=== PATIENT | female | born 2005 | race Caucasian/White ===

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

== ENCOUNTER 2024-07-28 08:30 | Outpatient (RCR) | payer BC, SELFPAY | END 2024-11-25 23:59 | disposition home or self-care (01) | PROVIDERS: Visit Provider Internal Medicine | DX: Q79.62 Hypermobile Ehlers-Danlos syndrome (principal); Q79.60 Ehlers-Danlos syndrome, unspecified; F84.0 Autistic disorder; H53.149 Visual discomfort, unspecified; F90.9 Attention-deficit hyperactivity disorder, unspecified type; G89.29 Other chronic pain; M25.30 Other instability, unspecified joint; Z51.89 Encounter for other specified aftercare | CPT/HCPCS: 97140; 97162; 97165; 97530; 97535 ==

== ENCOUNTER 2024-12-07 19:02 | Outpatient (CLI) | payer BC, SELFPAY ==
[2024-12-07 20:56] LABS: C Reactive Protein* < 0.5 mg/dL (0.5-1.0)
[2024-12-07 22:07] LABS: Erythrocyte SedimentationRate* 6 mm/hr (2-20)
[2024-12-09 05:00] LABS: Complement Component 3 109 mg/dL (90-180); Complement Component 4 16 mg/dL (10-40)
[2024-12-09 05:04] LABS: Rheumatoid Factor <10 IU/mL (0-14)
[2024-12-09 07:10] LABS: CCP Antibody, IgG and IgA 1 Units (0-19)
[2024-12-09 07:49] LABS: Immunoglobulin A 119 mg/dL (68-408); Immunoglobulin G 1062 mg/dL (768-1632); Immunoglobulin M 156 mg/dL (35-263)
[2024-12-09 10:02] LABS: Anti-Nuclear Ab(ANA)IgG ELISA None Detected (None Detected)
[2024-12-09 16:31] LABS: Immunoglobulin E 33 kU/L (<=214)
[2024-12-10 00:54] LABS: ANCA IFA Pattern None Detected (None Detected); ANCA IFA Titer <1:20 (<1:20); Myeloperoxidase (MPO) Ab, IgG 0 AU/mL (0-19); Serine Proteinase 3 Ab IgG 0 AU/mL (0-19)
[2024-12-10 11:22] LABS: Double-Stranded DNA IgG IFA <1:10 (<1:10)
== END 2024-12-07 19:03 | disposition home or self-care (01) ==
PROVIDERS: Visit Provider Internal Medicine
DX: L65.9 Nonscarring hair loss, unspecified (principal); R51.9 Headache, unspecified; M19.90 Unspecified osteoarthritis, unspecified site; D75.89 Other specified diseases of blood and blood-forming organs
CPT/HCPCS: 82784; 82785; 82787; 83036; 83516; 83520; 85651; 86038; 86140; 86160; 86162; 86200; 86235; 86256; 86431; 87385

== ENCOUNTER 2024-12-09 15:01 | Emergency (ER) | payer BC, SELFPAY ==
--- OUTSIDE RECORDS SUMMARY | 2024-12-09 15:03 | XMS_ITS | Encounter Summary ---
Author Organization [facility] Address [address] [place] [address] Care Team Providers Care Supervisor Asbestos Textile Name Role Phone Royal Martins MD Primary Care Provider [phone] Reason for Visit * Reason Comments New Patient Appointment Vocal Cord Dysfu nction Encounter Details Date Type Department Care Team (Late st Contact Info) Description 11/24/2024 1:00 PM PDT Office Visit [facility] [address] [facility] [address] [place] [address] Saravanan Arriaga MD [address] [facility] [address] [place], [place] [id number] LPRD (laryngopharyngeal reflux disease) (Primary Dx); Chronic maxillary sinusitis; POTS (postural orthostatic tachycardia syndrome) Social History Tobacco Use Types Packs/Day Years Used Date Smoking Tobacco: Never Smokeless Tobacco: Never Alcohol Use Standard Drinks/Week Comments Never 0 (1 standard drink = 0.6 oz pur e alcohol) Comments Unknown Sex and Gender Information Value Date Recorded Sex Assigned at Not on file Legal Sex Female 12:30 PM PDT Gender Identity Not on file Sexual Orientation Not on file documented as of this encounter Last Filed Vital Signs Vital Sign Reading Time Taken Comments Blood Pressure 105/72 11/24/2024 12:59 PM PDT Pulse 61 11/24/2024 12:59 PM PDT Temperature - - Respiratory Rate - - Oxygen Saturation 99% 11/24/2024 12:59 PM PDT Inhaled Oxygen Concentration - - Weight 63.5 kg (140 lb) 11/24/2024 12:59 PM PDT Height 171.5 cm (5' 7.5) 11/24/2024 12:59 PM PD T Body Mass Index 21.6 11/24/2024 12:59 PM PDT documented in this encounter Progress Notes * Saravanan Arriaga MD - 11/24/2024 1:00 PM PDT Images from the original note were not included. [facility] Otolaryngology History & Physical Exam Patient Name: Laurie Pulido Date of Service: 11/24/2024 Date of : 2005 Clinic Medical Record: [id number] Primary Care Physician: Royal Martins MD Referring Physician: Royal Martins MD HPI: CC: Chief Complaint Patient presents with New Patient Appointment Vocal Cord Dysfunction Laurie Pulido is a 18 y.o. female with symptoms of disordered breathing of unclear etiology. There is a history of asthma but pulmonary function and symptoms are not consistent with asthma alone. Patient has had an extensive workup with our colleagues in asthma and allergy. PFT data has been inconsi stent. Patient is also undergoing an autonomic workup for what likely is a variant of POTS. 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 Patient was referred to me for a possible evaluation of vocal cord dysfunction or laryngeal spasm. Patient reports that her symptoms of throat tightness can occur both at rest and with activity. This would be a primary argument against true laryngeal spasm which is generally felt to be only experienced at times of activity. Patient has had an extensive workup. One of the possibilities is thyroid disease but patient's thyroid has been fully investigated. Patient's endocrine system has been evaluated. Menstrual cycle is regular. Patient does describe intermittent symptoms of reflux. She has not been tried on reflux medication. She has been thoroughly tested for allergies. She has been thoroughly worked up for asthma. She has also been worked up extensively by the autonomic group at [facility]. She has had a tilt table test which was positive and suggest POTS. It was suggested to the patient that she try propranolol. This would not have been my recommendation. I do think the patient would likely benefit from the use of a mineralocorticoid steroid such as Florinef. Interestingly patient has a family member who has POTS and has been successfully treated with Florinef. Chart Data Reviewed in Detail Today: 08/05/2024 10:26 AM PST US THYROID Clinical Indication: Goiter. Thyroid nodule. Priors: None. Technique: Real-time, small parts ultrasound evaluation of the thyroid gland was performed. Findings: Size right lobe; 4.2 x 1.4 x 1 point cm. Size left lobe; 3.9 x 1.2 x 0.9 cm. Size isthmus; 2.4 mm. Nodule : 1 Size: 4 x 4 by 4 mm. Location:Left midpole. Composition: Solid/almost completely solid (2) Echogenicity: Hypoechoic (2) Shape: Not taller than wide (0) Margins: Smooth (0) Echogenic foci: None (0) ACR TI-RADS total points: 4 ACR TI-RADS risk category: TR 4 (4-6 points) Significant change in size (greater than or equal to 20 percent in 2 dimensions and minimal increase of 2 mm): Not applicable. Change in features: Not applicable. Previous biopsy: no Past Medical History: Diagnosis Date Allergic Asthma Cassie-Danlos syndrome Migraine POTS (postural orthostatic tachycardia syndrome) Past Surgical History: Procedure Laterality Date DENTAL SURGERY Patient Active Problem List Diagnosis Factor V Leiden (HCC) Gastro-esophageal reflux disease with esophagitis Generalized anxiety disorder Social phobia Current Outpatient Medications on File Prior to Visit Medication Sig Dispense Refill aspirin 81 mg chewable tablet Take 81 mg by mouth daily. azelastine 0.15% (ASTEPRO) 205.5 mcg (0.15 %) [place] 205.5 mcg into each nostril 2 (two) times a day. ergocalciferol (VITAMIN D2) 1,250 mcg (50,000 unit) capsule TAKE 1 CAPSULE BY MOUTH EVERY 7 DAYS FOR 8 DOSES erythromycin (ROMYCIN) 0.5 % ophthalmic ointment fluticasone propionate (FLONASE) 50 mcg/actuation nasal spray 2 sprays into each nostril daily. loratadine (CLARITIN) 10 mg tablet Take 10 mg by mouth daily. methylphenidate HCl (RITALIN) 5 MG tablet triamcinolone (KENALOG) 0.1 % ointment Apply topically 2 (two) times a day. 60 g 1 No current facility-administered medications on file prior to visit. No outpatient medications have been marked as taking for the 11/24/24 encounter (Office Visit) with Saravanan Arriaga MD. Medication Allergies: No Known Allergies Social History Tobacco Use Smoking status: Never Smokeless tobacco: Never Substance Use Topics Alcohol use: Never Drug use: Never Family History Problem Relation Age of Onset Allergies Mother Allergies Father Allergies Sister Allergies Brother Review of Systems: Constitutional: Negative for fever, chills, diaphoresis, activity change, appetite change, fatigue and unexpected weight change. HENT: Negative for hearing loss and neck pain. Eyes: Negative for visual disturbance. Respiratory: Reactive airway disease. Notable for history of asthma but reactive airway disease is not entirely consistent with pure asthma Cardiovascular: Negative for chest pain and leg swelling. Gastrointestinal: Negative for nausea, vomiting, abdominal pain, diarrhea, constipation, blood in stool, abdominal distention. Endocrine: Negative for cold intolerance, heat intolerance. Genitourinary: Negative for dysuria, hematuria, difficulty urinating. Musculoskeletal: Negative for difficulty ambulating. Skin: Negative for color change. Allergic/Immunologic: Negative for environmental allergies. Neurological: Negative for dizziness, syncope, speech difficulty, weakness, light-headedness, numbness. Hematological: Does not bruise/bleed easily. Psychiatric/Behavioral:The patient is not nervous/anxious. PHYSICAL EXAM: BP 105/72 Pulse 61 Ht 171.5 cm (5' 7.5) Wt 63.5 kg (140 lb) SpO2 99% BMI 21.60 kg/m?? General appearance: Well- groomed, well nourished. No acute distress. Pleasant. Affect normal Skin: No rash or lesions on exposed skin of head/neck/scalp Head and face: Atraumatic. Normocephalic. No scars or lesions. No edema Facial strength is normal (House-Brackmann I) and symmetric bilaterally. Respiratory: Respirations unlabored. No stridor or stertor. CV: No obvious visible upper or lower extremity edema, digits warm and pink Ears: Bilateral auricles are without erythema, edema, or tenderness. Bilateral mastoids without erythema, tenderness, or edema. Hearing grossly intact. Bilateral tympanic membrane is intact and mobile with middle ear space well-aerated. Eye: Bilateral globes unremarkable without proptosis. Extraocular motion intact bilaterally. Nose: External nose is unremarkable without bony step-offs. Anterior rhinoscopy shows unremarkable nasal passageways with no mucopurulence Nasal Dorsum: Midline. Nasal Mucosa: Normal color. Without lesion. Septum: Without evidence of hematoma or perforation. Inferior Turbinates: [place] and intact. Nasal Polyps: None visualized on anterior rhinoscopy. No drainage anteriorly. Oral Cavity/Oropharynx: No trismus. Buccal Mucosa: No lesions. [place] and moist. Floor of Mouth: Soft, No edema. Tongue: Normal without lesion. Normal mobility. BOT soft and symmetric on palpation. Hard Palate: No lesions. Soft Palate: No lesions. Elevates normally and symmetrically. Uvula midline Tonsillar fossa well healed. Posterior Pharynx: No asymmetry. No lesions. No drainage from above. Gingivobuccal Sulcus: No lesions. Alveolar ridges: normal, no ulcers, lesions, mucosal breakdown or tenderness. Neck: Cervical LN levels I-: No palpable lymphadenopathy or masses. Trachea/Larynx: Midline. Larynx elevates symmetrically, non tender. Thyroid: No thyromegaly or palpable nodules. No tenderness. Submandibular Glands: Symmetric and nontender without palpable lesions bilaterally. Parotid Glands: No edema, tenderness, or mass to palpation bilaterally. Range of Motion: Intact Neuro: gait steady, Cranial nerves II through XII are grossly intact. Voice: clear and strong without hoarseness Fiberoptic Video Assisted High Definition Laryngoscopy: Indications: 1) View of hypopharynx and larynx not achievable trans-orally 2) Head & neck cancer screening Surgeon: SARAVANAN ARRIAGA MD The patient provided verbal and informed consent for the endoscopy procedure. The procedure was thoroughly explained to the patient. The nasal and pharyngeal airway was prepared through topicalization with 4% Xylocaine and oxymetazoline. A high-definition digital flexible endoscope was then connected to the high resolution image processor, and high-definition xenon and narrowband imaging light source. The scope was introduced through the nasal aperture. Nasal cavities, nasopharynx, fossa of [place], posterior pharyngeal wall, supraglottis, glottis, and subglottis were all thoroughly inspected. Attention was turned specifically to the piriform sinuses and valleculae in turn. The following findings were noted: Nasal passageways were clear and clean. There was no significantevidence of sinus disease. There is some mild nasal drip. Hypopharynx and larynx shows significant reflux change. Vocal folds showed normal motion and closure. There is no nodules polyps or lesions. Subglottis was clear. Airway widely patent ASSESSMENT & PLAN: Laurie is a 18 y.o. female with reactive airway disease that is multifactorial. I believe there is likely a component of vagal nerve dysfunction but is more likely related to her POTS. I did not see any evidence to suggest true vocal cord dysfunction or laryngeal spasm. I suspect we are seeing some laryngeal hyperactivity secondary to laryngeal reflux. I believe that the patient is refluxing more than she knows. It is not uncommon that women for silent reflux there is and frequently did not describe the classic symptoms of reflux. I would like to trial the patient on Protonix at 40 mg p.o.every morning. I think we will see significant improvement. We will follow-up for endoscopy 1. LPRD (laryngopharyngeal reflux disease) 2. Chronic maxillary sinusitis 3. POTS (postural orthostatic tachycardia syndrome) Saravanan Arriaga MD, MPH, FACS 11/24/2024 1:36 PM documented in this encounter Plan of Treatment Upcoming Encounters Date Type Department Care Team (Late st Contact Info) Description 02/16/2025 10:00 AM PDT Office Visit [facility] [address] [facility] [address] [place] [address] Saravanan Arriaga MD [address] [facility] [address] [place], [place] [phone] documented as of this encounter Visit Diagnoses Diagnosis LPRD (laryngopharyngeal reflux disease)- Primary Acute laryngitis, without mention of obstruction Chronic maxillary sinusitis POTS (postural orthostatic tachycardia syndrome) Unspecified tachycardia documented in this encounter Care Teams Supervisor Asbestos Textile Relationship Specialty Start Date End Date Royal Martins MD [address] [place] [address] [address] [place] [address] PCP - General Internal Medicine 11/24/24 documented as of this encounter
--- OUTSIDE RECORDS SUMMARY | 2024-12-09 15:03 | XMS_ITS | Clinical Summary ---
Author Organization [facility] Address [address] [facility], [place] [address] [place] [address] Care Team Providers Care Quill Picking Machine Operator Name Role Phone Pcp, No Primary Care Provider Unavailabl e Source Comments These records are disclosed for treatment purposes as permitted by state and federal privacy law. Any further disclosure may only be done as permitted by law or with the patient's written authorization.[facility] Immunizations Name Administration Dates Next Due Pfizer COVID-19 Vaccine (Purple cap)-discontinue d 01/05/2021,2020 Social History Tobacco Use Types Packs/Day Years Used Date Smoking Tobacco: Never Assessed Comments Unknown Sex and Gender Information Value Date Recorded Sex Assigned at Not on file Legal Sex Female 9:22 PM PDT Gender Identity Not on file Sexual Orientation Not on file Plan of Treatment Health Maintenance Due Date Last Done Comments MMR vaccines (1 of 1 - Standard series) 2005 Well Visit 12/16/2007 DTaP / Tdap / Td vaccines (1 - Tdap) 12/16/2011 Varicella vaccines (1 of 2 - 13+ 2-dose series) 2017 HPV vaccines (1 - 3-dose series) 12/16/2019 Hepatitis B vaccines (1 of 3 - 19+ 3-dose series) 12/16/2023 COVID-19 Vaccine (3 - 2023-2 5 season) 2024 01/05/2021, 2020 Influenza Vaccine (#1) 2024 Hepatitis A vaccines Aged Out No long er eligible based on patient's age to complete this topic Hib vaccines Aged Out No longer eligi ble based on patient's age to complete this topic Meningococcal (ACYW) vaccine Aged Out No longer eligible based on patient's age to complete this topic Pneumococcal (PCV) vaccines Aged Out No longer eligible based on patient's age to complete this topic Polio (IPV/OPV) vaccines Aged Out No longer eligible based on patient's age to complete this topic RSV <20 Months Aged Out No longer lavon gible based on patient's age to complete this topic Rotavirus vaccines Aged Out No longer eligible based on patient's age to complete this topic Care Teams Quill Picking Machine Operator Relationship Specialty Start Date End Date Pcp, No [address] [place] [address] PCP - General 12/14/20
--- OUTSIDE RECORDS SUMMARY | 2024-12-09 15:04 | XMS_ITS | Encounter Summary ---
Author Organization [facility] Address [address] [facility] [place] [address] Care Team Providers Care Fruit And Vegetable Factory Worker Name Role Phone Royal Martins MD Primary Care Provider [phone] Reason for Visit * Reason Comments Medication Refill Encounter Details Date Type Department Care Team (Late Contact Info) Description 11/24/2024 Refill [facility] [address] [place] [address] Yemi Arriaga MD [address] [facility] [address] [place], [place] [id number] Social History Tobacco Use Types Packs/Day Years [...] on file documented as of this encounter Plan of Treatment Upcoming Encounters Date Type Department Care Team (Late Contact Info) Description 02/16/2025 10:00 AM PDT Office Visit [facility] [address] [place] [address] Yemi Arriaga MD [address] [facility] [address] [place], [place] [phone] documented as of this encounter Visit Diagnoses Not on filedocumented in this encounter Care Teams Fruit And Vegetable Factory Worker Relationship Specialty Start Date End Date Royal Martins MD [address] [place] [address] [address] [place] [address] PCP - General Internal Medicine 11/24/24 documented as of this encounter
--- OUTSIDE RECORDS SUMMARY | 2024-12-09 15:04 | XMS_ITS | Clinical Summary ---
Author Organization [facility] Address [address] [place] [address] Care Team Providers Care Checker In Name Role Phone Royal Martins MD Primary Care Provider [phone] Allergies No known active allergies Medications loratadine (CLARITIN) 10 mg tablet Take 10 mg by mouth daily. Active aspirin 81 mg chewable tablet Take 81 mg by mouth daily. Active methylphenidat e HCl (RITALIN) 5 MG tablet 04/21/20 22 Active ergocalciferol (VITAMIN D2) 1,250 mcg (50,000 unit) capsule TAKE 1 CAPSULE BY MOUTH EVERY 7 DAYS FOR 8 DOSES 06/28/20 21 Active fluticasone propionate (FLONASE) 50 mcg/actuation nasal spray 2 sprays into each nostril daily. Active triamcinolone (KENALOG) 0.1 % ointment Apply topically 2 (two) times a day. 60 g 1 09/05/19 23 Active erythromycin (ROMYCIN) 0.5 % ophthalmic ointment 11/24/19 23 Active azelastine 0.15% (ASTEPRO) 205.5 mcg (0.15 %) [place] 205.5 mcg into each nostril 2 (two) times a day. Active pantoprazole (PROTONIX) 40 MG tablet TAKE 1 TABLET(40 MG) BY MOUTH DAILY 90 tablet 11/26/19 25 Active pantoprazole (PROTONIX) 40 MG tablet Take 1 tablet (40 mg total) by mouth daily. 30 tablet 2 11/25/19 025 Discontinued Active Problems Problem Noted Date Diagnosed Date Factor V Leiden 08/30/2021 Overview (11/24/2024): Was tested Mother, sister, brother with factor V leiden def Social phobia 05/12/2020 Generalized anxiety disorder 08/06/2019 Overview (11/24/2024): Seeing a therapist, previously seeing a psychiatrist Did a one week intensive course at [facility] in Jul 2020 Tried prozac 20mg for about 2 months, but seemed to cause more problems than helped - caused fatigue, emotional dysregulation Gastro-esophageal reflux disease with esophagiti s 01/04/2005 Encounters Date Type Department Care Team Description 11/24/2024 1:00 PM PDT Office Visit [facility] [address] [place] [address] Yemi Arriaga MD LPRD (laryngopharyngeal reflux disease) (Primary Dx); Chronic maxillary sinusitis; POTS (postural orthostatic tachycardia syndrome) 11/24/2024 Refill [facility] [address] [place] [address] Yemi Arriaga MD from Last 3 Months Family History Medical History Relation Name Comments Allergies Brother Allergies Father Allergies Mother Allergies Sister Relation Name Status Comments Brother Father Mother Sister Social History Tobacco Use Types Packs/Day Years Used Date Smoking Tobacco: Never Smokeless Tobacco: Never Tobacco Cessation:Counseling Given: Not Answered Alcohol Use Standard Drinks/Week Comments Never 0 (1 standard drink = 0.6 oz pur e alcohol) Comments Unknown Sex and Gender Information Value Date Recorded Sex Assigned at Not on file Legal Sex Female 12:30 PM PDT Gender Identity Not on file Sexual Orientation Not on file Last Filed Vital Signs Vital Sign Reading [...] Mass Index 21.6 11/24/2024 12:59 PM PDT Plan of Treatment Upcoming Encounters Date Type Department Care Team (Late st Contact Info) Description 02/16/2025 10:00 AM PDT Office Visit [facility] [address] [place] [address] Yemi Arriaga MD [address] [place] [address] Health Maintenance Due Date Last Done Comments Screening: HIV 2004 Screening: Chlamydia 2020 IMM Meningococcal B (2 of 2 - [place] SCDM 2-dose series) 08/09/2023 02/07/2023 IMM COVID-19 ( season) 2024 06/22/2022, 04/09/2022, 08/28/2021, Additional history exists Screening: Depression 09/02/2024 IMM Influenza (Season Ended) 2025 07/05/2023, 06/22/2022, 07/20/2021, Additional history exists IMM DTAP/TDAP/TD (7 - Td or Tdap) 03/06/2027 03/06/2017, 02/23/2010, 06/17/2006, Additional history exists IMM Hepatitis B Completed 06/21/2005, 12/31, 2004 IMM Pneumococcal Ages 0-49 Aged Out 12/20, 06/21/2005, 04/19/2005, Additional history exists No longer eligible based on patient's age to complete this topic IMM Hepatitis A Completed 01/28/2007, 06/17/2006 IMM Varicella Discontinued 02/23/2010, 12/20/2005 IMM HPV Completed 03/19/2019, 03/06/2017 IMM Meningococcal ACWY Completed 02/12/2022, 2016 IMM RSV Vaccine under 20 MOS Aged Out No longer eligible based on patient's age to complete this topic Insurance Care Teams Checker In Relationship Specialty Start Date End Date Royal Martins MD [address] [place] [address] [address] [place] [address] PCP - General Internal Medicine 11/24/24
--- OUTSIDE RECORDS SUMMARY | 2024-12-09 15:05 | XMS_ITS | Clinical Summary ---
Author Organization [facility] Address [address] [place] [address] Care Team Providers Care Accounts Payable Assistant Name Role Phone Charla Monroe MD Primary Care Provider + Source Comments This information has been disclosed to you from records protected by Federalconfidentiality rules (42 CFR Part 2). The Federal rules prohibit you frommaking any further disclosure of this informationunless further disclosure isexpressly permitted by the written consent of the person to whom it pertains oras otherwise permitted by 42 CFR Part 2. The information released containselements of the medical record deemed pertinent for the care of the patient.[facility] Allergies No known active allergies Medications * This document contains information received from the source organization and may not represent a complete record from that organization. fexofenadine HCl (PHILL PO) take by mouth Act ana calcium phosphate dibas/vit D3 (VITAMIN D (WITH CALCIUM) PO) take by mouth every day Active loratadine (CLARITIN PO) take by mouth Ac tive fluticasone propionate (FLONASE NASAL) by Nasal route Active aspirin 81 mg enteric coated tablet take 81 mg by mouth daily Active rimegepant (NURTEC ODT) 75 mg orally disintegrating tabletIndications: Chronic migraine without aura without status migrainosus, not intractable Take 1 tablet (75 mg total) by mouth daily as needed for Migraine . Place tablet on or under tongue at onset of migraine. Allow to dissolve with saliva then swallow. Use no more than 1 tab in 24 hours. 8 tablet 11 04/03/20 24 Active metoclopramide (Reglan) 10 mg tabletIndications: Chronic migraine without aura without status migrainosus, not intractable,Migrai ne with aura and without status migrainosus, not intractable Take 1 tablet (10 mg total) by mouth daily as needed 60 tablet 2 04/30/20 24 025 Active naratriptan (Amerge) 2.5 mg tabletIndications: Chronic migraine without aura without status migrainosus, not intractable,Migrai ne with aura and without status migrainosus, not intractable Take 2.5 mg by mouth once as needed May repeat after 4 hours. Not to exceed 2 tabs (5mg) in any 24 hour period 10 tablet 11 04/30/20 24 025 Active propranoloL (INDERAL) 10 mg tablet One tab morning and afternoon, as needed, tachycardia 90 tablet 5 08/10/20 24 Active Active Problems Problem Noted Date Diagnosed Date Factor V Leiden 08/30/2021 Overview (08/30/2021): Was tested Mother, sister, brother with factor V leiden def Earache 08/30/2021 Overview (08/30/2021): Bilateral, but happens one at a time No drainage or other symptoms, though pt does have allergies that are controlled with flonase and antihistamine No difficulty hearing No balance issues noted Does not think she grinds her teeth at night Wears earplugs occasionally, daily airpods Assessment & Plan (08/30/2021 1:20 PM PST): Would recommend in person eval to examine ears, observe for obstruction or other issue in ear canal Already on multiple allergy medications, but consider eustachian tube dysfunction Also consider possible TMJ with referred pain Social phobia 05/12/2020 Generalized anxiety disorder 08/06/2019 Overview (08/30/2021): Seeing a therapist, previously seeing a psychiatrist Did a one week intensive course at [facility] in Jul 2020 Tried prozac 20mg for about 2 months, but seemed to cause more problems than helped - caused fatigue, emotional dysregulation Encounters Date Type Department Care Team Description 11/25/2024 9:05 AM PDT - 11/25/2024 11:59 PM PDT Hospital Encounter [facility] MR Imaging [address] [phone] Discharge Disposition: Home/Work (includes foster care) from Last 3 Months Immunizations Name Administration Dates Next Due DTaP (6 wks to 7 yrs) (Infanrix) 010,06/17/2006,06/21/2005,04/19,02/15/2005 Flu vaccine (IIV3) 06/17/2010,07/24/2008 Flu vaccine (IIV3), preservative-free ,06/23/2011,07/05/2007,08/04,07/23/2005,06/21/2005 Flu vaccine (IIV4), preservative-free ,07/04/2020,07/09/2019,06/05,07/19/2016,05/23/2015 Flu vaccine (LAIV4) (FLUMIST) 05/30/2014, 013 HPV, 9-valent (Gardasil 9) 03/19/2019,03/06/2017 Hep A, pediatric/adolescent 01/28/2007, 6 Hep B, pediatric/adolescent 06/21/2005, 5,2004 Hib,unspecified formulation 12/20/2005, 5,02/15/2005 MMR 02/23/2010 MMRV (ProQuad) 12/20/2005 Meningococcal MCV4 conjugate , unspecified formulation 03/06/2017 PPD 04/12/2010 Pfizer (PRE FALL 2022) monov alent COVID-19 vaccine (PURPLE CAP) 08/28/2021 Pneumococcal conjugate (PCV7 ) (Prevnar 7) 12/20/2005,06/21/2005,04/19/2005,02/15 Polio, inactivated (IPV) (Ipol) 02/24/20 10,06/21/2005,04/19/2005,02/15 Tdap (> 7 yrs) 03/06/2017 Varicella (Varivax) 02/23/2010 Family History Medical History Relation Comments Elevated Lipids Father Cancer Maternal Grandmother lung Relation Status Comments Father Maternal Grandmother Social History Tobacco Use Types Packs/Day Years Used Date Smoking Tobacco: Never Smokeless Tobacco: Never Tobacco Cessation:Counseling Given: No Comments No Sex and Gender Information Value Date Recorded Sex Assigned at Not on file Legal Sex Female 11:55 AM PDT Gender Identity Not on file Sexual Orientation Not on file Last Filed Vital Signs Vital Sign Reading Time Taken Comments Blood Pressure 118/73 04/01/2024 8:53 AM PDT Pulse 82 04/01/2024 8:53 AM PDT Temperature - - Respiratory Rate - - Oxygen Saturation 100% 04/01/2024 8:53 AM PDT Inhaled Oxygen Concentration - - Weight 63.5 kg (140 lb) 04/01/2024 8:53 AM PDT Height 174 cm (5' 8.5) 04/01/2024 8:53 AM PDT Body Mass Index 20.98 04/01/2024 8:53 AM PDT Plan of Treatment Upcoming Encounters Date Type Department Care Team (Late st Contact Info) Description 03/25/2025 2:45 PM PDT Telemedicine Neurology 2nd Floor, [facility] [address] [facility], 2nd Floor [place] [phone] Coleman Mo MD [address] [place] [address] [address] [place] [address] Health Maintenance Due Date Last Done Comments HEPATITIS C SCREENING 2004 Hepatitis B Screening Discussion 2004 CHLAMYDIAL INFECTION SCREENING 2016 COVID-19 Vaccine ( season) 2024 06/22/2022, 04/09/2022, 08/28/2021, Additional history exists INFLUENZA VACCINE (Season Ended) 2025 07/05/2023, 06/22/2022, 07/20/2021, Additional history exists DTaP/Tdap/Td Immunizations (7 - Td or Tdap) 03/06/2027 03/06/2017, 02/23/2010, 06/17/2006, Additional history exists Pneumococcal Vaccine Aged Out 12/20/2005, 06/21/2005, 04/19/2005, Additional history exists No longer eligible based on patient's age to complete this topic HPV IMMUNIZATIONS Completed 03/19/2019, 03/06/2017 MCV4 IMMUNIZATIONS Completed 02/12/2022, 0 02/12/2022, 02/12/2022, Additional history exists Procedures Procedure Name Priority Date/Time Associated Diagnosis Comments MR BRAIN WO IV CONTRAST Expedite 11/25/2024 9:45 AM PDT Nonintractable headache, unspecified chronicity pattern, unspecified headache type Syncope, unspecified syncope type Dizziness from Last 3 Months Results * MR Brain wo IV Contrast (11/25/2024 9:45 AM PDT) Anatomical Region Laterality Modality Brain Magnetic Resonan ce 11/25/2024 12:5 8 PM PDT Impressions 11/25/2024 1:01 PM PDT IMPRESSION: 1. Normal brain MRI for age. 2. Scattered mucosal thickening, most prominent in the right greater than left maxillary sinuses, with aerated secretions in the right maxillary sinus. Correlate with symptoms of acute sinusitis. Author: Bhavani Weiss MD Contributing Providers: Attending: Bhavani Weiss MD I have personally reviewed the images for this examination and agree with the report transcribed above. Narrative 11/25/2024 1:01 PM PDT MRI BRAIN WITHOUT CONTRAST: 11/25/2024 9:30 CLINICAL HISTORY: 18 years of age, Female, who presents with indication headache, syncope, dizziness COMPARISON: No similar studies available for comparison at this institution at time of dictation. PROCEDURE COMMENTS: Multiplanar and multisequence MRI of the brain was performed without intravenous contrast at [address]. FINDINGS: Parenchyma: No acute hemorrhage, infarction, or mass. No significant white matter hyperintensities. Ventricles and extra-axial spaces: Appropriate for age. Orbits: No significant visible abnormality. Visualized paranasal sinuses: Scattered mucosal thickening, most prominent in the right greater than left maxillary sinuses, with aerated secretions in the right maxillary sinus. Mastoid air cells: Clear. Bones: No acute osseous abnormality. Additional comment: None. Procedure Note Bhavani Weiss MD - 11/25/2024 MRI BRAIN WITHOUT CONTRAST: 11/25/2024 9:30 CLINICAL HISTORY: 18 years of age, Female, who presents with indicationheadache, syncope, dizziness COMPARISON: No similar studies available for comparison at [facility] at time of dictation. PROCEDURE COMMENTS: Multiplanar and multisequence MRI of the brain wasperformed without intravenous contrast at 3 [place]. FINDINGS: Parenchyma: No acute hemorrhage, infarction, or mass. No significant whitematter hyperintensities. Ventricles and extra-axial spaces: Appropriate for age. Orbits: No significant visible abnormality. Visualized paranasal sinuses: Scattered mucosal thickening, most prominentin the right greater than left maxillary sinuses, with aerated secretionsin the right maxillary sinus. Mastoid air cells: Clear. Bones: No acute osseous abnormality. Additional comment: None. IMPRESSION: 1. Normal brain MRI for age. 2. Scattered mucosal thickening, most prominent in the right greater thanleft maxillary sinuses, with aerated secretions in the right maxillarysinus. Correlate with symptoms of acute sinusitis. Author: Bhavani Weiss MD Contributing Providers: Attending: Bhavani Weiss MD I have personally reviewed the images for this examination and agree with the report transcribed above. us Syd Martins MD IMG MR ORDERABLES Final Result from Last 3 Months Insurance BLUE CARD (OUT OF STATE) - Care Teams Accounts Payable Assistant Relationship Specialty Start Date End Date Charla Monroe MD [address] [place] [address] [address] [place], [place] [address] PCP - General Rheumatology 03/01/22
--- OUTSIDE RECORDS SUMMARY | 2024-12-09 15:05 | XMS_ITS | Clinical Summary ---
Author Organization [facility] Address [address] [place] [address] Care Team Providers Care Picking Belt Operator Name Role Phone Charla Monroe MD Primary Care Provider + Allergies No known active allergies Medications azelastine 205.5 mcg (0.15 %) spray,non-aerosol 205.5 mcg into each nostril. 10/02/19 23 Active methylphenidate HCl (CONCERTA) 36 MG CR tablet Take 1 tablet (36 mg total) by mouth Daily. Active levalbuterol (Xopenex) 1.25 mg/3 mL nebulizer solution Take 3 mL (1.25 mg total) by nebulization every 4 (four) hours as needed for wheezing. 1 each 3 04/02/20 24 Active albuterol-budesoni de (Airsupra) 90-80 mcg/actuation HFA aerosol inhaler Inhale 2 puffs 4 (four) times a day as needed (chest symptoms). 10.7 g 2 04/02/20 24 Active budesonide (Pulmicort) 1 mg/2 mL nebulizer solution Take 1 mL (1 mg total) by nebulization daily. 30 mL 2 04/02/20 24 Active levalbuterol (Xopenex HFA) 45 mcg/actuation inhaler Inhale 2 puffs every 6 (six) hours. Active fluticasone furoate-vilanteroL (Breo Ellipta) 200-25 mcg/dose blister with device Inhale 1 Inhalation daily. Active loratadine (CLARITIN) 10 mg tablet Take 1 tablet (10 mg total) by mouth daily. Active aspirin 81 MG EC tablet Take 1 tablet every day by oral route. Active ergocalciferol, vitamin D2, (VITAMIN D2 ORAL) 04/01/20 22 Active ondansetron ODT (ZOFRAN ODT) 4 MG disintegrating tablet DISSOLVE 1 TABLET ON THE TONGUE EVERY 6 HOURS NEEDED FOR NAUSEA 02/11/20 24 Active Nurtec ODT 75 mg tablet,disintegrat ing Take 75 mg by mouth daily as needed. 04/03/20 24 Active aspirin-acetaminop hen-caffeine (Migraine Relief) 250-250-65 mg per tablet Take 1 tablet by mouth every 6 (six) hours as needed for headache. Active COQ10, LIPOSOMAL UBIQUINOL, ORAL Take by mouth. Active Active Problems No known active problems Social History Tobacco Use Types Packs/Day Years Used Date Smoking Tobacco: Never Smokeless Tobacco: Never Tobacco Cessation:Counseling Given: Not Answered Alcohol Use Standard Drinks/Week Comments Never 0 (1 standard drink = 0.6 oz pur e alcohol) Comments Unknown Sex and Gender Information Value Date Recorded Sex Assigned at Not on file Legal Sex Female 11:12 AM PDT Gender Identity Not on file Sexual Orientation Not on file Last Filed Vital Signs Vital Sign Reading Time Taken Comments Blood Pressure 119/85 04/16/2024 4:13 PM PDT Pulse 90 04/16/2024 4:13 PM PDT Temperature - - Respiratory Rate - - Oxygen Saturation - - Inhaled Oxygen Concentration - - Weight 63.5 kg (140 lb) 04/16/2024 4:13 PM PDT Height 172.7 cm (5' 8) 04/16/2024 4:13 PM PDT Body Mass Index 21.29 04/16/2024 4:13 PM PDT Plan of Treatment Health Maintenance Due Date Last Done Comments Pneumococcal Vaccines <50 yo (1 of 2 - PCV) 12/16/2023 12/20/2005, 06/21/2005, 04/19/2005, Additional history exists COVID-19 Vaccine (6 - 2023-2 5 season) 2024 06/22/2022, 04/09/2022, 08/28/2021, Additional history exists Influenza Vaccine (#1) 2024 , 07/20/2021, 07/09/2019, Additional history exists DTaP, Tdap, and Td Vaccines (7 - Td or Tdap) 03/06/2027 03/06/2017, 02/23/2010, 06/17/2006, Additional history exists Zoster Vaccines (1 of 2) 2054 02/23/2010, 12/02 Hepatitis B Vaccine Completed 06/21/2005, 01/16/2005, 2004 Hib Vaccines Completed 12/20/2005, 04/02, 02/15/2005 Hepatitis A Vaccine Completed 01/28/2007, MMR Vaccine Completed 02/23/2010, 12/20/2005 Varicella Vaccine Completed 02/23/2010, 12/20/2005 HPV Vaccines Completed 03/19/2019, 03/06/2017 Insurance [place] [facility] [place] [facility] Care Teams Picking Belt Operator Relationship Specialty Start Date End Date Charla Monroe MD [address] [place] [phone] PCP - General Rheumatology 03/27/24
--- OUTSIDE RECORDS SUMMARY | 2024-12-09 15:05 | XMS_ITS | Referral Summary ---
Author Organization [facility] Address [address] [place] [address] Care Team Providers Care Clinical Trial Coordinator Name Role Phone Charla Monroe MD Primary [...] deemed pertinent for the care of the patient.[facility] Encounters Date Type Department Care Team Description 11/25/2024 9:05 AM PDT - 11/25/2024 11:59 PM PDT Hospital Encounter [facility] MR Imaging [address] [place] [phone] Discharge Disposition: Home/Work (includes foster care) from Last 3 Months Allergies No known active allergies Medications * [...] Did a one week intensive course at [facility] in Jul 2020 Tried prozac 20mg for about 2 months, but seemed to cause more problems than helped - caused fatigue, emotional dysregulation Immunizations Name Administration Dates Next Due DTaP [...] (> 7 yrs) 03/06/2017 Varicella (Varivax) 02/23/2010 Social History Tobacco Use Types Packs/Day Years [...] 2:45 PM PDT Telemedicine Neurology 2nd Floor, [address], 2nd Floor [place], [place] [id number] Coleman Mo MD [address] [place] [address] [address] [place], [place] [id number] Procedures Procedure Name Priority Date/Time Associated Diagnosis [...] No similar studies available for comparison at [facility] at time of dictation. PROCEDURE COMMENTS: [...] Insurance BLUE CARD (OUT OF STATE) - BS Care Teams Clinical Trial Coordinator Relationship Specialty Start Date End Date Charla Monroe MD [address] [phone] PCP - General Rheumatology 03/01/22
--- OUTSIDE RECORDS SUMMARY | 2024-12-09 15:05 | XMS_ITS | Clinical Summary ---
Author Organization [facility] Address [address] [place] [address] Care Team Providers Care Overhauler Bus Truck Name Role Phone Unavailable Primary Care Provider Unavailabl e Source Comments NOTE: The information displayed is extracted from the complete medical record and may not identify all current or past patient conditions.[facility] Social History Tobacco Use Types Packs/Day Years Used Date Smoking Tobacco: Never Assessed Comments Unknown Sex and Gender Information Value Date Recorded Sex Assigned at Not on file Legal Sex Female 12:00 PM PST Gender Identity Not on file Sexual Orientation Not on file Plan of Treatment Health Maintenance Due Date Last Done Comments HIV Screening 2020 Chlamydia Screening 2022 Staying Healthy Assessment (SHA) 2022 COVID-19 Vaccine ( season) 2024 01/05/2021, 2020 DTaP/ Tdap/Td Vaccines (7 - Td or Tdap) 03/06/2027 03/06/2017, 02/23/2010, 06/17/2006, Additional history exists Pneumococcal Immunizations Aged Out 12/20, 06/21/2005, 04/19/2005, Additional history exists No longer eligible based on patient's age to complete this topic Hepatitis A Vaccines Completed 01/28/2007, 06/17/20 06
--- OUTSIDE RECORDS SUMMARY | 2024-12-09 15:05 | XMS_ITS | Encounter Summary ---
Author Organization [facility] Address [address] [place] [address] Care Team Providers Care Certified Hearing Instrument Dispenser Name Role Phone Charla Monroe MD Primary Care Provider + Reason for Referral * MRI/CAT/PET Scan (Urgent) - Authorized Specialty Diagnoses / Procedures Referred By Contac t Referred To Contact Radiology Diagnoses Nonintractable headache, unspecified chronicity pattern, unspecified headache type Syncope, unspecified syncope type Dizziness Procedures MR Brain wo IV Contrast Syd Martins MD [address] [place] [address] [address] Phone: tel: fax: Referral ID Status Reason Start Date Expiration Date V isits Requested Visits Authorized [id number] Authorized 11/03/2024 01/01/2025 2 2 Reason for Visit * MRI/CAT/PET Scan (Urgent) - Authorized Specialty Diagnoses / Procedures Referred By Contac t Referred To Contact Radiology Diagnoses Nonintractable headache, unspecified chronicity pattern, unspecified headache type Syncope, unspecified syncope type Dizziness Procedures MR Brain wo IV Contrast Syd Martins MD [address] [address] Phone: tel: fax: Referral ID Status Reason Start Date Expiration Date V isits Requested Visits Authorized [id number] Authorized 11/03/2024 01/01/2025 2 2 Encounter Details Date Type Department Care Team (Latest Contact Info) Description 11/25/2024 9:05 AM PDT - 11/25/2024 11:59 PM PDT Hospital Encounter [facility] MR Imaging [address] [place] [phone] Discharge Disposition: Home/Work (includes foster care) Social History Tobacco Use Types Packs/Day Years Used Date Smoking Tobacco: Never Smokeless Tobacco: Never Comments No Sex and Gender Information Value Date Recorded Sex Assigned at Not on file Legal Sex Female 11:55 AM PDT Gender Identity Not on file Sexual Orientation Not on file documented as of this encounter Medications at Time of Discharge aspirin 81 mg enteric coated tablet take 81 mg by mouth daily calcium phosphate dibas/vit D3 (VITAMIN D (WITH CALCIUM) PO) take by mouth every day fexofenadine HCl (PHILL PO) take by mouth fluticasone propionate (FLONASE NASAL) by Nasal route loratadine (CLARITIN PO) take by mouth metoclopramide (Reglan) 10 mg tabletIndications:C hronic migraine without aura without status migrainosus, not intractable,Migrain e with aura and without status migrainosus, not intractable Take 1 tablet (10 mg total) by mouth daily as needed 60 tablet 2 04/30/2024 04/30/20 25 naratriptan (Amerge) 2.5 mg tabletIndications:C hronic migraine without aura without status migrainosus, not intractable,Migrain e with aura and without status migrainosus, not intractable Take 2.5 mg by mouth once as needed May repeat after 4 hours. Not to exceed 2 tabs (5mg) in any 24 hour period 10 tablet 11 04/30/2024 04/30/20 25 propranoloL (INDERAL) 10 mg tablet One tab morning and afternoon, as needed, tachycardia 90 tablet 5 08/10/2024 rimegepant (NURTEC ODT) 75 mg orally disintegrating tabletIndications:C hronic migraine without aura without status migrainosus, not intractable Take 1 tablet (75 mg total) by mouth daily as needed for Migraine . Place tablet on or under tongue at onset of migraine. Allow to dissolve with saliva then swallow. Use no more than 1 tab in 24 hours. 8 tablet 11 04/03/2024 documented as of this encounter Plan of Treatment Upcoming Encounters Date Type Department Care Team (Late st Contact Info) Description 03/25/2025 2:45 PM PDT Telemedicine Neurology 2nd Floor, [facility] [address]nd [place] [address] Coleman Mo MD [address] [facility] [address] [place] [address] documented as of this encounter Procedures Procedure Name Priority Date/Time Associated Diagnosis Comments MR BRAIN WO IV CONTRAST Expedite 11/25/2024 9:45 AM PDT Nonintractable headache, unspecified chronicity pattern, unspecified headache type Syncope, unspecified syncope type Dizziness documented in this encounter Results * MR Brain wo IV Contrast [...] No similar studies available for comparison at [facility] at time of dictation. PROCEDURE COMMENTS: [...] and agree with the report transcribed above. Syd Martins MD IMG MR ORDERABLES Final Result documented in this encounter Visit Diagnoses Diagnosis Nonintractable headache, unspecified chronicity pattern, unspecified headache type Syncope, unspecified syncope type Dizziness Dizziness and giddiness documented in this encounter Additional Health Concerns Assessment Noted Time PHQ-9 Depression Total Score: 13 022 4:32 PM PST PHQ-2 Depression Total Score: 09/08/19 22 4:32 PM PST documented as of this encounter Care Teams Certified Hearing Instrument Dispenser Relationship Specialty Start Date End Date Charla Monroe MD [address] [place] [address] PCP - General Rheumatology 03/01/22 documented as of this encounter
--- OUTSIDE RECORDS SUMMARY | 2024-12-09 15:05 | XMS_ITS | Data Portability ---
Author Organization KAUSHIK MONTES DE [facility] Address [address] [place] [id number] Assessment Encounter Date Assessment Date Assessment LastModified by Organization Details LastModified Time 04/20/2024 04/20/2024 ASSESSMENT AND PLAN: 1. Asthma, asymptomatic, well controlled at present, addressing triggers. She does feel she may have a slight increase in symptoms when she transitions from the [facility] back to [place]. She will be doing this as summer is ending in the next three weeks. I recommend she stay at her current dose of Breo 200 mcg one inhalation daily while she makes the transition. If breathing remains stable and essentially asymptomatic for a month there, then can reduce her Breo to 100 mcg daily. She will continue mouth rinsing after use and maintain access to albuterol both in handheld and nebulized format, noting that she has benefited for the nebulizer when she flares. She has access to both, does not need refills per our discussion. Would maintain access to prednisone, states that she has current supply with her travel medication kit. Contact Dr. Monroe or myself if she has a flare of symptoms and can manage her prednisone dosing if this occurs. 2. Allergies, feels well controlled subjectively now. Some frustration that she cannot transfer her exact dosing of immunotherapy from current [facility] to the one that is in [place]. There was some mention of possibly using pills for oral desensitization against her allergens, current allergy physician expressed skepticism that this is effective. Explained I am aware of this for food allergens, for environmental allergens such as dust mites or pollen. I am not aware that a compounded pill has the efficacy that her shots do. Advised that if the transition back to school precludes the ability to continue her injected immunotherapy, an alternative consideration would be a manufactured antibody injection drug, examples being Dupixent or Nucala, particularly the former has a relatively benign profile and can be done at home once every two weeks. Recommend followup with allergy clinic in [place] when she arrives. If she has flare-up symptoms, we would continue her Breo use, her Levalbuterol as needed; the worse the flare, the more I would use her nebulizer, contact us and we will likely dose prednisone but only under instruction. Continue her Claritin and Astepro in the meantime for symptom control. Denies acid reflux or other modifiable triggers. Regarding possible airway narrowing, she had no strider, no hoarseness on exam. There is no underlying medical condition likely to suggest vocal cord dysfunction or subglottic stenosis and her spirometry result did not appear compelling for this diagnosis, noting she is also asymptomatic. During an asthma flare, it is possible for the patients to experience a sense of unsatisfying inhalation even though the fundamental problem exhalation; however, this does not equate to subglottic stenosis or vocal cord dysfunction. Reassurance provided. MD MD Parth Mcghee AN/ip/hg anamath Not available 06/22/2024 11:49:10 Plan of Treatment Reminders Order Date Submit Date Provider Last Modified By Organization Details Last Modified Time Details Appointments Birthday reminder 2024 07:00A M Parth Christie Staff Not available Not available Not available CPX- 3 hr 2024 09:00A M Charla Monroe MD Not available Not available Not available Lab None recorded. Referral None recorded. Procedures None recorded. Surgeries None recorded. Imaging None recorded. Medication Orders None recorded. Patient TargetsNo targets recorded. Patient InstructionsNo instructions recorded. Reason for Referral None Reported. Results Created Date Observation Date Name Description Value Unit Range Abnormal Flag Note LastModifiedBy Organization Detail LastModifiedTime 02/11/20 24 02/14/2024 MONON UCLEO SIS TEST, QUAL mononucleosi s test, qual Negati ve negati ve The sensi tivit y of Heter ophil e antib darlene testi ng is 80-90 %. Epste in Nolan IgM testi ng offer s highe r sensi tivit y. Not Available [employer] [place], [address] 09/14/2024 21:29:14 06/11/20 24 02/13/2024 MAGNE SIUM magnesium 2.0 mg/dL 1.6-2. 3 normal Not Available [facility] [place], [address] 09/14/2024 21:29:14 02/11/20 24 02/13/2024 TSH W/REF DOMITILA TSH 2.060 uIU/m L 0.450- 4.500 normal Not Available [facility] [place] [place], [address] 09/14/2024 21:29:13 02/11/20 24 02/13/2024 VITAM IN D, 25-HY DROXY vitamin D, 25-hydroxy 35.1 NG/mL 30.0-1 00.0 Vitam in D defic iency has been defin ed by the Insti tute of [facility] and an Endoc rine Socie ty pract ice guide line as a level of serum 25-OH vitam in D less than 20 ng/mL (1,2) . The Endoc rine Socie ty went on to furth er defin e vitam in D insuf ficie ncy as a level betwe en 21 and 29 ng/mL (2). 1. IOM (Inst itute of Medic ine). 2010. Dieta ry refer ence intak es for calci um and D. Bakari gardner [place]: [facility] . 2. Vee waite [place], Flaca yoo [place], Phani off-F lynn i OLIVEROS, et al. Evalu ation , treat ment, and preve ntion of vitam in D defic iency : an Endoc rine Socie ty clini ronak pract ice guide line. JCEM. 2010; 96(7) :1911 -30. Not Available [facility] [place] [place], [address] 09/14/2024 21:29:13 02/11/20 24 02/13/2024 HEMOG LOBIN A1C hemoglobin A1C 5.1 % 4.8-5. 6 normal Predi abete s: 5.7 - 6.4 Diabe alex: >6.4 Glyce rae contr ol for adult s with diabe alex: <7.0 Not Available [facility] [place], [address] 09/14/2024 21:29:12 02/11/20 24 02/13/2024 COMP. METAB OLIC PANEL (14) glucose 84 mg/dL 70-99 normal Not Available [facility] [place], [facility] 09/14/2024 21:29:12 02/11/20 24 02/13/2024 COMP. METAB OLIC PANEL (14) BUN 18 mg/dL 6-20 normal Not Available [facility] [place], [facility] 09/14/2024 21:29:12 02/11/20 24 02/13/2024 COMP. METAB OLIC PANEL (14) creatinine 0.77 mg/dL 0.57-1 .00 normal Not Available [facility] [place], [facility] 09/14/2024 21:29:12 02/11/20 24 02/13/2024 COMP. METAB OLIC PANEL (14) eGFR 114 mL/mi n/1.7 3 >59 normal Not Available [place], [place], [facility] 09/14/2024 21:29:12 02/11/20 24 02/13/2024 COMP. METAB OLIC PANEL (14) BUN/creatini ne ratio 23 9-23 normal Not Available [facility] [place], [facility] 09/14/2024 21:29:12 02/11/20 24 02/13/2024 COMP. METAB OLIC PANEL (14) sodium 140 mmol/ L 134-14 4 normal Not Available [place], [facility] 09/14/2024 21:29:12 02/11/20 24 02/13/2024 COMP. METAB OLIC PANEL (14) potassium 4.1 mmol/ L 3.5-5. 2 normal Not Available [facility] [place] 09/14/2024 21:29:12 02/11/20 24 02/13/2024 COMP. METAB OLIC PANEL (14) chloride 103 mmol/ L 96-106 normal Not Available [facility] [place] 09/14/2024 21:29:12 02/11/20 24 02/13/2024 COMP. METAB OLIC PANEL (14) carbon dioxide, total 24 mmol/ L 20-29 [place], [address] 09/14/2024 21:29:12 02/11/20 24 02/13/2024 COMP. METAB OLIC PANEL (14) calcium 9.8 mg/dL 8.7-10 .2 [place], [address] 09/14/2024 21:29:12 02/11/20 24 02/13/2024 COMP. METAB OLIC PANEL (14) protein, total 7.3 g/dL 6.0-8. 5 normal Not Available [place], [facility] 09/14/2024 21:29:12 02/11/20 24 02/13/2024 COMP. METAB OLIC PANEL (14) albumin 4.7 g/dL 4.0-5. 0 normal Not Available [place], [facility] 09/14/2024 21:29:12 02/11/20 24 02/13/2024 COMP. METAB OLIC PANEL (14) globulin, total 2.6 g/dL 1.5-4. 5 Not Available [place], [facility] 09/14/2024 21:29:12 02/11/20 24 02/13/2024 COMP. METAB OLIC PANEL (14) A/G ratio 1.8 Not Available [place], [facility] 09/14/2024 21:29:12 02/11/20 24 02/13/2024 COMP. METAB OLIC PANEL (14) bilirubin, total 0.6 mg/dL 0.0-1. 2 normal Not Available [place], [facility] 09/14/2024 21:29:12 02/11/20 24 02/13/2024 COMP. METAB OLIC PANEL (14) alkaline phosphatase 73 IU/L 42-106 normal Not Available [place], [facility] 09/14/2024 21:29:12 02/11/20 24 02/13/2024 COMP. METAB OLIC PANEL (14) AST (SGOT) 15 IU/L 0-40 normal Not Available [place], [facility] 09/14/2024 21:29:12 02/11/20 24 02/13/2024 COMP. METAB OLIC PANEL (14) ALT (SGPT) 21 IU/L 0-32 normal Not Available [facility] [place] 09/14/2024 21:29:12 02/11/20 24 02/13/2024 CBC WITH DIFFE RENTI AL/PL ATELE T WBC 8.1 x10e3 /uL 3.4-10 .8 normal Not Available [facility] [place] 09/14/2024 21:29:11 02/11/20 24 02/13/2024 CBC WITH DIFFE RENTI AL/PL ATELE T RBC 4.54 x10e6 /uL 3.77-5 .28 normal Not Available [facility] [place] 09/14/2024 21:29:11 02/11/20 24 02/13/2024 CBC WITH DIFFE RENTI AL/PL ATELE T hemoglobin 14.4 g/dL 11.1-1 5.9 normal Not Available [facility] [place] 09/14/2024 21:29:11 02/11/20 24 02/13/2024 CBC WITH DIFFE RENTI AL/PL ATELE T hematocrit 44.7 % 34.0-4 6.6 normal Not Available [facility] [place] 09/14/2024 21:29:11 02/11/20 24 02/13/2024 CBC WITH DIFFE RENTI AL/PL ATELE T MCV 99 fL 79-97 high Not Available [facility] [place], [facility] 09/14/2024 21:29:11 02/11/20 24 02/13/2024 CBC WITH DIFFE RENTI AL/PL ATELE T MCH 31.7 pg 26.6-3 3.0 normal Not Available [facility] [place], [address] 09/14/2024 21:29:11 02/11/20 24 02/13/2024 CBC WITH DIFFE RENTI AL/PL ATELE T MCHC 32.2 g/dL 31.5-3 5.7 normal Not Available [facility] [place], [address] 09/14/2024 21:29:11 02/11/20 24 02/13/2024 CBC WITH DIFFE RENTI AL/PL ATELE T RDW 11.2 % 11.7-1 5.4 [place], [address] 09/14/2024 21:29:11 02/11/20 24 02/13/2024 CBC WITH DIFFE RENTI AL/PL ATELE T platelets 222 x10e3 /uL 150-45 0 [place], [address] 09/14/2024 21:29:11 02/11/20 24 02/13/2024 CBC WITH DIFFE RENTI AL/PL ATELE T neutrophils 53 % not estab. [place], [address] 09/14/2024 21:29:11 02/11/20 24 02/13/2024 CBC WITH DIFFE RENTI AL/PL ATELE T lymphs 38 % not estab. [place], [address] 09/14/2024 21:29:11 02/11/20 24 02/13/2024 CBC WITH DIFFE RENTI AL/PL ATELE T monocytes 7 % not estab. [place], [address] 09/14/2024 21:29:11 02/11/20 24 02/13/2024 CBC WITH DIFFE RENTI AL/PL ATELE T eos 1 % not estab. [place], [address] 09/14/2024 21:29:11 02/11/20 24 02/13/2024 CBC WITH DIFFE RENTI AL/PL ATELE T basos 1 % not estab. [place], [address] 09/14/2024 21:29:11 02/11/20 24 02/13/2024 CBC WITH DIFFE RENTI AL/PL ATELE T immature cells [employer] [place], [address] 09/14/2024 21:29:11 02/11/20 24 02/13/2024 CBC WITH DIFFE RENTI AL/PL ATELE T neutrophils (absolute) 4.3 x10e3 /uL 1.4-7. 0 normal Not Available [facility] [place] [place], [address] 09/14/2024 21:29:11 02/11/20 24 02/13/2024 CBC WITH DIFFE RENTI AL/PL ATELE T lymphs (absolute) 3.1 x10e3 /uL 0.7-3. 1 normal Not Available [facility] [place], [facility] 09/14/2024 21:29:11 02/11/20 24 02/13/2024 CBC WITH DIFFE RENTI AL/PL ATELE T monocytes(ab solute) 0.6 x10e3 /uL 0.1-0. 9 normal Not Available [facility] [place], [facility] 09/14/2024 21:29:11 02/11/20 24 02/13/2024 CBC WITH DIFFE RENTI AL/PL ATELE T eos (absolute) 0.1 x10e3 /uL 0.0-0. 4 normal Not Available [facility] [place], [facility] 09/14/2024 21:29:11 02/11/20 24 02/13/2024 CBC WITH DIFFE RENTI AL/PL ATELE T baso (absolute) 0.0 x10e3 /uL 0.0-0. 2 normal Not Available [facility] [place], [facility] 09/14/2024 21:29:11 02/11/20 24 02/13/2024 CBC WITH DIFFE RENTI AL/PL ATELE T immature granulocytes 0 % not estab. Not Available [facility] [place] [place], [address] 09/14/2024 21:29:11 02/11/20 24 02/13/2024 CBC WITH DIFFE RENTI AL/PL ATELE T immature grans (abs) 0.0 x10e3 /uL 0.0-0. 1 Not Available [facility] [place] [place], [address] 09/14/2024 21:29:11 02/11/20 24 02/13/2024 CBC WITH DIFFE RENTI AL/PL ATELE T NRBC [employer] Not Available [facility] [place], [address] 09/14/2024 21:29:11 02/11/20 24 02/13/2024 CBC WITH DIFFE RENTI AL/PL ATELE T hematology comments: [employer] Not Available [place] [place], [address] 09/14/2024 21:29:11 05/14/20 24 02/11/2024 audio gram No observ ation record ed. [email or web address] Not Available 06/2024 11:57:51 05/14/20 24 02/01/2022 audio gram No observ ation record ed. [email or web address] Not Available 06/2024 13:02:06 05/14/20 24 03/27/2023 sherrell metry testi ng* No observ ation record ed. Not Available 06/2024 12:00:50 05/14/20 24 11/30/2023 CT, angio gram, chest , w/ contr ast No observ ation record ed. [email or web address] Not Available 06/2024 12:00:04 05/14/20 24 01/31/2023 body compo sitio n [place] sis (PROC ) No observ ation record ed. Not Available 06/2024 13:09:14 05/14/20 24 02/11/2024 sherrell metry testi ng* No observ ation record ed. [email or web address] Not Available 06/2024 11:56:32 05/14/20 24 02/11/2024 body compo sitio n [place] sis (PROC ) No observ ation record ed. [email or web address] Not Available 06/2024 11:56:57 05/14/20 24 02/11/2024 elect rocar diogr am No observ ation record ed. [email or web address] Not Available 06/2024 11:57:19 08/11/20 auton omic funct ion testi ng (PROC ) No observ ation record ed. [email or web address] Not Available 08/02 13:54:27 08/18/20 24 08/05/2024 US, thyro id No observ ation record ed. Not Available 08/02 13:35:30 10/02/19 25 08/21/2024 US, echoc ardio gram, trans thora cic, bubbl e study No observ ation record ed. [email or web address] Not Available 10/2024 14:44:20 11/27/19 25 MRI, brain , w/o contr ast No observ ation record ed. [email or web address] Not Available 11/01 18:06:20 Result Notes None recorded. Procedures Surgical History Date Name Laterality Status Provider Name and Address Organization Details Recorded Time extraction of wisdom tooth completed Jefe FAULKNER 04/29/2024 22:15:27 Imaging Results Imaging Date Name Status LastModified by Organization Details LastModified Time 02/11/2024 audiogram completed [email or web address] Information not available 08/11/2024 11:57:51 02/01/2022 audiogram completed [email or web address] Information not available 08/11/2024 13:02:06 03/27/2023 spirometry testing* completed [email or web address] Inf ormation not available 08/11/2024 12:00:50 11/30/2023 CT, angiogram, chest, w/ contrast completed [email or web address] Information not available 08/11/2024 12:00:04 01/31/2023 body composition analysis (PROC) completed [email or web address] Information not available 08/11/2024 13:09:14 02/11/2024 spirometry testing* completed [email or web address] Inf ormation not available 08/11/2024 11:56:32 02/11/2024 body composition analysis (PROC) completed [email or web address] Information not available 08/11/2024 11:56:57 02/11/2024 electrocardiogram completed [email or web address] Infor mation not available 08/11/2024 11:57:19 08/11/2024 autonomic function testing (PROC) completed [email or web address] Information not available 08/11/2024 13:54:27 08/05/2024 US, thyroid completed Information not available 08/20/2024 13:35:30 08/21/2024 US, echocardiogram, transthoracic, bubble study completed [email or web address] Information not available 10/05/2024 14:44:20 11/26/2024 MRI, brain, w/o contrast completed Information not available 11/27/2024 18:06:20 Procedure Notes None recorded. Medical Equipment None Reported. Allergies No known drug allergies Medications Name Sig Start Date Stop Date Status Note LastModified by Organization Details LastModified Time sm digital thermome mis mcke USE DIRECTED active Not Available Not Available No t Available comp-air nebulizer INHALE 1 VIAL DIRECTED EVERY FOUR TO SIX HOURS NEEDED FOR ASTHMA active Not Available Not Available No t Available celecoxib 200 mg capsule TAKE 1 CAPSULE BY MOUTH DAILY NEEDED active Not Available Not Available No t Available neomycin-po lymyxin-hyd rocort 3.5 mg/mL-10,00 0 unit/mL-1 % ear solution INSTILL 3 TO 4 DROPS TO AFFECTED EAR(S) 3 TIMES DAILY WITH COTTON PLUG active Not Available Not Available No t Available prednisone 10 mg tablet TAKE 6 TABLETS BY MOUTH DAILY active Not Available Not Available No t Available albuterol sulfate 2.5 mg/3 mL (0.083 %) solution for nebulizatio n INHALE 1 VIAL USING NEBULIZER EVERY FOUR TO SIX HOURS WHILE AWAKE NEEDED NEEDED FOR ASTHMA FLARE active Not Available Not Available No t Available cetirizine 10 mg tablet TAKE ONE TABLET BY MOUTH DAILY NEEDED active Not Available Not Available No t Available azithromyci n 250 mg tablet TAKE DIRECTED active Not Available Not Available No t Available fluconazole 150 mg tablet TAKE ONE TABLET BY MOUTH active Not Available Not Available No t Available prednisone 20 mg tablet TAKE DIRECTED active Not Available Not Available No t Available rizatriptan 10 mg tablet active Not Available Not Available Not Available loperamide 2 mg tablet TAKE ONE TABLET BY MOUTH EVERY FOUR HOURS NEEDED active Not Available Not Available No t Available sumatriptan 50 mg tablet TAKE 1 TABLET BY MOUTH ONCE A DAY MAY REPEAT ONE DOSE AFTER TWO HOURS IF NO BENEFIT active Not Available Not Available No t Available acetaminoph en 300 mg-codeine 30 mg tablet TAKE ONE TABLET BY MOUTH EVERY 6 HOURS NEEDED FOR PAIN active Not Available Not Available No t Available triamcinolo ne acetonide 0.1 % topical cream APPLY TO AFFECTED AREA(S) TWICE DAILY NEEDED active Not Available Not Available No t Available propranolol 10 mg tablet active Not Available Not Available Not Available dexamethaso ne 1 mg tablet TAKE 1 TABLET BY MOUTH AT 11 PM active Not Available Not Available No t Available tobramycin 0.3 % eye drops INSTILL 2 DROPS TO AFFECTED EYE(S) EVERY 6 HOURS active Not Available Not Available No t Available mupirocin 2 % topical ointment APPLY TO AFFECTED AREA(S) 2 TO 4 TIMES PER DAY active Not Available Not Available No t Available ergocalcife rol (vitamin D2) 1,250 mcg (50,000 unit) capsule Take by oral route as directed. active Not Available Not Available No t Available levalbutero l 1.25 mg/3 mL solution for nebulizatio n active Not Available Not Available Not Available methylpredn isolone 4 mg tablets in a dose pack TAKE BY MOUTH PER PACKAGE DIRECTION S active Not Available Not Available No t Available albuterol sulfate HFA 90 mcg/actuati on aerosol inhaler INHALE 1 PUFF BY MOUTH EVERY 4 HOURS NEEDED FOR BREATHLES SNESS/WHE EZING OR 15 MINUTES BEFORE EXERCISE active Not Available Not Available No t Available ondansetron 4 mg disintegrat ing tablet DISSOLVE 1 TABLET ON THE TONGUE EVERY 6 HOURS NEEDED FOR NAUSEA active Not Available Not Available No t Available cefdinir 300 mg capsule TAKE ONE CAPSULE BY MOUTH EVERY TWELVE HOURS active Not Available Not Available No t Available naratriptan 2.5 mg tablet TAKE 1 TABLET BY MOUTH 1 TIME NEEDED. MAY REPEAT AFTER 4 HOURS. NOT TO EXCEED 2 TABLET 5 MG IN ANY 24 HOUR PERIOD active Not Available Not Available No t Available doxycycline hyclate 100 mg tablet TAKE ONE TABLET BY MOUTH TWICE DAILY active Not Available Not Available No t Available naproxen 500 mg tablet TAKE ONE TABLET BY MOUTH TWICE DAILY active Not Available Not Available No t Available methylpheni date ER 36 mg tablet,exte nded release 24 hr TAKE 1 TABLET BY MOUTH DAILY active Not Available Not Available No t Available metoclopram clint 10 mg tablet active Not Available Not Available Not Available ciclopirox 0.77 % topical cream APPLY TO AFFECTED AREA(S) TWICE DAILY NEEDED active Not Available Not Available No t Available levalbutero l HFA 45 mcg/actuati on aerosol inhaler INHALE 2 PUFFS DIRECTED EVERY FOUR HOURS NEEDED FOR ASTHMA SYMPTOMS, REPLACES REGULAR ALBUTEROL active Not Available Not Available No t Available budesonide 1 mg/2 mL suspension for nebulizatio n active Not Available Not Available Not Available Breo Ellipta 100 mcg-25 mcg/dose powder for inhalation INHALE 1 PUFF BY MOUTH EVERY DAY DIRECTED. RINSE MOUTH AFTER USE 07/14 completed Not Available Not Available Not Available Breo Ellipta 200 mcg-25 mcg/dose powder for inhalation Inhale 1 puff every day by inhalatio n route. active Not Available Not Available No t Available Nurtec ODT 75 mg disintegrat ing tablet DISSOLVE ONE TABLET BY MOUTH EVERY OTHER DAY active Not Available Not Available No t Available Flowflex COVID-19 Antigen Home Test kit Use as directed active Not Available Not Available No t Available Paxlovid 300 mg (150 mg x 2)-100 mg tablets in a dose pack active Not Available Not Available Not Available Airsupra 90 mcg-80 mcg/actuati on HFA aerosol inhaler INHALE 2 PUFFS BY MOUTH FOUR TIMES DAILY NEEDED FOR CHEST SYMPTOMS active Not Available Not Available No t Available Vitals None Recorded Social History None recorded. Functional Status None recorded. Mental Status None recorded. Family History Nothing Reported. Medical History No medical history recorded. Gynecological HistoryNo gynecological history recorded. Obstetrics History GPAL:G 0 P 0 0 0 0 Immunizations Vaccine Type Date Status Note Provider Nam e and Address Organization Details Recorded Time DTaP, unspecified formulation 6 completed JOSUE Wright 04/29/2024 22:17:27 DTaP, unspecified formulation 5 completed JOSUE Wright 04/29/2024 22:17:30 DTaP, unspecified formulation 5 completed Jefe JOSUE Fitzgerald 04/29/2024 22:17:34 DTaP, unspecified formulation 5 completed JOSUE Wright 04/29/2024 22:17:38 DTaP 0 completed JOSUE Wright 04/29/2024 22:18:01 Hep A, ped/adol, 2 dose 7 completed JOSUE Wright 04/29/2024 22:18:48 Hep A, pediatric, unspecified formulation 6 completed Jefe Pereyra null, [place] [id number] 04/29/2024 22:18:58 Hep B, unspecified formulation 5 completed Jefe Pereyra null, [place] [id number] 04/29/2024 22:19:10 Hep B, unspecified formulation 5 completed Jefe Pereyra null, [place] [id number] 04/29/2024 22:19:14 Hep B, unspecified formulation 5 completed Jefe Pereyra null, [place] [id number] 04/29/2024 22:19:18 Hib, unspecified formulation 5 completed Jefe Pereyra null, [place] [id number] 04/29/2024 22:19:28 Hib, unspecified formulation 5 completed Jefe Pereyra null, [place] [id number] 04/29/2024 22:19:32 Hib, unspecified formulation 6 completed Jefe Pereyra null, [place] [id number] 04/29/2024 22:19:36 meningococcal MCV4, unspecified formulation 7 completed Gerda Freeman null, [place] [id number] 07/06/2024 14:45:16 meningococcal ACWY, unspecified formulation 2 completed Jefe Pereyra null, [place] [id number] 04/29/2024 22:20:33 meningococcal B, unspecified 3 completed Jefe Pereyra null, [place] [id number] 04/29/2024 22:20:44 MMR 0 completed Jefe Pereyra null, [facility] 04/29/2024 22:20:56 MMRV 6 completed Jefe Pereyra null, [facility] 04/29/2024 22:21:11 polio, unspecified formulation 5 completed Jefe Pereyra null, [facility] 04/29/2024 22:21:22 polio, unspecified formulation 5 completed Jefe Pereyra null, [facility] MD2 04/29/2024 22:21:28 polio, unspecified formulation 5 completed Jefe Pereyra null, [place] [id number] 04/29/2024 22:21:31 IPV 0 completed Jefe Pereyra null, [place] [id number] 04/29/2024 22:21:42 pneumococcal conjugate PCV 7 6 completed Jefe Pereyra null, [place] [address] 04/29/2024 22:21:51 pneumococcal conjugate PCV 7 5 completed Jefe Pereyra null, [place] [id number] 04/29/2024 22:21:56 pneumococcal conjugate PCV 7 5 completed Jefe Pereyra null, [place] [id number] 04/29/2024 22:21:59 pneumococcal conjugate PCV 7 5 completed Jefe Pereyra null, [place] [address] 04/29/2024 22:22:02 Tdap 7 completed Gerda Freeman null, [place] [address] 07/06/2024 14:45:16 varicella 0 completed Jefe Pereyra null, [place] [id number] 04/29/2024 22:22:20 meningococcal B, recombinant 3 completed Gerda Freeman null, [place] [address] 07/06/2024 14:45:16 HPV9 7 completed Gerda Freeman null, [place] [address] 07/06/2024 14:45:16 HPV9 9 completed Gerda Freeman null, [place] [address] 07/06/2024 14:45:16 COVID-19, mRNA, LNP-S, PF, 100 mcg/0.5mL dose or 50 mcg/0.25mL dose 2 completed Gerda Freeman null, [place] [address] 07/06/2024 14:45:16 COVID-19, mRNA, LNP-S, PF, 30 mcg/0.3 mL dose 1 completed Gerda Freeman null, [place] [address] 07/06/2024 14:45:16 COVID-19, mRNA, LNP-S, PF, 30 mcg/0.3 mL dose 1 completed Gerda Freeman null, [place] [address] 07/06/2024 14:45:16 COVID-19, mRNA, LNP-S, PF, 30 mcg/0.3 mL dose 1 completed Gerda Freeman null, [place] [address] 07/06/2024 14:45:16 COVID-19, mRNA, LNP-S, bivalent, PF, 30 mcg/0.3 mL dose 2 completed Gerda Freeman null, [place] [address] 07/06/2024 14:45:16 influenza, unspecified formulation 5 completed Gerda Freeman null, [place] [address] 07/06/2024 14:45:16 Hep A, ped/adol, 2 dose 6 completed Gerda Freeman null, [place] [address] 07/06/2024 14:45:16 meningococcal MCV4P 2 completed Gerda Freeman null, [place] [address] 07/06/2024 14:45:16 Influenza, split virus, quadrivalent, PF 7 completed Gerda Freeman null, [place] [address] 07/06/2024 14:45:16 Influenza, split virus, quadrivalent, PF 2 completed Gerda Freeman null, [place] [address] 07/06/2024 14:45:16 Influenza, split virus, quadrivalent, PF 9 completed Gerda Freeman null, [place] [address] 07/06/2024 14:45:16 Influenza, split virus, quadrivalent, PF 6 completed Gerda Freeman null, [place] [address] 07/06/2024 14:45:16 Influenza, split virus, quadrivalent, PF 1 completed Gerda Freeman null, [place] [address] 07/06/2024 14:45:16 Past Encounters Encounter ID Performer Location Encounter Start Date Encounter Closed Date Diagnosis/Indication Diagnosis SNOMED-CT Code Diagnosis ICD10 Code Diagnosis Note [id number] MD KAUSHIK Mcghee [place] [address] [address] 06/16/2024 22:47:13 06/22/2024 12:26:46 [id number] Joaquin Ochoa MD MD2 [place] [address] [place] [address] 06/18/2024 15:18:40 06/22/2024 11:49:14 Health Concerns Section Related Observation LastModified by Organization Detai ls LastModified Time None Recorded Concern Status LastModified by Organization Details LastModified Time None Recorded Advance Directives Directive None Recorded Payers Encounter Date Sequence Insurance Name Policy Number Policy Walter Covered Member ID Walter Member ID Guarantor Name 12/03/2023 1 [place] [id number] Laurie Pulido [id number] Ramirez Pulido 04/20/2024 1 [place] [id number] Lauriehuang Pulido [id number] Ramirez Pulido Notes Date Note Type Note Provider Name and Address Organization Details Recorded Time 12/03/2023 text/html Dr. Joaquin Ochoa MD[address] [place] [address], [address], [place], [place] [address]RQK [phone] FAX [phone] of Service: 12/03/2023atient Name: Laurie PulidoDate of : 2005 IDENTIFICATION: I spoke with Laurie Pulido regarding her asthma. 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 Flare occurred over this last weekend. CT angiogram negative noting Factor V Leiden heterozygous and family history of thrombosis. Given steroid taper, states she is down to her last day prednisone dose reportedly 20 mg, peak dose was 40 mg. She remains on Breo 100 mcg one inhalation daily and albuterol. She is using her handheld albuterol every four hours. Notes that she is short of breath by the third hour and using it again. She has environmental allergies and is undergoing desensitization injections there in [place]. Did have shots earlier this week despite her flare. She is using systemic antihistamine, Cherrie versus Zyrtec, and Astepro nasal spray, previously using Flonase. She denies fever. No sinus pain or pressure. Predominant symptoms are breathlessness and wheeze. Can have slight cough at times. Not producing sputum. Denies acid reflux. Other than seasonal change with spring, no other acute changes in her environment. No known sick contacts, but is in college setting with close contacts in her classroom. Does not smoke. On the phone, she is speaking comfortably in full sentences while she is walking. No audible wheeze. No audible cough. Seems appropriate and comfortable, although she reports feeling slightly short of breath with her activities. On balance, she is slightly improved since the weekend.Allergy flare triggered in part by seasonal allergies and cannot exclude viral trigger, but does not feel sick in the sense of infection and has been afebrile. Given she is still needing albuterol every several hours and is symptomatic in between doses and is tapering off of steroids in the next 24 hours, I am prescribing a fresh taper for the initial day at least prednisone peak dose of 60 mg for at least one day and see if there is substantial improvement, can be continued the second day, then anticipate taper of 40 mg for two days, 20 mg for two days, and additional days at 10 mg depending on improvement rate of symptoms. Increasing Breo to 200 mcg per inhalation once daily, continue her combination of antihistamine and nasal spray, and I sent prescription to local pharmacy for nebulizer machine, tubing, and mouthpiece as well as boxes of albuterol vials, should be keeping her albuterol inhaler on her purse when she is away from her residence. At her residence, she can use the nebulizer for albuterol and note if there is any benefit in that format compared to the handheld inhaler. I spoke with her pharmacy to verify they have nebulizer there for her and sent a prescription, although she may purchase it [id number]. Estimated cost is approximately $38. They did not have a peak flow meter available, but recommend obtaining one for monitoring flows at her residence, can combine numbers, comparing baseline versus flare to gauge severity in the future and may provide useful information regarding allergy shots. If she recovers from this, which I expect, and breathing returns to normal, she may taper downward from 200 mcg to 100 mcg in her Breo, albuterol usage can decrease in frequency as tolerated. If she is having difficulty controlling allergy symptoms, asthma symptoms in general after her flare, another option is the addition of Singulair. Counseled her on side effects of steroid pulse. She does have a history of anxiety, but tolerated this weekend dosage well. For documentation, I am requesting a copy of her recent CT angiogram for our records. As flare subsides, consider formal spirometry check there in [place]. Prior labs reviewed. No IgE reported. No eosinophilia on prior blood cell counts. Regarding modifiable triggers, no pets in her residence. No significant second-hand smoke exposure. 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 She will call me if she has any further flare and symptoms. I would like to contact her in the next two days to verify she is making more progress.ALEKSANDRA Mcghee [facility] [place]/sabrina/rachel Ochoa MD null, [place] - MD2 06/22/2024 12:26:46 04/20/2024 text/html Dr. Joaquin Ochoa MD[address] [place] [address], [address], [place] [address]PS[address] [phone] FAX [phone] of Service: 4Patient Name: Laurie Rothte of : 2005Visit Type: Consult FollowupIDENTIFICATIO N: I saw Svitlana Pulido for followup regarding her asthma and allergies. Routine visit today to plan asthma management for this upcoming academic year will be in school in [place]. Recall, she is a delightful 18-year-old with underlying environmental allergies. Denies tracey eczema. Has been followed at [facility], undergoing environmental allergen, desensitization shots including dust mites and ragweed among other triggers. Currently, both allergies and asthma are well controlled. She has never been intubated. She has had a flare before requiring prednisone as recently as October/December of this year while in [place]. Since that time, she has been free of flares, not needing any prednisone, only requiring her rescue inhaler, levalbuterol, approximately once a month, remains on Breo 200 mcg daily. She uses Astepro for nasal congestion and Claritin for the same, not taking montelukast or biosimilar. No reported history of Nucala, Xolair or Dupixent. She was seen last week at [facility], has a copy of her spirometry done at that time, which showed pre-bronchodilator values which were normal. Both vital capacity and FEV1 were over 100% of predicted value and FEV1 to FVC ratio was greater than 0.8, there was no coving on her flow volume curve. A post-bronchodilator flow volume loop was checked for unclear reasons given normalcy initial, values reported as slightly less. There is some flattening of the peak of exhalation, but no coving, do not think she had inhaler-induced bronchospasm. I suspect based on the appearance, there was either an aberrancy in effort or possible leakage, so peak flow was not captured by the spirometer. There was verbal mention of possible impairment of the inhalation, half of the curve, it does not visually appear, grossly reduced compared to the exhalation limb. She denies any new hoarseness or other throat specific symptoms. Joaquin Ochoa MD null, JOSUE - 2 06/22/2024 11:49:14 OBGyn Episode No OBEpisode recorded.
--- OUTSIDE RECORDS SUMMARY | 2024-12-09 15:05 | XMS_ITS | Encounter Summary ---
Author Organization [facility] Address [address] [place] [address] Care Team Providers Care Information Technology Director Name Role Phone Unavailable Primary Care Provider Unavailabl e Encounter Details Date Type Department Care Team (Late st Contact Info) Description 09/14/2021 Lab Requisition [facility] Main Laboratory/Pathology Department [address] [place] [address] Mary Conte MD [address] [facility] [place] [address] Contact with and (suspected) exposure to other viral communicable diseases Social History Tobacco Use Types Packs/Day Years Used Date Smoking Tobacco: Never Assessed Comments Unknown Sex and Gender Information Value Date Recorded Sex Assigned at Not on file Legal Sex Female 12:00 PM PST Gender Identity Not on file Sexual Orientation Not on file documented as of this encounter Plan of Treatment Not on file documented as of this encounter Procedures Procedure Name Priority Date/Time Associated Diagnosis Comments SARS-COV-2 (COVID-19) BY RT-PCR, QUALITATIVE Routine 09/14/2021 11:00 AM PST Contact with and (suspected) exposure to other viral communicable diseases documented in this encounter Results * SARS-COV-2 (COVID-19) BY RT-PCR, QUALITATIVE (09/14/2021 11:00 AM PST) SARS-CoV-2 RNA Not detected Not detected 09/15/2021 7:13 PM [facility] Swab NASAL / Unknown 09/14/2021 1 1:00 AM PST 09/14/2021 5:30 PM PST Narrative [facility] - 09/15/2021 7:13 PM PST o This test is performed using the Perkin Rafy nCoV NAD assay. o This test has been authorized by FDA under an EUA for use by the [facility] located at [address] [place] [address]. o This test has been authorized only for the detection of nucleic acid from SARSCoV-2, not for any other viruses or pathogens; and o This test is only authorized for the duration of the declaration that circumstances exist justifying the authorization of emergency use of in vitro diagnostic tests for detection and/or diagnosis of COVID-19 under Section 564(b)(1) of the Federal Food, Drug and Cosmetic Act, 21 U.S.C. 360bbb-3(b)(1), unless the authorization is terminated or revoked sooner. Test fact sheet for Patients: https://www.fda.gov/media/540063/download us Mary Conte MD MICROBIOLOGY - GENERAL ORD ERABLES [place] [address] documented in this encounter Visit Diagnoses Diagnosis Contact with and (suspected) exposure to other viral communicable diseases documented in this encounter
--- OUTSIDE RECORDS SUMMARY | 2024-12-09 15:05 | XMS_ITS | Referral Summary ---
Author Organization [facility] Address [address] [place] [address] Care Team Providers Care Landfill Gas Technician Name Role Phone Unavailable Primary Care Provider Unavailabl e Source Comments NOTE: The information displayed is extracted from the complete medical record and may not identify all current or past patient conditions.[facility] Social History Tobacco Use Types Packs/Day Years Used Date Smoking Tobacco: Never Assessed Comments Unknown Sex and Gender Information Value Date Recorded Sex Assigned at Not on file Legal Sex Female 12:00 PM PST Gender Identity Not on file Sexual Orientation Not on file Plan of Treatment Not on file
[2024-12-09 15:11] VITALS: BP 127/80; PULSE 108; RESP 20; TEMP 36.4; O2SAT 98; BMI 21.3
--- NOTE | 2024-12-09 15:25 | CRLHL7_ITS ---
For Patients: As a result of the Century Cures Act, medical imaging exams and procedure reports are released immediately into your electronic medical record. You may view this report before your referring provider. If you have questions, please contact your health care provider. INDICATION: Right lower quadrant pain COMPARISON: None. TECHNIQUE: CT of the abdomen and pelvis with intravenous contrast (69 milliliters Isovue 370). FINDINGS: Lung bases: No pleural effusion. Liver: Smooth hepatic contour. A tiny portion of the hepatic dome is excluded from the field of view superiorly. There is focal fatty deposition and/or perfusional change associated with the hepatic fissure. Gallbladder and biliary tree: Unremarkable CT appearance. Spleen: No splenomegaly. Pancreas: Normal. Adrenal glands: Normal. Kidneys and ureters: No hydroureteronephrosis. No suspicious renal lesions are identified. Bladder: Unremarkable CT appearance. Visualized reproductive organs: 2 centimeter right corpus luteum. Gastrointestinal tract: A paucity of visceral fat somewhat limits evaluation of the bowel. Normal appendix. No focal abnormally dilated loops of bowel. Peritoneal cavity: Trace pelvic free fluid. Lymph nodes: No enlarged abdominal or pelvic lymph nodes by CT size criteria. Vessels: No abdominal aortic aneurysm. Abdominal and pelvic wall: There is scarring in the ventral abdominal wall. Bones: No acute osseous findings. IMPRESSION: No acute findings in the abdomen or pelvis. Please note that all CT scans at this facility use dose modulation, iterative reconstruction, and/or weight-based dosing when appropriate to reduce radiation dose to as low as reasonably achievable. Dictated by Marco Tinajero MD @ 12/09/2024 5:14:34 PM (Electronically Signed)
[2024-12-09 15:46] LABS: Basophils Absolute Auto 0.03 K/uL (0.00-0.30); Basophils Percent Auto 0.5 % (0.0-3.0); Eosinophils Absolute Auto 0.04 K/uL (0.00-0.50); Eosinophils Percent Auto 0.6 % (0.0-7.0); Hematocrit 38.3 % (33.0-51.0); Hemoglobin* 12.8 gm/dL (12.0-16.0); Lymphocytes Absolute Auto 2.03 K/uL (0.90-2.90); Lymphocytes Percent Auto 30.7 % (20-44); Mean Corpuscular HGB Conc 33 gm/dL (32-36); Mean Corpuscular Hemoglobin 31 pg (26-34); Mean Corpuscular Volume 94 fL (80-100); Monocytes Percent Auto 9.1 % (0.0-11.0); Neutrophils Absolute Auto 3.91 K/uL (1.7-7.0); Neutrophils Percent Auto 59.1 % (42.0-72.0); Platelet Count* 167 K/uL (140-440); RDW Coefficient of Variation % 11.8 % (11.5-15.5); Red Blood Count 4.07 m/uL (4.00-5.20); White Blood Count* 6.61 K/uL (4.50-11.00)
[2024-12-09 15:51] LABS: Slide Review Reflex No
[2024-12-09 15:53] LABS: Albumin* 4.3 g/dL (3.3-5.0); Chloride* 105 mmol/L (96-114); Potassium* 3.7 mmol/L (3.6-5.1); Sodium* 137 mmol/L (135-149)
[2024-12-09 15:56] LABS: Alanine Aminotransferase* 18 U/L (4-35); Alkaline Phosphatase* 53 U/L (40-150); Anion Gap 7 mEq/L (7-15); Aspartate Amino Transferase* 20 U/L (12-35); Bilirubin Total* 0.5 mg/dL (0.1-1.5); Blood Urea Nitrogen* 13 mg/dL (5-24); Carbon Dioxide* 25 mmol/L (20-32); Creatinine* 0.7 mg/dL (0.6-1.2); Est. Creatinine Clearance* 129.59; Estimated Glomerular Filt Rate 128 ml/min; Lipase* 113 U/L (23-300); Total Protein* 6.8 g/dL (6.0-8.3)
[2024-12-09 15:57] LABS: Calcium* 8.9 mg/dL (8.7-10.8); Glucose* 106 mg/dL (60-115)
--- OUTSIDE RECORDS SUMMARY | 2024-12-09 15:57 | XMS_ITS | Clinical Summary ---
Author Organization [facility] Address [address] [facility], [place] [address] [place] [address] Care Team Providers Care Manager Service Desk Name Role Phone Pcp, No Primary Care Provider Unavailabl e Source Comments These records are disclosed for treatment purposes as permitted by state and federal privacy law. Any further disclosure may only be done as permitted by law or with the patient's written authorization.[facility] Immunizations Name Administration Dates Next Due Pfizer [...] age to complete this topic Care Teams Manager Service Desk Relationship Specialty Start Date End Date Pcp, No [address] [place] [address] PCP - General 12/14/20
--- OUTSIDE RECORDS SUMMARY | 2024-12-09 15:57 | XMS_ITS | Encounter Summary ---
Author Organization [facility] Address [address] [place] [address] Care Team Providers Care Woodyard Crane Operator Name Role Phone Royal Martins MD Primary Care Provider [phone] Reason for Visit * Reason Comments New Patient Appointment Vocal Cord Dysfu nction Encounter Details Date Type Department Care Team (Late st Contact Info) Description 11/24/2024 1:00 PM PDT Office Visit [facility] [address] [facility] [address] [place] [address] Saravanan Arriaga MD [address] [facility] [address] [facility] [address] [place], [place] [id number] LPRD (laryngopharyngeal reflux disease) (Primary Dx); Chronic [...] from the original note were not included. [facility] Otolaryngology History & Physical Exam Patient Name: Laurie Pulido Date of Service: 11/24/2024 Date of : 2005 Clinic Medical Record: [id number] Primary Care Physician: Royal Martins MD Referring [...] up extensively by the autonomic group at [place]. She has had a tilt table test [...] azelastine 0.15% (ASTEPRO) 205.5 mcg (0.15 %) Shell 205.5 mcg into each nostril 2 (two) [...] evidence of hematoma or perforation. Inferior Turbinates: [place] and intact. Nasal Polyps: None visualized on anterior rhinoscopy. No drainage anteriorly. Oral Cavity/Oropharynx: No trismus. Buccal Mucosa: No lesions. [place] and moist. Floor of Mouth: Soft, No [...] Description 02/16/2025 10:00 AM PDT Office Visit [facility] [address] [facility] [address] [place] [address] Saravanan Arriaga MD [address] [facility] [address] [place], [place] [id number] documented as of this encounter Visit Diagnoses Diagnosis LPRD (laryngopharyngeal reflux disease)- Primary Acute laryngitis, without mention of obstruction Chronic maxillary sinusitis POTS (postural orthostatic tachycardia syndrome) Unspecified tachycardia documented in this encounter Care Teams Woodyard Crane Operator Relationship Specialty Start Date End Date Royal Martins MD [address] [place] [address] [address] [place] [address] PCP - General Internal Medicine 11/24/24 documented as of this encounter
--- OUTSIDE RECORDS SUMMARY | 2024-12-09 15:58 | XMS_ITS | Encounter Summary ---
Author Organization [facility] Address [address] [facility] [place] [address] Care Team Providers Care Coverer Name Role Phone Royal Martins MD Primary Care Provider [phone] Reason for Visit * Reason Comments Medication Refill Encounter Details Date Type Department Care Team (Late Contact Info) Description 11/24/2024 Refill [facility] [address] [place] [address] Yemi Arriaga MD [address] [facility] [address] [place], [place] [id number] Social History Tobacco Use Types Packs/Day Years [...] Description 02/16/2025 10:00 AM PDT Office Visit [facility] [address] [place] [address] Yemi Arriaga MD [address] [facility] [address] [place], [place] [id number] documented as of this encounter Visit Diagnoses Not on filedocumented in this encounter Care Teams Coverer Relationship Specialty Start Date End Date Royal Martins MD [address] [place] [address] [address] [place] [address] PCP - General Internal Medicine 11/24/24 documented as of this encounter
--- OUTSIDE RECORDS SUMMARY | 2024-12-09 15:58 | XMS_ITS | Clinical Summary ---
Author Organization [facility] Address [address] [place] [address] Care Team Providers Care Radioisotope Technician Name Role Phone Royal Martins MD Primary Care Provider [phone] Allergies No known active allergies Medications loratadine [...] azelastine 0.15% (ASTEPRO) 205.5 mcg (0.15 %) [place] 205.5 mcg into each nostril 2 (two) [...] Did a one week intensive course at [facility] in Jul 2020 Tried prozac 20mg for about 2 months, but seemed to cause more problems than helped - caused fatigue, emotional dysregulation Gastro-esophageal reflux disease with esophagiti s 01/04/2005 Encounters Date Type Department Care Team Description 11/24/2024 1:00 PM PDT Office Visit [facility] [address] [place] [address] Yemi Arriaga MD LPRD (laryngopharyngeal reflux disease) (Primary Dx); Chronic maxillary sinusitis; POTS (postural orthostatic tachycardia syndrome) 11/24/2024 Refill [facility] [address] [place] [address] Yemi Arriaga MD from Last [...] Description 02/16/2025 10:00 AM PDT Office Visit [facility] [address] [place] [address] Yemi Arriaga MD [address] [place] [address] Health Maintenance Due Date Last [...] to complete this topic Insurance Care Teams Radioisotope Technician Relationship Specialty Start Date End Date Royal Martins MD [address] [place] [address] [address] [place] [address] PCP - General Internal Medicine 11/24/24
--- OUTSIDE RECORDS SUMMARY | 2024-12-09 15:59 | XMS_ITS | Clinical Summary ---
Author Organization [facility] Address [address] [place] [address] Care Team Providers Care Steel Melter Name Role Phone Charla Monroe MD Primary [...] 12/20/2005 HPV Vaccines Completed 03/19/2019, 03/06/2017 Insurance [employer] [place] [facility] [employer] [place] [facility] Care Teams Steel Melter Relationship Specialty Start Date End Date Charla Monroe MD [address] [place] [id number] PCP - General Rheumatology 03/27/24
--- OUTSIDE RECORDS SUMMARY | 2024-12-09 15:59 | XMS_ITS | Encounter Summary ---
Author Organization [facility] Address [address] [place] [address] Care Team Providers Care Dye And Chemical Coordinator Name Role Phone Unavailable Primary Care Provider Unavailabl e Encounter Details Date Type Department Care Team (Late st Contact Info) Description 09/14/2021 Lab Requisition [facility] Main Laboratory/Pathology Department [address] [place] [address] Mary Conte MD [address] [facility] [place] [address] Contact with and (suspected) exposure [...] Not detected Not detected 09/15/2021 7:13 PM [facility] Swab NASAL / Unknown 09/14/2021 1 1:00 AM PST 09/14/2021 5:30 PM PST Narrative [facility] - 09/15/2021 7:13 PM PST o This test is performed using the Perkin Rafy nCoV NAD assay. o This test has been authorized by FDA under an EUA for use by the [facility] located at [address] [place] [address]. o This test has been authorized only [...] revoked sooner. Test fact sheet for Patients: https://www.fda.gov/media/266941/download us Mary Conte MD MICROBIOLOGY - GENERAL ORD [place] [address] documented in this encounter Visit Diagnoses Diagnosis Contact with and (suspected) exposure to other viral communicable diseases documented in this encounter
--- OUTSIDE RECORDS SUMMARY | 2024-12-09 15:59 | XMS_ITS | Encounter Summary ---
Author Organization [facility] Address [address] [place] [address] Care Team Providers Care Packaging Specialist Name Role Phone Charla Monroe MD Primary Care Provider + Reason for Referral * MRI/CAT/PET Scan (Urgent) - Authorized Specialty Diagnoses / Procedures Referred By Contac t Referred To Contact Radiology Diagnoses Nonintractable headache, unspecified chronicity pattern, unspecified headache type Syncope, unspecified syncope type Dizziness Procedures MR Brain wo IV Contrast Syd Martins MD [address] [place] [address] [address] Phone: tel: fax: Referral ID Status Reason Start Date Expiration Date V isits Requested Visits Authorized [id number] Authorized 11/03/2024 01/01/2025 2 2 Reason for Visit * MRI/CAT/PET Scan (Urgent) - Authorized Specialty Diagnoses / Procedures Referred By Contac t Referred To Contact Radiology Diagnoses Nonintractable headache, unspecified chronicity pattern, unspecified headache type Syncope, unspecified syncope type Dizziness Procedures MR Brain wo IV Contrast Syd Martins MD [address] [place] [address] [address] Phone: tel: fax: Referral ID Status Reason Start Date Expiration Date V isits Requested Visits Authorized [id number] Authorized 11/03/2024 01/01/2025 2 2 Encounter Details Date Type Department Care Team (Latest Contact Info) Description 11/25/2024 9:05 AM PDT - 11/25/2024 11:59 PM PDT Hospital Encounter [facility] MR Imaging [address] [place] [phone] Discharge Disposition: Home/Work (includes foster care) Social [...] 2:45 PM PDT Telemedicine Neurology 2nd Floor, [facility] [address], 2nd [place] [address] Coleman Mo MD [address] [facility] [address] [place] [address] documented as of this encounter [...] No similar studies available for comparison at [facility] at time of dictation. PROCEDURE COMMENTS: [...] documented as of this encounter Care Teams Packaging Specialist Relationship Specialty Start Date End Date Charla Monroe MD [address] [place] [address] PCP - General Rheumatology 03/01/22 documented as of this encounter
--- OUTSIDE RECORDS SUMMARY | 2024-12-09 15:59 | XMS_ITS | Clinical Summary ---
Author Organization [facility] Address [address] [place] [address] Care Team Providers Care Clinical Dietitian Name Role Phone Unavailable Primary Care Provider Unavailabl e Source Comments NOTE: The information displayed is extracted from the complete medical record and may not identify all current or past patient conditions.[facility] Social History Tobacco Use Types Packs/Day [...]
--- OUTSIDE RECORDS SUMMARY | 2024-12-09 15:59 | XMS_ITS | Referral Summary ---
Author Organization [facility] Address [address] [place] [address] Care Team Providers Care Behaviorist Name Role Phone Unavailable Primary Care Provider Unavailabl e Source Comments NOTE: The information displayed is extracted from the complete medical record and may not identify all current or past patient conditions.[facility] Social History Tobacco Use Types Packs/Day Years Used Date Smoking Tobacco: Never Assessed Comments Unknown Sex and Gender Information Value Date Recorded Sex Assigned at Not on file Legal Sex Female 12:00 PM PST Gender Identity Not on file Sexual Orientation Not on file Plan of Treatment Not on file
--- OUTSIDE RECORDS SUMMARY | 2024-12-09 15:59 | XMS_ITS | Clinical Summary ---
Author Organization [facility] Address [address] [place] [address] Care Team Providers Care Armhole Raiser Lockstitch Name Role Phone Charla Mornoe MD Primary Care Provider + Source Comments [...] deemed pertinent for the care of the patient.[facility] Allergies No known active allergies Medications [...] Did a one week intensive course at [facility] in Jul 2020 Tried prozac 20mg for about 2 months, but seemed to cause more problems than helped - caused fatigue, emotional dysregulation Encounters Date Type Department Care Team Description 11/25/2024 9:05 AM PDT - 11/25/2024 11:59 PM PDT Hospital Encounter [facility] MR Imaging [address] [phone] Discharge Disposition: Home/Work (includes foster care) from [...] 2:45 PM PDT Telemedicine Neurology 2nd Floor, [facility] [address] [facility], 2nd Floor [place] [phone] Coleman Mo MD [address] [place] [address] [address] [place] [address] Health Maintenance Due Date Last Done Comments [...] No similar studies available for comparison at [facility] at time of dictation. PROCEDURE COMMENTS: Multiplanar [...] CARD (OUT OF STATE) - Care Teams Armhole Raiser Lockstitch Relationship Specialty Start Date End Date Charla Monroe MD [address] [place] [address] [address] [place], [place] [phone] PCP - General Rheumatology 03/01/22
--- OUTSIDE RECORDS SUMMARY | 2024-12-09 15:59 | XMS_ITS | Referral Summary ---
Author Organization [facility] Address [address] [place] [address] Care Team Providers Care Recovery Advocate Name Role Phone Charla Monroe MD Primary [...] deemed pertinent for the care of the patient.[facility] Encounters Date Type Department Care Team Description 11/25/2024 9:05 AM PDT - 11/25/2024 11:59 PM PDT Hospital Encounter [facility] MR Imaging [address] [place] [phone] Discharge Disposition: Home/Work (includes foster care) from [...] Did a one week intensive course at [facility] in Jul 2020 Tried prozac 20mg for [...] 2:45 PM PDT Telemedicine Neurology 2nd Floor, [address], 2nd Floor [place], [place] [phone] Coleman Mo MD [address] [place] [address] [address] [place], [place] [phone] Procedures Procedure Name Priority Date/Time Associated Diagnosis [...] (OUT OF STATE) - BS Care Teams Recovery Advocate Relationship Specialty Start Date End Date Charla Monroe MD [address] [id number] PCP - General Rheumatology 03/01/22
--- NOTE | 2024-12-09 16:03 | ED_ITS ---
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 She states symptoms seem to start yesterday and were initially sharp in nature. Since then pain has seemed to come gone but never fully goes away. Describes a cramping sensation and she states for seems similar to her menstrual period but she is not currently on her menstrual period. Denies pain like this before. No previous abdominal surgeries. States pain seems to go worse when she eats. Has been drinking plenty fluids but does states she has been eating less due to the symptoms. Does have occasional nausea with states the nausea is not too bad at this time. Denies diarrhea, constipation, fevers, chills, chest pain, shortness of breath, headache, lightheadedness, dizziness, vaginal bleeding, vaginal discharge, dysuria. No other concerns noted Related Data Home Medications ?Medication ?Instructions ?Recorded ?Confirmed [facility] 11/30/23 Claritin 11/30/23 Ritalin 11/30/23 albuterol 11/30/23 aspirin 11/30/23 prednisone 11/30/23 Previous Rx's ?Medication ?Instructions ?Recorded acetaminophen 300 mg-codeine 30 mg 1 tab PO Q6H PRN pain #15 tabs 12/04/23 tablet methylprednisolone 4 mg tablets in See Rx Instructions PO .COMPLEX 12/04/23 a dose pack (Medrol (Clive)) #21 ea ondansetron 4 mg disintegrating 4 mg PO Q6H #20 tabs 12/09/24 tablet Allergies Allergy/AdvReac Type Severity Reaction Status Date / Time No Known Drug Allergies Allergy Verified 12/09/24 16:44 Review of Systems Status of ROS Reports: 10 or more systems reviewed and unremarkable except as noted in History and below [facility] Medical History Factor 5 Leiden mutation, heterozygous ?D68.51 - Activated protein C resistance (ICD-10) Asthma ?J45.909 - Unspecified asthma, uncomplicated (ICD-10) Social History Smoking Status: Never smoker Do you use any of these nicotine containing products: None Second hand tobacco smoke exposure: No How often do you have a drink containing alcohol: never How often do you have six or more drinks on one occasion: Never AUDIT-C Alcohol total score: 0 Non-prescribed substance use: denies use service: No Exam Narrative: Exam Narrative: Const: Well-nourished, Well-developed, in mild distress Eyes: PERRL, no conjunctival injection, and symmetrical lids HENT: Atraumatic external nose and ears. Moist mucous membranes. Neck: Symmetric, trachea midline, No thyromegaly. CVS: RRR, No murmurs or gallops. Peripheral pulses 2+ and equal in all extremities RESP: Unlabored respiratory effort. Clear to auscultation bilaterally. GI: Right lower quadrant and periumbilical tenderness, mild right upper quadrant tenderness. Nondistended, No rebound or guarding. MSK:Extremities w/o deformity, Normal Active ROM Skin: Warm, Dry. No rashes or lesions. Neuro: Normal Muscle tone, No focal neurological deficits. Psych: Awake, Alert, & Oriented x3. Appropriate mood and affect. Const: Vital Signs, click to edit/add: Vital Signs - 24 hr 12/09/24 15:11 12/09/24 17:09 Temperature 97.6 F 98.1 F Pulse Rate [Pulse Oximeter] 108 H 80 Respiratory Rate 20 16 Blood Pressure [Ri ght Upper Arm] 127/80 116/73 Pulse Oximetry 98 100 Oxygen Delivery Me thod Room Air Room Air Course Vital Signs Vital signs: Initial Vital Signs Temperature 97.6 F 12/09/24 15:11 Temperature Source Temporal Artery Scan 12/09/24 15:11 Pulse Rate 108 H 12/09/24 15:11 Pulse Rhythm Regular 12/09/24 15:11 Respiratory Rate 20 12/09/24 15:11 Blood Pressure 127/80 12/09/24 15:11 Blood Pressure Mean 95 12/09/24 15:11 Blood Pressure Position Sitting 12/09/24 15:11 Pulse Oximetry 98 12/09/24 15:11 Oxygen Delivery Method Room Air 12/09/24 15:11 Vital Signs Temperature 97.6 F 12/09/24 15:11 Pulse Rate 108 H 12/09/24 15:11 Respiratory Rate 20 12/09/24 15:11 Blood Pressure 127/80 12/09/24 15:11 Pulse Oximetry 98 12/09/24 15:11 Oxygen Delivery Method Room Air 12/09/24 15:11 Temperature 98.1 F 12/09/24 17:09 Pulse Rate 80 12/09/24 17:09 Respiratory Rate 16 12/09/24 17:09 Blood Pressure 116/73 12/09/24 17:09 Pulse Oximetry 100 12/09/24 17:09 Oxygen Delivery Method Room Air 12/09/24 17:09 MDM - Abdominal Pain MDM Narrative Medical decision making narrative: Patient is an 18-year-old female presenting to the emergency department for abdominal pain. Pain seems to be in her periumbilical and right lower quadrant. Tenderness or left lower quadrants was relatively minimal and had some mild right upper quadrant tenderness. My main concern at this time is appendicitis. Will do a CT scan this will help evaluate for everything. Will also order CBC, CMP, lipase, test, urinalysis. Patient is not requesting anything for pain or nausea at this time. Lab work returned showing no concerning abnormalities. She was initially tachycardic but that has since resolved. Her CT reviewed by myself and the radiologist shows no acute concerning abnormalities. This time I am not sure was causing his symptoms but I believe she is safe for discharge. Might be a gastroenteritis. She is agreeable to this plan. Will discharge her home with Tig[facility]. Lab Data Labs: Lab Results 12/09/24 12/09/24 Range/Units 15:30 16:15 WBC 6.61 (4.50-11.00) K/uL RBC 4.07 (4.00-5.20) m/uL Hgb 12.8 (12.0-16.0) gm/dL Hct 38.3 (33.0-51.0) % MCV 94 (80-100) fL MCH 31 (26-34) pg MCHC 33 (32-36) gm/dL RDW Coeff of Kojo 11.8 (11.5-15.5) % Plt Count 167 (140-440) K/uL Neut % (Auto) 59.1 (42.0-72.0) % Lymph % (Auto) 30.7 (20-44) % [place] % (Auto) 9.1 (0.0-11.0) % Eos % (Auto) 0.6 (0.0-7.0) % Baso % (Auto) 0.5 (0.0-3.0) % Neut # (Auto) 3.91 (1.7-7.0) K/uL Lymph # (Auto) 2.03 (0.90-2.90) K/uL [place] # (Auto) 0.60 (0.00-0.90) K/UL Eos # (Auto) 0.04 (0.00-0.50) K/uL Baso # (Auto) 0.03 (0.00-0.30) K/uL Abs Immat Gran (auto) 0.00 (0.00-0.30) K/uL Imm/Tot Granulo (auto) 0.0 % Sodium 137 (135-149) mmol/L Potassium 3.7 (3.6-5.1) mmol/L Chloride 105 (96-114) mmol/L Carbon Dioxide 25 (20-32) mmol/L Anion Gap 7 (7-15) mEq/L BUN 13 (5-24) mg/dL Creatinine 0.7 (0.6-1.2) mg/dL Estimated Creat Clear 129.59 Estimated GFR 128 ml/min Glucose 106 (60-115) mg/dL Calcium 8.9 (8.7-10.8) mg/dL Total Bilirubin 0.5 (0.1-1.5) mg/dL AST 20 (12-35) U/L ALT 18 (4-35) U/L Alkaline Phosphatase 53 (40-150) U/L Total Protein 6.8 (6.0-8.3) g/dL Albumin 4.3 (3.3-5.0) g/dL Lipase 113 (23-300) U/L HCG, Quant < 2.39 mIU/mL Urine Color Yellow (Yellow) Urine Appearance Clear (Clear) Urine pH 7.0 (5.0-8.5) Ur Specific [place] 1.010 (1.000-1.030) Urine Protein Negative (Negative) Urine Glucose (UA) Negative (Negative) Urine Ketones Negative (Negative) Urine Blood Negative (Negative) Urine Nitrite Negative (Negative) Urine Bilirubin Negative (Negative) Urine Urobilinogen 0.2 (0.2-1.0) Ur Leukocyte Esterase Negative (Negative) Urine RBC 0-2 (0-2) Urine WBC 0-2 (0-5) Ur Squamous Epith Cells Few (None-Few) Urine Bacteria None (None) Imaging Data CT scan abdomen pelvis: Attestation: I have reviewed the pertinent imaging results. Radiologist's impression: No acute findings in the abdomen or pelvis. Please note that all CT scans at this facility use dose modulation, iterative reconstruction, and/or weight-based dosing when appropriate to reduce radiation dose to as low as reasonably achievable. Dictated by Marco Tinajero MD @ 12/09/2024 5:14:34 PM Discharge Plan Discharge Clinical Impression: Abdominal pain Qualifiers: Abdominal location: unspecified location Qualified Code(s): R10.9 - Unspecified abdominal pain Patient Disposition: Home, Self-Care Condition: Stable Instructions: Abdominal Pain (ED) Additional Instructions: Take Zofran as needed for nausea. Return to emergency department for new or worsening symptoms. This is likely a viral gastroenteritis and should resolve on its own. Prescriptions: New ondansetron 4 mg tablet,disintegrating 4 mg PO Q6H Qty: 20 0RF No Action prednisone Ritalin Claritin aspirin albuterol [facility] acetaminophen-codeine 300-30 mg tablet 1 tab PO Q6H PRN (Reason: pain) Qty: 15 0RF methylprednisolone [Medrol (Clive)] 4 mg tablets,dose pack See Rx Instructions .ROUTE .COMPLEX Qty: 21 0RF Rx Instructions: orally per package directions Follow Up/Referrals: Provider,Not a Local [Primary Care Provider] - Stand Alone Forms: [employer] Info Instructions
[2024-12-09 16:13] LABS: HCG Quantitative* < 2.39 mIU/mL
[2024-12-09 16:21] LABS: Appearance Urine Clear (Clear); Bilirubin Urine Negative (Negative); Blood Urine Negative (Negative); Color Urine Yellow (Yellow); Glucose Urine Negative (Negative); Ketones Urine Negative (Negative); Leukocyte Esterase Urine Negative (Negative); Nitrite Urine Negative (Negative); Protein Urine Negative (Negative); Urobilinogen Urine 0.2 (0.2-1.0)
[2024-12-09 16:46] LABS: RBC Urine 0-2 (0-2); Squamous Epithelial Cell Urine Few (None-Few); WBC Urine 0-2 (0-5)
[2024-12-09 17:09] VITALS: BP 116/73; PULSE 80; RESP 16; TEMP 36.7; O2SAT 100
== END 2024-12-09 18:01 | disposition home or self-care (01) ==
PROVIDERS: Emergency Provider Student in an Organized Health Care Education/Training Program
DX: R10.31 Right lower quadrant pain (principal)
CPT/HCPCS: 36415; 74177; 80053; 81001; 83690; 84702; 85025; 99284; Q9967

== ENCOUNTER 2024-12-12 | Emergency (ER) | payer BC, SELFPAY ==
--- OUTSIDE RECORDS SUMMARY | 2024-12-12 00:03 | XMS_ITS | Clinical Summary ---
Author Organization [facility] Address [address] [facility], [place] [address] [place] [address] Care Team Providers Care Websphere Process Server Developer Name Role Phone Pcp, No Primary Care Provider Unavailabl e Source Comments These records are disclosed for treatment purposes as permitted by state and federal privacy law. Any further disclosure may only be done as permitted by law or with the patient's written authorization.[facility] Immunizations Name Administration Dates Next Due [...] age to complete this topic Care Teams Websphere Process Server Developer Relationship Specialty Start Date End Date Pcp, No [address] [place] [address] PCP - General 12/14/20
--- OUTSIDE RECORDS SUMMARY | 2024-12-12 00:03 | XMS_ITS | Encounter Summary ---
Author Organization [facility] Address [address] [place] [address] Care Team Providers Care Talent Sourcer Name Role Phone Charla Monroe MD Primary Care Provider + Reason for Referral * MRI/CAT/PET Scan (Urgent) - Authorized Specialty Diagnoses / Procedures Referred By Contac t Referred To Contact Radiology Diagnoses Nonintractable headache, unspecified chronicity pattern, unspecified headache type Syncope, unspecified syncope type Dizziness Procedures MR Brain wo IV Contrast Syd Martins MD [address] [place] [address] [address] Phone: tel: fax: Referral ID Status Reason Start Date Expiration Date V isits Requested Visits Authorized [id number] Authorized 11/03/2024 01/01/2025 2 2 Reason for Visit * MRI/CAT/PET Scan (Urgent) - Authorized Specialty Diagnoses / Procedures Referred By Contac t Referred To Contact Radiology Diagnoses Nonintractable headache, unspecified chronicity pattern, unspecified headache type Syncope, unspecified syncope type Dizziness Procedures MR Brain wo IV Contrast Syd Martins MD [address] [place] [address] [address] Phone: tel: fax: Referral ID Status Reason Start Date Expiration Date V isits Requested Visits Authorized [id number] Authorized 11/03/2024 01/01/2025 2 2 Encounter Details Date Type Department Care Team (Latest Contact Info) Description 11/25/2024 9:05 AM PDT - 11/25/2024 11:59 PM PDT Hospital Encounter [facility] MR Imaging [address] [place] [phone] Discharge Disposition: Home/Work (includes foster care) Social [...] 2:45 PM PDT Telemedicine Neurology 2nd Floor, [facility] [address], 2nd [place] [address] Coleman Mo MD [address] [facility] [address] [place] [address] documented as of this encounter [...] No similar studies available for comparison at [facility] at time of dictation. PROCEDURE COMMENTS: [...] documented as of this encounter Care Teams Talent Sourcer Relationship Specialty Start Date End Date Charla Monroe MD [address] [place] [address] PCP - General Rheumatology 03/01/22 documented as of this encounter
--- OUTSIDE RECORDS SUMMARY | 2024-12-12 00:03 | XMS_ITS | Encounter Summary ---
Author Organization [facility] Address [address] [place] [address] Care Team Providers Care Merchandise Planner Name Role Phone Royal Martins MD Primary Care Provider Reason for Visit * Reason Comments New Patient Appointment Vocal Cord Dysfu nction Encounter Details Date Type Department Care Team (Late st Contact Info) Description 11/24/2024 1:00 PM PDT Office Visit [facility] [address] [facility] [address] [place] [address] Saravanan Arriaga MD [address] [facility] [address] [facility] [address] [place], [place] [phone] LPRD (laryngopharyngeal reflux disease) (Primary Dx); Chronic [...] from the original note were not included. [facility] Otolaryngology History & Physical Exam Patient Name: Laurie Pulido Date of Service: 11/24/2024 Date of : 2005 Clinic Medical Record: [id number] Primary Care Physician: Royal Martins MD Referring [...] up extensively by the autonomic group at [facility]. She has had a tilt table test [...] azelastine 0.15% (ASTEPRO) 205.5 mcg (0.15 %) [place] 205.5 mcg into each nostril 2 (two) [...] evidence of hematoma or perforation. Inferior Turbinates: Blacktail and intact. Nasal Polyps: None visualized on anterior rhinoscopy. No drainage anteriorly. Oral Cavity/Oropharynx: No trismus. Buccal Mucosa: No lesions. Blacktail and moist. Floor of Mouth: Soft, No [...] Description 02/16/2025 10:00 AM PDT Office Visit [facility] [address] [facility] [address] [place] [address] Saravanan Arriaga MD [address] [facility] [address] [place], [place] [phone] documented as of this encounter Visit Diagnoses Diagnosis LPRD (laryngopharyngeal reflux disease)- Primary Acute laryngitis, without mention of obstruction Chronic maxillary sinusitis POTS (postural orthostatic tachycardia syndrome) Unspecified tachycardia documented in this encounter Care Teams Merchandise Planner Relationship Specialty Start Date End Date Royal Martins MD [address] [place] [address] [address] [place] [address] PCP - General Internal Medicine 11/24/24 documented as of this encounter
--- OUTSIDE RECORDS SUMMARY | 2024-12-12 00:03 | XMS_ITS | Clinical Summary ---
Author Organization [facility] Address [address] [place] [address] Care Team Providers Care Seat Nailer Name Role Phone Charla Monroe MD Primary [...] pertinent for the care of the patient.[facility] Allergies No known active allergies Medications * [...] one week intensive course at [facility] in Jul 2020 Tried prozac 20mg for about 2 months, but seemed to cause more problems than helped - caused fatigue, emotional dysregulation Encounters Date Type Department Care Team Description 11/25/2024 9:05 AM PDT - 11/25/2024 11:59 PM PDT Hospital Encounter [facility] MR Imaging [address] [phone] Discharge Disposition: Home/Work (includes foster care) from [...] 2:45 PM PDT Telemedicine Neurology 2nd Floor, [facility] [address] [facility], 2nd Floor [place] [phone] Coleman Mo MD [address] [place] [address] [address] [place] [address] Health Maintenance Due Date Last Done Comments [...] No similar studies available for comparison at [facility] at time of dictation. PROCEDURE [...] CARD (OUT OF STATE) - Care Teams Seat Nailer Relationship Specialty Start Date End Date Charla Monroe MD [address] [place] [address] [address] [place], [place] [address] PCP - General Rheumatology 03/01/22
--- OUTSIDE RECORDS SUMMARY | 2024-12-12 00:04 | XMS_ITS | Referral Summary ---
Author Organization [facility] Address [address] [place] [address] Care Team Providers Care Ase Certified Technician Name Role Phone Charla Monroe MD Primary [...] deemed pertinent for the care of the patient.[facility] Encounters Date Type Department Care Team Description 11/25/2024 9:05 AM PDT - 11/25/2024 11:59 PM PDT Hospital Encounter [facility] MR Imaging [address] [place] [phone] Discharge Disposition: Home/Work (includes foster care) from [...] Did a one week intensive course at [facility] in Jul 2020 Tried prozac 20mg [...] 2:45 PM PDT Telemedicine Neurology 2nd Floor, [address], 2nd Floor [place], [place] [phone] Coleman Mo MD [address] [place] [address] [address] [place], [place] [id number] Procedures Procedure Name Priority Date/Time Associated Diagnosis [...] (OUT OF STATE) - BS Care Teams Ase Certified Technician Relationship Specialty Start Date End Date Charla Monroe MD [address] [id number] PCP - General Rheumatology 03/01/22
--- OUTSIDE RECORDS SUMMARY | 2024-12-12 00:06 | XMS_ITS | Encounter Summary ---
Author Organization [facility] Address [address] [facility] [address] Care Team Providers Care Band Machine Operator Name Role Phone Royal Martins MD Primary Care Provider [phone] Reason for Visit * Reason Comments Medication Refill Encounter Details Date Type Department Care Team (Late Contact Info) Description 11/24/2024 Refill [facility] [address] [place] [address] Yemi Arriaga MD [address] [facility] [address] [place], [place] [id number] Social History Tobacco Use Types Packs/Day Years [...] Description 02/16/2025 10:00 AM PDT Office Visit [facility] [address] [place] [address] Yemi Ariraga MD [address] [facility] [address] [place], [place] [id number] documented as of this encounter Visit Diagnoses Not on filedocumented in this encounter Care Teams Band Machine Operator Relationship Specialty Start Date End Date Royal Martins MD [address] [place] [address] [address] [place] [address] PCP - General Internal Medicine 11/24/24 documented as of this encounter
--- OUTSIDE RECORDS SUMMARY | 2024-12-12 00:07 | XMS_ITS | Clinical Summary ---
Author Organization [facility] Address [address] [place] [address] Care Team Providers Care Media Strategist Name Role Phone Royal Martins MD Primary Care Provider [phone] Allergies No known active allergies Medications loratadine [...] azelastine 0.15% (ASTEPRO) 205.5 mcg (0.15 %) [place] 205.5 mcg into each nostril 2 (two) [...] Did a one week intensive course at [facility] in Jul 2020 Tried prozac 20mg for about 2 months, but seemed to cause more problems than helped - caused fatigue, emotional dysregulation Gastro-esophageal reflux disease with esophagiti s 01/04/2005 Encounters Date Type Department Care Team Description 11/24/2024 1:00 PM PDT Office Visit [facility] [address] [place] [address] Yemi Arriaga MD LPRD (laryngopharyngeal reflux disease) (Primary Dx); Chronic maxillary sinusitis; POTS (postural orthostatic tachycardia syndrome) 11/24/2024 [facility]ill [facility] [address] [place] [address] Yemi Arriaga MD from Last [...] Description 02/16/2025 10:00 AM PDT Office Visit [facility] [address] [place] [address] Yemi Arriaga MD [address] [place] [address] Health Maintenance Due Date Last [...] to complete this topic Insurance Care Teams Media Strategist Relationship Specialty Start Date End Date Royal Martins MD [address] [place] [address] [address] [place] [address] PCP - General Internal Medicine 11/24/24
--- OUTSIDE RECORDS SUMMARY | 2024-12-12 00:11 | XMS_ITS | Referral Summary ---
Author Organization [facility] Address [address] [place] [address] Care Team Providers Care Class 1 Owner Operator Name Role Phone Unavailable Primary Care Provider Unavailabl e Source Comments NOTE: The information displayed is extracted from the complete medical record and may not identify all current or past patient conditions.[facility] Social History Tobacco Use Types Packs/Day Years Used Date Smoking Tobacco: Never Assessed Comments Unknown Sex and Gender Information Value Date Recorded Sex Assigned at Not on file Legal Sex Female 12:00 PM PST Gender Identity Not on file Sexual Orientation Not on file Plan of Treatment Not on file
--- OUTSIDE RECORDS SUMMARY | 2024-12-12 00:11 | XMS_ITS | Data Portability ---
Author Organization [place] [facility], [facility] Address [address] [place] [address] Care Team Providers Care Master Coastal [place] Name Role Phone VARGASCHARAN Referring Provider Assessment Encounter Date Assessment Date Assessment LastModified by Organization Details LastModified Time 03/27/2024 03/27/2024 Pes cavus B/L Hypermobility/ED S Time spent discussing pt's medical history. Veronicam spent reviewing pt's xray images and discussed findings with her and her mother today. Discussed role of ankle bracing vs. ptx to help with stabilty and strengthening. Pt will continue ptx to help with strengthening and proprioception. Consider using an ankle brace if she will be on uneven surfaces or at greater risk for falling and rolling her ankle - she will work with Mere Soto on this and will continue to discuss. We also discussed the role of relieving pressure on her forefoot and stabilizing her ankle/STJs with orthotics and more supportive shoes. For now, it seems like pt needs a more firm sole for proprioception. Discussed role of custom vs otc insoles and pt would like to proceed with custom orthotics. Patient was scanned in non-weightbearin g, STJ neutral position. After reviewing neutral impressions, it was determined that UCBL type of device would be appropriate for pt's pathology. Discussed orthotics may not fit in all shoes. Pt to RTO when the orthotics arrive in several weeks. Educated on shoe gear. Will try them in her current shoes [email or web address] Not available 03/29/2024 11:48:11 04/17/2024 04/17/2024 Pt accepted delivery of orthotic devices. Orthoses ([facility], UCBL type) were dispensed to patient today after being fitted to the patient's feet in both weight-bearing and non-weight bearing attitudes. The patient was instructed to gradually increase the amount of time they are wearing the orthoses until they are wearing the orthoses multimedia engineer. Patient was instructed to call the office if any signs of irritation were noted including redness, blistering, or callous formation. Educated on shoe gear. Return to office in 1 year if no issues. [email or web address] Not available 04/17/2024 16:19:58 Plan of Treatment Reminders Order Date Submit Date Provider Last Modified By Organization Details Last Modified Time Details Appointments None record ed. Lab None record ed. Referral None record ed. Procedures None record ed. Surgeries None record ed. Imaging XR, foot, 3 or more view 024 03/27/20 24 [email or web address] [facility], [address] [place] [address] [address], [place], [address], 11:42:59 Medication Orders None record ed. Patient TargetsNo targets recorded. Patient Instructions Encounter Date Encounter Id Patient Instructions Last Modified By Organization Details Last Modified Time 03/27/2024 [id number] weight managemen t education Not available 03/29/2024 11:42:59 Reason for Referral None Reported. Results Created Date Observation Date Name Description Value Unit Range Abnormal Flag Note LastModifiedBy Organization Detail LastModifiedTime 03/27/20 24 XR, foot, 3 or more view No observ ation record ed. [email or web address] [facility] [address] [facility] [address], [place], [address], 03/29/2024 11:42:56 Result Notes None recorded. Problems Name Problem SNOMED Code Status Onset Date Resolution Date Notes Provider Name and Address Organization Details Recorded Time Elevated blood-press ure reading without diagnosis of hypertensio n 228155207 Active 2023 Charan Florentino DPM [facility] [address], [place], [address], [place] [facility] 07/28/202 4 11:40:31 Bilateral foot congenital pes cavus 7714530212738 9106 Active 2023 Charan Florentino DPM [facility] [address], [place], [address], [place] [facility] 4 09:11:08 Ligamentous laxity of ankle region 545978867 Active 2023 Charan Florentino DPM [facility] [address], [place], [address], [place] [facility] 4 09:11:08 Hypermobile Cassie-Danl os syndrome 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 Procedures Surgical History Date Name Laterality Status Provider Name and Address Organization Details Recorded Time 4 aas OP completed Charan Florentino DPM [facility] [address], [place], [address], [place] [facility] 04/14/2024 09:10:59 4 aas orthotic casting completed Jeremias Lyons [place] [facility] 03/27/2024 15:22:24 Imaging Results Imaging Date Name Status LastModified by Organiz ation Details LastModified Time 03/27/2024 XR, foot, 3 or more view completed [place] [address] [facility] [facility], [place], [address], 03/29/2024 11:42:56 Procedure Notes None recorded. Medical Equipment None Reported. Allergies Allergen ID Allergen Name Allergen Category Reaction Reaction Severity Criticality Documentation Date Start Date Code Code System Note Provider Name and Address Organization Details Recorded Time 938037 POLLEN EXTRACTS environme nt,medica tion respirato ry distress moderate Not available 03/27/2024 08777 6 RxNorm Not Available Not Available Not Available 456167 house dust mite environme nt wheezing moderate Not available 03/27/2024 15355 UNK Not Available Not Available Not Available Medications Name Sig Start Date Stop Date Status Note LastModified by Organization Details LastModified Time sm digital thermome mis mcke USE DIRECTED 03/27 completed Not Available Not Available Not Available neomycin-po lymyxin-hyd rocort 3.5 mg/mL-10,00 0 unit/mL-1 % ear solution INSTILL 3 TO 4 DROPS TO AFFECTED EAR(S) 3 TIMES DAILY WITH COTTON PLUG 03/26 completed Not Available Not Available Not Available prednisone 10 mg tablet TAKE 6 TABLETS BY MOUTH DAILY 03/26 completed Not Available Not Available Not Available cetirizine 10 mg tablet TAKE ONE TABLET BY MOUTH DAILY NEEDED 03/26 completed Not Available Not Available Not Available azithromyci n 250 mg tablet TAKE DIRECTED 03/26 completed Not Available Not Available Not Available fluconazole 150 mg tablet TAKE ONE TABLET BY MOUTH 03/26 completed Not Available Not Available Not Available prednisone 20 mg tablet TAKE DIRECTED 03/26 completed Not Available Not Available Not Available loperamide 2 mg tablet TAKE ONE TABLET BY MOUTH EVERY FOUR HOURS NEEDED 03/26 completed Not Available Not Available Not Available aspirin 81 mg tablet,lisa yed release Take 1 tablet every day by oral route. active Not Available Not Available No t Available triamcinolo ne acetonide 0.1 % topical cream APPLY TO AFFECTED AREA(S) TWICE DAILY NEEDED 03/26 completed Not Available Not Available Not Available tobramycin 0.3 % eye drops INSTILL 2 DROPS TO AFFECTED EYE(S) EVERY 6 HOURS 03/26 completed Not Available Not Available Not Available mupirocin 2 % topical ointment APPLY TO AFFECTED AREA(S) 2 TO 4 TIMES PER DAY 03/26 completed Not Available Not Available Not Available ondansetron 4 mg disintegrat ing tablet DISSOLVE 1 TABLET ON THE TONGUE EVERY 6 HOURS NEEDED FOR NAUSEA 03/26 completed Not Available Not Available Not Available cefdinir 300 mg capsule TAKE ONE CAPSULE BY MOUTH EVERY TWELVE HOURS 03/26 completed Not Available Not Available Not Available doxycycline hyclate 100 mg tablet TAKE ONE TABLET BY MOUTH TWICE DAILY 07/25 /2024 completed Not Available Not Available Not Available naproxen 500 mg tablet TAKE ONE TABLET BY MOUTH TWICE DAILY 03/26 completed Not Available Not Available Not Available methylpheni date ER 36 mg tablet,exte nded release 24 hr TAKE 1 TABLET BY MOUTH DAILY active Not Available Not Available No t Available ciclopirox 0.77 % topical cream APPLY TO AFFECTED AREA(S) TWICE DAILY NEEDED 03/26 completed Not Available Not Available Not Available Breo Ellipta 200 mcg-25 mcg/dose powder for inhalation INHALE 1 PUFF DIRECTED ONCE A DAY. REPLACES 100MCG DOSE OF BREO. RINSE MOUTH AFTER USE. active Not Available Not Available No t Available Flowflex COVID-19 Antigen Home Test kit Use as directed 03/27 completed Not Available Not Available Not Available Vitals Date Recorded Body height Body mass index (BMI) Body mass index (BMI) Percentile per age and sex Body weight Heart rate Body temperature Systolic blood pressure Diastolic blood pressure Provider Name and Address Organization Details Last Updated DateTime 4 172.72 cm 21.3 kg/m2 46 % 13305.9 3 g 82 /min 97.9 [degF] 129 mm[Hg] 87 mm[Hg] [employer] [place] [facility] 4 14:22:18 Date Recorded Body height Heart rate Body temperature Body mass index (BMI) Percentile per age and sex Body mass index (BMI) Body weight Systolic blood pressure Diastolic blood pressure Provider Name and Address Organization Details Last Updated DateTime 4 172.72 cm 90 /min 97.3 [degF] 46 % 21.3 kg/m2 71801.9 3 g 138 mm[Hg] 90 mm[Hg] Barb Vasquez [place] [facility] 4 16:08:53 Social History Question Answer Notes LastModified by Organizat ion Details LastModified Time Tobacco Smoking Status Never Smoker Not Available [employer] 03/27/2024 14:07:36 Do You Have An Advance Directive? No [email or web address] Information not available 03/27/2024 What Is Your Level Of Alcohol Consumption? None [email or web address] Information not available 03/27/2024 Are You Currently Employed? No [email or web address] Information not available 03/27/2024 Do You Or Have You Ever Used E-cigarettes Or Vape? Never Used Electronic Cigarettes [email or web address] Information not available 03/27/2024 Shoe Size 8 [email or web address] Information no t available 03/27/2024 What Was The Date Of Your Most Recent Tobacco Screening? 04/17/2024 [email or web address] Information not available 04/17/2024 What Is Your Relationship Status? Single [email or web address] Information not available 03/27/2024 Do You Or Have You Ever Used Smokeless Tobacco? Never Used Smokeless Tobacco [email or web address] Information not available 03/27/2024 Do You Use Any Illicit Or Recreational Drugs? No [email or web address] Information not available 03/27/2024 Has Tobacco Cessation Counseling Been Provided? No [email or web address] Information not available 03/27/2024 Do You Or Have You Ever Used Any Other Forms Of Tobacco Or Nicotine? No [email or web address] Information not available 03/27/2024 Sex: Unknown Functional Status None recorded. Mental Status None recorded. Family History Nothing Reported. Medical History Condition Response asthma Y anxiety disorder Y Gynecological HistoryNo gynecological history recorded. Obstetrics History GPAL:G 0 P 0 0 0 0 Past Encounters Encounter ID Performer Location Encounter Start Date Encounter Closed Date Diagnosis/Indication Diagnosis SNOMED-CT Code Diagnosis ICD10 Code Diagnosis Note [id number] Charan Florentino DPM [facility] [place] [address] 03/27/2024 13:59:05 03/27/2024 15:32:40 Bilateral foot congenital pes cavus 8892925081 0155187 Q66.71 Q66.72 Ligamentou s laxity of ankle region 330237530 M24.271 M24.272 Hypermobil e Cassie-Danlos syndrome 45213402 Q79.62 Elevated blood-pressure reading without diagnosis of hypertension 512059427 R03.0 Discussed BP reading today. Pt will continue to monitor for any increase and will follow up with their PMD if they notice this. Also discussed lifestyle management changes with them. [id number] Charan Florentino DPM [facility] [address] [place] [address] 04/17/2024 16:03:30 04/17/2024 16:32:34 Bilateral foot congenital pes cavus 7002540722 9823756 Q66.71 Q66.72 Ligamentou s laxity of ankle region 303812788 M24.271 M24.272 Hypermobil e Cassie-Danlos syndrome 25547999 Q79.62 Health Concerns Section Related Observation LastModified by Organization Detai ls LastModified Time None Recorded Concern Status LastModified by Organization Details LastModified Time None Recorded Advance Directives Directive N: Payers Encounter Date Sequence Insurance Name Policy Number Policy Walter Covered Member ID Walter Member ID Guarantor Name 03/27/2024 1 [employer] [employer] [employer] [place] Lars Eng [id number] Lars Eng 04/17/2024 1 [place] [place] Lars Eng [id number] Ramirez Eng Notes Date Note Type Note Provider Name and Address Organization Details Recorded Time 03/27/2024 text/html Pt states pain i n her arches and pressure on the front of her foot. Pt was referred by Mere Soto for hypermobility. Pt relates that she always has foot pain whenever she's on her feet. She is only tolerating the flat soled shoes. She had multiple podiatrists in the past and was told that she needs PTx. However, she feels that OTC insoles tend to help even though her relief is limited. Pt would like to explore orthotic options today. Pt denies history of any ankle sprains and hasnt used ankle braces in the past. 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 Charan Florentino DPM [address], [place], [address], [facility] - [facility] 04/19/2024 00:15:41 OBGyn Episode No OBEpisode recorded.
--- OUTSIDE RECORDS SUMMARY | 2024-12-12 00:11 | XMS_ITS | Clinical Summary ---
Author Organization [facility] Address [address] [place] [address] Care Team Providers Care Director Of Spa And Guest Experience Name Role Phone Charla Monroe MD Primary [...] 12/20/2005 HPV Vaccines Completed 03/19/2019, 03/06/2017 Insurance [employer] [facility] [employer] [facility] Care Teams Director Of Spa And Guest Experience Relationship Specialty Start Date End Date Charla Monroe MD [address] [place] [id number] PCP - General Rheumatology 03/27/24
--- OUTSIDE RECORDS SUMMARY | 2024-12-12 00:11 | XMS_ITS | Encounter Summary ---
Author Organization [facility] Address [address] [place] [address] Care Team Providers Care Electrical Contractor Name Role Phone Unavailable Primary Care Provider Unavailabl e Encounter Details Date Type Department Care Team (Late st Contact Info) Description 09/14/2021 Lab Requisition [facility] Main Laboratory/Pathology Department [address] [place] [address] Mary Conte MD [address] [facility] [place] [address] Contact with and (suspected) exposure [...] Not detected Not detected 09/15/2021 7:13 PM [facility] Swab NASAL / Unknown 09/14/2021 1 1:00 AM PST 09/14/2021 5:30 PM PST Narrative [facility] - 09/15/2021 7:13 PM PST o This test is performed using the Perkin Rafy nCoV NAD assay. o This test has been authorized by FDA under an EUA for use by the [facility] Laboratory located at [address] [place] [address]. o This test has been authorized only [...] revoked sooner. Test fact sheet for Patients: https://www.fda.gov/media/557643/download us Mary Conte MD MICROBIOLOGY - GENERAL ORD ERABLES [place] [address] documented in this encounter Visit Diagnoses Diagnosis Contact with and (suspected) exposure to other viral communicable diseases documented in this encounter
--- OUTSIDE RECORDS SUMMARY | 2024-12-12 00:11 | XMS_ITS | Data Portability ---
Author Organization KAUSHIK MONTES DE [facility] Address [address] [place] [id number] Assessment Encounter Date Assessment Date Assessment LastModified by Organization Details LastModified Time 04/20/2024 04/20/2024 ASSESSMENT AND PLAN: 1. Asthma, asymptomatic, well controlled at present, addressing triggers. She does feel she may have a slight increase in symptoms when she transitions from the [facility] back to [place]. She will be doing this as summer [...] her exact dosing of immunotherapy from current [facility] to the one that is in [place]. There was some mention of possibly using [...] weeks. Recommend followup with allergy clinic in [place] when she arrives. If she has flare-up [...] highe r sensi tivit y. Not Available [employer] [place], [address] 09/14/2024 21:29:14 06/11/20 24 02/13/2024 MAGNE SIUM magnesium 2.0 mg/dL 1.6-2. 3 normal Not Available [facility] [place], [address] 09/14/2024 21:29:14 02/11/20 24 02/13/2024 TSH W/REF DOMITILA TSH 2.060 uIU/m L 0.450- 4.500 normal Not Available [facility] [place], [address] 09/14/2024 21:29:13 02/11/20 24 02/13/2024 VITAM IN D, 25-HY DROXY vitamin D, 25-hydroxy 35.1 NG/mL 30.0-1 00.0 Vitam in D defic iency has been defin ed by the Insti tute of [facility] and an Endoc rine Socie ty pract [...] um and D. Bakari gardner [place]: [facility] . 2. Vee waite MF, Flaca yoo [place], Phani off-F lynn i OLIVEROS, et al. Evalu ation , treat ment, and preve ntion of vitam in D defic iency : an Endoc rine Socie ty clini ronak pract ice guide line. JCEM. 2010; 96(7) :1911 -30. Not Available [facility] [place], [address] 09/14/2024 21:29:13 02/11/20 24 02/13/2024 HEMOG LOBIN A1C hemoglobin A1C 5.1 % 4.8-5. 6 normal Predi abete s: 5.7 - 6.4 Diabe alex: >6.4 Glyce rae contr ol for adult s with diabe alex: <7.0 Not Available [facility] [place], [address] 09/14/2024 21:29:12 02/11/20 24 02/13/2024 COMP. METAB OLIC PANEL (14) glucose 84 mg/dL 70-99 normal Not Available [facility] [place], [facility] 09/14/2024 21:29:12 02/11/20 24 02/13/2024 COMP. METAB OLIC PANEL (14) BUN 18 mg/dL 6-20 normal Not Available [facility] [place], [facility] 09/14/2024 21:29:12 02/11/20 24 02/13/2024 COMP. METAB OLIC PANEL (14) creatinine 0.77 mg/dL 0.57-1 .00 normal Not Available [facility] [place], [facility] 09/14/2024 21:29:12 02/11/20 24 02/13/2024 COMP. METAB OLIC PANEL (14) eGFR 114 mL/mi n/1.7 3 >59 normal Not Available [place], [facility] 09/14/2024 21:29:12 02/11/20 24 02/13/2024 COMP. METAB OLIC PANEL (14) BUN/creatini ne ratio 23 9-23 normal Not Available [facility] [place] 09/14/2024 21:29:12 02/11/20 24 02/13/2024 COMP. METAB OLIC PANEL (14) sodium 140 mmol/ L 134-14 4 normal Not Available [place], [facility] 09/14/2024 21:29:12 02/11/20 24 02/13/2024 COMP. METAB OLIC PANEL (14) potassium 4.1 mmol/ L 3.5-5. 2 normal Not Available [facility] [place] [place] 09/14/2024 21:29:12 02/11/20 24 02/13/2024 COMP. METAB OLIC PANEL (14) chloride 103 mmol/ L 96-106 normal Not Available [facility] [place] 09/14/2024 21:29:12 02/11/20 24 02/13/2024 COMP. METAB OLIC PANEL (14) carbon dioxide, total 24 mmol/ L 20-29 [place], [address] 09/14/2024 21:29:12 02/11/20 24 02/13/2024 COMP. METAB OLIC PANEL (14) calcium 9.8 mg/dL 8.7-10 .2 [place], [address] 09/14/2024 21:29:12 02/11/20 24 02/13/2024 COMP. METAB OLIC PANEL (14) protein, total 7.3 g/dL 6.0-8. 5 normal Not Available [place], [facility] 09/14/2024 21:29:12 02/11/20 24 02/13/2024 COMP. METAB OLIC PANEL (14) albumin 4.7 g/dL 4.0-5. 0 normal Not Available [place], [facility] 09/14/2024 21:29:12 02/11/20 24 02/13/2024 COMP. METAB OLIC PANEL (14) globulin, total 2.6 g/dL 1.5-4. 5 Not Available [place], [facility] 09/14/2024 21:29:12 02/11/20 24 02/13/2024 COMP. METAB OLIC PANEL (14) A/G ratio 1.8 Not Available [place], [facility] 09/14/2024 21:29:12 02/11/20 24 02/13/2024 COMP. METAB OLIC PANEL (14) bilirubin, total 0.6 mg/dL 0.0-1. 2 normal Not Available [place], [facility] 09/14/2024 21:29:12 02/11/20 24 02/13/2024 COMP. METAB OLIC PANEL (14) alkaline phosphatase 73 IU/L 42-106 normal Not Available [place], [facility] 09/14/2024 21:29:12 02/11/20 24 02/13/2024 COMP. METAB OLIC PANEL (14) AST (SGOT) 15 IU/L 0-40 normal Not Available [place], [facility] 09/14/2024 21:29:12 02/11/20 24 02/13/2024 COMP. METAB OLIC PANEL (14) ALT (SGPT) 21 IU/L 0-32 normal Not Available [facility] [place] 09/14/2024 21:29:12 02/11/20 24 02/13/2024 CBC WITH DIFFE RENTI AL/PL ATELE T WBC 8.1 x10e3 /uL 3.4-10 .8 normal Not Available [facility] [place] 09/14/2024 21:29:11 02/11/20 24 02/13/2024 CBC WITH DIFFE RENTI AL/PL ATELE T RBC 4.54 x10e6 /uL 3.77-5 .28 normal Not Available [facility] [place] 09/14/2024 21:29:11 02/11/20 24 02/13/2024 CBC WITH DIFFE RENTI AL/PL ATELE T hemoglobin 14.4 g/dL 11.1-1 5.9 normal Not Available [facility] [place] 09/14/2024 21:29:11 02/11/20 24 02/13/2024 CBC WITH DIFFE RENTI AL/PL ATELE T hematocrit 44.7 % 34.0-4 6.6 normal Not Available [facility] [place] 09/14/2024 21:29:11 02/11/20 24 02/13/2024 CBC WITH DIFFE RENTI AL/PL ATELE T MCV 99 fL 79-97 high Not Available [facility] [place], [facility] 09/14/2024 21:29:11 02/11/20 24 02/13/2024 CBC WITH DIFFE RENTI AL/PL ATELE T MCH 31.7 pg 26.6-3 3.0 normal Not Available [facility] [place], [address] 09/14/2024 21:29:11 02/11/20 24 02/13/2024 CBC WITH DIFFE RENTI AL/PL ATELE T MCHC 32.2 g/dL 31.5-3 5.7 normal Not Available [facility] [place], [address] 09/14/2024 21:29:11 02/11/20 24 02/13/2024 CBC WITH DIFFE RENTI AL/PL ATELE T RDW 11.2 % 11.7-1 5.4 [place], [address] 09/14/2024 21:29:11 02/11/20 24 02/13/2024 CBC WITH DIFFE RENTI AL/PL ATELE T platelets 222 x10e3 /uL 150-45 0 [place], [address] 09/14/2024 21:29:11 02/11/20 24 02/13/2024 CBC WITH DIFFE RENTI AL/PL ATELE T neutrophils 53 % not estab. [place], [address] 09/14/2024 21:29:11 02/11/20 24 02/13/2024 CBC WITH DIFFE RENTI AL/PL ATELE T lymphs 38 % not estab. [place], [address] 09/14/2024 21:29:11 02/11/20 24 02/13/2024 CBC WITH DIFFE RENTI AL/PL ATELE T monocytes 7 % not estab. [place], [address] 09/14/2024 21:29:11 02/11/20 24 02/13/2024 CBC WITH DIFFE RENTI AL/PL ATELE T eos 1 % not estab. [place], [address] 09/14/2024 21:29:11 02/11/20 24 02/13/2024 CBC WITH DIFFE RENTI AL/PL ATELE T basos 1 % not estab. [place], [address] 09/14/2024 21:29:11 02/11/20 24 02/13/2024 CBC WITH DIFFE RENTI AL/PL ATELE T immature cells [employer] [place], [address] 09/14/2024 21:29:11 02/11/20 24 02/13/2024 CBC WITH DIFFE RENTI AL/PL ATELE T neutrophils (absolute) 4.3 x10e3 /uL 1.4-7. 0 normal Not Available [facility] [place], [address] 09/14/2024 21:29:11 02/11/20 24 02/13/2024 CBC WITH DIFFE RENTI AL/PL ATELE T lymphs (absolute) 3.1 x10e3 /uL 0.7-3. 1 normal Not Available [facility] [place], [facility] 09/14/2024 21:29:11 02/11/20 24 02/13/2024 CBC WITH DIFFE RENTI AL/PL ATELE T monocytes(ab solute) 0.6 x10e3 /uL 0.1-0. 9 normal Not Available [facility] [place], [facility] 09/14/2024 21:29:11 02/11/20 24 02/13/2024 CBC WITH DIFFE RENTI AL/PL ATELE T eos (absolute) 0.1 x10e3 /uL 0.0-0. 4 normal Not Available [facility] [place], [facility] 09/14/2024 21:29:11 02/11/20 24 02/13/2024 CBC WITH DIFFE RENTI AL/PL ATELE T baso (absolute) 0.0 x10e3 /uL 0.0-0. 2 normal Not Available [facility] [place], [facility] 09/14/2024 21:29:11 02/11/20 24 02/13/2024 CBC WITH DIFFE RENTI AL/PL ATELE T immature granulocytes 0 % not estab. Not Available [facility] [place], [address] 09/14/2024 21:29:11 02/11/20 24 02/13/2024 CBC WITH DIFFE RENTI AL/PL ATELE T immature grans (abs) 0.0 x10e3 /uL 0.0-0. 1 Not Available [facility] [place], [address] 09/14/2024 21:29:11 02/11/20 24 02/13/2024 CBC WITH DIFFE RENTI AL/PL ATELE T NRBC [employer] Not Available [facility] [place], [address] 09/14/2024 21:29:11 02/11/20 24 02/13/2024 CBC WITH DIFFE RENTI AL/PL ATELE T hematology comments: [employer] Not Available [facility] [place], [address] 09/14/2024 21:29:11 05/14/20 24 02/11/2024 audio gram No observ ation record ed. [email or web address] Not Available 06/2024 11:57:51 05/14/20 24 02/01/2022 audio gram No observ ation record ed. [email or web address] Not Available 06/2024 13:02:06 05/14/20 24 03/27/2023 sherrell metry testi ng* No observ ation record ed. [email or web address] Not Available 06/2024 12:00:50 05/14/20 24 11/30/2023 CT, angio gram, chest , w/ contr ast No observ ation record ed. [email or web address] Not Available 06/2024 12:00:04 05/14/20 24 01/31/2023 body compo sitio n waleska sis (PROC ) No observ ation record ed. [email or web address] Not Available 06/2024 13:09:14 05/14/20 24 02/11/2024 sherrell metry testi ng* No observ ation record ed. Not Available 06/2024 11:56:32 05/14/20 24 02/11/2024 body compo sitio n w[place] sis (PROC ) No observ ation record ed. [email or web address] Not Available 06/2024 11:56:57 05/14/20 24 02/11/2024 elect rocar diogr am No observ ation record ed. Not Available 06/2024 11:57:19 08/11/20 auton omic funct ion testi ng (PROC ) No observ ation record ed. [email or web address] Not Available 08/02 13:54:27 08/18/20 24 08/05/2024 US, thyro id No observ ation record ed. [email or web address] Not Available 08/02 13:35:30 10/02/19 25 08/21/2024 US, echoc ardio gram, trans thora cic, bubbl e study No observ ation record ed. [email or web address] Not Available 10/2024 14:44:20 11/27/19 25 MRI, brain , w/o contr ast No observ ation record ed. [email or web address] Not Available 11/01 18:06:20 Result Notes None recorded. Problems Name Problem SNOMED Code Status Onset Date Resolution Date Notes Provider Name and Address Organization Details Recorded Time Chronic sinusitis 69484655 Active 025 Joaquin Ochoa MD null, JOSUE Ventura MD2 22:21:50 Problem Notes None recorded. Procedures Surgical History Date Name Laterality Status Provider Name and Address Organization Details Recorded Time extraction of wisdom tooth completed Jefe FAULKNER 04/29/2024 22:15:27 Imaging Results Imaging Date Name Status LastModified by Organization Details LastModified Time 02/11/2024 audiogram completed [email or web address] Information not available 08/11/2024 11:57:51 02/01/2022 audiogram completed [email or web address] Information not available 08/11/2024 13:02:06 03/27/2023 spirometry testing* completed [email or web address] Inf ormation not available 08/11/2024 12:00:50 11/30/2023 CT, angiogram, chest, w/ contrast completed [email or web address] Information not available 08/11/2024 12:00:04 01/31/2023 body composition analysis (PROC) completed [email or web address] Information not available 08/11/2024 13:09:14 02/11/2024 spirometry testing* completed [email or web address] Inf ormation not available 08/11/2024 11:56:32 02/11/2024 body composition analysis (PROC) completed [email or web address] Information not available 08/11/2024 11:56:57 02/11/2024 electrocardiogram completed [email or web address] Infor mation not available 08/11/2024 11:57:19 08/11/2024 autonomic function testing (PROC) completed [email or web address] Information not available 08/11/2024 13:54:27 08/05/2024 US, thyroid completed [email or web address] Information not available 08/20/2024 13:35:30 08/21/2024 US, echocardiogram, transthoracic, bubble study completed Information not available 10/05/2024 14:44:20 11/26/2024 MRI, [...] Available Not Available No t Available budesonide 0.5 mg/2 mL suspension for nebulizatio n COMBINE 1 VIAL WITH SALINE RINSE AND INSTILL INTO NOSTRIL TWICE DAILY 2024 active Not Available Not Available Not Avai lable mupirocin 2 % topical ointment APPLY TO [...] Not Available Not Available No t Available [employer] COVID-19 Antigen Home Test kit Use as [...] 04/29/2024 22:17:30 DTaP, unspecified formulation 5 completed JOSUE Wright 04/29/2024 22:17:34 DTaP, unspecified formulation 5 completed Jefe Pereyra null, [place] [id number] 04/29/2024 22:17:38 DTaP 0 completed Jefe Pereyra null, [place] [id number] 04/29/2024 22:18:01 Hep A, ped/adol, 2 dose 7 completed Jefe Pereyra null, [place] [id number] 04/29/2024 22:18:48 Hep A, pediatric, unspecified formulation 6 completed Jefe Pereyra null, [place] [id number] 04/29/2024 22:18:58 Hep B, unspecified formulation 5 completed Jefe Pereyra null, [place] [address] 04/29/2024 22:19:10 Hep B, unspecified formulation 5 completed Jefe Pereyra null, [place] [address] 04/29/2024 22:19:14 Hep B, unspecified formulation 5 completed Jefe Pereyra null, [place] [address] 04/29/2024 22:19:18 Hib, unspecified formulation 5 completed Jefe Pereyra null, [place] [address] 04/29/2024 22:19:28 Hib, unspecified formulation 5 completed Jefe Pereyra null, [place] [address] 04/29/2024 22:19:32 Hib, unspecified formulation 6 completed Jefe Pereyra null, [place] [address] 04/29/2024 22:19:36 meningococcal MCV4, unspecified formulation 7 completed Gerda Freeman null, [facility] 07/06/2024 14:45:16 meningococcal ACWY, unspecified formulation 2 completed Jefe Pereyra null, [place] [id number] 04/29/2024 22:20:33 meningococcal B, unspecified 3 completed Jefe Pereyra null, [place] [address] 04/29/2024 22:20:44 MMR 0 completed Jefe Pereyra null, [place] [address] 04/29/2024 22:20:56 MMRV 6 completed Jefe Pereyra null, [place] [address] 04/29/2024 22:21:11 polio, unspecified formulation 5 completed Jefe Pereyra null, [place] [address] 04/29/2024 22:21:22 polio, unspecified formulation 5 completed Jefe Pereyra null, [place] [address] 04/29/2024 22:21:28 polio, unspecified formulation 5 completed Jefe Pereyra null, [place] [address] 04/29/2024 22:21:31 IPV 0 completed Jefe Pereyra null, [place] [address] 04/29/2024 22:21:42 pneumococcal conjugate PCV 7 6 completed Jefe Pereyra null, [place] [id number] 04/29/2024 22:21:51 pneumococcal conjugate PCV 7 5 completed Jefe Pereyra null, [place] [address] 04/29/2024 22:21:56 pneumococcal conjugate PCV 7 5 completed Jefe Pereyra null, [place] [address] 04/29/2024 22:21:59 pneumococcal conjugate PCV 7 5 completed Jefe Pereyra null, [place] [address] 04/29/2024 22:22:02 Tdap 7 completed Gerda Freeman null, [place] [address] 07/06/2024 14:45:16 varicella 0 completed Jefe Pereyra null, [place] [address] 04/29/2024 22:22:20 meningococcal B, recombinant 3 completed Gerda Freeman null, [place] [address] 07/06/2024 14:45:16 HPV9 7 completed Gerda Freeman null, [facility] MD2 07/06/2024 14:45:16 HPV9 9 completed Gerda Freeman null, [place] [address] 07/06/2024 14:45:16 COVID-19, mRNA, LNP-S, PF, 100 mcg/0.5mL dose or 50 mcg/0.25mL dose 2 completed Gerda Freeman null, [place] [address] 07/06/2024 14:45:16 COVID-19, mRNA, LNP-S, PF, 30 mcg/0.3 mL dose 1 completed Gerda Freeman null, [place] [id number] 07/06/2024 14:45:16 COVID-19, mRNA, LNP-S, PF, 30 mcg/0.3 mL dose 1 completed Gerda Freeman null, [place] [address] 07/06/2024 14:45:16 COVID-19, mRNA, LNP-S, PF, 30 mcg/0.3 mL dose 1 completed Gerda Freeman null, [place] [address] 07/06/2024 14:45:16 COVID-19, mRNA, LNP-S, bivalent, PF, 30 mcg/0.3 mL dose 2 completed Gerda Freeman null, [place] [address] 07/06/2024 14:45:16 influenza, unspecified formulation 5 completed Gerda Freeman null, [place] [address] 07/06/2024 14:45:16 Hep A, ped/adol, 2 dose 6 completed Gerda Freeman null, [place] [address] 07/06/2024 14:45:16 meningococcal MCV4P 2 completed Gerda Freeman null, [place] [address] 07/06/2024 14:45:16 Influenza, split virus, quadrivalent, PF 7 completed Gerda Freeman null, [place] [address] 07/06/2024 14:45:16 Influenza, split virus, quadrivalent, PF 2 completed Gerda Freeman null, [place] [address] 07/06/2024 14:45:16 Influenza, split virus, quadrivalent, PF 9 completed Gerda Freeman null, [place] [address] 07/06/2024 14:45:16 Influenza, split virus, quadrivalent, PF 6 completed Gerda Freeman null, [place] [address] 07/06/2024 14:45:16 Influenza, split virus, quadrivalent, PF 1 completed Gerda VidesJOSUE grant 07/06/2024 14:45:16 Past Encounters Encounter ID Performer Location Encounter Start Date Encounter Closed Date Diagnosis/Indication Diagnosis SNOMED-CT Code Diagnosis ICD10 Code Diagnosis Note [id number] MD KAUSHIK Mcghee [place] [address] [place] [address] 06/16/2024 22:47:13 06/22/2024 12:26:46 [id number] MD KAUSHIK Mcghee [place] [address] [place] [address] 06/18/2024 15:18:40 06/22/2024 11:49:14 Health Concerns Section Related Observation LastModified by Organization Detai ls LastModified Time None Recorded Concern Status LastModified by Organization Details LastModified Time None Recorded Advance Directives Directive None Recorded Payers Encounter Date Sequence Insurance Name Policy Number Policy Walter Covered Member ID Walter Member ID Guarantor Name 12/03/2023 1 [place] [id number] Laurie Pulido [id number] Ramirez Pulido 04/20/2024 1 [place] [id number] Laurie Pulido [id number] Ramirez Pulido Notes Date Note Type Note Provider Name and Address Organization Details Recorded Time 12/03/2023 text/html Dr. Joaquin Ochoa MD[address] [place] [address] [address], [place], [place] [address]PME [phone] FAX [phone] of Service: 4Patient Name: Laurie PulidoDate of : 2005 IDENTIFICATION: I spoke with Laurie Pulido regarding her asthma. 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 Flare [...] and is undergoing desensitization injections there in [place]. Did have shots earlier this week despite [...] a prescription, although she may purchase it [id number]. Estimated cost is approximately $38. They did [...] subsides, consider formal spirometry check there in [place]. Prior labs reviewed. No IgE reported. No [...] verify she is making more progress.ALEKSANDRA Mcghee [facility]/sabrina/rachel Ochoa MD null, JOSUE - MD2 06/22/2024 12:26:46 04/20/2024 text/html Dr. Joaquin Ochoa MD[address] [place] [address], [address], [place], [place] [address]DYO [phone] FAX [phone] of Service: 4Patient Name: Laurie Rothte of : 2005Visit Type: Consult FollowupIDENTIFICATIO N: I saw Svitlana Pulido for followup regarding her asthma and allergies. Routine visit today to plan asthma management for this upcoming academic year will be in school in [place]. Recall, she is a delightful 18-year-old with underlying environmental allergies. Denies tracey eczema. Has been followed at [facility], undergoing environmental allergen, desensitization shots including dust mites and ragweed among other triggers. Currently, both allergies and asthma are well controlled. She has never been intubated. She has had a flare before requiring prednisone as recently as October/December of this year while in [place]. Since that time, she has been free of flares, not needing any prednisone, only requiring her rescue inhaler, levalbuterol, approximately once a month, remains on Breo 200 mcg daily. She uses Astepro for nasal congestion and Claritin for the same, not taking montelukast or biosimilar. No reported history of Nucala, Xolair or Dupixent. She was seen last week at [facility], has a copy of her [...] new hoarseness or other throat specific symptoms. MD anibal Mcghee [place] - MD2 06/22/2024 11:49:14 OBGyn Episode No OBEpisode recorded.
--- OUTSIDE RECORDS SUMMARY | 2024-12-12 00:11 | XMS_ITS | Clinical Summary ---
Author Organization [facility] Address [address] [place] [address] Care Team Providers Care Senior Control Systems Engineer Name Role Phone Unavailable Primary Care Provider Unavailabl e Source Comments NOTE: The information displayed is extracted from the complete medical record and may not identify all current or past patient conditions.[facility] Social History Tobacco Use Types Packs/Day [...]
--- OUTSIDE RECORDS SUMMARY | 2024-12-12 00:11 | XMS_ITS | Clinical Summary ---
Author Organization [facility] Address [address] [place] [address] Care Team Providers Care Forger Helper Name Role Phone Clinic, No Pcp Or Primary Care Provider Unavaila ble Immunizations Immunization Administration Dates Next Due DTaP 02/23/2010, 6,06/21/2005,04/19,02/15/2005 HPV 9 (Gardasil 9) 03/19/2019,03/06/2017 Hepatitis A (Adult) 01/28/2007,06/17/2006 Hepatitis A (Peds) 01/28/2007,06/17/2006 Hepatitis B (Peds) 06/21/2005,01/16/2005, 005 Hib Conjugate, Unspecified 12/20/2005,04/19/2005 ,02/15/2005 Inactivated Polio Vaccine 02/23/2010,,04/19/2005,02/15 Influenza Virus, Unspecified 07/20/2021, 07/09/2019,06/05/2017,07/19,05/23/2015,05/30/2014,06/28/2013 ,06/29/2012,06/23/2011,06/17/2010,07/04,07/05/2007,08/04/2006, 5,06/21/2005 Influenza, IIV4 07/04/2020 Influenza,CCIIV4 PRESERV FREE 07/05/2023 MMR, Unspecified 02/23/2010 MMRV 12/20/2005 Meningococcal Mcv4, Unspecif ied Formulation 03/06/2017 Pneumococcal conj 7-Valent (Prevnar 7) 0 12/20/2005,06/21/2005,04/19/2005,02/15 Tdap, Unspecified 03/06/2017 Tuberculin Skin Test, Unspecified 04/12/2010 Varicella Vaccine 02/23/2010 Social History Tobacco Use Types Packs/Day Years Used Date Smoking Tobacco: Never Assessed Social Connections Answer Date Recorded Frequency of Communication with Friends and Fami ly Not on file 05/30/2023 Comments Unknown Sex and Gender Information Value Date Recorded Sex Assigned at Not on file Legal Sex Female 11:07 AM CDT Gender Identity Not on file Sexual Orientation Not on file Last Filed Vital Signs Vital Sign Reading Time Taken Comments Blood Pressure 114/79 06/24/2023 2:07 PM CDT BP RECHECK Pulse 87 06/24/2023 2:02 PM CDT Temperature - - Respiratory Rate - - Oxygen Saturation 100% 06/24/2023 2:02 PM CDT Inhaled Oxygen Concentration - - Weight - - Height - - Body Mass Index - - Plan of Treatment Health Maintenance Due Date Last Done Comments Well Child Check for age 3-20 11/15/2007 Depression screening for age 12+ 2016 HIV for age 15-65 12/16/2019 Chlamydia for age 16-24 2020 BMI (ht and wt on same day) for age 18+ 2022 Hepatitis C screening for age 18-79 2022 Influenza Vaccine (Season Ended) 2025 07/05/2023, 07/20/2021, 07/04/2020, Additional history exists Tetanus booster 03/06/2027 03/06/2017 Pneumococcal series for age 6-49 Aged Out 12/20/2005, 06/21/2005, 04/19/2005, Additional history exists No longer eligible based on patient's age to complete this topic Meningococcal series for age 11-21 Aged Out 03/06/2017 No longer eligible based on patient's age to complete this topic Tdap Completed 03/06/2017 HPV series for age 9-26 Completed 03/19/2019, 03/06 COVID-19 vaccine series Completed 05/27/20 24, 07/05/2023, 06/22/2022, Additional history exists Insurance BLUE CROSS OF NON-NH-ITS Care Teams Forger Helper Relationship Specialty Start Date End Date Clinic, No Pcp Or . PCP - General 05/31/23
[2024-12-12 00:12] VITALS: BP 112/75; PULSE 93; RESP 16; TEMP 36.6; O2SAT 97; BMI 20.9
--- NOTE | 2024-12-12 00:23 | ED.GENADULT ---
HPI - General Adult General Chief complaint: Abdominal Pain Stated complaint: Abdominal pain, bloody stool Time Seen by Provider: 12/12/24 00:20 History of Present Illness HPI narrative: c/o lower abdominal pain pt. has been having stomach pain and nausea for a few days , was seen here this week once already. was told to come back if she had fever or chills. today pt. felt like she had chills this afternoon. pt also states she had blood in her stool this AM and then again this afternoon. pt then consulted her [facility] doctor back in [place]. pt. [facility] doctor recommend that the pt. be seen in the ED. pt . also state I am worried about Salmonella, because my sister has salmonella and had similar 18-year-old young woman presenting to the emergency department with concern of some stomach pain and nausea. Seen in the emergency department about 3 days ago. When seen prior had unremarkable CT imaging of abdomen and pelvis Has had couple of weeks of some diarrheal stools though today's bowel movements were not diarrheal. Did note small blood in stool today. Last diarrheal stool might have been yesterday. She has not measured a fever but was chilled earlier today after consultation with physician thought she should present to the emergency department be re-evaluated. Abdominal pain overall improved since last seen here. She has been urinating more but not describing dysuria. Unknown if she has hemorrhoids. Notes that her sister had similar symptoms with salmonella and she herself had antibiotics a few weeks ago with question raised about C diff Related Data Home Medications ?Medication ?Instructions ?Recorded ?Confirmed [facility] BRIO 11/30/23 Claritin 11/30/23 Ritalin 11/30/23 albuterol 11/30/23 aspirin 11/30/23 prednisone 11/30/23 Previous Rx's ?Medication ?Instructions ?Recorded acetaminophen 300 mg-codeine 30 mg 1 tab PO Q6H PRN pain #15 tabs 12/04/23 tablet methylprednisolone 4 mg tablets in See Rx Instructions PO .COMPLEX 12/04/23 a dose pack (Medrol (Clive)) #21 ea ondansetron 4 mg disintegrating 4 mg PO Q6H #20 tabs 12/09/24 tablet Allergies Allergy/AdvReac Type Severity Reaction Status Date / Time No Known Drug Allergies Allergy Verified 12/12/24 00:19 Review of Systems Status of ROS: Reports: 6 or more systems reviewed and unremarkable except as noted in History and below [facility] Medical History Factor 5 Leiden mutation, heterozygous ?D68.51 - Activated protein C resistance (ICD-10) Asthma ?J45.909 - Unspecified asthma, uncomplicated (ICD-10) Social History Smoking Status: Never smoker Do you use any of these nicotine containing products: None Second hand tobacco smoke exposure: No How often do you have a drink containing alcohol: never How often do you have six or more drinks on one occasion: Never AUDIT-C Alcohol total score: 0 Non-prescribed substance use: denies use service: No Exam Narrative: Exam Narrative: Pleasant. NAD. Playing with her hair. Breathing easily. Heart in mildly elevated rate regular rhythm. Abdomen is soft with normal bowel sounds. No peritoneal signs. Mild discomfort in the mid abdomen. Const: Vital Signs, click to edit/add: Vital Signs - 24 hr 12/12/24 00:12 Temperature 97.9 F Pulse Rate [Pulse Oximeter] 93 Respiratory Rate 16 Blood Pressure [Ri ght Upper Arm] 112/75 Pulse Oximetry 97 Oxygen Delivery Me thod Room Air Documenting provider has reviewed patient's vital signs: yes Course Vital Signs Vital signs: Initial Vital Signs Temperature 97.9 F 12/12/24 00:12 Temperature Source Temporal Artery Scan 12/12/24 00:12 Pulse Rate 93 12/12/24 00:12 Respiratory Rate 16 12/12/24 00:12 Blood Pressure 112/75 12/12/24 00:12 Blood Pressure Mean 87 12/12/24 00:12 Blood Pressure Position Sitting 12/12/24 00:12 Pulse Oximetry 97 12/12/24 00:12 Oxygen Delivery Method Room Air 12/12/24 00:12 Vital Signs Temperature 97.9 F 12/12/24 00:12 Pulse Rate 93 12/12/24 00:12 Respiratory Rate 16 12/12/24 00:12 Blood Pressure 112/75 12/12/24 00:12 Pulse Oximetry 97 12/12/24 00:12 Oxygen Delivery Method Room Air 12/12/24 00:12 Temperature 97.9 F 12/12/24 00:12 Pulse Rate 93 12/12/24 00:12 Respiratory Rate 16 12/12/24 00:12 Blood Pressure 112/75 12/12/24 00:12 Pulse Oximetry 97 12/12/24 00:12 Oxygen Delivery Method Room Air 12/12/24 00:12 Medical Decision Making MDM Narrative Medical decision making narrative: Vitals are reassuring. Does not appear to really have colitis at this point. Might have rectal passage bleeding. Might need a little more time to normalize from recent illness. Can certainly collect stool cultures and check for C diff. Would monitor for vital stability and need for further workup and during time that she might be able to produce a stool sample for us. Did offer anal/rectal exam to further delineate source of bleeding but I also suggested that perhaps she would like to follow this up in outpatient clinic with a primary care provider Was able to rest during time in the emergency department. Will need to produce outpatient sample. She would like to leave at this point. See patient discharge plan for further discussion Stay well-hydrated. Can take this stool collection kit with you and return sample here or to clinic with an appointment. Might want to have clinic appointment to see source of bleeding if does not present with any further symptoms. Return for marked intensity in consistent abdominal pain, associated fever. Medical Records Medical records reviewed: Yes I reviewed the patient's medical records Lab Data Lab results reviewed: Yes I reviewed the patient's lab results Labs: Lab Results 12/12/24 12/12/24 Range/Units 00:39 14:30 Urine Color Yellow (Yellow) Urine Appearance Clear (Clear) Urine pH 7.0 (5.0-8.5) Ur Specific [place] 1.010 (1.000-1.030) Urine Protein Negative (Negative) Urine Glucose (UA) Negative (Negative) Urine Ketones Negative (Negative) Urine Blood Negative (Negative) Urine Nitrite Negative (Negative) Urine Bilirubin Negative (Negative) Urine Urobilinogen 0.2 (0.2-1.0) Ur Leukocyte Esterase Negative (Negative) Urine RBC 0-2 (0-2) Urine WBC 0-2 (0-5) Ur Squamous Epith Cells Few (None-Few) Urine Bacteria None (None) Stl C. diff Tox B Gene Negative (Negative) Stl C. diff [id number] PRESUMPTIVE NEGATIVE (Negative) Discharge Plan Discharge Clinical Impression: BRBPR (bright red blood per rectum), Abdominal pain Patient Disposition: Home, Self-Care Condition: Stable Additional Instructions: Stay well-hydrated. Can take this stool collection kit with you and return sample here or to clinic with an appointment. Might want to have clinic appointment to see source of bleeding if does not present with any further symptoms. Return for marked intensity in consistent abdominal pain, associated fever. Prescriptions: No Action prednisone Ritalin Claritin aspirin albuterol [facility] BRIO acetaminophen-codeine 300-30 mg tablet 1 tab PO Q6H PRN (Reason: pain) Qty: 15 0RF methylprednisolone [Medrol (Clive)] 4 mg tablets,dose pack See Rx Instructions .ROUTE .COMPLEX Qty: 21 0RF Rx Instructions: orally per package directions ondansetron 4 mg tablet,disintegrating 4 mg PO Q6H Qty: 20 0RF Follow Up/Referrals: Provider,Not a Local [Primary Care Provider] - Stand Alone Forms: [place] Info Instructions
--- OUTSIDE RECORDS SUMMARY | 2024-12-12 00:48 | XMS_ITS | Clinical Summary ---
Author Organization [facility] Address [address] [facility], [place] [address] [place] [address] Care Team Providers Care Structurer Name Role Phone Pcp, No Primary Care Provider Unavailabl e Source Comments These records are disclosed for treatment purposes as permitted by state and federal privacy law. Any further disclosure may only be done as permitted by law or with the patient's written authorization.[facility] Immunizations Name Administration Dates Next Due [...] age to complete this topic Care Teams Structurer Relationship Specialty Start Date End Date Pcp, No [address] [place] [address] PCP - General 12/14/20
--- OUTSIDE RECORDS SUMMARY | 2024-12-12 00:49 | XMS_ITS | Encounter Summary ---
Author Organization [facility] Address [address] [place] [address] Care Team Providers Care Freezer Assistant Name Role Phone Charla Monroe MD Primary Care Provider + Reason for Referral * MRI/CAT/PET Scan (Urgent) - Authorized Specialty Diagnoses / Procedures Referred By Contac t Referred To Contact Radiology Diagnoses Nonintractable headache, unspecified chronicity pattern, unspecified headache type Syncope, unspecified syncope type Dizziness Procedures MR Brain wo IV Contrast Syd Martins MD [address] [address] Phone: tel: fax: Referral ID Status Reason Start Date Expiration Date V isits Requested Visits Authorized [id number] Authorized 11/03/2024 01/01/2025 2 2 Reason for Visit * MRI/CAT/PET Scan (Urgent) - Authorized Specialty Diagnoses / Procedures Referred By Contac t Referred To Contact Radiology Diagnoses Nonintractable headache, unspecified chronicity pattern, unspecified headache type Syncope, unspecified syncope type Dizziness Procedures MR Brain wo IV Contrast Syd Martins MD [address] [address] Phone: tel: fax: Referral ID Status Reason Start Date Expiration Date V isits Requested Visits Authorized [id number] Authorized 11/03/2024 01/01/2025 2 2 Encounter Details Date Type Department Care Team (Latest Contact Info) Description 11/25/2024 9:05 AM PDT - 11/25/2024 11:59 PM PDT Hospital Encounter [facility] MR Imaging [address] [place] [address] Discharge Disposition: Home/Work (includes foster care) Social [...] 2:45 PM PDT Telemedicine Neurology 2nd Floor, [facility] [address], 2nd [place] [address] Coleman Mo MD [address] [facility] [address] [place] [address] documented as of this encounter [...] No similar studies available for comparison at [facility] at time of dictation. PROCEDURE COMMENTS: [...] documented as of this encounter Care Teams Freezer Assistant Relationship Specialty Start Date End Date Charla Monroe MD [address] [place] [address] PCP - General Rheumatology 03/01/22 documented as of this encounter
--- OUTSIDE RECORDS SUMMARY | 2024-12-12 00:49 | XMS_ITS | Encounter Summary ---
Author Organization [facility] Address [address] [facility] [place] [address] Care Team Providers Care Curtain Feller Blindstitch Name Role Phone Royal Martins MD Primary Care Provider [phone] Reason for Visit * Reason Comments Medication Refill Encounter Details Date Type Department Care Team (Late Contact Info) Description 11/24/2024 Refill [facility] [address] [place] [address] Yemi Arriaga MD [address] [facility] [address] [place], [place] [id number] Social History Tobacco Use Types Packs/Day Years [...] Description 02/16/2025 10:00 AM PDT Office Visit [facility] [address] [place] [address] Yemi Arriaga MD [address] [facility] [address] [place], [place] [phone] documented as of this encounter Visit Diagnoses Not on filedocumented in this encounter Care Teams Curtain Feller Blindstitch Relationship Specialty Start Date End Date Royal Martins MD [address] [place] [address] [address] [place] [address] PCP - General Internal Medicine 11/24/24 documented as of this encounter
--- OUTSIDE RECORDS SUMMARY | 2024-12-12 00:49 | XMS_ITS | Referral Summary ---
Author Organization [facility] Address [address] [place] [address] Care Team Providers Care Cementer Helper Name Role Phone Charla Monroe MD Primary [...] deemed pertinent for the care of the patient.[facility] Encounters Date Type Department Care Team Description 11/25/2024 9:05 AM PDT - 11/25/2024 11:59 PM PDT Hospital Encounter [facility] MR Imaging [address] [place] [id number] Discharge Disposition: Home/Work (includes foster care) from [...] Did a one week intensive course at [facility] in Jul 2020 Tried prozac 20mg [...] 2:45 PM PDT Telemedicine Neurology 2nd Floor, [address], 2nd Floor [place], [place] [id number] Coleman Mo MD [address] [place] [address] [address] [place], [place] [id number] Procedures Procedure Name Priority Date/Time Associated Diagnosis [...] No similar studies available for comparison at [facility] at time of dictation. PROCEDURE COMMENTS: [...] (OUT OF STATE) - BS Care Teams Cementer Helper Relationship Specialty Start Date End Date Charla Monroe MD [address] [id number] PCP - General Rheumatology 03/01/22
--- OUTSIDE RECORDS SUMMARY | 2024-12-12 00:49 | XMS_ITS | Clinical Summary ---
Author Organization [facility] Address [address] [place] [address] Care Team Providers Care Shactor Helper Name Role Phone Charla Monroe MD [...] deemed pertinent for the care of the patient.[facility] Allergies No known active allergies Medications * [...] a one week intensive course at [facility] in Jul 2020 Tried prozac 20mg for about 2 months, but seemed to cause more problems than helped - caused fatigue, emotional dysregulation Encounters Date Type Department Care Team Description 11/25/2024 9:05 AM PDT - 11/25/2024 11:59 PM PDT Hospital Encounter [facility] MR Imaging [address] [id number] Discharge Disposition: Home/Work (includes foster care) from [...] 2:45 PM PDT Telemedicine Neurology 2nd Floor, [facility] [address] [facility], 2nd Floor [place] [phone] Coleman Mo MD [address] [place] [address] [address] [place] [address] Health Maintenance Due Date Last Done Comments [...] No similar studies available for comparison at [facility] at time of dictation. PROCEDURE COMMENTS: [...] CARD (OUT OF STATE) - Care Teams Shactor Helper Relationship Specialty Start Date End Date Charla Monroe MD [address] [place] [address] [address] [place], [place] [address] PCP - General Rheumatology 03/01/22
--- OUTSIDE RECORDS SUMMARY | 2024-12-12 00:49 | XMS_ITS | Encounter Summary ---
Author Organization [facility] Address [address] [place] [address] Care Team Providers Care Cost And Sales Record Supervisor Name Role Phone Royal Martins MD Primary Care Provider Reason for Visit * Reason Comments New Patient Appointment Vocal Cord Dysfu nction Encounter Details Date Type Department Care Team (Late st Contact Info) Description 11/24/2024 1:00 PM PDT Office Visit [facility] [address] [facility] [address] [place] [address] Saravanan Arriaga MD [address] [facility] [address] [facility] [address] [place], [place] [phone] LPRD (laryngopharyngeal reflux disease) (Primary Dx); Chronic [...] from the original note were not included. [facility] Otolaryngology History & Physical Exam Patient Name: Laurie Pulido Date of Service: 11/24/2024 Date of : 2005 Clinic Medical Record: [id number] Primary Care Physician: Royal Martins MD Referring [...] up extensively by the autonomic group at [place]. She has had a tilt table test [...] azelastine 0.15% (ASTEPRO) 205.5 mcg (0.15 %) [place] 205.5 mcg into each nostril 2 (two) [...] evidence of hematoma or perforation. Inferior Turbinates: [place] and intact. Nasal Polyps: None visualized on anterior rhinoscopy. No drainage anteriorly. Oral Cavity/Oropharynx: No trismus. Buccal Mucosa: No lesions. [place] and moist. Floor of Mouth: Soft, No [...] Description 02/16/2025 10:00 AM PDT Office Visit [facility] [address] [facility] [address] [place] [address] Saravanan Arriaga MD [address] [facility] [address] [place], [place] [phone] documented as of this encounter Visit Diagnoses Diagnosis LPRD (laryngopharyngeal reflux disease)- Primary Acute laryngitis, without mention of obstruction Chronic maxillary sinusitis POTS (postural orthostatic tachycardia syndrome) Unspecified tachycardia documented in this encounter Care Teams Cost And Sales Record Supervisor Relationship Specialty Start Date End Date Royal Martins MD [address] [place] [address] [address] [place] [address] PCP - General Internal Medicine 11/24/24 documented as of this encounter
--- OUTSIDE RECORDS SUMMARY | 2024-12-12 00:50 | XMS_ITS | Clinical Summary ---
Author Organization [facility] Address [address] [place] [address] Care Team Providers Care Counter Clerk [employer] Name Role Phone Royal Martins MD Primary Care Provider [phone] Allergies No known active allergies Medications loratadine [...] azelastine 0.15% (ASTEPRO) 205.5 mcg (0.15 %) [place] 205.5 mcg into each nostril 2 (two) [...] Did a one week intensive course at [facility] in Jul 2020 Tried prozac 20mg for about 2 months, but seemed to cause more problems than helped - caused fatigue, emotional dysregulation Gastro-esophageal reflux disease with esophagiti s 01/04/2005 Encounters Date Type Department Care Team Description 11/24/2024 1:00 PM PDT Office Visit [facility] [address] [place] [address] Yemi Arriaga MD LPRD (laryngopharyngeal reflux disease) (Primary Dx); Chronic maxillary sinusitis; POTS (postural orthostatic tachycardia syndrome) 11/24/2024 Refill [facility] [address] [place] [address] Yemi Arriaga MD from Last [...] Description 02/16/2025 10:00 AM PDT Office Visit [facility] [address] [place] [address] Yemi Arriaga MD [address] [place] [address] Health Maintenance Due Date Last [...] to complete this topic Insurance Care Teams Counter Clerk [employer] Relationship Specialty Start Date End Date Royal Martins MD [address] [place] [address] 7 [place] [address] PCP - General Internal Medicine 11/24/24
--- OUTSIDE RECORDS SUMMARY | 2024-12-12 00:51 | XMS_ITS | Clinical Summary ---
Author Organization [facility] Address [address] [place] [address] Care Team Providers Care Charge Authorizer Name Role Phone Unavailable Primary Care Provider Unavailabl e Source Comments NOTE: The information displayed is extracted from the complete medical record and may not identify all current or past patient conditions.[facility] Social History Tobacco Use Types Packs/Day [...]
--- OUTSIDE RECORDS SUMMARY | 2024-12-12 00:51 | XMS_ITS | Referral Summary ---
Author Organization [facility] Address [address] [place] [address] Care Team Providers Care Environmental Health Specialist Name Role Phone Unavailable Primary Care Provider Unavailabl e Source Comments NOTE: The information displayed is extracted from the complete medical record and may not identify all current or past patient conditions.[facility] Social History Tobacco Use Types Packs/Day Years Used Date Smoking Tobacco: Never Assessed Comments Unknown Sex and Gender Information Value Date Recorded Sex Assigned at Not on file Legal Sex Female 12:00 PM PST Gender Identity Not on file Sexual Orientation Not on file Plan of Treatment Not on file
--- OUTSIDE RECORDS SUMMARY | 2024-12-12 00:51 | XMS_ITS | Clinical Summary ---
Author Organization [facility] Address [address] [place] [address] Care Team Providers Care Cloth Examiner Name Role Phone Charla Monroe MD Primary [...] 12/20/2005 HPV Vaccines Completed 03/19/2019, 03/06/2017 Insurance [employer] [facility] [employer] [facility] Care Teams Cloth Examiner Relationship Specialty Start Date End Date Charla Monroe MD [address] [place] [id number] PCP - General Rheumatology 03/27/24
--- OUTSIDE RECORDS SUMMARY | 2024-12-12 00:51 | XMS_ITS | Clinical Summary ---
Author Organization [facility] Address [address] [place] [address] Care Team Providers Care Teenage Babysitter Name Role Phone Clinic, No Pcp Or [...] Additional history exists Insurance BLUE CROSS OF NON-AL-ITS Care Teams Teenage Babysitter Relationship Specialty Start Date End Date Clinic, No Pcp Or . PCP - General 05/31/23
--- OUTSIDE RECORDS SUMMARY | 2024-12-12 00:51 | XMS_ITS | Encounter Summary ---
Author Organization [facility] Address [address] [place] [address] Care Team Providers Care Enrollment Nurse Name Role Phone Unavailable Primary Care Provider Unavailabl e Encounter Details Date Type Department Care Team (Late st Contact Info) Description 09/14/2021 Lab Requisition [facility] Main Laboratory/Pathology Department [address] [place] [address] Mary Conte MD [address] [id number] [place] [address] Contact with and (suspected) exposure [...] Not detected Not detected 09/15/2021 7:13 PM [facility] Swab NASAL / Unknown 09/14/2021 1 1:00 AM PST 09/14/2021 5:30 PM PST Narrative [facility] - 09/15/2021 7:13 PM PST o This test is performed using the [employer]y nCoV NAD assay. o This test has been authorized by FDA under an EUA for use by the [facility] located at [address] [place] [address]. o This test has been authorized only [...] revoked sooner. Test fact sheet for Patients: https://www.fda.gov/media/013777/download us Mary Conte MD MICROBIOLOGY - GENERAL ORD ERABLES [place] [address] documented in this encounter Visit Diagnoses Diagnosis Contact with and (suspected) exposure to other viral communicable diseases documented in this encounter
[2024-12-12 01:50] LABS: Appearance Urine Clear (Clear); Bilirubin Urine Negative (Negative); Blood Urine Negative (Negative); Color Urine Yellow (Yellow); Glucose Urine Negative (Negative); Ketones Urine Negative (Negative); Leukocyte Esterase Urine Negative (Negative); Nitrite Urine Negative (Negative); Protein Urine Negative (Negative); Urobilinogen Urine 0.2 (0.2-1.0)
[2024-12-12 01:59] LABS: RBC Urine 0-2 (0-2); Squamous Epithelial Cell Urine Few (None-Few); WBC Urine 0-2 (0-5)
[2024-12-12 15:35] LABS: C.Difficile Negative (Negative); CDIFFEPI 027 PRESUMPTIVE NEGATIVE (Negative)
== END 2024-12-12 02:59 | disposition home or self-care (01) ==
PROVIDERS: Emergency Provider Family Medicine
DX: R10.9 Unspecified abdominal pain (principal); K62.5 Hemorrhage of anus and rectum
CPT/HCPCS: 81001; 83789; 87045; 87046; 87427; 87493; 99282; 99283

== ENCOUNTER 2024-12-25 09:40 | Outpatient (CLI) | payer BC, SELFPAY ==
--- NOTE | 2024-12-25 10:00 | CRLHL7_ITS ---
For Patients: As a result of the Cures Act, medical imaging exams and procedure reports are released immediately into your electronic medical record. You may view this report before your referring provider. If you have questions, please contact your health care provider. Indication: CHRONIC SINUSITIS, RECURRENT SINUS INFECTIONS Technique: Performed without IV contrast Comparison: None available Findings: Frontal sinuses: Clear. Ethmoid sinuses: Partial opacification of the ethmoid air cells bilaterally. Maxillary sinuses: Fluid in the maxillary sinuses noted bilaterally. Small mucous retention cysts bilaterally. Opacification of the right maxillary sinus pathway. Left maxillary sinus pathway is clear. Sphenoid sinuses: Clear, including both sphenoethmoidal recesses. Nasal Cavity: Leftward curvature of the nasal septum. Hypertrophy of the right nasal turbinate mucosa. No nasal polyps. No TMJ abnormalities identified. The visualized portions of the orbits, intracranial contents and upper soft tissue neck are grossly negative. Impression: 1. Mild-moderate bilateral maxillary sinus disease with opacification of the right maxillary sinus drainage pathway. 2. Leftward curvature nasal septum. Please note that all CT scans at this facility use dose modulation, iterative reconstruction, and/or weight-based dosing when appropriate to reduce radiation dose to as low as reasonably achievable. Dictated by Teo Colvin MD @ 12/25/2024 11:03:31 AM (Electronically Signed)
== END 2024-12-25 09:41 | disposition home or self-care (01) ==
LOC: CT 09:41
PROVIDERS: Visit Provider Internal Medicine
DX: J32.9 Chronic sinusitis, unspecified (principal); J32.0 Chronic maxillary sinusitis; J34.2 Deviated nasal septum
CPT/HCPCS: 70486

== ENCOUNTER 2025-02-05 09:30 | Outpatient (RCR) | payer BC, SELFPAY | END 2025-06-05 23:59 | disposition home or self-care (01) | PROVIDERS: Visit Provider Internal Medicine | DX: G93.32 Myalgic encephalomyelitis/chronic fatigue syndrome (principal); Q79.60 Ehlers-Danlos syndrome, unspecified; M25.519 Pain in unspecified shoulder; M25.559 Pain in unspecified hip; Z51.89 Encounter for other specified aftercare | CPT/HCPCS: 97110; 97112; 97140; 97161; 97165; 97530; X5282 ==

== ENCOUNTER 2025-06-20 13:46 | Emergency (ER) | payer BC, SELFPAY ==
--- OUTSIDE RECORDS SUMMARY | 2025-05-05 18:59 | XMS_ITS | Clinical Summary ---
Author Organization [facility] Address [address] , [address] [place] [address] Care Team Providers Care Cost Consultant Name Role Phone CHARLA RAMIREZ Primary Care Physician Elma COLEMAN Vazquez Attending Clinician Unav ailable [phone] Attending Clinician Unavailable [phone] Attending Clinician Unavailable [phone] Attending Clinician Unavailable [phone] Attending Clinician Unavailable ARMAND SANCHEZ Attending Clinician Unavailable KRYSTAL MCLEOD Admitting Clinician Unava ilable CHARLA RAMIREZ Admitting Clinician Unavai COLEMAN Waldrop Admitting Clinician Unav ailable ELY DE LA O Admitting Clinician Unavailable RIGO HITCHCOCK Admitting Clinician Unavailable ROMANA BOWDEN Admitting Clinician Unav ailable ALEXANDRIA WARD Admitting Clinician Unavaila ARMAND Burks Admitting Clinician Unavailable Payers Payer Name Policy Type Policy Number Effective Date Expira tion Date [employer] OUT OF STATE O [id number] 2017 00:00:00 2024 0 0:00:00 [employer] OUT OF STATE O [id number] 2017 00:00:00 Problems Condition Name Condition Details Condition Category Status Onset Date Resolution Date Last Treatment Date Treating Clinician Comments Fidelina Armenta [id number] 2020-09 00:00: 00 2021-08-30 00:00:00 Earache [id number] 2020-09 00:00: 00 2021-08-30 00:00:00 Earache [id number] 2020-09 00:00: 00 2021-08-30 00:00:00 Social phobia [id number] 05-12 00:00: 00 2020-05-12 00:00:00 Generalized anxiety disorder [id number] 2018-09 00:00: 00 2019-08-06 00:00:00 Allergies, Adverse Reactions, Alerts This patient has no known allergies or adverse reactions. Social History Patient History Answer Smoking Tobacco Use Never Smokeless Tobacco Use Never Passive Exposure Not on file Social Habit Start Date Stop Date Comments Tobacco use and exposure 2021-09-08 00:00:00 00:00:00 Smoking Status Start Date Stop Date Never smoked tobacco 2025-03-25 00:00:00 Never smoked tobacco 2021-09-08 00:00:00 Social History Observation Date Gender identity Not on file 2021-05-12 13:49 :51 Medications Ordered Medication Name Filled Medication Name Start Date Stop Date Current Medication? Ordering Clinician Indication Dosage Frequency Signature (SIG) Comments Components pyridostigm ine (Mestinon) 60 mg tablet 04-21 00:00: 00 04-22 06:59 :00 Yes Ely Fajardoost 60mg gadopicleno l (Vueway) injection 7.5 mL 03-26 03:24: 01 03-26 03:24 :00 No 7.5mL Q1D 7.5 mL, Intravenou s, RADIOLOGY ONCE, Contrast, Starting on Sat03/25/25 at 2023, 1 dose, Until Sat03/25/25 at 2023 guanFACINE (Tenex) 1 mg tablet 03-25 00:00: 00 Yes Ely Roost iopamidol (ISOVUE 370) 76 % injection 66 mL 03-15 22:44: 10 03-15 22:44 :00 No 66mL Q1D 66 mL, Intravenou s, RADIOLOGY ONCE, Contrast, Starting on 03/15/25 at 1544, 1 dose, Until Sat03/15/25 at 1544 sodium sulfate, potassium sulfate, and magnesium sulfate (SUPREP) kit for oral solution 2025-0 6-18 00:00: 00 Yes Ely De La O propranoloL (INDERAL) 10 mg tablet 2023-09 2 00:00: 00 Yes Coleman Mo metoclopram clint (Reglan) 10 mg tablet 04-30 00:00: 00 05-01 06:59 :00 No Blayne Chavez 10mg naratriptan (Amerge) 2.5 mg tablet 04-30 00:00: 00 05-01 06:59 :00 No Blayne Chavez 2.5mg rimegepant (NURTEC ODT) 75 mg orally disintegrat ing tablet 04-03 00:00: 00 Yes Rigo Hitchcock 75mg rizatriptan (Maxalt) 10 mg tablet 04-01 00:00: 00 04-02 06:59 :00 No Blayne Chavez 10mg Medications Administered Ordered Medication Name Filled Medication Name Start Date Stop Date Current Medication? Ordering Clinician Indication Dosage Frequency Signature (SIG) Comments Components iopamidol (ISOVUE 370) 76 % injection 66 mL 03-15 22:44: 10 03-15 22:44 :00 No 66mL Q1D 66 mL, Intravenou s, RADIOLOGY ONCE, Contrast, Starting on Sat03/15/25 at 1544, 1 dose, Until Sat03/15/25 at 1544 Immunizations Ordered Immunization Name Filled Immunization Name Date Status Comments Refusal Reason meningococcal B vaccine, fully recombinant syringe [Trumenba] meningococcal B vaccine, fully recombinant syringe [Trumenba] 2023-02-07 00:00:00 Influenza, injectable, quadrivalent, preservative free 0.5 ml syringe [FLUZONE] Influenza, injectable, quadrivalent, preservative free 0.5 ml syringe [FLUZONE] 2022-06-22 00:00:00 SARS-COV-2 (COVID-19) vaccine, mRNA, spike protein, LNP, bivalent, preservative free, 30 mcg/0.3 mL dose, buddy-sucrose formulation SARS-COV-2 (COVID-19) vaccine, mRNA, spike protein, LNP, bivalent, preservative free, 30 mcg/0.3 mL dose, buddy-sucrose formulation 2022-06-22 00:00:00 Influenza, injectable, quadrivalent, preservative free 0.5 ml syringe [FLUZONE] Influenza, injectable, quadrivalent, preservative free 0.5 ml syringe [FLUZONE] 2022-06-22 00:00:00 SARS-COV-2 (COVID-19) vaccine, mRNA, spike protein, LNP, preservative free, 100 mcg/0.5mL dose or 50 mcg/0.25mL dose SARS-COV-2 (COVID-19) vaccine, mRNA, spike protein, LNP, preservative free, 100 mcg/0.5mL dose or 50 mcg/0.25mL dose 2022-04-09 00:00:00 Meningococcal, MCV4, unspecified conjugate formulation(groups A, C, Y and W-135) Meningococcal, MCV4, unspecified conjugate formulation(groups A, C, Y and W-135) 2022-02-12 00:00:00 SARS-COV-2 (COVID-19) vaccine, mRNA, spike protein, LNP, preservative free, 30 mcg/0.3mL dose SARS-COV-2 (COVID-19) vaccine, mRNA, spike protein, LNP, preservative free, 30 mcg/0.3mL dose 2021-08-28 00:00:00 Pfizer monovalent COVID-19 vaccine (PURPLE CAP) 2021-08-28 00:00:00 Pfizer (PRE FALL 2022) monovalent COVID-19 vaccine (PURPLE CAP) 2021-08-28 00:00:00 Pfizer COVID-19 vaccine 2021-08-28 00:00:00 Pfizer COVID-19 vaccine (PURPLE CAP) 2021-08-28 00:00:00 COVID-19, mRNA, LNP-S, PF, 30 mcg/0.3 mL dose COVID-19, mRNA, LNP-S, PF, 30 mcg/0.3 mL dose 2021-08-28 00:00:00 COVID-19, mRNA, LNP-S, PF, 30 mcg/0.3 mL dose COVID-19, mRNA, LNP-S, PF, 30 mcg/0.3 mL dose 2020 00:00:00 COVID-19, mRNA, LNP-S, PF, 30 mcg/0.3 mL dose COVID-19, mRNA, LNP-S, PF, 30 mcg/0.3 mL dose 2021-01-05 00:00:00 Influenza, injectable, quadrivalent, preservative free 0.5 ml syringe [FLUZONE] Influenza, injectable, quadrivalent, preservative free 0.5 ml syringe [FLUZONE] 2021-07-20 00:00:00 Flu vaccine (IIV4), preservative-free 2021-07-20 00:00:00 Influenza, injectable, quadrivalent, preservative free 0.5 ml syringe [FLUZONE] Influenza, injectable, quadrivalent, preservative free 0.5 ml syringe [FLUZONE] 2021-07-20 00:00:00 SARS-COV-2 (COVID-19) vaccine, mRNA, spike protein, LNP, preservative free, 30 mcg/0.3mL dose SARS-COV-2 (COVID-19) vaccine, mRNA, spike protein, LNP, preservative free, 30 mcg/0.3mL dose 2021-01-05 00:00:00 SARS-COV-2 (COVID-19) vaccine, mRNA, spike protein, LNP, preservative free, 30 mcg/0.3mL dose SARS-COV-2 (COVID-19) vaccine, mRNA, spike protein, LNP, preservative free, 30 mcg/0.3mL dose 2020 00:00:00 Flu vaccine (IIV4), preservative-free 2020-07-04 00:00:00 Influenza, injectable, quadrivalent, preservative free 0.5 ml syringe [FLUZONE] Influenza, injectable, quadrivalent, preservative free 0.5 ml syringe [FLUZONE] 2019-07-09 00:00:00 Flu vaccine (IIV4), preservative-free 2019-07-09 00:00:00 Influenza, injectable, quadrivalent, preservative free 0.5 ml syringe [FLUZONE] Influenza, injectable, quadrivalent, preservative free 0.5 ml syringe [FLUZONE] 2019-07-09 00:00:00 Human Papillomavirus 9-valent vaccine vial [GARDASIL 9] Human Papillomavirus 9-valent vaccine vial [GARDASIL 9] 2019-03-19 00:00:00 HPV, 9-valent (Gardasil 9) 2019-03-19 00:00:00 Influenza, injectable, quadrivalent, preservative free 0.5 ml syringe [FLUZONE] Influenza, injectable, quadrivalent, preservative free 0.5 ml syringe [FLUZONE] 2017-06-05 00:00:00 Flu vaccine (IIV4), preservative-free 2017-06-05 00:00:00 Influenza, injectable, quadrivalent, preservative free 0.5 ml syringe [FLUZONE] Influenza, injectable, quadrivalent, preservative free 0.5 ml syringe [FLUZONE] 2017-06-05 00:00:00 Meningococcal MCV4 conjugate, unspecified formulation 2017-03-06 00:00:00 HPV, 9-valent (Gardasil 9) 2017-03-06 00:00:00 Tdap (> 7 yrs) 2017-03-06 00:00:00 Meningococcal, MCV4, unspecified conjugate formulation(groups A, C, Y and W-135) Meningococcal, MCV4, unspecified conjugate formulation(groups A, C, Y and W-135) 2017-03-06 00:00:00 tetanus toxoid, reduced diphtheria toxoid, and acellular pertussis vaccine, adsorbed vial [ADACEL] tetanus toxoid, reduced diphtheria toxoid, and acellular pertussis vaccine, adsorbed vial [ADACEL] 2017-03-06 00:00:00 Human Papillomavirus 9-valent vaccine vial [GARDASIL 9] Human Papillomavirus 9-valent vaccine vial [GARDASIL 9] 2017-03-06 00:00:00 Influenza, injectable, quadrivalent, preservative free 0.5 ml syringe [FLUZONE] Influenza, injectable, quadrivalent, preservative free 0.5 ml syringe [FLUZONE] 2016-07-19 00:00:00 Influenza, injectable, quadrivalent, preservative free 0.5 ml syringe [FLUZONE] Influenza, injectable, quadrivalent, preservative free 0.5 ml syringe [FLUZONE] 2016-07-19 00:00:00 Flu vaccine (IIV4), preservative-free 2016-07-19 00:00:00 influenza virus vaccine, unspecified formulation influenza virus vaccine, unspecified formulation 2015-05-23 00:00:00 Flu vaccine (IIV4), preservative-free 2015-05-23 00:00:00 Flu vaccine (LAIV4) (FLUMIST) 2014-05-30 00:00:00 Flu vaccine (LAIV4) (FLUMIST) 2013-06-28 00:00:00 Flu vaccine (IIV3), preservative-free 2012-06-29 00:00:00 Flu vaccine 3yr+ TRI (PF) 2012-06-29 00:00:00 Flu vaccine (IIV3), preservative-free 2011-06-23 00:00:00 Flu vaccine 3yr+ TRI (PF) 2011-06-23 00:00:00 Flu vaccine (IIV3) 2010-06-17 00:00:00 Flu vaccine 3yr+ TRI 2010-06-17 00:00:00 PPD 2010-04-12 00:00:00 MMR 2010-02-23 00:00:00 MMR (M-M-R II) 2010-02-23 00:00:00 Varicella (Varivax) 2010-02-23 00:00:00 Polio, inactivated (IPV) (Ipol) 2010-02-23 00:00:00 DTaP (6 wks to 7 yrs) (Infanrix) 2010-02-23 00:00:00 diphtheria, tetanus toxoids and acellular pertussis vaccine vial [INFANRIX] diphtheria, tetanus toxoids and acellular pertussis vaccine vial [INFANRIX] 2010-02-23 00:00:00 varicella virus vaccine varicella virus vaccine 2010-02-23 00:00:00 poliovirus vaccine, inactivated poliovirus vaccine, inactivated 2010-02-23 00:00:00 measles, mumps and rubella virus vaccine measles, mumps and rubella virus vaccine 2010-02-23 00:00:00 Flu vaccine (IIV3) 2008-07-24 00:00:00 Flu vaccine 3yr+ TRI 2008-07-24 00:00:00 Flu vaccine (IIV3), preservative-free 2007-07-05 00:00:00 Flu vaccine 3yr+ TRI (PF) 2007-07-05 00:00:00 hepatitis A vaccine, pediatric/adolescent dosage, 2 dose schedule vial [VAQTA] hepatitis A vaccine, pediatric/adolescent dosage, 2 dose schedule vial [VAQTA] 2007-01-28 00:00:00 Hep A, pediatric/adolescent 2007-01-28 00:00:00 Flu vaccine (IIV3), preservative-free 2006-08-04 00:00:00 Flu vaccine 3yr+ TRI (PF) 2006-08-04 00:00:00 Hep A, pediatric/adolescent 2006-06-17 00:00:00 DTaP (6 wks to 7 yrs) (Infanrix) 2006-06-17 00:00:00 diphtheria, tetanus toxoids and acellular pertussis vaccine, unspecified formulation diphtheria, tetanus toxoids and acellular pertussis vaccine, unspecified formulation 2006-06-17 00:00:00 hepatitis A vaccine, pediatric/adolescent dosage, 2 dose schedule vial [VAQTA] hepatitis A vaccine, pediatric/adolescent dosage, 2 dose schedule vial [VAQTA] 2006-06-17 00:00:00 Pneumococcal conjugate (PCV7) (Prevnar 7) 2005-12-20 00:00:00 MMRV (ProQuad) 2005-12-20 00:00:00 Hib,unspecified formulation 2005-12-20 00:00:00 measles, mumps, rubella, and varicella virus vaccine measles, mumps, rubella, and varicella virus vaccine 2005-12-20 00:00:00 pneumococcal conjugate vaccine, 7 valent pneumococcal conjugate vaccine, 7 valent 2005-12-20 00:00:00 Haemophilus influenzae type b vaccine, conjugate unspecified formulation Haemophilus influenzae type b vaccine, conjugate unspecified formulation 2005-12-20 00:00:00 Flu vaccine (IIV3), preservative-free 2005-07-23 00:00:00 Flu vaccine 3yr+ TRI (PF) 2005-07-23 00:00:00 Flu vaccine (IIV3), preservative-free 2005-06-21 00:00:00 Pneumococcal conjugate (PCV7) (Prevnar 7) 2005-06-21 00:00:00 diphtheria, tetanus toxoids and acellular pertussis vaccine, unspecified formulation diphtheria, tetanus toxoids and acellular pertussis vaccine, unspecified formulation 2005-06-21 00:00:00 hepatitis B vaccine, unspecified formulation hepatitis B vaccine, unspecified formulation 2005-06-21 00:00:00 Polio, inactivated (IPV) (Ipol) 2005-06-21 00:00:00 DTaP (6 wks to 7 yrs) (Infanrix) 2005-06-21 00:00:00 Hep B, pediatric/adolescent 2005-06-21 00:00:00 Flu vaccine 3yr+ TRI (PF) 2005-06-21 00:00:00 poliovirus vaccine, inactivated poliovirus vaccine, inactivated 2005-06-21 00:00:00 pneumococcal conjugate vaccine, 7 valent pneumococcal conjugate vaccine, 7 valent 2005-06-21 00:00:00 Haemophilus influenzae type b vaccine, conjugate unspecified formulation Haemophilus influenzae type b vaccine, conjugate unspecified formulation 2005-04-19 00:00:00 Hib,unspecified formulation 2005-04-19 00:00:00 Pneumococcal conjugate (PCV7) (Prevnar 7) 2005-04-19 00:00:00 Polio, inactivated (IPV) (Ipol) 2005-04-19 00:00:00 DTaP (6 wks to 7 yrs) (Infanrix) 2005-04-19 00:00:00 pneumococcal conjugate vaccine, 7 valent pneumococcal conjugate vaccine, 7 valent 2005-04-19 00:00:00 poliovirus vaccine, inactivated poliovirus vaccine, inactivated 2005-04-19 00:00:00 diphtheria, tetanus toxoids and acellular pertussis vaccine, unspecified formulation diphtheria, tetanus toxoids and acellular pertussis vaccine, unspecified formulation 2005-04-19 00:00:00 Polio, inactivated (IPV) (Ipol) 2005-02-15 00:00:00 DTaP (6 wks to 7 yrs) (Infanrix) 2005-02-15 00:00:00 Pneumococcal conjugate (PCV7) (Prevnar 7) 2005-02-15 00:00:00 Hib,unspecified formulation 2005-02-15 00:00:00 Haemophilus influenzae type b vaccine, conjugate unspecified formulation Haemophilus influenzae type b vaccine, conjugate unspecified formulation 2005-02-15 00:00:00 poliovirus vaccine, inactivated poliovirus vaccine, inactivated 2005-02-15 00:00:00 pneumococcal conjugate vaccine, 7 valent pneumococcal conjugate vaccine, 7 valent 2005-02-15 00:00:00 diphtheria, tetanus toxoids and acellular pertussis vaccine, unspecified formulation diphtheria, tetanus toxoids and acellular pertussis vaccine, unspecified formulation 2005-02-15 00:00:00 Hep B, pediatric/adolescent 2005-01-16 00:00:00 hepatitis B vaccine, unspecified formulation hepatitis B vaccine, unspecified formulation 2005-01-16 00:00:00 Hep B, pediatric/adolescent 2004 00:00:00 hepatitis B vaccine, unspecified formulation hepatitis B vaccine, unspecified formulation 2004 00:00:00 Vital Signs Vital Name Observation Time Observation Value Commen ts Systolic blood pressure 2025-02-17 17:01:00 105 mm[Hg] Diastolic blood pressure 2025-02-17 17:01:00 66 mm[Hg] Heart rate 2025-02-17 17:01:00 71 /min Body weight 2025-02-17 17:01:00 60.555 kg BMI 2025-02-17 17:01:00 20.00 kg/m2 Oxygen saturation in Arteria l blood by Pulse oximetry 2025-02-17 17:01:00 100 % Body weight 2024-04-01 15:53:00 63.504 kg BMI 2024-04-01 15:53:00 20.98 kg/m2 Oxygen saturation in Arteria l blood by Pulse oximetry 2024-04-01 15:53:00 100 % Systolic blood pressure 2024-04-01 15:53:00 118 mm[Hg] Diastolic blood pressure 2024-04-01 15:53:00 73 mm[Hg] Heart rate 2024-04-01 15:53:00 82 /min Body height 2024-04-01 15:53:00 174 cm Systolic blood pressure 2025-02-17 17:01:00 105 mm[Hg] Diastolic blood pressure 2025-02-17 17:01:00 66 mm[Hg] Heart rate 2025-02-17 17:01:00 71 /min Body weight 2025-02-17 17:01:00 60.555 kg BMI 2025-02-17 17:01:00 20 kg/m2 Oxygen saturation in Arteria l blood by Pulse oximetry 2025-02-17 17:01:00 100 % Heart rate 2024-04-01 15:53:00 82 /min Diastolic blood pressure 2024-04-01 15:53:00 73 mm[Hg] Body weight 2024-04-01 15:53:00 63.504 kg Body height 2024-04-01 15:53:00 174 cm BMI 2024-04-01 15:53:00 20.98 kg/m2 Oxygen saturation in Arteria l blood by Pulse oximetry 2024-04-01 15:53:00 100 % Systolic blood pressure 2024-04-01 15:53:00 118 mm[Hg] Oxygen saturation in Arteria l blood by Pulse oximetry 2022-03-28 20:39:00 98 % Diastolic blood pressure 2022-03-28 20:39:00 71 mm[Hg] Body height 2022-03-28 20:39:00 172.7 cm Systolic blood pressure 2022-03-28 20:39:00 105 mm[Hg] Heart rate 2022-03-28 20:39:00 90 /min BMI 2022-03-28 20:39:00 27.83 kg/m2 Body mass index (BMI) [Perce ntile] Per age and sex 2022-03-28 20:39:00 92.16 % Body weight 2022-03-28 20:39:00 83.008 kg Body height 2021-09-09 00:29:00 173.6 cm Body weight 2021-09-09 00:29:00 80.695 kg Body mass index (BMI) [Perce ntile] Per age and sex 2021-09-09 00:29:00 90.59 % Systolic blood pressure 2021-09-09 00:29:00 104 mm[Hg] Oxygen saturation in Arteria l blood by Pulse oximetry 2021-09-09 00:29:00 99 % Diastolic blood pressure 2021-09-09 00:29:00 53 mm[Hg] BMI 2021-09-09 00:29:00 26.78 kg/m2 Heart rate 2021-09-09 00:29:00 83 /min Procedures Procedure Date / Time Performed Performing Clinicia n Device HC GASTRC EMPT HAYLEY STD 2025-04-22 19:53:00 Krystal shelley HC MRI ABDOMEN WO CONTRAST 2025-04-07 01:00:00 Krystal Mcleod HC MRI BRAIN WO/W CONTRST 2025-03-26 03:36:[address] ANGIO ABD WO/W CONTRAST 2025-03-15 22:46:22 Conner Mcleod HC MRI BRAIN WO CONTRAST 2024-11-25 16:45:05 Krystal farah AUTONOMIC TESTING (FULL BATTERY) 2024-08-10 20:27:52 A irma Ramirez Reason for Visit ReasonCommentsNew Patient AllergiesConsult, Test and Treat (Urgent) - No Auth RequiredSpecialtyDiagnoses / ProceduresReferred By ContactReferred To ContactAllergyDiagnosesEnvironmental allergiesProceduresEVAL/MGMT OF NEW PATIENT LEVEL 5ECharla gaffney MD[address] [address]Iasjr: Fax: PzbeigRomana Bowden MD[address] [place], [place] [address]Ysapw: Fax: Rakzszel IDStatusReasonStart DateExpiration DateVisits RequestedVisits [id number] Auth RequiredSpecialty Services Requested/ Encounters Start Date/Time End Date/Time Encounter Type Admission Type Attending [facility] Care Department Encounter ID 2025-05-05 10:39:17 2025-05-05 23:59:[address] [facility] None [id number] 2025-05-05 10:27:53 2025-05-05 23:59:[address] [facility] None [id number] 2025-04-29 16:39:41 2025-04-29 23:59:[address] [facility] None [id number] 2025-04-22 07:32:37 2025-04-22 23:59:[address] [facility] None [id number] 2025-04-22 07:32:37 2025-04-22 07:32:37 Outpatient 1 [facility] [id number] 2025-04-22 07:32:37 2025-04-22 07:32:37 Outpatient 1 [facility] [id number] 2025-04-08 11:36:51 2025-04-08 23:59:[address] [facility] None [id number] 2025-04-06 16:59:51 2025-04-06 16:59:51 Outpatient 1 [facility] [id number] 2025-03-31 10:57:14 2025-03-31 23:59:[address] [facility] None [id number] 2025-03-29 12:11:58 2025-03-29 23:59:[address] [facility] None [id number] 2025-03-26 10:07:52 2025-03-26 23:59:[address] [facility] None [id number] 2025-03-25 19:21:14 2025-03-25 19:21:14 Outpatient 1 [facility] [id number] 2025-03-25 14:30:36 2025-03-25 15:47:54 O CO[place] [facility] None [id number] 2025-03-16 07:40:55 2025-03-16 23:59:[address] [facility] None [id number] 2025-03-15 15:21:16 2025-03-15 15:21:16 Outpatient 1 [facility] [id number] 2025-03-11 07:26:08 2025-03-11 23:59:[address] [facility] None [id number] 2025-02-27 14:47:51 2025-02-27 23:59:[address] [facility] None [id number] 2025-02-17 10:00:00 2025-02-17 10:00:00 Outpatient 6 [id number] [facility] [id number] 2024-11-25 09:05:20 2024-11-25 09:05:20 Outpatient 1 [facility] [id number] 2024-08-10 12:27:51 2024-08-10 23:59:00 O [address] [facility] None [id number] 2024-04-01 08:34:24 2024-04-01 23:59:00 O [address] [facility] None [id number] 2021-08-30 12:52:11 2021-08-30 13:18:33 O ARMAND SANCHEZ [facility] None [id number] Results Atomic Lab Results NM Gastric Emptying Solid???2025-04-23 01:01:21 Test Item Value Reference Range Comments Radiology Study observation (narrative) NM Gastric Emptying Solid NM Gastric Emptying Solid NM Gastric Emptying Solid MR Abdomen Pancreas wo IV Contrast???2025-04-07 05:19:54 Test Item Value Reference Range Comments Radiology Study observation (narrative) MR Abdomen Pancreas wo IV Contrast MR Abdomen Pancreas wo IV Contrast MR Abdomen Pancreas wo IV Contrast MR Brain Sella Pituitary w and wo IV Contrast???2025-03-26 15:18:20 Test Item Value Reference Range Comments Radiology Study observation (narrative) MR Brain Sella Pituitary w and wo IV Contrast MR Brain Sella Pituitary w and wo IV Contrast MR Brain Sella Pituitary w and wo IV Contrast CT Abdomen Angiography w and wo IV Contrast???2025-03-15 23:31:48 Test Item Value Reference Range Comments Radiology Study observation (narrative) CT Abdomen Angiography w and wo IV Contrast CT Abdomen Angiography w and wo IV Contrast CT Abdomen Angiography w and wo IV Contrast MR Brain wo IV Contrast???2024-11-25 19:58:52 Test Item Value Reference Range Comments Radiology Study observati MR Brain wo IV Contrast MR Brain wo IV Contrast MR Brain wo IV Contrast Assessments Condition Name Status Diagnosis Date Treating Cl inician Intestinal malabsorption, unspecified Active Iron deficiency Active Intestinal malabsorption, unspecified Active Iron deficiency Active Other specified diseases of pancreas Active Generalized abdominal pain Active Chronic sinusitis, unspecified Active Other seasonal allergic rhinitis Active Acute atopic conjunctivitis, unspecified eye Active Other allergic rhinitis Active Personal history of other in fectious and parasitic diseases Active 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, unspecified Active Mast cell activation, unspecified Active Mast cell activation, 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 Other headache syndrome Active Nausea with vomiting, unspecified Active Generalized abdominal pain Active Generalized abdominal pain Active Diarrhea, unspecified Active Generalized abdominal pain Active Nausea with vomiting, unspecified Active Diarrhea, unspecified Active Gastro-esophageal reflux dis ease without esophagitis Active Nausea with vomiting, unspecified Active Generalized abdominal pain Active Diarrhea, unspecified Active Headache, unspecified Active Syncope and collapse Active Dizziness and giddiness Active Syncope and collapse Active Chronic migraine without aur a, not intractable, without status migrainosus Active Migraine with aura, not intr actable, without status migrainosus Active Allergic rhinitis, unspecified Active Other specified disorders of Eustachian tube, bilateral Active Otalgia, unspecified ear Active Persons encountering health services in other specified circumstances Active Generalized anxiety disorder Active Activated protein C resistance Active Health Concerns Section Text Date PHQ-2 Depression Total Score: 6 Unknown PHQ-2 Depression Total Score: 6 Unknown PHQ-9 Depression Total Score: 13 Unknown CARE TEAM Source Name Role Start Date End Date [facility] Care Care Team Charla Ramirez MD Primary Care Provider active 2022-03-01
--- OUTSIDE RECORDS SUMMARY | 2025-06-20 13:48 | XMS_ITS | Clinical Summary ---
Author Organization [facility] Address [address] [place] [address] Care Team Providers Care Shucker Name Role Phone Unavailable Primary Care Provider Unavailabl e Source Comments NOTE: The information displayed is extracted from the complete medical record and may not identify all current or past patient conditions.[facility] Social History Tobacco Use Types Packs/Day [...] Assessment (SHA) 2022 COVID-19 Vaccine ( season) 2025 01/05/2021, 2020 Influenza Vaccine (#1) 2025 , 07/09/2019, 06/05/2017, Additional history exists DTaP/ Tdap/Td Vaccines (7 - Td or Tdap) 03/06/2027 03/06/2017, 02/23/2010, 06/17/2006, Additional history exists Pneumococcal Immunizations Aged Out 12/20, 06/21/2005, 04/19/2005, Additional history exists No longer eligible based on patient's age to complete this topic Hepatitis A Vaccines Completed 01/28/2007, 06/17/20 06
--- OUTSIDE RECORDS SUMMARY | 2025-06-20 13:48 | XMS_ITS | Clinical Summary ---
Author Organization [facility] Address [address] [place] [address] Care Team Providers Care Analytical Lead Name Role Phone Charla Monroe MD Primary Care Provider Unavailabl e Allergies Active Allergy Reactions Criticality Noted Date Comments House Dust Mite Wheezing Medium 02/20/2025 Pollen Extracts Shortness Of Breath High 02/20/2025 Medications loratadine (CLARITIN) 10 mg tablet Take 10 mg by mouth daily. Active aspirin 81 mg chewable tablet Take 81 mg by mouth daily. Active methylphenidat e HCl (CONCERTA) 36 MG ER tablet Take 36 mg by mouth daily. 2 Active ergocalciferol (VITAMIN D2) 1,250 mcg (50,000 unit) capsule TAKE 1 CAPSULE BY MOUTH EVERY 7 DAYS FOR 8 DOSES 1 Active fluticasone propionate (FLONASE) 50 mcg/actuation nasal spray 2 sprays into each nostril daily. Active triamcinolone (KENALOG) 0.1 % ointment Apply topically 2 (two) times a day. 60 g 1 3 Active erythromycin (ROMYCIN) 0.5 % ophthalmic ointment 3 Active azelastine 0.15% (ASTEPRO) 205.5 mcg (0.15 %) [place] 205.5 mcg into each nostril 2 (two) times a day. Active pantoprazole 40 MG Oral tablet TAKE 1 TABLET(40 MG) BY MOUTH DAILY 30 tablet 3 5 Active QULIPTA 60 mg Oral Tab Take 1 tablet by mouth daily. 5 Active valACYclovir 500 MG Oral tablet Take 500 mg by mouth 2 (two) times a day. 5 Active ivabradine (CORLANOR) 5 mg Oral Tab tablet Take 2.5 mg by mouth 2 (two) times a day. Active naltrexone (NALTREX) 4.5 mg Oral Cap Take by mouth. Act ana azithromycin 250 MG Oral tablet Use as directed 5 Active Xifaxan 550 mg Tab 5 Active Zenpep 25,000-79,000- 105,000 unit CpDR daily with a meal 5 Active acetaZOLAMIDE (DIAMOX) 125 MG tablet Take 125 mg by mouth daily. 5 Active azithromycin (ZITHROMAX) 250 MG tablet Take 2 tablets (500 mg total) by mouth today, then take 1 tablet (250 mg total) by mouth daily for the next 4 days. 6 tablet 5 Active budesonide 0.5 mg/2 mL Inhl nebulizer solution Take 1 ampule (0.5 mg total) by nebulization 2 (two) times a day for 90 days. 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 04/13/20 24 Elevated blood-pressure read ing without diagnosis of hypertension 03/28/2024 Factor V Leiden 08/30/2021 Overview (11/24/2024): Was tested Mother, sister, brother with factor V leiden def Earache 08/30/2021 Overview (03/22/2025): Bilateral, but happens one at a time No drainage or other symptoms, though pt does have allergies that are controlled with flonase and antihistamine No difficulty hearing No balance issues noted Does not think she grinds her teeth at night Wears earplugs occasionally, daily airpods Social phobia 05/12/2020 Generalized anxiety disorder 08/06/2019 Overview (11/24/2024): Seeing a therapist, previously seeing a psychiatrist Did a one week intensive course at [facility] in Jul 2020 Tried prozac 20mg for about 2 months, but seemed to cause more problems than helped - caused fatigue, emotional dysregulation Panic disorder 08/06/2019 Gastro-esophageal reflux disease with esophagiti s 01/04/2005 Resolved Problems Problem Noted Date Diagnosed Date Resolved Date Nasal congestion 02/20/2025 05/21/2025 Post-nasal drainage 02/20/2025 05/21/20 25 Encounters Date Type Department Care Team Description 03/30/2025 10:30 AM PDT Office Visit [facility] [address] [place] [address] Huang Hunter MD Chronic maxillary sinusitis (Primary Dx); Nasal congestion; Post-nasal drainage 03/26/2025 Telephone [facility] [address] [place] [address] Huang Hunter MD 03/25/2025 Telephone [facility] [place] [address] [place] [address] Huang Hunter MD 03/24/2025 Refill [facility] [address] [place] [address] Huang Hunter MD from Last 3 Months Immunizations Immunization Administration Dates Next Due DTaP (INFANRIX),6WKS TO 7 YR S OLD,0.5mL IM SUSP, PF 02/23/2010,06/17/2006,06/21/2005,04/19,02/15/2005 FLUCELVAX INFLUENZA VACCINE QUADRIVALENT PFS 0.5 mL IM 6MTHS & OLDER 07/05/2023 FLUCELVAX QUADRIVALENT INFLU ANA VACCINE 0.5 ML PRES FREE 4+YRS 07/04/2020 HEPATITIS A (VAQTA) VACCINE, 19YRS & OLDER 1.0 ML IM PF 01/28/2007,06/17/2006 HPV (Gardasil 9) VACCINE, 9- 45 YRS OLD 0.5ML IM 03/19/2019,03/06/2017 Hep B (Peds/Adol) Vaccine 06/21/2005,01/16/2005, 2004 HiB Vaccine 12/20/2005,04/19/2005,02/15/2005 INFLUENZA VACCINE QUADRIVALE NT PRESERV FREE,6MTHS & OLDER, PRESERVATIVE FREE, 0.5 mL IM PFS 2021- (JMPN) (CM) 06/22/2022,07/20/2021,07/09/2019,06/05,07/19/2016,05/23/2015 Influenza (Live, Intranasal) Vaccine 05/30/2014, 06/28/2013 Influenza Preserv. Free, Chi ldren 3yrs To Adult 06/29/2012,06/23/2011,07/05/2007,08/04,07/23/2005,06/21/2005 Influenza Seasonal Inj 06/17/2010,07/24/2008 MENINGOCOCCAL (MENACTRA) A,C ,Y,W-135 DIP VACCINE, 9MTHS -55 YRS OLD 4 MCG/0.5 ML IM 02/12/2022 MENINIGOCCAL B (TRUMENBA) VA CCINE, 10-25 YRS OLD 0.5 ML IM 02/07/2023 MMR Vaccine 02/23/2010 MMRV (PROQUAD) VACCINE, 12MT HS - 12YRS OLD 0.5 ML SQ (JMPN)(CM) 12/20/2005 Meningococcal, MCV4, unspeci fied conjugate formulation(groups A, C, Y and W-135) 03/06/2017 POLIOVIRUS IPV (IPOL) VACCIN E, 6WKS & OLDER 0.5 ML SQ/IM 02/23/2010,06/21/2005,04/19/2005,02/15 Pneumococcal (PCV) Conjugate Vaccine ,06/21/2005,04/19/2005,02/15 Tdap Vaccine 03/06/2017 VARICELLA (VARIVAX) VACCINE 1YRS & OLDER 0.5ML SQ 02/23/2010 Family History Medical History Relation Name Comments Allergies Brother Allergies Father Allergies Mother Asthma Mother Heart failure Other Grandfather, u nspecified Allergies Sister Clotting disorder Sister Factor V Leiden deficiency Sister Relation Name Status Comments Brother Father Mother Other Sister Social History Tobacco Use Types Packs/Day Years Used Date Smoking Tobacco: Never Smokeless Tobacco: Never Tobacco Cessation:Counseling Given: Not Answered Alcohol Use Standard Drinks/Week Comments Never 0 (1 standard drink = 0.6 oz pur e alcohol) PHQ-2 Answer Date Recorded PHQ-2 Score 0 03/18/2025 Comments Unknown Sex and Gender Information Value Date Recorded Sex Assigned at Not on file Legal Sex Female 12:30 PM PDT Gender Identity Not on file Sexual Orientation Not on file Last Filed Vital Signs Vital Sign Reading Time Taken Comments Blood Pressure 106/71 02/16/2025 9:59 AM PDT Pulse 65 03/31/2025 4:25 PM PDT Temperature 36.4 C (97.5 F) 03/31/2025 4:25 PM PDT Respiratory Rate - - Oxygen Saturation 99% 03/31/2025 4:25 PM PDT Inhaled Oxygen Concentration - - Weight 59 kg (130 lb) 03/31/2025 4:25 PM PDT Height 175.3 cm (5' 9) 03/31/2025 4:25 PM PDT Body Mass Index 19.2 03/31/2025 4:25 PM PDT Plan of Treatment Upcoming Encounters Date Type Department Care Team (Late st Contact Info) Description 07/28/2025 1:00 PM PST Office Visit [facility] [place] [address] Yemi Arriaga MD [address] [facility] [address] [place], [place] [id number] 08/03/2025 10:45 AM PST Office Visit [facility] [address] [place] [address] Huang Hunter MD [address] [facility] [address] [place], [place] [phone] Health Maintenance Due Date Last Done Comments Screening: HIV 2004 Screening: Chlamydia 2020 IMM Meningococcal B (2 of 2 - Trumenba SCDM 2-dose series) 08/09/2023 02/07/2023 IMM COVID-19 ( season) 2025 06/22/2022, 04/09/2022, 08/28/2021, Additional history exists IMM Influenza (#1) 2025 07/05/2023, 1 , 07/20/2021, Additional history exists IMM DTAP/TDAP/TD (7 [...] 03/06/2017 IMM Meningococcal ACWY Completed 02/12/2022, 2016 Screening: Depression Completed 03/18/2025 , 03/18/2025, 03/18/2025 IMM RSV Vaccine under 20 MOS Aged Out No longer eligible based on patient's age to complete this topic Insurance [place] [address] [place] [address] [facility] STATE [facility] Address: [facility] [id number] [place] [address] Care Teams Analytical Lead Relationship Specialty Start Date End Date Charla Monroe MD [address] [address] PCP - General Rheumatology 02/15/25
--- OUTSIDE RECORDS SUMMARY | 2025-06-20 13:48 | XMS_ITS | Data Portability ---
Author Organization [facility] Address [address] [place] [address] Care Team Providers Care Binder Technician Name Role Phone VARGASCHARAN Referring Provider Assessment [...] Will try them in her current shoes [email or web address] Not available 03/29/2024 11:48:11 04/17/2024 04/17/2024 Pt accepted delivery of orthotic devices. Orthoses ([facility]ure Lab, UCBL type) were dispensed to patient today after being fitted to the patient's feet in both weight-bearing and non-weight bearing attitudes. 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 Patient was instructed to call the office [...] 3 or more view 024 03/27/20 24 [email or web address] [facility], [address] [place] [address] [address], [address], 11:42:59 Medication Orders None record ed. Patient TargetsNo targets recorded. Patient Instructions Encounter Date Encounter Id Patient Instructions Last Modified By Organization Details Last Modified Time 03/27/2024 [id number] weight managemen t education Not available 03/29/2024 11:42:59 Reason for Referral None Reported. Results Created Date Observation Date Name Description Value Unit Range Abnormal Flag Note LastModifiedBy Organization Detail LastModifiedTime 03/27/20 24 XR, foot, 3 or more view No observ ation record ed. [facility] [address] [facility] [address], [place], [address], 03/29/2024 11:42:56 Result Notes None recorded. Problems Name Problem SNOMED Code Status Onset Date Resolution Date Notes Provider Name and Address Organization Details Recorded Time Elevated blood-press ure reading without diagnosis of hypertensio n 532194443 Active 2023 Charan Florentino DPM [facility] [address], [place], [address] , [place] [facility] 4 11:40:31 Bilateral foot congenital pes cavus 0602349660635 9106 Active 2023 Charan Florentino DPM [facility] [address], [place], [address], [place] [facility] 4 09:11:08 Ligamentous laxity of ankle region 671896965 Active 2023 Charan Florentino DPM [facility] [address], [place], [address], [place] [facility] 4 09:11:08 Hypermobile Cassie-Danl os syndrome 36476853 Active 2023 Charan Florentino DPM [facility] [address], [place], [address], [place] [facility] 4 09:11:08 Problem Notes None recorded. Procedures Surgical History Date Name Laterality Status Provider Name and Address Organization Details Recorded Time 4 aas OP completed Charan Florentino DPM [facility] [address], [place], [address], [place] [facility] 04/14/2024 09:10:59 4 aas orthotic casting completed Jeremias Lyons [place] [facility] 03/27/2024 15:22:24 Imaging Results None recorded. Procedure Notes None recorded. Medical Equipment None Reported. Allergies Allergen ID Allergen Name Allergen Category Reaction Reaction Severity Criticality Documentation Date Start Date Code Code System Note Provider Name and Address Organization Details Recorded Time 221331 POLLEN EXTRACTS environme nt,medica tion respirato ry distress moderate Not available 03/27/2024 46193 6 RxNorm Shannan barnett, [place] [facility] 4 14:23:26 103335 house dust mite environme nt wheezing moderate Not available 03/27/2024 Shannan barnett, [place] [facility] 4 14:23:26 Medications Name Sig Start Date Stop Date [...] mass index (BMI) Body mass index (BMI) [Percentile] Per age and sex Body weight Heart rate Body temperature Systolic And Diastolic Provider Name and Address Organization Details Last Updated DateTime 4 172.72 cm 21.3 kg/m2 46 % 12146.9 3 g 82 /min 97.9 [degF] 129/87 mm[Hg] [facility] [place] [facility] 4 14:22:18 Date Recorded Body height Heart rate Body temperature Body mass index (BMI) [Percentile] Per age and sex Body mass index (BMI) Body weight Systolic And Diastolic Provider Name and Address Organization Details Last Updated DateTime 4 172.72 cm 90 /min 97.3 [degF] 46 % 21.3 kg/m2 96627.9 3 g 138/90 mm[Hg] Barb Vasquez [place] [facility] 4 16:08:53 Social History Question Answer Notes LastModified by Organizat ion Details LastModified Time Tobacco Smoking Status Never Smoker Not Available Epion 03/27/2024 14:07:36 Do You Have An Advance Directive? No [email or web address] Information n ot available 03/27/2024 Shoe Size 8 [email or web address] Information no t available 03/27/2024 What Was The Date Of Your Most Recent Tobacco Screening? 04/17/2024 [email or web address] Information not available 04/17/2024 What Is Your Relationship Status? Single [email or web address] Information not available 03/27/2024 Has Tobacco Cessation Counseling Been Provided? No [email or web address] Information not available 03/27/2024 Sex: Unknown Functional Status Question Answer Note LastModified by Organizat ion Details LastModified Time Do you use any illicit or recreational drugs? No [email or web address] Information not available 03/27/2024 Do you or have you ever used any other forms of tobacco or nicotine? No [email or web address] Information not available 03/27/2024 What is your level of alcohol consumption? None [email or web address] Information not available 03/27/2024 Do you or have you ever used smokeless tobacco? Never used smokeless tobacco [email or web address] Information not available 03/27/2024 Are you currently employed? No [email or web address] Information not available 03/27/2024 Do you or have you ever used e-cigarettes or vape? Never used electronic cigarettes [email or web address] Information not available 03/27/2024 Mental Status None recorded. Family History Nothing Reported. Medical History Condition Response asthma Y anxiety disorder Y Gynecological HistoryNo gynecological history recorded. Obstetrics History GPAL:G 0 P 0 0 0 0 Past Encounters Encounter ID Performer Location Encounter Start Date Encounter Closed Date Diagnosis/Indication Diagnosis SNOMED-CT Code Diagnosis ICD10 Code Diagnosis IMO Codes Diagnosis Note [id number] Charan Florentino DPM [facility] [place] [address] 03/27/2024 13:59:05 03/27/2024 15:32:40 Bilateral foot congenital pes cavus 2198005682 1591648 Q66.71 Q66.72 Ligamentou s laxity of ankle region 639698991 M24.271 M24.272 Hypermobil e Cassie-Danlos syndrome 94521044 Q79.62 Elevated blood-pressure reading without diagnosis of hypertension 903134542 R03.0 Discussed BP reading today. Pt will continue to monitor for any increase and will follow up with their PMD if they notice this. Also discussed lifestyle management changes with them. [id number] Charan Florentino DPM [facility] [address] [place] [address] 04/17/2024 16:03:30 04/17/2024 16:32:34 Bilateral foot congenital pes cavus 6770776044 3235797 Q66.71 Q66.72 Ligamentou s laxity of ankle region 162951969 M24.271 M24.272 Hypermobil e Cassie-Danlos syndrome 32114603 Q79.62 Health Concerns Section Related Observation LastModified by Organization Detai ls LastModified Time None Recorded Concern Status LastModified by Organization Details LastModified Time None Recorded Advance Directives Directive N: Payers Insurance Date Sequence Insurance Name Policy Number Policy Walter Covered Member ID Walter Member ID Guarantor Name 03/27/2024 1 *SELF PAY* La rs Eng 11/04/2024 1 [place] [facility] ([place] Lars Eng [id number] Lars Eng Notes Date Note Type Note Provider Name and Address Organization Details Recorded Time 03/27/2024 text/html Pt states pain in her arches and pressure on the front [...] the past pt goes to school in [place] and will be heading back in May Charan Florentino DPM [address], [place], [address], [place] [facility] 03/29/2024 11:49:56 04/17/2024 text/html ROS as noted in the HPI 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 Charan Florentino DPM [address], [place], [address], [place] [facility] 04/19/2024 00:15:41 OBGyn Episode No OBEpisode recorded.
--- OUTSIDE RECORDS SUMMARY | 2025-06-20 13:48 | XMS_ITS | Clinical Summary ---
Author Organization [facility] Address [address], [place] [address] [place] [address] Care Team Providers Care Principal Gifts Officer Name Role Phone Pcp, No Primary Care Provider Unavailabl e Source Comments These records are disclosed for treatment purposes as permitted by state and federal privacy law. Any further disclosure may only be done as permitted by law or with the patient's written authorization.[facility] Immunizations Immunization Administration Dates Next Due Pfizer COVID-19 Vaccine [...] HPV vaccines (1 - 3-dose series) 12/16/2019 Meningococcal B vaccine (1 o f 2 - Standard) 2020 Hepatitis B vaccines (1 of 3 - 19+ 3-dose series) 12/16/2023 COVID-19 Vaccine (3 - 2024-2 6 season) 2025 01/05/2021, 2020 Influenza Vaccine (#1) 2025 Hepatitis A vaccines Aged Out No long [...] on patient's age to complete this topic Procedures Procedure Name Priority Date/Time Associated Diagnosis Comments ELASTASE, STOOL Routine 05/05/2025 9:45 AM PDT LACTOFERRIN,FECAL Routine 05/05/2025 9:4 5 AM PDT CBC WITH DIFFERENTIAL Routine 04/08/2025 11:47 AM PDT COMPLEMENT, TOTAL Routine 04/08/2025 11: 47 AM PDT AIRBORNE ALLERGY SCREEN Routine 04/08/20 25 11:47 AM PDT FOOD ALLERGY SCREEN Routine 04/08/2025 1 1:47 AM PDT ALLERGY SCREEN, MOLDS Routine 04/08/2025 11:47 AM PDT IGE, TOTAL Routine 04/08/2025 11:47 AM PDT TETANUS TITER Routine 04/08/2025 11:47 AM PDT T SUBSETS AND B LYMPHS, BLD Routine 04/08/2025 11:47 AM PDT IGA, SERUM Routine 04/08/2025 11:47 AM PDT COMPLEMENT C4, SERUM Routine 04/08/2025 11:47 AM PDT COMPLEMENT C3, SERUM Routine 04/08/2025 11:47 AM PDT IGM, SERUM Routine 04/08/2025 11:47 AM PDT IGG, SERUM Routine 04/08/2025 11:47 AM PDT LAB UNLISTED Routine 03/31/2025 9:30 AM PDT 2,3-DINOR 11 BETA-PROSTAGLANDIN F2 ALPHA, 24 HOUR, URINE Routine 03/31/2025 9:30 AM PDT CREATININE CLEARANCE, URINE Routine 03/29/2025 12:45 PM PDT CORTISOL FREE, URINE TIMED Routine 03/29 12:45 PM PDT CREATININE, SER/PLAS Routine 03/29/2025 12:41 PM PDT CATECHOLAMINES, FRACTION, SUPINE Routine 03/26/2025 11:12 AM PDT METANEPHRINES FRACT FREE, PLASMA Routine 03/26/2025 11:00 AM PDT CATECHOLAMINES, FRACTION, UPRIGHT Routine 03/26/2025 11:00 AM PDT S PNEUMONIAE AB IGG (23 SEROTYPES) Routine 03/26/2025 11:00 AM PDT T4, FREE Routine 03/26/2025 11:00 AM PDT TSH Routine 03/26/2025 11:00 AM PDT FERRITIN LEVEL Routine 03/26/2025 11:00 AM PDT CORTISOL, SERUM Routine 03/26/2025 11:00 AM PDT ADRENOCORTICTROPIC HORMONE LEVEL Routine 03/26/2025 11:00 AM PDT from Last 3 Months Results * Lactoferrin, Fecal (05/05/2025 9:45 AM PDT) Lactoferrin Detection Negative Negative 05/07/2025 7:54 PM PDT [facility] Comment: Clinical Interpretation: A negative result does not exclude the presence of intestinal inflammation. Performed By: [facility] [address] [place] [id number] Inspector Metal Can: Sharif Shah MD, PhD CLIA Number: [id number] Stool Stool specimen / Unknown 05/05/2025 9:45 AM PDT 05/06/2025 11:48 PM PDT Narrative Resulting Agency Comment FACILITY: [facility] Syd Martins MD STOOL ORDERABLES Final Result Performing Organization Address [facility] Co de Phone Number [facility] [address] [place] [address], [place] * Elastase, Stool (05/05/2025 9:45 AM PDT) Elastase-1, Stool >500 >200 (Normal) mcg/g 05/10/2025 7:45 PM PDT [facility] Comment: Test Performed by: [facility] [address] [place] [address] Supervisor Machining: Lebron Calhoun Ph.D.; CLIA# [id number] Stool Stool specimen / Unknown 05/05/2025 9:45 AM PDT 05/08/2025 11:01 AM PDT Narrative Resulting Agency Comment FACILITY: [facility] Syd Martins MD STOOL ORDERABLES Final Result Performing Organization Address [facility] Co de Phone Number [facility] [address] [place] [address], [place] * (ABNORMAL) CBC with Differential (04/08/2025 11:47 AM PDT) WBC 4.9 4.0 - 11.0 K/uL 04/08/2025 12:13 PM PDT [facility] Red Blood Cells (RBC) 4.26 3.80 - 5.20 MIL/uL 04/08/2025 12:13 PM PDT [facility] Hemoglobin (HGB) 13.9 11.7 - 15.7 g/dL 04/08/2025 12:13 PM PDT [facility] Hematocrit (HCT) 40.3 35.0 - 47.0 % 04/08/2025 12:13 PM PDT [facility] Mean Corpuscular Volume (MCV) 94.6 82.0 - 98.0 fL 04/08/2025 12:13 PM PDT [facility] Mean Corpuscular Hemoglobin (MCH) 32.6 27.0 - 34.0 pg 04/08/2025 12:13 PM PDT [facility] Mean Corpuscular Hemoglobin Concentration (MCHC) 34.5 32.0 - 36.0 g/dL 04/08/2025 12:13 PM PDT [facility] Red Cell Distribution Width (RDW) 12.4 11.5 - 14.5 % 04/08/2025 12:13 PM PDT [facility] Platelet Count (PLT) 162 150 - 400 K/uL 04/08/2025 12:13 PM PDT [facility] Neutrophil % 56.7 % 04/08/2025 12:13 PM PDT [facility] Lymphocyte % 29.8 % 04/08/2025 12:13 PM PDT [facility] Monocyte % 12.1 % 04/08/2025 12:13 PM PDT [facility] Eosinophil % 0.8 % 04/08/2025 12:13 PM PDT [facility] Basophil % 0.6 % 04/08/2025 12:13 PM PDT [facility] Imm. Granulocyte, % 0.0 0.0 - 0.7 % 04/08/2025 12:13 PM PDT [facility] Neutrophil, Absolute 2.76 1.80 - 8.00 K/uL 04/08/2025 12:13 PM PDT [facility] Lymphocyte, Absolute 1.45(L) 1.50 - 6.50 K/uL 04/08/2025 12:13 PM PDT [facility] Monocyte, Absolute 0.59(H) 0.00 - 0.40 K/uL 04/08/2025 12:13 PM PDT [facility] Eosinophil, Absolute 0.04 0.00 - 0.20 K/uL 04/08/2025 12:13 PM PDT [facility] Basophil, Absolute 0.03 0.00 - 0.25 K/uL 04/08/2025 12:13 PM PDT [facility] Imm. Granulocyte, Abs 0.00 0.00 - 0.06 K/uL 04/08/2025 12:13 PM PDT [facility] nRBC, Abs 0.00 K/uL 04/08/2025 12:13 PM PDT [facility] nRBC, % 0.0 % 04/08/2025 12:13 PM PDT [facility] Performing Lab Clinical Laboratory Felt Cutter 04/08/2025 12:13 PM PDT [facility] Comment: Dr. AALIYAH SIMONS [facility] [address] [place] [address] Blood Venous blood / Unknown 04/08/2025 11:47 AM PDT 04/08/2025 12:10 PM PDT Narrative Resulting Agency Comment FACILITY: [facility] AR[facility] SUTTON us Charla Monroe MD LAB BLOOD ORDERABLES Fin al Result [facility] [address] [place] [address], * T Subsets and B Lymphs, BLD (04/08/2025 11:47 AM PDT) WBC count 4,800 4,000 - 11,000 /uL 04/09/2025 11:15 AM PDT [facility] Lymphocytes % 29.7 17.8 - 42.2 % 04/09/2025 11:15 AM PDT [facility] CD3 (Bui T) % 78 55 - 83 % 04/09/2025 11:15 AM PDT [facility] CD19 (Bui B) % 10 6 - 19 % 04/09/2025 11:15 AM PDT [facility] CD3+/CD4+ % 51 28 - 57 % 04/09/2025 11:15 AM PDT [facility] CD3+/CD8+ % 22 10 - 39 % 04/09/2025 11:15 AM PDT [facility] CD4/CD8 ratio, CD3+ 2.3 1.0 - 3.6 ratio 04/09/2025 11:15 AM PDT [facility] CD3-/16+56(NK)% 12 7 - 31 % 11:15 AM PDT [facility] Lymphocytes, Abs. 1,426 1,000 - 3,000 /uL 04/09/2025 11:15 AM PDT [facility] CD3 (Bui T), Abs. 1,112 700 - 2,100 /uL 04/09/2025 11:15 AM PDT [facility] CD19 (Bui B), Abs. 143 100 - 500 /uL 04/09/2025 11:15 AM PDT [facility] CD3+/CD4+, Abs. 727 300 - 1,400 /uL 04/09/2025 11:15 AM PDT [facility] CD3+/CD8+, Abs. 314 200 - 900 /uL 04/09/2025 11:15 AM PDT [facility] CD3-/16+56(NK), Abs. 171 90 - 600 /uL 04/09/2025 11:15 AM PDT [facility] Performing Lab Clinical Laboratory Felt Cutter 04/09/2025 11:15 AM PDT [facility] Comment: Dr. AALIYAH SIMONS [facility] [place] [address] [place] [address] Blood Venous blood / Unknown 04/08/2025 11:47 AM PDT 04/08/2025 1:31 PM PDT Narrative Resulting Agency Comment FACILITY: [facility] us Charla Monroe MD LAB BLOOD ORDERABLES [facility] al Result [facility] [address] [place] [address], * Tetanus Titer (04/08/2025 11:47 AM PDT) Tetanus Toxoid IGG AB Positive 04/12/2025 1:13 PM PDT [facility] Comment: REFERENCE VALUE Vaccinated: Positive (>= 0.01 IU/mL) Unvaccinated: Negative (< 0.01 IU/mL) Tetanus Toxoid IGG Value 0.55 IU/mL 04/12/2025 1:13 PM PDT [facility] Comment: ADDITIONAL INFORMATION This test was developed and its performance characteristics determined by [facility] in a manner consistent with CLIA requirements. This test has not been cleared or approved by the U.S. Food and Drug Administration. Test Performed by: [facility] [address] [place] [address] Supervisor Machining: Lebron Calhoun Ph.D.; CLIA# [id number] Blood Venous blood / Unknown 04/08/2025 11:47 AM PDT 04/11/2025 8:05 AM PDT Narrative Resulting Agency Comment FACILITY: [facility] S[facility] us Charla Monroe MD LAB BLOOD ORDERABLES Fin al Result [facility] [address] [place] [address], [place] * (ABNORMAL) Airborne Allergy Screen (04/08/2025 11:47 AM PDT) Justine Tree <0.35 <0.35 kU/L 04/13/2025 3:04 PM PDT [facility] [place] ([place]uni[place]) Tree <0.35 <0.35 kU/L 04/13/2025 3:04 PM PDT [facility] [place] Tree <0.35 <0.35 kU/L 04/13/2025 3:04 PM PDT [facility] [place] Tree <0.35 <0.35 kU/L 04/13/2025 3:04 PM PDT [facility] [place] Grass <0.35 <0.35 kU/L 04/13/2025 3:04 PM PDT [facility] [place] Grass <0.35 <0.35 kU/L 04/13/2025 3:04 PM PDT [facility] Gil Grass <0.35 <0.35 kU/L 04/13/2025 3:04 PM PDT [facility] [place] <0.35 <0.35 kU/L 04/13/2025 3:04 PM PDT [facility] Jovani [place] <0.35 <0.35 kU/L 04/13/2025 3:04 PM PDT [facility] Western Ragweed <0.35 <0.35 kU/L 04/13/2025 3:04 PM PDT [facility] Alternaria Mold <0.35 <0.35 kU/L 04/13/2025 3:04 PM PDT [facility] Aspergilus Mold <0.35 <0.35 kU/L 04/13/2025 3:04 PM PDT [facility] Cladosporium Mold <0.35 <0.35 kU/L 04/13/2025 3:04 PM PDT [facility] Cockroach <0.35 <0.35 kU/L 04/13/2025 3:04 PM PDT [facility] Cat Dander <0.35 <0.35 kU/L 04/13/2025 3:04 PM PDT [facility] Dog Dander <0.35 <0.35 kU/L 04/13/2025 3:04 PM PDT [facility] Dust Mite 2.16(H) <0.35 kU/L 04/13/2025 3:04 PM PDT [facility] Total IgE 26 <100 kU/L 04/13/2025 3:04 PM PDT [facility] Interpretation IgE specific anti-allergen antibody is considered negative if the result is less than 0.35 kU/L. Positive levels are considered significant according to the following grading scheme: Class kU/L Significance: 0 <0.35 Negative 1 0.35-0.70 Low 2 0.70-3.5 Moderate 3 3.5-17.5 High 4 17.5-50 Very High 5 50-100 Very High 6 >100 Very High Even though the total IgE level is not elevated, these results may make an allergic component to any symptoms more likely. 04/13/2025 3:04 PM PDT [facility] Performing Lab Clinical Laboratory Felt Cutter 04/13/2025 3:04 PM PDT [facility] Comment: Dr. AALIYAH SIMONS [facility] [place] [address] [place] [address] Blood Venous blood / Unknown 04/08/2025 11:47 AM PDT 04/08/2025 1:35 PM PDT Narrative Resulting Agency Comment FACILITY: [facility] AR[facility] LESLEY us Charla Monroe MD LAB BLOOD ORDERABLES Fin al Result [facility] [address] [place] [address], * Allergy Screen, Molds (04/08/2025 11:47 AM PDT) Penicillium <0.35 <0.35 kU/L 04/12/2025 2:23 PM PDT [facility] Mucor <0.35 <0.35 kU/L 04/12/2025 2:23 PM PDT [facility] Yeimi <0.35 <0.35 kU/L 04/12/2025 2:23 PM PDT [facility] Helminthosporium <0.35 <0.35 kU/L 04/12/2025 2:23 PM PDT [facility] Fusarium moniliforme <0.35 <0.35 kU/L 04/12/2025 2:23 PM PDT [facility] Rhisopus nigricans <0.35 <0.35 kU/L 04/12/2025 2:23 PM PDT [facility] Auerobasidium <0.35 <0.35 kU/L 04/12/2025 2:23 PM PDT [facility] Epicoccum pupurasc. <0.35 <0.35 kU/L 04/12/2025 2:23 PM PDT [facility] Trichophyton rubrum <0.35 <0.35 kU/L 04/12/2025 2:23 PM PDT [facility] Aspergilus Mold <0.35 <0.35 kU/L 04/12/2025 2:23 PM PDT [facility] Cladosporium Mold <0.35 <0.35 kU/L 04/12/2025 2:23 PM PDT [facility] Alternaria Mold <0.35 <0.35 kU/L 04/12/2025 2:23 PM PDT [facility] Performing Lab Clinical Laboratory Felt Cutter 04/12/2025 2:23 PM PDT [facility] Comment: Dr. AALIYAH SIMONS [facility] [place] [address] [place] [address] Blood Venous blood / Unknown 04/08/2025 11:47 AM PDT 04/08/2025 1:34 PM PDT Narrative Resulting Agency Comment FACILITY: [facility] Charla Monroe MD LAB BLOOD ORDERABLES Fin al Result [facility] [address] [place] [address], * Food Allergy Screen (04/08/2025 11:47 AM PDT) Chicken <0.35 <0.35 kU/L 04/13/2025 8:32 AM PDT [facility] [place] <0.35 <0.35 kU/L 04/13/2025 8:32 AM PDT [facility] Egg White <0.35 <0.35 kU/L 04/13/2025 8:32 AM PDT [facility] Fish (Cod) <0.35 <0.35 kU/L 04/13/2025 8:32 AM PDT [facility] Milk <0.35 <0.35 kU/L 04/13/2025 8:32 AM PDT [facility] Nut ([place]) <0.35 <0.35 kU/L 04/13/2025 8:32 AM PDT [facility] Oat <0.35 <0.35 kU/L 04/13/2025 8:32 AM PDT [facility] Clio <0.35 <0.35 kU/L 04/13/2025 8:32 AM PDT [facility] Peanut <0.35 <0.35 kU/L 04/13/2025 8:32 AM PDT [facility] Shrimp <0.35 <0.35 kU/L 04/13/2025 8:32 AM PDT [facility] Soy <0.35 <0.35 kU/L 04/13/2025 8:32 AM PDT [facility] Tomato <0.35 <0.35 kU/L 04/13/2025 8:32 AM PDT [facility] Wheat <0.35 <0.35 kU/L 04/13/2025 8:32 AM PDT [facility] Total IgE 26 <100 kU/L 04/13/2025 8:32 AM PDT [facility] Interpretation 04/13/2025 8:32 AM PDT [facility] Comment: IgE specific anti-allergen antibody is considered negative if the result is less than 0.35 kU/L. This was the case for this specimen when tested against common causes of urticaria in children and adults. In conjunction with the normal, age-specific total IgE level, these results make an allergic reaction to food unlikely as a cause of any symptoms. Performing Lab Clinical Laboratory Felt Cutter 04/13/2025 8:32 AM PDT [facility] Comment: Dr. AALIYAH SIMONS [facility] [place] [address] [place] [address] Blood Venous blood / Unknown 04/08/2025 11:47 AM PDT 04/08/2025 1:35 PM PDT Narrative Resulting Agency Comment FACILITY: [facility] Charla Monroe MD LAB BLOOD ORDERABLES Fin al Result Performing Organization Address [facility] de Phone Number [facility] [address] [place] [address], [place] * Complement, Total (04/08/2025 11:47 AM PDT) Complement, Total 55.4 40.0 - 95.0 U/mL 04/13/2025 3:41 PM PDT [facility] Performing Lab Clinical Laboratory Felt Cutter 04/13/2025 3:41 PM PDT [facility] Comment: Dr. AALIYAH SIMONS [facility] [place] [address] [place] [address] Blood Venous blood / Unknown 04/08/2025 11:47 AM PDT 04/08/2025 5:22 PM PDT Narrative Resulting Agency Comment FACILITY: [facility] Charla Monroe MD LAB BLOOD ORDERABLES Fin al Result Performing Organization Address [facility] de Phone Number [facility] [address], [place] * Complement C3, Serum (04/08/2025 11:47 AM PDT) Complement C3, Serum 117 86 - 184 mg/dL 04/08/2025 2:46 PM PDT [facility] Performing Lab Clinical Laboratory Felt Cutter 04/08/2025 2:46 PM PDT [facility] Comment: Dr. AALIYAH SIMONS [facility] [place] [address] [place] [address] Blood Venous blood / Unknown 04/08/2025 11:47 AM PDT 04/08/2025 1:35 PM PDT Narrative Resulting Agency Comment FACILITY: [facility] Charla Monroe MD LAB BLOOD ORDERABLES Fin al Result [facility] [address] [place] [address], [place] * Complement C4, Serum (04/08/2025 11:47 AM PDT) Complement C4, Serum 24.0 20.0 - 59.0 mg/dL 04/08/2025 2:46 PM PDT [facility] Performing Lab Clinical Laboratory Felt Cutter 04/08/2025 2:46 PM PDT [facility] Comment: Dr. AALIYAH SIMONS [facility] [place] [address] [place] [address] Blood Venous blood / Unknown 04/08/2025 11:47 AM PDT 04/08/2025 1:35 PM PDT Narrative Resulting Agency Comment FACILITY: [facility] Charla Monroe MD LAB BLOOD ORDERABLES Fin al Result Performing Organization Address [facility]/ZIP Co de Phone Number [facility] [address], [place] * IgE, Total (04/08/2025 11:47 AM PDT) Total IgE 27 <100 kU/L 04/12/2025 2:23 PM PDT [facility] Performing Lab Clinical Laboratory Felt Cutter 04/12/2025 2:23 PM PDT [facility] Comment: Dr. AALIYAH SIMONS [facility] [place] [address] [place] [address] Blood Venous blood / Unknown 04/08/2025 11:47 AM PDT 04/08/2025 1:34 PM PDT Narrative Resulting Agency Comment FACILITY: [facility] Charla Monroe MD LAB BLOOD ORDERABLES Fin al Result [facility] [address] [place] [address], [place] * (ABNORMAL) IgA, Serum (04/08/2025 11:47 AM PDT) IgA, Serum 54(L) 68 - 408 mg/dL 04/08/2025 2:46 PM PDT [facility] Performing Lab Clinical Laboratory Felt Cutter 04/08/2025 2:46 PM PDT [facility] Comment: Dr. AALIYAH SIMONS [facility] - [address] [address] Blood Venous blood / Unknown 04/08/2025 11:47 AM PDT 04/08/2025 1:35 PM PDT Narrative Resulting Agency Comment FACILITY: [facility] Charla Monroe MD LAB BLOOD ORDERABLES Fin al Result Performing Organization Address [facility] Co de Phone Number [facility] [address] [place] [address], [place] * IgM, Serum (04/08/2025 11:47 AM PDT) IgM, Serum 103 35 - 263 mg/dL 04/08/2025 2:45 PM PDT [facility] Performing Lab Clinical Laboratory Felt Cutter 04/08/2025 2:45 PM PDT [facility] Comment: Dr. AALIYAH SIMONS [facility] - [address] [address] Blood Venous blood / Unknown 04/08/2025 11:47 AM PDT 04/08/2025 1:34 PM PDT Narrative Resulting Agency Comment FACILITY: [facility] Charla Monroe MD LAB BLOOD ORDERABLES Fin al Result Performing Organization Address City/[facility]/ZIP Co de Phone Number [facility] [address] [place] [address], [place] * IgG, Serum (04/08/2025 11:47 AM PDT) IgG, Serum 1,013 768 - 1,632 mg/dL 04/08/2025 2:45 PM PDT [facility] Performing Lab Clinical Laboratory Felt Cutter 04/08/2025 2:45 PM PDT [facility] Comment: Dr. AALIYAH SIMONS [facility] [place] [address] [place] [address] Blood Venous blood / Unknown 04/08/2025 11:47 AM PDT 04/08/2025 1:34 PM PDT Narrative Resulting Agency Comment FACILITY: [facility] Charla Monroe MD LAB BLOOD ORDERABLES Fin al Result [facility] [address] [place] [address], [place] * 2,3-Dinor 11 Beta-Prostaglandin F2 Alpha, 24 Hour, Urine (03/31/2025 9:30 AM PDT) 2,3-dinor 11B-Prostaglandin F2a 1047 <1802 pg/mg Cr 04/06/2025 10:06 AM PDT [facility] Comment: ADDITIONAL INFORMATION Cautions: 2,3BPG will be decreased in individuals who have taken aspirin within two weeks or other NSAIDs within 72 hours. This test was developed and its performance characteristics determined by [facility] in a manner consistent with CLIA requirements. This test has not been cleared or approved by the U.S. Food and Drug Administration. Creatinine, 24 Hour Ur 1028 603 - 1783 mg/24 h 04/06/2025 10:06 AM PDT [facility] Creatinine Concentration 76 mg/dL 04/06/2025 10:06 AM PDT [facility] Comment: Test Performed by: [facility] [address] [id number] Supervisor Machining: Lebron Calhoun Ph.D.; CLIA# [id number] Test Performed by: [facility] [address] [id number] Supervisor Machining: Lebron Calhoun Ph.D.; CLIA# [id number] Collection Duration 24 h 04/06 10:06 AM PDT [facility] Urine Volume 1352 mL 04/06/2025 10:06 AM PDT [facility] Urine (Urine, Voided) 03/31/2025 9:30 AM PDT 04/02/2025 7:43 PM PDT Narrative Resulting Agency Comment FACILITY: [facility] Coleman Mo MD URINE ORDERABLES Final Result [facility] [address] [place] [address], [place] * (ABNORMAL) Unlisted Lab: (03/31/2025 9:30 AM PDT) Test Name 24 hr Urine N-Methylh istamine 04/06/2025 3:35 PM PDT [facility] Comment:03/30/25@0930am end 03/31/25@0930am TV 1352 Reference Lab Code [id number] 2024 3:35 PM PDT [facility] Reference Lab childress 04/06/2025 3:35 PM PDT [facility] Result SEE COMMENTS( A) 04/06/2025 3:35 PM PDT [facility] Comment: Test Result Flag Unit RefValue N-Methylhistamine, 24 Hr, U N-Methylhistamine, 24 Hr 221 H mcg/g Cr 30-200 ADDITIONAL INFORMATION This test was developed and its performance characteristics determined by [facility] in a manner consistent with CLIA requirements. This test has not been cleared or approved by the U.S. Food and Drug Administration. Creatinine, 24 HR, U 1014 mg/24 h 603 - 0683 Collection Duration (h) 24 h Urine Volume (mL) 1352 mL Creatinine Concentration, 24 HR, 75 mg/dL U Test Performed by: [facility] [address] [place] [address] Supervisor Machining: Lebron Calhoun Ph.D.; CLIA# [id number] Test Performed by: [place] [address] Supervisor Machining: Leborn Calhoun Ph.D.; CLIA# [id number] Urine (Urine, Timed Collection) 03/31/2025 9:30 AM PDT 04/02/2025 7:47 PM PDT Narrative Resulting Agency Comment FACILITY: [facility] LESLEY Coleman Mo MD BODY FLUID ORDERABLES Final Result [facility] [address] [place] [address], [place] * Creatinine Clearance, Urine (03/29/2025 12:45 PM PDT) Height 175 cm 03/29/2025 3:42 PM PDT [facility] Weight 59.0 kg 03/29/2025 3:42 PM PDT [facility] Creatinine, Urine 71.35 29.00 - 278.00 mg/dL 03/29/2025 3:42 PM PDT [facility] Creatinine, Serum 0.75 0.40 - 1.00 mg/dL 03/29/2025 3:42 PM PDT [facility] Creatinine Clearance 85 mL/min 03/29/2025 3:42 PM PDT [facility] Comment:Creatinine Clearance results are calculated with the new IDMS traceable Creatinine method, effective December 07, 2015. Corrected Cr. Clear. 86 70 - 110 mL/min/1. 73 m2 03/29/2025 3:42 PM PDT [facility] Creatinine Excretion 923 mg/Day 03/29/2025 3:42 PM PDT [facility] Corrected Cr. Exc. 16 mg/Kg/Day 03/29/2025 3:42 PM PDT [facility] Urine Flow 0.9 mL/min 03/29/2025 3:42 PM PDT [facility] Volume Creatinine 1,294 mL 03/29/2025 3:42 PM PDT [facility] Collection Period Creatinine 24 HR 03/29/2025 3:42 PM PDT [facility] Performing Lab Clinical Laboratory [facility] 03/29/2025 3:42 PM PDT [facility] Comment: Dr. AALIYAH SIMONS [facility] [address] [place] [address] Urine (Urine, Timed Collection) 03/29/2025 12:45 PM PDT 03/29/2025 1:13 PM PDT Narrative Resulting Agency Comment FACILITY: [facility] Syd Martins MD URINE ORDERABLES Final Result Performing Organization Address [facility] de Phone Number [facility] [address] [place] [address], [place] * Cortisol Free, Urine Timed (03/29/2025 12:45 PM PDT) Volume 1,294 mL 04/06/2025 12:14 PM PDT [facility] Collection Period 24 HR 04/06/2025 12:14 PM PDT [facility] Cortisol, Urine 937 ng/dL 04/06/2025 12:14 PM PDT [facility] Cortisol excretion 12.12 <50.00 mcg/vol 04/06/2025 12:14 PM PDT [facility] Comment:Reference Range: <50 mcg/24 hours Performing Lab Clinical Laboratory [facility] 04/06/2025 12:14 PM PDT [facility] Comment: Dr. AALIYAH SIMONS [facility] - [address] [address] Urine (Urine, Timed Collection) 03/29/2025 12:45 PM PDT 03/29/2025 3:23 PM PDT Narrative [facility] - 04/06/2025 12:14 PM PDT This test was developed and its performance characteristics determined by the [facility]. It has not been cleared or approved by the FDA. The laboratory is regulated under CLIA as qualified to perform high- complexity testing. This test is used for clinical purposes. It should not be regarded as investigational or for research. Resulting Agency Comment FACILITY: [facility] us Syd Martins MD URINE ORDERABLES Final Result Performing Organization Address [facility] Co de Phone Number [facility] [address] [place] [address], [place] * Creatinine, Ser/Plas (03/29/2025 12:41 PM PDT) [facility] Creatinine, Ser/Plas 0.75 0.51 - 0.95 mg/dL 03/29/2025 3:40 PM PDT [facility] Comment: Measured by isotope dilution mass spectrometry traceable method. Falsely low creatinine concentration might be observed in patients receiving catecholamines such as dopamine, dobutamine, epinephrine, and norepinephrine when blood specimens are collected by indwelling catheters (e.g., PICC line). The cause of the falsely low creatinine concentration from indwelling catheters is due to administering the drug and collecting blood through the same catheter, which interferes with the enzymatic creatinine method used on our chemistry platform. This phenomenon is not observed with peripheral blood draws. Extensive flushing of the indwelling catheter to remove drug remnants before blood collection is recommended. It also recommended that blood specimens be collected from peripheral veins for patients receiving these drugs from the indwelling catheter to obtain accurate creatinine results. eGFR Refit Without Race (2020) 117 >60 mL/min/1 .73 m2 03/29/2025 3:40 PM [facility] Comment: eGFR is consistent with normal renal function. There is substantial imprecision in any estimate of GFR and is only applicable if the kidney function is stable. As of August 02, 2021, creatinine-based eGFR is calculated by the CKD-EPI creatinine equation refit without the race variable. Creatinine levels can be influenced by muscle mass, exercise, diet, and medications. Any clinical decisions (e.g., eligibility for procedures or administration of medications) that might be influenced by the reported value should be further informed by clinical judgment. Performing Lab Clinical Laboratory [facility] 03/29/2025 3:40 PM [facility] Comment: Dr. AALIYAH SIMONS [facility] [address] [place] [address] Blood Venous blood / Unknown 03/29/2025 12:41 PM PDT 03/29/2025 3:40 PM PDT Narrative [facility] - 03/29/2025 3:40 PM PDT Falsely decreased cholesterol, HDL, triglyceride, and uric acid results may be produced in patients with elevated N-acetylcysteine and Metamizole levels. Resulting Agency Comment FACILITY: [facility] Syd Martins MD LAB BLOOD ORDERABLES Fi nal Result Performing Organization Address [facility] Co de Phone Number [facility] [address] [place] [address], [place] * Catecholamines, Fractionated, Supine (03/26/2025 11:12 AM PDT) Norepinephrine, Supine 398 149 - 564 pg/mL 03/31/2025 3:59 PM PDT [facility] Epinephrine, Supine <10 <58 pg/mL 03/31 3:59 PM PDT [facility] Dopamine, Supine 15 <16 pg/mL 03/31/20 3:59 PM PDT [facility] Catecholamines, Supine <423 <632 pg/mL 03/31/2025 3:59 PM PDT [facility] Comment: Due to stress, plasma catecholamine levels are generally unreliable in infants and small children. Urinary catecholamine assays are more reliable. This test was developed and its analytical performance characteristics have been determined by [employer]. It has not been cleared or approved by the FDA. This assay has been validated pursuant to the CLIA regulations and is used for clinical purposes. TEST PERFORMED AT: [id number] [facility] [address] [address] Felt Cutter: Mike Alvarez MD, PhD, BOB Blood Venous blood / Unknown 03/26/2025 11:12 AM PDT 03/29/2025 6:51 AM PDT Narrative Resulting Agency Comment FACILITY: [facility] Syd Martins MD LAB BLOOD ORDERABLES Fi nal Result Performing Organization Address [facility] Co de Phone Number [facility] [address] [place] [address], [place] * Catecholamines, Fractionated, Upright (03/26/2025 11:00 AM PDT) Norepinephrine, Upright 676 199 - 937 pg/mL 03/31/2025 3:59 PM PDT [facility] Epinephrine, Upright <10 <82 pg/mL 03/31/2025 3:59 PM PDT [facility] Dopamine, Upright 16 <27 pg/mL 025 3:59 PM PDT [facility] Catecholamines, Upright <702 <1046 pg/mL 03/31/2025 3:59 PM PDT [facility] Comment: Due to stress, plasma catecholamine levels are generally unreliable in infants and small children. Urinary catecholamine assays are more reliable. This test was developed and its analytical performance characteristics have been determined by [employer]. It has not been cleared or approved by the FDA. This assay has been validated pursuant to the CLIA regulations and is used for clinical purposes. TEST PERFORMED AT: [id number] [facility] [address] [place] [address] Felt Cutter: Mike Alvarez MD, PhD, BOB Blood Venous blood / Unknown 03/26/2025 11:00 AM PDT 03/29/2025 6:50 AM PDT Narrative Resulting Agency Comment FACILITY: [facility] us Syd Martins MD LAB BLOOD ORDERABLES Fi nal Result [facility] [address] [place] [address], * S pneumoniae Ab IgG (23 Serotypes) (03/26/2025 11:00 AM PDT) S.Pneumo Serotype 1 (1) 6.0 >=1.0 mcg/mL 03/31/2025 9:45 AM PDT [facility] S.Pneumo Serotype 12 (12F) 2.7 >=1.0 mcg/mL 03/31/2025 9:45 AM PDT [facility] S.Pneumo Serotype 14 (14) 0.1 >=1.0 mcg/mL 03/31/2025 9:45 AM PDT [facility] S.Pneumo Serotype 17 (17) 0.5 >=1.0 mcg/mL 03/31/2025 9:45 AM PDT [facility] S.Pneumo Serotype 19 (19F) 1.2 >=1.0 mcg/mL 03/31/2025 9:45 AM PDT [facility] S.Pneumo Serotype 2 (2) 1.0 >=1.0 mcg/mL 03/31/2025 9:45 AM PDT [facility] S.Pneumo Serotype 20 (20F) 0.8 >=1.0 mcg/mL 03/31/2025 9:45 AM PDT [facility] S.Pneumo Serotype 22 (22F) 0.5 >=1.0 mcg/mL 03/31/2025 9:45 AM PDT [facility] S.Pneumo Serotype 23 (23F) 0.4 >=1.0 mcg/mL 03/31/2025 9:45 AM PDT [facility] S.Pneumo Serotype 26 (6B) 3.3 >=1.0 mcg/mL 03/31/2025 9:45 AM PDT [facility] S.Pneumo Serotype 3 (3) 0.1 >=1.0 mcg/mL 03/31/2025 9:45 AM PDT [facility] S.Pneumo Serotype 34 (10A) 0.7 >=1.0 mcg/mL 03/31/2025 9:45 AM PDT [facility] S.Pneumo Serotype 4 (4) 0.4 >=1.0 mcg/mL 03/31/2025 9:45 AM PDT [facility] S.Pneumo Serotype 43 (11A) 0.2 >=1.0 mcg/mL 03/31/2025 9:45 AM PDT [facility] S.Pneumo Serotype 5 (5) 0.1 >=1.0 mcg/mL 03/31/2025 9:45 AM PDT [facility] S.Pneumo Serotype 51 (7F) 0.3 >=1.0 mcg/mL 03/31/2025 9:45 AM PDT [facility] S.Pneumo Serotype 54 (15B) 0.5 >=1.0 mcg/mL 03/31/2025 9:45 AM PDT [facility] S.Pneumo Serotype 56 (18C) 0.1 >=1.0 mcg/mL 03/31/2025 9:45 AM PDT [facility] S.Pneumo Serotype 57 (19A) 0.7 >=1.0 mcg/mL 03/31/2025 9:45 AM PDT [facility] S.Pneumo Serotype 68 (9V) 0.8 >=1.0 mcg/mL 03/31/2025 9:45 AM PDT [facility] S.Pneumo Serotype 70 (33F) 1.2 >=1.0 mcg/mL 03/31/2025 9:45 AM PDT [facility] S.Pneumo Serotype 8 (8) 0.3 >=1.0 mcg/mL 03/31/2025 9:45 AM PDT [facility] S.Pneumo Serotype 9 (9N) 0.3 >=1.0 mcg/mL 03/31/2025 9:45 AM PDT [facility] Interpretation SEE COMMENTS 03/31/2025 9:45 AM PDT [facility] Comment: Evaluation of the immune response following pneumococcal vaccination can be assessed by measuring serotype-specific Streptococcus pneumonia IgG antibodies. Either of the following conditions is consistent with a normal response to Streptococcus pneumonia vaccination: 1. When comparing pre and post-vaccination samples, antibody concentrations increased by at least 2-fold for either >50% of serotypes in children <6 years of age or >70% of serotypes for individuals >6 years of age. 2. In either a pre- or post-vaccination sample, antibody concentrations >=1.0 mcg/mL for either >50% of serotypes for children <6 years of age or >70% of serotypes for individuals >6 years of age. Results >=1.0 mcg/mL or those showing a >=2-fold change are consistent with an immune response, but are not necessarily sufficient to provide protection against infection. ADDITIONAL INFORMATION This test was developed and its performance characteristics determined by [facility] in a manner consistent with CLIA requirements. This test has not been cleared or approved by the U.S. Food and Drug Administration. Test Performed by: [facility] - [place] [id number] [place] [id number] Supervisor Machining: Lebron Calhoun Ph.D.; CLIA# [id number] Blood Venous blood / Unknown 03/26/2025 11:00 AM PDT 03/30/2025 1:26 PM PDT Narrative Resulting Agency Comment FACILITY: [facility] us Huang Hunter MD LAB BLOOD ORDERABLES F inal Result [facility] [address] [place] [address], * Metanephrines, Fract Free, Plas (03/26/2025 11:00 AM PDT) Pathologist [facility] Metanephrine Free <0.20 <0.50 nmol/L 04/01/2025 4:21 PM PDT [facility] Comment: ADDITIONAL INFORMATION This test was developed and its performance characteristics determined by [facility] in a manner consistent with CLIA requirements. This test has not been cleared or approved by the U.S. Food and Drug Administration. Test Performed by: [facility] - [address] [address] Supervisor Machining: Lebron Calhoun Ph.D.; CLIA# [id number] Normetanephrine, Free 0.38 <0.90 nmol/L 04/01/2025 4:21 PM PDT [facility] Blood Venous blood / Unknown 03/26/2025 11:00 AM PDT 03/31/2025 7:59 AM PDT Narrative Resulting Agency Comment FACILITY: [facility] Syd Martins MD LAB BLOOD ORDERABLES Fi nal Result Performing Organization Address [facility] de Phone Number [facility] [address] [place] [address], * Adrenocortictropic Hormone Level (03/26/2025 11:00 AM PDT) Pathologist [facility] ACTH 11.8 7.2 - 63.3 pg/mL 03/26/2025 12:14 PM PDT [facility] Comment:Clinical considerati on: Biotin has been identified by the director museum or zoo as a potential interfering substance. Higher concentrations of biotin may be found in multivitamins, hair/nail supplements, and workout supplements. If the result does not match clinical observations and patient is taking a supplement containing biotin, repeat testing after patient refrains from the use of supplements for at least 12 hours. Performing Lab Clinical Laboratory [facility] 03/26/2025 12:14 PM PDT [facility] Comment: Dr. AALIYAH SIMONS [facility] [address] [place] [address] Blood Venous blood / Unknown 03/26/2025 11:00 AM PDT 03/26/2025 11:33 AM PDT Narrative Resulting Agency Comment FACILITY: [facility] Syd Martins MD LAB BLOOD ORDERABLES Fi nal Result Performing Organization Address [facility] de Phone Number [facility] [address] [place] [address], [place] * TSH (03/26/2025 11:00 AM PDT) TSH 1.31 0.27 - 4.20 uIU/mL 03/26/2025 12:49 PM PDT [facility] Comment:This result is produ ron from a reformulated method that is not significantly altered with biotin concentrations up to 1200 ng/mL in blood Performing Lab Clinical Laboratory [facility] 03/26/2025 12:49 PM PDT [facility] Comment: Dr. AALIYAH SIMONS [facility] [address] [place] [address] Blood Venous blood / Unknown 03/26/2025 11:00 AM PDT 03/26/2025 12:05 PM PDT Narrative Resulting Agency Comment FACILITY: [facility] Syd Martins MD LAB BLOOD ORDERABLES Fi nal Result Performing Organization Address [facility] de Phone Number [facility] [address] [address], [place] * Free T4 (03/26/2025 11:00 AM PDT) Free Thyroxine 1.22 0.93 - 1.70 ng/dL 03/26/2025 12:49 PM PDT [facility] Comment: This result is produced from a reformulated method that is not significantly altered with biotin concentrations up to 1200 ng/mL in blood The free thyroxine upper reference limit for patients on levothyroxine is 2.10 ng/dL The free thyroxine (FT4) reference interval is NOT applicable to women. Performing Lab Clinical Laboratory [facility] 03/26/2025 12:49 PM PDT [facility] Comment: Dr. AALIYAH SIMONS [facility] [address] [place] [address] Blood Venous blood / Unknown 03/26/2025 11:00 AM PDT 03/26/2025 12:05 PM PDT Narrative Resulting Agency Comment FACILITY: [facility] Syd Martins MD LAB BLOOD ORDERABLES Fi nal Result Performing Organization Address [facility] Co de Phone Number [facility] [address] [place] [address], [place] * Ferritin Level (03/26/2025 11:00 AM PDT) Ferritin 80.0 13 - 150 ng/mL 03/26/2025 12:49 PM PDT [facility] Comment:Clinical considerati on: Biotin has been identified by the director museum or zoo as a potential interfering substance. Higher concentrations of biotin may be found in multivitamins, hair/nail supplements, and workout supplements. If the result does not match clinical observations and patient is taking a supplement containing biotin, repeat testing after patient refrains from the use of supplements for at least 12 hours. Performing Lab Clinical Laboratory [facility] 03/26/2025 12:49 PM PDT [facility] Comment: Dr. AALIYAH SIMONS [facility] [address] [place] [address] Blood Venous blood / Unknown 03/26/2025 11:00 AM PDT 03/26/2025 12:05 PM PDT Narrative Resulting Agency Comment FACILITY: [facility] Syd Martins MD LAB BLOOD ORDERABLES Fi nal Result Performing Organization Address [facility] Co de Phone Number [facility] [address] [place] [address], [place] * Cortisol, Serum (03/26/2025 11:00 AM PDT) Cortisol, Serum 8.0 2.0 - 18.4 (varies, see table) ug/dL 03/26/2025 12:49 PM PDT [facility] Comment: Clinical consideration: Biotin has been identified by the director museum or zoo as a potential interfering substance. Higher concentrations of biotin may be found in multivitamins, hair/nail supplements, and workout supplements. If the result does not match clinical observations and patient is taking a supplement containing biotin, repeat testing after patient refrains from the use of supplements for at least 12 hours. Reference Range Table: 1d-12m Premature Infants 26-28 wks, Day4 1-11 ug/dL Premature Infants 31-35 wks, Day 4 2-9 ug/dL Full term Infants, Day 3 2-14 ug/dL Full term Infants, Day 7 2-11 ug/dL Infants, 1m - <12m 3-23 ug/dL Children (>=1 - <15 yrs) 8:00 AM 3-21 ug/dL 4:00 PM NA Adults (>=15 yrs) 8:00 AM 6.0-18.4 ug/dL 4:00 PM 2.7-10.5 ug/dL Performing Lab Clinical Laboratory [facility] 03/26/2025 12:49 PM PDT [facility] Comment: Dr. AALIYAH SIMONS [facility] [address] [place] [address] Blood Venous blood / Unknown 03/26/2025 11:00 AM PDT 03/26/2025 12:05 PM PDT Narrative Resulting Agency Comment FACILITY: [facility] us Syd Martins MD LAB BLOOD ORDERABLES Fi nal Result [facility] [address] [place] [address], from Last [address] [place] [address] [place] [address] OUT OF STATE Care Teams Principal Gifts Officer Relationship Specialty Start Date End Date Pcp, [address] [place] [address] PCP - General 12/14/20
--- OUTSIDE RECORDS SUMMARY | 2025-06-20 13:48 | XMS_ITS | Referral Summary ---
Author Organization [facility] Address [address] [place] [address] Care Team Providers Care Green Inspector Name Role Phone Unavailable Primary Care Provider Unavailabl e Source Comments NOTE: The information displayed is extracted from the complete medical record and may not identify all current or past patient conditions.[facility] Social History Tobacco Use Types Packs/Day Years Used Date Smoking Tobacco: Never Assessed Comments Unknown Sex and Gender Information Value Date Recorded Sex Assigned at Not on file Legal Sex Female 12:00 PM PST Gender Identity Not on file Sexual Orientation Not on file Plan of Treatment Not on file
--- OUTSIDE RECORDS SUMMARY | 2025-06-20 13:48 | XMS_ITS | Clinical Summary ---
Author Organization [facility] and [facility] Address [address] [place] [address] Care Team Providers Care Shim Plug Cutter Name Role Phone Charla Monroe MD Primary Care Provider + Source Comments This information has been disclosed to you from records protected by Federal confidentiality rules (42 CFR part 2). The Federal rules prohibit you from making any further disclosure of this information unless further disclosure is expressly permitted by the written consent of the person to whom it pertains or as otherwise permitted by 42 CFR part 2. A general authorization for the release of medical or other information is NOT sufficient for this purpose. The Federal rules restrict any use of the information to criminally investigate or prosecute any alcohol or drug abuse patient.[facility] Allergies No known active allergies Medications vitamin D, Ergocalciferol, 1.25 MG (71529 UT) CapIndications: Vitamin D deficiency TAKE 1 CAPSULE BY MOUTH EVERY 7 DAYS FOR 8 DOSES 4 Cap 1 Active CONCERTA 36 MG Tab Active azelastine hcl (ASTEPRO) 0.15 % Na Soln Apply one Venedocia nasally as directed twice daily Active Loratadine (CLARITIN PO) Take by mouth Ac tive QULIPTA 60 MG Tab Take sixty mg by mouth daily Active ivabradine (CORLANOR) 5mg Tab Take one half Tab by mouth twice daily Active ZENPEP 17026-09247 units Cap daily with a meal 5 Active valACYclovir (VALTREX) 500mg Tab Take one Tab by mouth twice daily 5 Active pantoprazole (PROTONIX) 40mg EC Tab Take one Tab by mouth daily 5 Active acetaZOLAMIDE (DIAMOX) 125mg TABS Tab Take 1 Tablet by mouth daily 5 Active celecoxib (CELEBREX) 200mg Cap Take one Cap by mouth daily 5 Active Naltrexone HCl, Pain, (NALTREX) 4.5 MG CAPS Take 6 mg by mouth daily Active budesonide (PULMICORT RESPULES) 1mg/2mL Neb Susp Take one Ampule as an inhalation daily 4 Active Active Problems Problem Noted Date Diagnosed Date Generalized anxiety disorder 08/06/2019 Panic attacks 08/06/2019 Reflux esophagitis 01/04/2005 Resolved Problems Problem Noted Date Diagnosed Date Resolved Date EXPANDED SCREENING TESTS-NEGATIVE 2004 11/06/2014 Encounters Date Type Department Care Team Description 04/19/[address] [address] Kam Turpin MD 04/14/2025 9:00 AM PDT Video Visit [address] [address] Kam Turpin MD Fatigue due to sleep pattern disturbance (Primary Dx) 04/14/[address] [address] Kam Turpin MD 04/09/[address] [address] Kam Turpin MD 04/08/[address] [address] Pcp, No from Last 3 Months Immunizations Immunization Administration Dates Next Due DTaP 02/23/2010, 6,06/21/2005,04/19,02/15/2005 HIB 12/20/2005,04/19/2005,02/15/2005 HPV, nonavalent 03/19/2019,03/06/2017 Hep B <20 Yrs 06/21/2005,01/16/2005,2004 Hepatitis A 01/28/2007,06/17/2006 Influenza Vaccine QUADR PF 6 + MO (FLUZONE, FLULAVAL, FLUARIX) 07/20/2021,07/09/2019 Influenza Virus Vaccine, NOS 05/23/2015 Influenza vaccine 3+ YRS (Fluvirin) 06/17/2010,1 09/23/2007 Influenza vaccine 3+ YRS PF (Fluvirin) 2,06/23/2011 Influenza vaccine 6-35 MONTHS 07/05/2007 ,08/04/2006,07/23/2005,06/21 Influenza vaccine QUADR NASA L 2-49 YO (FLUMIST) 05/30/2014,06/28/2013 Influenza vaccine QUADR PF 3 + YO (AFLURIA) 06/05/2017,07/19/2016,05/23/2015 MMR Vaccine INJ 02/23/2010 MMR+ Varicella 12/20/2005 Meningococcal Yovani Vac ACYW- 135 (MCV4) UNSPECIFIED FORMULA 03/06/2017 Pneumococcal Prevnar 7 12/20/2005,2004,04/19/2005,02/15 Polio Inj *IPV 02/23/2010, 5,04/19/2005,02/15 Skin Test - PPD 04/12/2010 Tdap (ADACEL) 7-64 YRS 03/06/2017 Varicella 02/23/2010 Family History Medical History Relation Comments Food Allergy Brother nut Allergic Rhinitis Father Asthma Maternal Aunt Heart Disease Maternal Grandfather pacemaker n eeded at age 55 y; heart transplant at age 70 Hypertension Maternal Grandmother Depression Paternal Grandmother Relation Status Comments Brother Father Maternal Aunt Maternal Grandfather Maternal Grandmother Paternal Grandmother Social History Tobacco Use Types Packs/Day Years Used Date Smoking Tobacco: Never Smokeless Tobacco: Never Tobacco Cessation:Counseling Given: Not Answered Alcohol Use Standard Drinks/Week Comments Not Asked 0 (1 standard drink = 0.6 oz pur e alcohol) Comments No Sex and Gender Information Value Date Recorded Sex Assigned at Not on file Legal Sex Female 11:39 AM PST Gender Identity Not on file Sexual Orientation Not on file Last Filed Vital Signs Vital Sign Reading Time Taken Comments Blood Pressure 100/67 03/16/2025 3:40 PM PDT Pulse 73 03/16/2025 3:40 PM PDT Temperature 36.9 C (98.4 F) 07/09/2019 3:03 PM PST Respiratory Rate 20 11/06/2014 4:33 PM PST Oxygen Saturation 99% 07/09/2019 3:03 PM PST Inhaled Oxygen Concentration - - Weight 59.4 kg (131 lb) 03/16/2025 3:40 PM PDT Height 170.2 cm (5' 7) 03/16/2025 3:40 PM PDT Body Mass Index 20.52 03/16/2025 3:40 PM PDT Plan of Treatment Health Maintenance Due Date Last Done Comments CHLAMYDIA SCREENING 12/16/2019 GONORRHEA SCREENING 12/16/2019 HEPATITIS C SCREENING 2022 UNIVERSAL HIV SCREENING 2022 INFLUENZA VACCINE 04/02/2025 07/05/2023, , 07/20/2021, Additional history exists COVID-19 Vaccine ( season) 2025 06/22/2022, 04/09/2022, 08/28/2021, Additional history exists POTASSIUM 02/24/2026 02/24/2025, 12/0 02/2024, 05/09/2024, Additional history exists SODIUM 02/24/2026 02/24/2025, 12/0 02/2024, 05/09/2024, Additional history exists CREATININE 03/29/2026 03/29/2025, /12/2024, 08/07/2024, Additional history exists DTaP,Tdap,or Td Vaccine (7 - Td or Tdap) 03/06/2027 03/06/2017, 02/23/2010, 06/17/2006, Additional history exists HEPATITIS B VACCINE Completed 06/21/2005, 06/21/2005, 01/16/2005, Additional history exists PNEUMOCOCCAL VACCINE 0-49 YEARS Aged Out 12/20/2005, 06/21/2005, 04/19/2005, Additional history exists No longer eligible based on patient's age to complete this topic HEPATITIS A VACCINE Completed 01/28/2007, MMR VACCINE ADULT Completed 02/23/2010, 12/20/2005 VARICELLA VACCINE Completed 02/23/2010, 12/20/2005 HPV VACCINE Completed 03/19/2019, 03/06/2017 MENINGOCOCCAL ACWY VACCINE Completed 02/12/2022, Procedures Procedure Name Priority Date/Time Associated Diagnosis Comments COMPREHENSIVE METABOLIC PANEL W GFR Routine 02/24/2025 9:18 AM PDT Encounter for general adult medical examination without abnormal findings Nonscarring hair loss, unspecified Unspecified osteoarthritis, unspecified site Other specified diseases of blood and blood-forming organs from Last 3 Months or Most Recently Relevant to Health Maintenance Results * COMPREHENSIVE METABOLIC PANEL W GFR (02/24/2025 9:18 AM PDT) Sodium 138 136 - 145 mmol/L 02/24/2025 12:59 PM PDT [facility] [phone] Potassium 4.0 3.5 - 5.1 mmol/L 02/24/2025 12:59 PM PDT [facility] [phone] Chloride 104 98 - 110 mmol/L 02/24/2025 12:59 PM PDT [facility] [phone] CO2 (Bicarbonate) 32 21 - 32 mmol/L 02/24/2025 12:59 PM PDT [facility] [phone] Glucose 73 70 - 99 mg/dL 02/24/2025 12:59 PM PDT [facility] [phone] BUN 17 6 - 25 mg/dL 02/24/2025 12:59 PM PDT [facility] [phone] Creatinine 0.70 0.40 - 1.00 mg/dL 02/24/2025 12:59 PM PDT [facility] [phone] Comment:IDMS-traceable metho d Calcium 9.0 8.2 - 10.2 mg/dL 02/24/2025 12:59 PM PDT [facility] [phone] Total Protein 7.0 6.4 - 8.2 g/dL 02/24/2025 12:59 PM PDT [facility] [phone] Albumin 4.0 3.2 - 4.7 g/dL 02/24/2025 12:59 PM PDT [facility] [phone] Total Bilirubin 0.6 <1.1 mg/dL 12:59 PM PDT [facility] [phone] Alkaline Phosphatase 77 26 - 137 U/L 02/24/2025 12:59 PM PDT [facility] [phone] AST 10 0 - 37 U/L 02/24/2025 12:59 PM PDT [facility] [phone] ALT 20 0 - 60 U/L 02/24/2025 12:59 PM PDT [facility] [phone] eGFR 127 >60 See Cmnt 02/24/2025 12:59 PM PDT [facility] [phone] Comment: Units: mL/min/1.73 m2. Estimated glomerular filtration rate values are calculated using the CKD-EPI Creatinine 2020 equation (non-race based). Serum 02/24/2025 9:18 AM PDT 02/24/2025 10:08 AM PDT Narrative [facility] - 02/24/2025 12:59 PM PDT Patient fasting FAX TO DR MCLEOD AT [phone] PH [phone] us Syd Mcleod MD LAB CHEMISTRY Final R esult [facility] [address] [place] [address] [facility] [phone] [address] [place] [address] from Last 3 Months or Most Recently Relevant to Health Maintenance Insurance [place] [employer] PPO POS EPO BLUE [employer]OSS [employer] Care Teams Shim Plug Cutter Relationship Specialty Start Date End Date Charla Monroe MD PCP - General Rheumatology 12/22/24
[2025-06-20 13:49] VITALS: BP 122/88; PULSE 88; RESP 18; TEMP 36.6; O2SAT 98; BMI 18.0
--- OUTSIDE RECORDS SUMMARY | 2025-06-20 13:49 | XMS_ITS | Encounter Summary ---
Author Organization [facility] Address [address] [place] [address] Care Team Providers Care Podiatry Assistant Name Role Phone Charla Monroe MD Primary Care Provider + Reason for Visit * Reason Comments Med Refill Encounter Details Date Type Department Care Team (Late st Contact Info) Description 03/31/2025 Refill [facility] [address] [place] [address] Chio Hitchcock MD [address] [place] [address] Social History Tobacco Use Types Packs/Day Years [...] on file documented as of this encounter Miscellaneous Notes * Telephone Encounter - Claire Ramirez MA - 03/31/2025 12:10 PM PDT Sounds good, I just scheduled her and also let her know about the rx approval refill. Thanks Dr. Hitchcock! * Telephone Encounter - Chio Hitchcock MD - 03/31/2025 11:34 AM PDT Please schedule full PFTs with [facility] with Ghislaine for yearly follow up. Thanks! documented in this encounter Plan of Treatment Upcoming Encounters Date Type Department Care Team (Late st Contact Info) Description 08/19/2025 4:00 PM PST Follow-Up [facility] [address] [place] [address] Chio Hitchcock MD [address] [place] [address] 4 mo F/U -UVL documented as of this encounter Visit Diagnoses Not on filedocumented in this encounter Care Teams Podiatry Assistant Relationship Specialty Start Date End Date Charla Monroe MD [address] [place] [address] [address] [place] [address] PCP - General Rheumatology 03/27/24 documented as of this encounter
--- OUTSIDE RECORDS SUMMARY | 2025-06-20 13:49 | XMS_ITS | Encounter Summary ---
Author Organization [facility] and [facility] Address [address] [place] [address] Care Team Providers Care Disaster Recovery Coordinator Name Role Phone Charla Monroe MD Primary Care Provider + Reason for Referral * Radiology Services (Urgent) - Closed Specialty Diagnoses / Procedures Referred By Contac t Referred To Contact Radiology Diagnoses Pancreatic insufficiency Generalized abdominal pain Procedures NM Gastric Emptying Solid Syd Martins MD [address] [place] [address] [address] Phone: tel: fax: Referral ID Status Reason Start Date Expiration Date Visits Re quested Visits Authorized [id number] Closed 03/29/2025 05/27/2025 4 4 * MRI/CAT/PET Scan (Urgent) - Closed Specialty Diagnoses / Procedures Referred By Contac t Referred To Contact Radiology Diagnoses Pancreatic insufficiency Procedures MR Abdomen Pancreas wo IV Contrast Syd Martins MD [address] [place] [address] [address] Phone: tel: fax: Referral ID Status Reason Start Date Expiration Date Visits Re quested Visits Authorized [id number] Closed 03/29/2025 05/27/2025 2 2 Encounter Details Date Type Department Care Team (Latest Contact Info) Description 03/17/2025 Community Orders [facility] Syd Martins MD [address] [address] Renal artery stenosis (Primary Dx) [I70.1]; Pancreatic insufficiency [K86.89]; Generalized abdominal pain [R10.84]; Chronic daily headache [R51.9] Social History Tobacco Use Types Packs/Day Years [...] Care Team (Late st Contact Info) Description 07/12/2025 9:00 AM PST Telemedicine Neurology 2nd Floor, [facility] [address], 2nd Floor [place], [place] [id number] Coleman Mo MD [address] [facility] [address] [place] [address] documented as of this encounter Results * NM Gastric Emptying Solid (04/22/2025 12:53 PM PDT) Anatomical Region Laterality Modality Abdomen Nuclear Medicine 04/22/2025 6:01 PM PDT Impressions 04/22/2025 6:02 PM PDT IMPRESSION: 1. Gastric emptying within normal limits. Author: Anjel Styles MD Attending: Anjel Styles MD I have personally reviewed the images for this examination and agree with the report transcribed above. Narrative 04/22/2025 6:02 PM PDT GASTRIC EMPTYING STUDY: 04/22/2025 8:00 CLINICAL HISTORY: 19 years of age, Female, with history of abdominal distention, referred for evaluation of gastric emptying. COMPARISON: Abdominal MRI 04/06/2025 PROCEDURE COMMENTS: Allergies: It was verified that the patient has no known allergies to the meal used in this exam. Radiopharmaceutical: 0.474 millicurie Tc99m Unfiltered Sulfur Colloid PO. Technique: A standard meal consisting of 2 scrambled eggs, toast, jam and water was labeled with the radiopharmaceutical and administered orally to the patient. The patient ate the meal in 5 minutes. Subsequent static images were obtained immediately and again at approximately 60, 120, 180 and 240 minutes post ingestion, to calculate percent emptying. FINDINGS: There is prompt radiopharmaceutical accumulation within the stomach. There is initial filling of the gastric fundus, followed by movement to the antrum. There is subsequent emptying of the radiotracer into the proximal gastrointestinal tract. The emptying fraction (at interpolated times) are as tabulated: Time (minutes) % Emptying Normal Range % Empty 60 24.4 10-70% 120 68.6 40-100% 180 89.6 70-100% 240 97.1 90-100% Procedure Note Anjel Styles MD - 04/22/2025 GASTRIC EMPTYING STUDY: 04/22/2025 8:00 CLINICAL HISTORY: 19 years of age, Female, with history of abdominaldistention, referred for evaluation of gastric emptying. COMPARISON: Abdominal MRI 04/06/2025 PROCEDURE COMMENTS: Allergies: It was verified that the patient has no known allergies to themeal used in this exam. Radiopharmaceutical: 0.474 millicurie Tc99m Unfiltered Sulfur Colloid PO. Technique: A standard meal consisting of 2 scrambled eggs, toast, jam andwater was labeled with the radiopharmaceutical and administered orally tothe patient. The patient ate the meal in 5 minutes. Subsequent staticimages were obtained immediately and again at approximately 60, 120, 180and 240 minutes post ingestion, to calculate percent emptying. FINDINGS: There is prompt radiopharmaceutical accumulation within the stomach. Thereis initial filling of the gastric fundus, followed by movement to theantrum. There is subsequent emptying of the radiotracer into the proximalgastrointestinal tract. The emptying fraction (at interpolated times) areas tabulated: Time (minutes) % Emptying Normal Range % Empty 60 24.4 10-70% 120 68.6 40-100% 180 89.6 70-100% 240 97.1 90-100% IMPRESSION: 1. Gastric emptying within normal limits. Author: Anjel Styles MD Attending: Anjel Styles MD I have personally reviewed the images for this examination and agree with the report transcribed above. us Syd Martins MD IM NUC MED ORDERABLES Final Result * MR Abdomen Pancreas wo IV Contrast (04/06/2025 6:00 PM PDT) Anatomical Region Laterality Modality Abdomen Magnetic Resonan ce 04/06/2025 10:1 9 PM PDT Impressions 04/06/2025 11:14 PM PDT IMPRESSION: 1. Normal appearance of the pancreas. I have personally reviewed the images for this examination and agree with the report transcribed above. Narrative 04/06/2025 11:14 PM PDT MR Abd Pancreas wo 04/06/2025 17:30 CLINICAL HISTORY: 19 years of age, Female, pancreatic insuff. COMPARISON: CT 03/15/2025 PROCEDURE COMMENTS: Multiplanar, multisequence MRI of the abdomen was performed. Intravenous contrast was not administered. FINDINGS: Lung bases: Lung bases are clear. Liver: Liver is normal in morphology. No focal lesions are identified. Biliary system: No intra- or extrahepatic biliary dilatation. Normal gallbladder. Pancreas: Normal pancreatic parenchyma. No duct dilation. Small caliber pancreatic duct. Adrenal glands: Normal. Kidneys: Normal. Spleen: Normal. Bowel: Normal. Vasculature: See recent CTA for better evaluation. Lymph nodes: No enlarged lymph nodes. Peritoneal space: No free fluid. Musculoskeletal: Bone marrow signal is normal. Procedure Note Radha Guadarrama MD - 04/06/2025 MR Abd Pancreas wo 04/06/2025 17:30 CLINICAL HISTORY: 19 years of age, Female, pancreatic insuff. COMPARISON: CT 03/15/2025 PROCEDURE COMMENTS: Multiplanar, multisequence MRI of the abdomen wasperformed. Intravenous contrast was not administered. FINDINGS: Lung bases: Lung bases are clear. Liver: Liver is normal in morphology. No focal lesions are identified. Biliary system: No intra- or extrahepatic biliary dilatation. Normalgallbladder. Pancreas: Normal pancreatic parenchyma. No duct dilation. Small caliberpancreatic duct. Adrenal glands: Normal. Kidneys: Normal. Spleen: Normal. Bowel: Normal. Vasculature: See recent CTA for better evaluation. Lymph nodes: No enlarged lymph nodes. Peritoneal space: No free fluid. Musculoskeletal: Bone marrow signal is normal. IMPRESSION: 1. Normal appearance of the pancreas. I have personally reviewed the images for this examination and agree with the report transcribed above. us Syd Martins MD IMG MR ORDERABLES Final Result documented in this encounter Visit Diagnoses Diagnosis Renal artery stenosis- Primary Atherosclerosis of renal artery Pancreatic insufficiency Other specified disease of pancreas Generalized abdominal pain Abdominal pain, generalized Chronic daily headache Headache Pancreatic insufficiency Other specified disease of pancreas Pancreatic insufficiency Other specified disease of pancreas Generalized abdominal pain Abdominal pain, generalized documented in this encounter Additional Health Concerns Assessment Noted Time PHQ-9 Depression Total Score: 13 022 4:32 PM PST PHQ-2 Depression Total Score: 6 09/08/19 22 4:32 PM PST documented as of this encounter Care Teams Disaster Recovery Coordinator Relationship Specialty Start Date End Date Charla Monroe MD [address] [address] PCP - General Rheumatology 03/01/22 documented as of this encounter
--- OUTSIDE RECORDS SUMMARY | 2025-06-20 13:49 | XMS_ITS | Clinical Summary ---
Author Organization [facility] Address [address] [place] [address] Care Team Providers Care Button Breaker Operator Name Role Phone Charla Monroe MD [...] deemed pertinent for the care of the patient.[facility] Allergies No known active allergies Medications [...] Active aspirin 81 mg enteric coated tablet Take 1 tablet (81 mg total) by mouth daily Active rimegepant (NURTEC ODT) 75 mg orally disintegrating tabletIndications :Chronic migraine without aura without status migrainosus, not intractable Take 1 tablet (75 mg total) by mouth daily as needed for Migraine . Place tablet on or under tongue at onset of migraine. Allow to dissolve with saliva then swallow. Use no more than 1 tab in 24 hours. 8 tablet 11 04/03/20 24 Active metoclopramide (Reglan) 10 mg tabletIndications :Chronic migraine without aura without status migrainosus, not intractable,Migra ine with aura and without status migrainosus, not intractable Take 1 tablet (10 mg total) by mouth daily as needed 60 tablet 2 04/30/20 24 Active naratriptan (Amerge) 2.5 mg tabletIndications :Chronic migraine without aura without status migrainosus, not intractable,Migra ine with aura and without status migrainosus, not intractable Take 2.5 mg by mouth once as needed May repeat after 4 hours. Not to exceed 2 tabs (5mg) in any 24 hour period 10 tablet 11 04/30/20 24 Active propranoloL (INDERAL) 10 mg tablet One tab morning and afternoon, as needed, tachycardia 90 tablet 5 08/10/20 24 Active sodium sulfate, potassium sulfate, and magnesium sulfate (SUPREP) kit for oral solution TAKE 1 BOTTLE BY MOUTH THE EVENING PRIOR TO PROCEDURE DAY, AND 1 BOTTLE BY MOUTH THE DAY OF PROCEDURE 5 HOURS PRIOR TO START TIME PER [facility]. 354 mL 02/18/20 25 Active guanFACINE (Tenex) 1 mg tablet One tab as needed nightly for hyperadrenergic symptoms 30 tablet 3 03/25/20 25 Active pyridostigmine (Mestinon) 60 mg tablet Take 1 tablet (60 mg total) by mouth 2 times a day Take 1 tablet in the morning and take 1 tablet in the afternoon. 60 tablet 1 04/21/20 25 026 Active Active Problems Problem Noted Date Diagnosed [...] one week intensive course at [facility] in Jul 2020 Tried prozac 20mg for about 2 months, but seemed to cause more problems than helped - caused fatigue, emotional dysregulation Encounters Date Type Department Care Team Description 04/26/2025 Orders Only [facility] [address], 3rd Floor [place], [place] [id number] Syd Martins MD Iron deficiency (Primary Dx) [E61.1]; Intestinal malabsorption, unspecified type [K90.9] 04/26/2025 Community Orders [facility] Syd Martins MD Other specified intestinal malabsorption (Primary Dx) [K90.89] 04/22/2025 7:32 AM PDT - 04/22/2025 11:59 PM PDT Hospital Encounter [facility] Nuclear Medicine Imaging [address] [place] [address], 2nd [facility], [address] [address] Discharge Disposition: Home/Work (includes foster care) 04/22/2025 7:32 AM PDT - 04/22/2025 11:59 PM PDT Hospital Encounter [facility] Nuclear Medicine Imaging [address] [facility], 2nd [facility], [address] [address] Discharge Disposition: Home/Work (includes foster care) 04/22/2025 7:32 AM PDT - 04/22/2025 11:59 PM PDT Hospital Encounter [facility] Nuclear Medicine Imaging [address] [facility], 2nd Floor, [address] [address] Discharge Disposition: Home/Work (includes foster care) 04/21/2025 Refill Neurology 3rd Floor, [facility] [address] [facility], 3rd Floor [place], [place] [phone] Bhavani Carmona RN 04/19/2025 Telephone Neurology 1st [facility], [facility] [address] [facility], 1st Floor [place], [place] [phone] Casper Barton RN 04/09/2025 Orders Only Rheumatology [facility] [address] [facility], [address] [place] [address] Charla Monroe MD 04/07/2025 Orders Only Rheumatology [facility] [address] [facility], [address] [place] [address] Charla Monroe MD Chronic sinusitis, unspecified location (Primary Dx) [J32.9]; Allergic rhinoconjunctivitis, seasonal and perennial [J30.2, H10.10, J30.89]; Frequent infections [Z86.19] 04/06/2025 4:59 PM PDT - 04/06/2025 11:59 PM PDT Hospital Encounter [facility] MR Imaging [address] [place] [address] Discharge Disposition: Home/Work (includes foster care) 04/01/2025 Telephone Neurology 2nd Floor, [facility] [address] [facility], 2nd [place] [address] Coleman Mo MD 03/29/2025 Lab [place] [address] Syd Martins MD Abnormal results of other endocrine function studies [R94.7] 03/26/2025 Lab Requisition Laboratory [facility] [address] [place] [address] Huang Hunter MD Acute recurrent maxillary sinusitis [J01.01]; Chronic maxillary sinusitis [J32.0] 03/26/2025 Lab Requisition Laboratory [facility] [address] [place] [address] Syd Martins MD Encounter for general adult medical examination without abnormal findings [Z00.00]; Nonscarring hair loss, unspecified [L65.9]; Headache, unspecified [R51.9]; Unspecified osteoarthritis, unspecified site [M19.90]; Other specified diseases of blood and blood-forming organs [D75.89] 03/25/2025 7:21 PM PDT - 03/25/2025 11:59 PM PDT Hospital Encounter [facility] MR Imaging [address] [place] [address] Discharge Disposition: Home/Work (includes foster care) 03/25/2025 2:45 PM PDT Telemedicine Neurology 2nd Floor, [facility] 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] 03/23/2025 Orders Only Nuclear Medicine Imaging, [address] [address] Jennifer Hamilton RVT from Last 3 Months Immunizations Immunization Administration Dates Next Due DTaP (6 wks [...] Medical History Relation Comments Elevated Lipids Father High Cholesterol Father Heart Surgery Maternal Grandfather Open heart Transplant Cancer Maternal Grandmother Lung Cancer Migraines Paternal Grandmother Deep Vein Thrombosis Sister Relation Status Comments Father Maternal Grandfather Alive Maternal Grandmother Paternal Grandmother Alive Sister Alive Social History Tobacco Use Types Packs/Day Years [...] Sign Reading Time Taken Comments Blood Pressure 105/66 02/17/2025 10:01 AM PDT Pulse 71 02/17/2025 10:01 AM PDT Temperature - - Respiratory Rate - - Oxygen Saturation 100% 02/17/2025 10:01 AM PDT Inhaled Oxygen Concentration - - Weight 60.6 kg (133 lb 8 oz) 02/17/2025 10:01 AM PDT Height 174 cm (5' 8.5) 04/01/2024 8:53 AM PDT Body Mass Index 20 04/01/2024 8:53 AM PDT Plan of Treatment Upcoming Encounters Date Type Department Care Team (Late st Contact Info) Description 07/12/2025 9:00 AM PST Telemedicine Neurology 2nd Floor, [facility] [address] [facility], 2nd [place] [address] Coleman Mo MD [address] [place] [address] [address] [place], [place] [phone] Health Maintenance Due Date Last Done Comments HEPATITIS C SCREENING 2004 Hepatitis B Screening Discussion 2004 INFLUENZA VACCINE (#1) 2025 3, 06/22/2022, 07/20/2021, Additional history exists DTaP/Tdap/Td Immunizations (7 - Td or Tdap) 03/06/2027 03/06/2017, 02/23/2010, 06/17/2006, Additional history exists Pneumococcal Vaccine Aged Out 12/20/2005, 06/21/2005, 04/19/2005, Additional history exists No longer eligible based on patient's age to complete this topic HPV IMMUNIZATIONS Completed 03/19/2019, 03/06/2017 MCV4 IMMUNIZATIONS Completed 02/12/2022, 0 02/12/2022, 03/06/2017 Procedures Procedure Name Priority Date/Time Associated Diagnosis Comments ELASTASE, STOOL Routine 05/05/2025 9:45 AM PDT Intestinal malabsorption, unspecified type LACTOFERRIN,FECAL, QUAL Routine 05/05/20 9:45 AM PDT Intestinal malabsorption, unspecified type Iron deficiency NM GASTRIC EMPTYING SOLID STAT 2024 12:53 PM PDT Pancreatic insufficiency Generalized abdominal pain CBC WITH DIFFERENTIAL Routine 04/08/2025 11:47 AM PDT Chronic sinusitis, unspecified location Allergic rhinoconjunctivitis , seasonal and perennial Frequent infections FOOD ALLERGY SCREEN Routine 04/08/2025 11:47 AM PDT Chronic sinusitis, unspecified location Allergic rhinoconjunctivitis , seasonal and perennial Frequent infections MOLDS ALLERGY SCREEN Routine 04/08/2025 11:47 AM PDT Chronic sinusitis, unspecified location Allergic rhinoconjunctivitis , seasonal and perennial Frequent infections AIRBORNE ALLERGY SCREEN Routine 04/08/20 11:47 AM PDT Chronic sinusitis, unspecified location Allergic rhinoconjunctivitis , seasonal and perennial Frequent infections COMPLEMENT C4, SERUM Routine 04/08/2025 11:47 AM PDT Chronic sinusitis, unspecified location Allergic rhinoconjunctivitis , seasonal and perennial Frequent infections COMPLEMENT C3, SERUM Routine 04/08/2025 11:47 AM PDT Chronic sinusitis, unspecified location Allergic rhinoconjunctivitis , seasonal and perennial Frequent infections CBC WITH DIFFERENTIAL Routine 04/08/2025 11:47 AM PDT Chronic sinusitis, unspecified location Allergic rhinoconjunctivitis , seasonal and perennial Frequent infections COMPLEMENT TOTAL Routine 04/08/2025 11:47 AM PDT Chronic sinusitis, unspecified location Allergic rhinoconjunctivitis , seasonal and perennial Frequent infections T SUBSETS AND B LYMPHOCYTES, BLOOD Routine 04/08/2025 11:47 AM PDT Chronic sinusitis, unspecified location Allergic rhinoconjunctivitis , seasonal and perennial Frequent infections TOTAL IGE Routine 04/08/2025 11:47 AM PDT Chronic sinusitis, unspecified location Allergic rhinoconjunctivitis , seasonal and perennial Frequent infections IGM, SERUM Routine 04/08/2025 11:47 AM PDT Chronic sinusitis, unspecified location Allergic rhinoconjunctivitis , seasonal and perennial Frequent infections IGA, SERUM Routine 04/08/2025 11:47 AM PDT Chronic sinusitis, unspecified location Allergic rhinoconjunctivitis , seasonal and perennial Frequent infections IGG, SERUM Routine 04/08/2025 11:47 AM PDT Chronic sinusitis, unspecified location Allergic rhinoconjunctivitis , seasonal and perennial Frequent infections TETANUS TOXOID IGG AB Routine 04/08/2025 11:47 AM PDT Chronic sinusitis, unspecified location Allergic rhinoconjunctivitis , seasonal and perennial Frequent infections MR ABDOMEN PANCREAS WO IV CONTRAST PAYTON 04/06/2025 6:00 PM PDT Pancreatic insufficiency 2,3-DINOR 11 BETA-PROSTAGLANDIN F2 ALPHA, 24 HOUR, URINE Routine 03/31/2025 9:30 AM PDT Mast cell activation syndrome LAB UNLISTED 1 Routine 03/31/2025 9:30 AM PDT Mast cell activation syndrome CREATININE CLEARANCE Routine 03/29/2025 12:45 PM PDT Abnormal results of other endocrine function studies FREE CORTISOL, URINE (TIMED) Routine 03/29/2025 12:45 PM PDT Abnormal results of other endocrine function studies CREATININE, SERUM/PLASMA Routine 025 12:41 PM PDT Abnormal results of other endocrine function studies CREATININE CLEARANCE Routine 03/29/2025 12:41 PM PDT Abnormal results of other endocrine function studies CATECHOLAMINES, FRACTION, SUPINE, PLASMA Routine 03/26/2025 11:12 AM PDT Encounter for general adult medical examination without abnormal findings Nonscarring hair loss, unspecified Headache, unspecified Unspecified osteoarthritis, unspecified site Other specified diseases of blood and blood-forming organs S PNEUMONIAE AB IGG (23 SEROTYPES) Routine 03/26/2025 11:00 AM PDT Acute recurrent maxillary sinusitis Chronic maxillary sinusitis CATECHOLAMINES, FRACTION, UPRIGHT, PLASMA Routine 03/26/2025 11:00 AM PDT Encounter for general adult medical examination without abnormal findings Nonscarring hair loss, unspecified Headache, unspecified Unspecified osteoarthritis, unspecified site Other specified diseases of blood and blood-forming organs METANEPHRINES FRACTIONATED FREE, PLASMA Routine 03/26/2025 11:00 AM PDT Encounter for general adult medical examination without abnormal findings Nonscarring hair loss, unspecified Headache, unspecified Unspecified osteoarthritis, unspecified site Other specified diseases of blood and blood-forming organs T4, FREE Routine 03/26/2025 11:00 AM PDT Encounter for general adult medical examination without abnormal findings Nonscarring hair loss, unspecified Headache, unspecified Unspecified osteoarthritis, unspecified site Other specified diseases of blood and blood-forming organs TSH Routine 03/26/2025 11:00 AM PDT Encounter for general adult medical examination without abnormal findings Nonscarring hair loss, unspecified Headache, unspecified Unspecified osteoarthritis, unspecified site Other specified diseases of blood and blood-forming organs FERRITIN Routine 03/26/2025 11:00 AM PDT Encounter for general adult medical examination without abnormal findings Nonscarring hair loss, unspecified Headache, unspecified Unspecified osteoarthritis, unspecified site Other specified diseases of blood and blood-forming organs ADRENOCORTICOTROPIC HORMONE (ACTH) Routine 03/26/2025 11:00 AM PDT Encounter for general adult medical examination without abnormal findings Nonscarring hair loss, unspecified Headache, unspecified Unspecified osteoarthritis, unspecified site Other specified diseases of blood and blood-forming organs CORTISOL, SERUM Routine 03/26/2025 11:00 AM PDT Encounter for general adult medical examination without abnormal findings Nonscarring hair loss, unspecified Headache, unspecified Unspecified osteoarthritis, unspecified site Other specified diseases of blood and blood-forming organs MR BRAIN SELLA PITUITARY W AND WO IV CONTRAST PAYTON 03/25/2025 8:36 PM PDT Kimberlyn disease (CMS-HCC) Other headache syndrome from Last 3 Months Results * Lactoferrin, Fecal Qual (05/05/2025 9:45 AM PDT) Lactoferrin, Fecal by TA Negative Negative 05/07/2025 7:54 PM PDT [facility] Comment: Clinical Interpretation: A negative result does not exclude the presence of intestinal inflammation. Performed By: [employer] [address] [place] [address] Skein Yarn Drier: Sharif Shah MD, PhD CLIA Number: [id number] Stool STOOL SPECIMEN / Unknown Collection / Unknown 05/05/2025 9:45 AM PDT 05/05/2025 10:45 AM PDT us Syd Martins MD LAB STOOL ORDERABLES Fi nal Result [facility] [address] [facility] [place] [address] * Elastase, Stool (05/05/2025 9:45 AM PDT) Elastase-1, Stool >500 >200 (Normal) mcg/g 05/10/2025 7:45 PM PDT [facility] Comment: Test Performed by: [facility] [address] [place] [address] Jinriksha Driver: Lebron Calhoun Ph.D.; CLIA# [id number] Stool STOOL SPECIMEN / Unknown Collection / Unknown 05/05/2025 9:45 AM PDT 05/05/2025 10:45 AM PDT us Syd Martins MD LAB STOOL ORDERABLES Fi nal Result Performing Organization Address City/State/[facility] Co de Phone Number [facility] [address] [place] [address] * NM Gastric Emptying Solid (04/22/2025 12:53 [...] transcribed above. us Syd Martins MD IMG NUC MED ORDERABLES Final Result * (ABNORMAL) CBC with Differential (04/08/2025 11:47 AM PDT) WBC 4.9 4.0 - 11.0 K/uL 04/08/2025 12:13 PM PDT [facility] RBC 4.26 3.80 - 5.20 MIL/uL 04/08/2025 12:13 PM PDT [facility] Hemoglobin 13.9 11.7 - 15.7 g/dL 04/08/2025 12:13 PM PDT [facility] Hematocrit 40.3 35.0 - 47.0 % 04/08/2025 12:13 PM PDT [facility] MCV 94.6 82.0 - 98.0 fL 04/08/2025 12:13 PM PDT [facility] MCH 32.6 27.0 - 34.0 pg 04/08/2025 12:13 PM PDT [facility] MCHC 34.5 32.0 - 36.0 g/dL 04/08/2025 12:13 PM PDT [facility] RDW 12.4 11.5 - 14.5 % 04/08/2025 12:13 PM PDT [facility] Platelet count 162 150 - 400 K/uL 04/08/2025 12:13 PM PDT [facility] Neutrophil % 56.7 % 04/08/2025 12:13 PM PDT [facility] Lymphocyte % 29.8 % 04/08/2025 12:13 PM PDT [facility] Monocyte % 12.1 % 04/08/2025 12:13 PM PDT [facility] Eosinophil % 0.8 % 04/08/2025 12:13 PM PDT [facility] Basophil % 0.6 % 04/08/2025 12:13 PM PDT [facility] Imm. Granulocyte, % 0.0 0.0 - 0.7 % 04/08/2025 12:13 PM PDT [facility] Neutrophil, Absolute 2.76 1.80 - 8.00 K/uL 04/08/2025 12:13 PM PDT [facility] Lymphocyte, Absolute 1.45(L) 1.50 - 6.50 K/uL 04/08/2025 12:13 PM PDT [facility] Monocyte, Absolute 0.59(H) 0.00 - 0.40 K/uL 04/08/2025 12:13 PM PDT [facility] Eosinophil, Absolute 0.04 0.00 - 0.20 K/uL 04/08/2025 12:13 PM PDT [facility] Basophil, Absolute 0.03 0.00 - 0.25 K/uL 04/08/2025 12:13 PM PDT [facility] Imm. Granulocyte, Abs 0.00 0.00 - 0.06 K/uL 04/08/2025 12:13 PM PDT [facility] nRBC, Abs 0.00 K/uL 04/08/2025 12:13 PM PDT [facility] nRBC, % 0.0 % 04/08/2025 12:13 PM PDT [facility] Blood VENOUS STRUCTURE / Unknown Butterfly / Unknown 04/08/2025 11:47 AM PDT 04/08/2025 12:10 PM PDT Charla Monroe MD LAB BLOOD ORDERABLES Fin al Result Performing Organization Address City/[facility]/ZIP Co de Phone Number [facility] [address] [place] [address] * Total IgE (04/08/2025 11:47 AM PDT) [facility] Total IgE 27 <100 kU/L 04/12/2025 2:23 PM PDT [facility] Blood VENOUS STRUCTURE / Unknown Butterfly / Unknown 04/08/2025 11:47 AM PDT 04/08/2025 12:03 PM PDT Charla Monroe MD LAB BLOOD ORDERABLES Fin al Result [facility] [address] [place] [address] * Tetanus Toxoid IgG Ab (04/08/2025 11:47 AM PDT) Pathologist [facility] Tetanus Toxoid IgG Ab Positive 04/12/2025 1:13 PM PDT [facility] Comment: REFERENCE VALUE Vaccinated: Positive (>= 0.01 IU/mL) Unvaccinated: Negative (< 0.01 IU/mL) Tetanus Toxoid IgG Value 0.55 IU/mL 04/12/2025 1:13 PM PDT [facility] Comment: ADDITIONAL INFORMATION This test was developed and its performance characteristics determined by [facility] in a manner consistent with CLIA requirements. This test has not been cleared or approved by the U.S. Food and Drug Administration. Test Performed by: [facility] - [address] [address] Jinriksha Driver: Lebron Calhoun Ph.D.; CLIA# [id number] Blood VENOUS STRUCTURE / Unknown Butterfly / Unknown 04/08/2025 11:47 AM PDT 04/08/2025 12:03 PM PDT Charla Monroe MD LAB BLOOD ORDERABLES [facility] al Result [address] [address] * T Subsets and B Lymphocytes, Blood (04/08/2025 11:47 AM PDT) WBC count 4,800 4,000 - 11,000 /uL 04/09/2025 11:15 AM PDT [facility] Lymphocytes % 29.7 17.8 - 42.2 % 04/09/2025 11:15 AM PDT [facility] CD3 (Bui T) % 78 55 - 83 % 04/09/2025 11:15 AM PDT [facility] CD19 (Bui B) % 10 6 - 19 % 04/09/2025 11:15 AM PDT [facility] CD3+/CD4+ % 51 28 - 57 % 04/09/2025 11:15 AM PDT [facility] CD3+/CD8+ % 22 10 - 39 % 04/09/2025 11:15 AM PDT [facility] CD4/CD8 ratio, CD3+ 2.3 1.0 - 3.6 ratio 04/09/2025 11:15 AM [facility] CD3-/16+56(NK)% 12 7 - 31 % 11:15 AM PDT [facility] Lymphocytes, Abs. 1,426 1,000 - 3,000 /uL 04/09/2025 11:15 AM PDT [facility] CD3 (Bui T), Abs. 1,112 700 - 2,100 /uL 04/09/2025 11:15 AM PDT [facility] CD19 (Bui B), Abs. 143 100 - 500 /uL 04/09/2025 11:15 AM PDT [facility] CD3+/CD4+, Abs. 727 300 - 1,400 /uL 04/09/2025 11:15 AM PDT [facility] CD3+/CD8+, Abs. 314 200 - 900 /uL 04/09/2025 11:15 AM PDT [facility] CD3-/16+56(NK),A bs. 171 90 - 600 /uL 04/09/2025 11:15 AM PDT [facility] Blood VENOUS STRUCTURE / Unknown Butterfly / Unknown 04/08/2025 11:47 AM PDT 04/08/2025 12:04 PM PDT us Charla Monroe MD LAB BLOOD ORDERABLES Fin al Result [facility] [address] [place], [place] [id number] * Molds Allergy Screen (04/08/2025 11:47 AM PDT) Penicillium <0.35 <0.35 kU/L 04/12/2025 2:23 PM PDT [facility] Mucor <0.35 <0.35 kU/L 04/12/2025 2:23 PM PDT [facility] Yeimi <0.35 <0.35 kU/L 04/12/2025 2:23 PM PDT [facility] Helminthosporium <0.35 <0.35 kU/L 04/12/2025 2:23 PM PDT [facility] Fusarium moniliforme <0.35 <0.35 kU/L 04/12/2025 2:23 PM PDT [facility] Rhizopus nigricans <0.35 <0.35 kU/L 04/12/2025 2:23 PM PDT [facility] Aureobasidium <0.35 <0.35 kU/L 04/12/2025 2:23 PM PDT [facility] Epicoccum pupurascens <0.35 <0.35 kU/L 04/12/2025 2:23 PM PDT [facility] Trichophyton rubrum <0.35 <0.35 kU/L 04/12/2025 2:23 PM PDT [facility] Aspergillus <0.35 <0.35 kU/L 04/12/2025 2:23 PM PDT [facility] Cladosporium <0.35 <0.35 kU/L 04/12/2025 2:23 PM PDT [facility] Alternaria <0.35 <0.35 kU/L 04/12/2025 2:23 PM PDT [facility] Blood VENOUS STRUCTURE / Unknown Butterfly / Unknown 04/08/2025 11:47 AM PDT 04/08/2025 12:03 PM PDT Charla Monroe MD LAB BLOOD ORDERABLES Fin al Result Performing Organization Address [facility] de Phone Number [address] [address] * IgM, Serum (04/08/2025 11:47 AM PDT) IgM, Serum 103 35 - 263 mg/dL 04/08/2025 2:45 PM PDT [facility] Blood VENOUS STRUCTURE / Unknown Butterfly / Unknown 04/08/2025 11:47 AM PDT 04/08/2025 12:03 PM PDT Charla Monroe MD LAB BLOOD ORDERABLES Fin al Result [address] [address] * IgG, Serum (04/08/2025 11:47 AM PDT) IgG, Serum 1,013 768 - 1,632 mg/dL 04/08/2025 2:45 PM PDT [facility] Blood VENOUS STRUCTURE / Unknown Butterfly / Unknown 04/08/2025 11:47 AM PDT 04/08/2025 12:03 PM PDT Charla Monroe MD LAB BLOOD ORDERABLES Fin al Result Performing Organization Address [facility]/ZIP Co de Phone Number [facility] [address] [place], [place] [phone] * (ABNORMAL) IgA, Serum (04/08/2025 11:47 AM PDT) IgA, Serum 54(L) 68 - 408 mg/dL 04/08/2025 2:46 PM PDT [facility] Blood VENOUS STRUCTURE / Unknown Butterfly / Unknown 04/08/2025 11:47 AM PDT 04/08/2025 12:03 PM PDT Charla Monroe MD LAB BLOOD ORDERABLES Fin al Result Performing Organization Address [facility] de Phone Number [facility] [address] [place] [address] * Food Allergy Screen (04/08/2025 11:47 AM PDT) Chicken <0.35 <0.35 kU/L 04/13/2025 8:32 AM PDT [facility] [place] <0.35 <0.35 kU/L 04/13/2025 8:32 AM PDT [facility] Egg White <0.35 <0.35 kU/L 04/13/2025 8:32 AM PDT [facility] Fish ([place]) <0.35 <0.35 kU/L 04/13/2025 8:32 AM PDT [facility] Milk <0.35 <0.35 kU/L 04/13/2025 8:32 AM PDT [facility] Nut ([place]) <0.35 <0.35 kU/L 04/13/2025 8:32 AM PDT [facility] Oat <0.35 <0.35 kU/L 04/13/2025 8:32 AM PDT [facility] LABORATORY [place] <0.35 <0.35 kU/L 04/13/2025 8:32 AM PDT [facility] Peanut <0.35 <0.35 kU/L 04/13/2025 8:32 AM PDT [facility] Shrimp <0.35 <0.35 kU/L 04/13/2025 8:32 AM PDT [facility] Soy <0.35 <0.35 kU/L 04/13/2025 8:32 AM PDT [facility] Tomato <0.35 <0.35 kU/L 04/13/2025 8:32 AM PDT [facility] Wheat <0.35 <0.35 kU/L 04/13/2025 8:32 AM PDT [facility] Total IgE 26 <100 kU/L 04/13/2025 8:32 AM PDT [facility] Interpretation 04/13/2025 8:32 AM PDT [facility] Comment: IgE specific anti-allergen antibody is considered negative if the result is less than 0.35 kU/L. This was the case for this specimen when tested against common causes of urticaria in children and adults. In conjunction with the normal, age-specific total IgE level, these results make an allergic reaction to food unlikely as a cause of any symptoms. Blood VENOUS STRUCTURE / Unknown Butterfly / Unknown 04/08/2025 11:47 AM PDT 04/08/2025 12:03 PM PDT us Charla Monroe MD LAB BLOOD ORDERABLES Fin al Result Performing Organization Address [facility]/ZIP Co de Phone Number [facility] [address] [place] [address] * Complement Total (04/08/2025 11:47 AM PDT) Pathologist [facility] Complement, Total 55.4 40.0 - 95.0 U/mL 04/13/2025 3:41 PM PDT [facility] Blood VENOUS STRUCTURE / Unknown Butterfly / Unknown 04/08/2025 11:47 AM PDT 04/08/2025 12:03 PM PDT Charla Monroe MD LAB BLOOD ORDERABLES Fin al Result [address] [address] * Complement C4, Serum (04/08/2025 11:47 AM PDT) Complement C4, Serum 24.0 20.0 - 59.0 mg/dL 04/08/2025 2:46 PM PDT [facility] Blood VENOUS STRUCTURE / Unknown Butterfly / Unknown 04/08/2025 11:47 AM PDT 04/08/2025 12:03 PM PDT Charla Monroe MD LAB BLOOD ORDERABLES Fin al Result Performing Organization Address [facility] de Phone Number [address] [address] * Complement C3, Serum (04/08/2025 11:47 AM PDT) Complement C3, Serum 117 86 - 184 mg/dL 04/08/2025 2:46 PM PDT [facility] Blood VENOUS STRUCTURE / Unknown Butterfly / Unknown 04/08/2025 11:47 AM PDT 04/08/2025 12:03 PM PDT Charla Monroe MD LAB BLOOD ORDERABLES Fin al Result Performing Organization Address [facility] de Phone Number [address] [address] * (ABNORMAL) Airborne Allergy Screen (04/08/2025 11:47 AM PDT) [place] Tree <0.35 <0.35 kU/L 04/13/2025 3:04 PM PDT [facility] [place] Tree <0.35 <0.35 kU/L 04/13/2025 3:04 PM PDT [facility] [place] Tree <0.35 <0.35 kU/L 04/13/2025 3:04 PM PDT [facility] [place] Tree <0.35 <0.35 kU/L 04/13/2025 3:04 PM [facility] [place] Grass <0.35 <0.35 kU/L 04/13/2025 3:04 PM PDT [facility] [place] Grass <0.35 <0.35 kU/L 04/13/2025 3:04 PM [facility] Gli Grass <0.35 <0.35 kU/L 04/13/2025 3:04 PM [facility] [place] Jean <0.35 <0.35 kU/L 04/13/2025 3:04 PM PDT [facility] Jovani Jean <0.35 <0.35 kU/L 04/13/2025 3:04 PM [facility] [place] Ragweed <0.35 <0.35 kU/L 04/13/2025 3:04 PM [facility] Alternaria <0.35 <0.35 kU/L 04/13/2025 3:04 PM [facility] Aspergillus <0.35 <0.35 kU/L 04/13/2025 3:04 PM [facility] Cladosporium <0.35 <0.35 kU/L 04/13/2025 3:04 PM [facility] Cockroach <0.35 <0.35 kU/L 04/13/2025 3:04 PM [facility] Cat Dander <0.35 <0.35 kU/L 04/13/2025 3:04 PM [facility] Dog Dander <0.35 <0.35 kU/L 04/13/2025 3:04 PM [facility] Dust Mite 2.16(H) <0.35 kU/L 04/13/2025 3:04 PM [facility] Total IgE 26 <100 kU/L 04/13/2025 3:04 PM [facility] Interpretation IgE specific anti-allergen antibody is considered [...] symptoms more likely. 04/13/2025 3:04 PM PDT [facility] Blood VENOUS STRUCTURE / Unknown Butterfly / Unknown 04/08/2025 11:47 AM PDT 04/08/2025 12:03 PM PDT us Charla Monroe MD LAB BLOOD ORDERABLES Fin al Result [facility] [address], [place] [id number] * MR Abdomen Pancreas wo IV Contrast [...] Martins MD IMG MR ORDERABLES Final Result * 2,3-Dinor 11 Beta-Prostaglandin F2 Alpha, 24 Hour, Urine (03/31/2025 9:30 AM [facility]) 2,3-dinor 11B-Prostaglandin F2a 1047 <1802 pg/mg Cr 04/06/2025 10:06 AM [facility] Comment: ADDITIONAL INFORMATION Cautions: 2,3BPG will be decreased in individuals who have taken aspirin within two weeks or other NSAIDs within 72 hours. This test was developed and its performance characteristics determined by [facility] in a manner consistent with CLIA requirements. This test has not been cleared or approved by the U.S. Food and Drug Administration. Creatinine, 24 Hour Ur 1028 603 - 1783 mg/24 h 04/06/2025 10:06 AM [facility] Creatinine Concentration 76 mg/dL 04/06/2025 10:06 AM [facility] Comment: Test Performed by: [facility] [employer] [facility] [address] [place] [address] Jinriksha Driver: Lebron Calhoun Ph.D.; CLIA# [id number] Test Performed by: [facility] [place] [address] Jinriksha Driver: Lebron Calhoun Ph.D.; CLIA# [id number] Collection Duration 24 h 04/06 10:06 AM [facility] Urine Volume 1352 mL 04/06/2025 10:06 AM PDT [facility] Urine VOIDED URINE SPECIMEN / Unknown Collection / Unknown 03/31/2025 9:30 AM PDT 03/31/2025 12:37 PM PDT Coleman Mo MD LAB URINE ORDERABLES F inal Result [facility] [address] [place] [address] * (ABNORMAL) Lab Unlisted 1 24 hr Urine N-Methylhistamine (03/31/2025 9:30 AM PDT) Test Name 24 hr Urine N-Methylh istamine 04/06/2025 3:35 PM PDT [facility] Comment:03/30/25@0930am end 03/31/25@0930am TV 1352 REFERENCE LAB CODE NMH24 2024 3:35 PM PDT [facility] Reference Lab dora 04/06/2025 3:35 PM PDT [facility] Results SEE COMMENTS( A) 04/06/2025 3:35 PM PDT [facility] Comment: Test Result Flag Unit RefValue N-Methylhistamine, 24 Hr, U N-Methylhistamine, 24 Hr 221 H mcg/g Cr 30-200 ADDITIONAL INFORMATION This test was developed and its performance characteristics determined by [facility] in a manner consistent with CLIA requirements. This test has not been cleared or approved by the U.S. Food and Drug Administration. Creatinine, 24 HR, U 1014 mg/24 h 603 - 1783 Collection Duration (h) 24 h Urine Volume (mL) 1352 mL Creatinine Concentration, 24 HR, 75 mg/dL U Test Performed by: [facility] [employer] [facility] [address] [place] [address] Jinriksha Driver: Lebron Calhoun Ph.D.; CLIA# [id number] Test Performed by: [place] [id number] Jinriksha Driver: Lebron Calhoun Ph.D.; CLIA# [id number] Urine TIMED URINE SPECIMEN / Unknown 03/31/2025 9:30 AM PDT 03/31/2025 12:37 PM PDT Coleman Mo MD LAB BODY FLUID ORDERAB LES Final Result [facility] [address] [place] [address] * Creatinine Clearance (03/29/2025 12:45 PM PDT) Height 175 cm 03/29/2025 3:42 PM PDT [facility] Weight 59.0 kg 03/29/2025 3:42 PM PDT [facility] Creatinine, Urine 71.35 29.00 - 278.00 mg/dL 03/29/2025 3:42 PM PDT [facility] Creatinine, Serum 0.75 0.40 - 1.00 mg/dL 03/29/2025 3:42 PM PDT [facility] Creatinine Clearance 85 mL/min 03/29/2025 3:42 PM PDT [facility] Comment:Creatinine Clearance results are calculated with the new IDMS traceable Creatinine method, effective December 07, 2015. Corrected Cr. Clear. 86 70 - 110 mL/min/1.7 3 m2 03/29/2025 3:42 PM PDT [facility] Creatinine Excretion 923 mg/Day 03/29/2025 3:42 PM PDT [facility] Corrected Cr. Exc. 16 mg/Kg/Day 03/29/2025 3:42 PM PDT [facility] Urine Flow 0.9 mL/min 03/29/2025 3:42 PM PDT [facility] Volume Creatinine 1,294 mL 03/29/2025 3:42 PM PDT [facility] Collection Period Creatinine 24 HR 03/29/2025 3:42 PM PDT [facility] Urine TIMED URINE SPECIMEN / Unknown 03/29/2025 12:45 PM PDT 03/29/2025 1:13 PM PDT Syd Martins MD LAB URINE ORDERABLES Fi nal Result [facility] [address] [place] [address] * Free Cortisol, Urine (Timed) (03/29/2025 12:45 PM PDT) Volume 1,294 mL 04/06/2025 12:14 PM PDT [facility] Collection Period 24 HR 04/06/2025 12:14 PM PDT [facility] Cortisol, Urine 937 ng/dL 12:14 PM PDT [facility] Cortisol excretion 12.12 <50.00 mcg/vol 04/06/2025 12:14 PM PDT [facility] Comment:Reference Range: <50 mcg/24 hours Urine TIMED URINE SPECIMEN / Unknown 03/29/2025 12:45 PM PDT 03/29/2025 1:13 PM PDT Narrative [facility] - 04/06/2025 12:14 PM PDT This test was developed and its performance characteristics determined by the [facility]. It has not been cleared or approved by the FDA. The laboratory is regulated under CLIA as qualified to perform high- complexity testing. This test is used for clinical purposes. It should not be regarded as investigational or for research. Syd Martins MD LAB URINE ORDERABLES Fi nal Result Performing Organization Address City/[facility] Co de Phone Number [facility] [address] [place] [address] * Creatinine, Serum/Plasma (03/29/2025 12:41 PM PDT) Creatinine, Ser/Plas 0.75 0.51 - 0.95 mg/dL 03/29/2025 3:40 PM PDT [facility] Comment: Measured by isotope dilution mass spectrometry [...] eGFR Refit Without Race (2020) 117 >60 mL/min/1. 73 m2 03/29/2025 3:40 PM PDT [facility] Comment: eGFR is consistent with normal renal [...] should be further informed by clinical judgment. Blood VENOUS STRUCTURE / Unknown 03/29/2025 12:41 PM PDT 03/29/2025 12:44 PM PDT Narrative [facility] - 03/29/2025 3:40 PM PDT Falsely decreased cholesterol, HDL, triglyceride, and uric acid results may be produced in patients with elevated N-acetylcysteine and Metamizole levels. us Syd Martins MD LAB BLOOD ORDERABLES nal Result [facility] [address] [place] [address] * Catecholamines, Fraction, Supine, Plasma (03/26/2025 11:12 AM PDT) Norepinephrine, Supine 398 149 - 564 pg/mL 03/31/2025 3:59 PM PDT [facility] Epinephrine, Supine <10 <58 pg/mL 03/31 3:59 PM PDT [facility] Dopamine, Supine 15 <16 pg/mL 03/31/20 25 3:59 PM PDT [facility] Catecholamines, Supine <423 <632 pg/mL 03/31/2025 3:59 PM PDT [facility] Comment: Due to stress, plasma catecholamine levels are generally unreliable in infants and small children. Urinary catecholamine assays are more reliable. This test was developed and its analytical performance characteristics have been determined by [facility]. It has not been cleared or approved by the FDA. This assay has been validated pursuant to the CLIA regulations and is used for clinical purposes. TEST PERFORMED AT: [id number] [facility] [address] [address] Logistics Assistant: Mike Alvarez MD, PhD, BOB Blood VENOUS STRUCTURE / Unknown Butterfly / Unknown 03/26/2025 11:12 AM PDT 03/26/2025 11:32 AM PDT us Syd Martins MD LAB BLOOD ORDERABLES Fi nal Result [facility]) LABORATORY [address] [place] [id number] * Catecholamines, Fractionated, Upright (03/26/2025 11:00 AM PDT) Norepinephrine, Upright 676 199 - 937 pg/mL 03/31/2025 3:59 PM PDT [facility] Epinephrine, Upright <10 <82 pg/mL 03/31/2025 3:59 PM PDT [facility] Dopamine, Upright 16 <27 pg/mL 025 3:59 PM PDT [facility] Catecholamines, Upright <702 <1046 pg/mL 03/31/2025 3:59 PM PDT [facility] Comment: Due to stress, plasma catecholamine levels are generally unreliable in infants and small children. Urinary catecholamine assays are more reliable. This test was developed and its analytical performance characteristics have been determined by [facility]. It has not been cleared or approved by the FDA. This assay has been validated pursuant to the CLIA regulations and is used for clinical purposes. TEST PERFORMED AT: [id number] [facility] [address] [address] Logistics Assistant: Mike Alvarez MD, PhD, BOB Blood VENOUS STRUCTURE / Unknown Butterfly / Unknown 03/26/2025 11:00 AM PDT 03/26/2025 11:32 AM PDT Syd Martins MD LAB BLOOD ORDERABLES Fi nal Result [facility] [address] [place] [phone] * Adrenocorticotropic Hormone (ACTH) (03/26/2025 11:00 AM PDT) ACTH 11.8 7.2 - 63.3 pg/mL 03/26/2025 12:14 PM PDT [facility] Comment:Clinical considerati on: Biotin has been identified by the fisher mussel as a potential interfering substance. Higher concentrations of biotin may be found in multivitamins, hair/nail supplements, and workout supplements. If the result does not match clinical observations and patient is taking a supplement containing biotin, repeat testing after patient refrains from the use of supplements for at least 12 hours. Blood VENOUS STRUCTURE / Unknown Butterfly / Unknown 03/26/2025 11:00 AM PDT 03/26/2025 11:33 AM PDT Syd Martins MD LAB BLOOD ORDERABLES Fi nal Result [facility] [address] [place] [address] * S Pneumoniae Ab IgG (23 Serotypes) (03/26/2025 11:00 AM PDT) S.pneum ser. 1 (1) 6.0 >=1.0 mcg/mL 03/31/2025 9:45 AM PDT [facility] S.pneum ser.12 (12F) 2.7 >=1.0 mcg/mL 03/31/2025 9:45 AM PDT [facility] S.pneum ser.14 (14) 0.1 >=1.0 mcg/mL 03/31/2025 9:45 AM PDT [facility] S.pneum ser. 17F (17) 0.5 >=1.0 mcg/mL 03/31/2025 9:45 AM PDT [facility] S.pneum ser. 19 (19F) 1.2 >=1.0 mcg/mL 03/31/2025 9:45 AM PDT [facility] S.pneum ser. 2 (2) 1.0 >=1.0 mcg/mL 03/31/2025 9:45 AM PDT [facility] S.pneum ser. 20 (20F) 0.8 >=1.0 mcg/mL 03/31/2025 9:45 AM PDT [facility] S.pneum ser. 22 (22F) 0.5 >=1.0 mcg/mL 03/31/2025 9:45 AM PDT [facility] S.pneum ser. 23 (23F) 0.4 >=1.0 mcg/mL 03/31/2025 9:45 AM PDT [facility] S.pneum ser. 26 (6B) 3.3 >=1.0 mcg/mL 03/31/2025 9:45 AM PDT [facility] S.pneum ser. 3 (3) 0.1 >=1.0 mcg/mL 03/31/2025 9:45 AM PDT [facility] S.pneum ser. 34 (10A) 0.7 >=1.0 mcg/mL 03/31/2025 9:45 AM PDT [facility] S.pneum ser. 4 (4) 0.4 >=1.0 mcg/mL 03/31/2025 9:45 AM PDT [facility] S.pneum ser. 43 (11A) 0.2 >=1.0 mcg/mL 03/31/2025 9:45 AM PDT [facility] S.pneum ser. 5 (5) 0.1 >=1.0 mcg/mL 03/31/2025 9:45 AM PDT [facility] S.pneum ser. 51 (7F) 0.3 >=1.0 mcg/mL 03/31/2025 9:45 AM PDT [facility] S.pneum ser. 54 (15B) 0.5 >=1.0 mcg/mL 03/31/2025 9:45 AM PDT [facility] S.pneum ser. 56 (18C) 0.1 >=1.0 mcg/mL 03/31/2025 9:45 AM PDT [facility] S.pneum ser. 57 (19A) 0.7 >=1.0 mcg/mL 03/31/2025 9:45 AM PDT [facility] S.pneum ser. 68 (9V) 0.8 >=1.0 mcg/mL 03/31/2025 9:45 AM PDT [facility] S.pneum ser. 70 (33F) 1.2 >=1.0 mcg/mL 03/31/2025 9:45 AM PDT [facility] S.pneum ser. 8 (8) 0.3 >=1.0 mcg/mL 03/31/2025 9:45 AM PDT [facility] S.pneum ser. 9 (9N) 0.3 >=1.0 mcg/mL 03/31/2025 9:45 AM PDT [facility] Interpretation SEE COMMENTS 03/31/2025 9:45 AM [facility] Comment: Evaluation of the immune response following [...] developed and its performance characteristics determined by [facility] in a manner consistent with CLIA requirements. This test has not been cleared or approved by the U.S. Food and Drug Administration. Test Performed by: [facility] - [address] [address] Jinriksha Driver: Lebron Calhoun Ph.D.; CLIA# [id number] Blood VENOUS STRUCTURE / Unknown Butterfly / Unknown 03/26/2025 11:00 AM PDT 03/26/2025 12:03 PM PDT Huang Hunter MD LAB BLOOD ORDERABLES F inal Result [address] [address] * TSH (03/26/2025 11:00 AM PDT) TSH 1.31 0.27 - 4.20 uIU/mL 03/26/2025 12:49 PM PDT [facility] Comment:This result is produ ron from a reformulated method that is not significantly altered with biotin concentrations up to 1200 ng/mL in blood Blood VENOUS STRUCTURE / Unknown Butterfly / Unknown 03/26/2025 11:00 AM PDT 03/26/2025 12:05 PM PDT Syd Martins MD LAB BLOOD ORDERABLES Fi nal Result [facility] [address] [place] [address] * Free T4, Serum (03/26/2025 11:00 AM PDT) Free Thyroxine 1.22 0.93 - 1.70 ng/dL 03/26/2025 12:49 PM PDT [facility] Comment: This result is produced from a reformulated method that is not significantly altered with biotin concentrations up to 1200 ng/mL in blood The free thyroxine upper reference limit for patients on levothyroxine is 2.10 ng/dL The free thyroxine (FT4) reference interval is NOT applicable to women. Blood VENOUS STRUCTURE / Unknown Butterfly / Unknown 03/26/2025 11:00 AM PDT 03/26/2025 12:05 PM PDT Syd Martins MD LAB BLOOD ORDERABLES Fi nal Result Performing Organization Address City/[facility]/ZIP Co de Phone Number [facility] [address] [place], [place] [id number] * Metanephrines Fractionated Free, Plasma (03/26/2025 11:00 AM PDT) Metanephrine Free <0.20 <0.50 nmol/L 04/01/2025 4:21 PM PDT [facility] Comment: ADDITIONAL INFORMATION This test was developed and its performance characteristics determined by [facility] in a manner consistent with CLIA requirements. This test has not been cleared or approved by the U.S. Food and Drug Administration. Test Performed by: [facility] [place] [address] Jinriksha Driver: Lebron Calhoun Ph.D.; CLIA# [id number] Normetanephrine, Free 0.38 <0.90 nmol/L 04/01/2025 4:21 PM PDT [facility] Blood VENOUS STRUCTURE / Unknown Butterfly / Unknown 03/26/2025 11:00 AM PDT 03/26/2025 12:00 PM PDT Syd Martins MD LAB BLOOD ORDERABLES Fi nal Result Performing Organization Address City/[facility]/ZIP Co de Phone Number [address] [address] * Ferritin (03/26/2025 11:00 AM PDT) Pathologist [facility] Ferritin 80.0 13 - 150 ng/mL 03/26/2025 12:49 PM PDT [facility] Comment:Clinical considerati on: Biotin has been identified by the fisher mussel as a potential interfering substance. Higher concentrations of biotin may be found in multivitamins, hair/nail supplements, and workout supplements. If the result does not match clinical observations and patient is taking a supplement containing biotin, repeat testing after patient refrains from the use of supplements for at least 12 hours. Blood VENOUS STRUCTURE / Unknown Butterfly / Unknown 03/26/2025 11:00 AM PDT 03/26/2025 12:05 PM PDT Syd Martins MD LAB BLOOD ORDERABLES nal Result [facility] [address] [place] [address] * Cortisol, Serum (03/26/2025 11:00 AM PDT) Cortisol, Serum 8.0 2.0 - 18.4 (varies, see table) ug/dL 03/26/2025 12:49 PM PDT [facility] Comment: Clinical consideration: Biotin has been identified by the fisher mussel as a potential interfering substance. Higher concentrations [...] AM 6.0-18.4 ug/dL 4:00 PM 2.7-10.5 ug/dL Blood VENOUS STRUCTURE / Unknown Butterfly / Unknown 03/26/2025 11:00 AM PDT 03/26/2025 12:05 PM PDT Syd Martins MD LAB BLOOD ORDERABLES Fi nal Result [facility] [address] [place] [address] * MR Brain Sella Pituitary w and wo IV Contrast (03/25/2025 8:36 PM PDT) Anatomical Region Laterality Modality Brain Magnetic Resonan ce 03/26/2025 8:18 AM PDT Impressions 03/26/2025 4:32 PM PDT IMPRESSION: 1. Normal MRI of the sella. 2. Layering fluid in the bilateral maxillary sinuses and sinus mucosal thickening elsewhere. Correlate with symptoms of sinusitis. Author: Wes Meehan MD Attending: Wes Pastrana MD I have personally reviewed the images for this examination and agree with the report transcribed above. Narrative 03/26/2025 4:32 PM PDT MRI BRAIN WITH AND WITHOUT CONTRAST: 03/25/2025 19:50 CLINICAL HISTORY: 19 years of age, Female, headaches. COMPARISON: 11/25/2024 PROCEDURE COMMENTS: Multiplanar and multisequence MRI of the brain was performed before and after intravenous administration of a gadolinium-based contrast agent at 3 [place]. FINDINGS: Sella: Normal pituitary gland, stalk, and optic apparatus. Parasellar structures: Normal cavernous sinuses and carotid artery flow voids. Parenchyma: No acute hemorrhage, infarction, or mass. Ventricles and extra-axial spaces: Appropriate for age. Orbits: Normal. Visualized paranasal sinuses: Scattered mucosal thickening. Layering fluid within the bilateral maxillary sinuses. Mucus retention cyst in the left frontal sinus. Mastoid air cells: Clear. Bones: Normal. Additional comment: None. Procedure Note Wes Pastrana MD - 03/26/2025 MRI BRAIN WITH AND WITHOUT CONTRAST: 03/25/2025 19:50 CLINICAL HISTORY: 19 years of age, Female, headaches. COMPARISON: 11/25/2024 PROCEDURE COMMENTS: Multiplanar and multisequence MRI of the brain wasperformed before and after intravenous administration of agadolinium-based contrast agent at 3 [place]. FINDINGS: Sella: Normal pituitary gland, stalk, and optic apparatus. Parasellar structures: Normal cavernous sinuses and carotid artery flowvoids. Parenchyma: No acute hemorrhage, infarction, or mass. Ventricles and extra-axial spaces: Appropriate for age. Orbits: Normal. Visualized paranasal sinuses: Scattered mucosal thickening. Layering fluidwithin the bilateral maxillary sinuses. Mucus retention cyst in the leftfrontal sinus. Mastoid air cells: Clear. Bones: Normal. Additional comment: None. IMPRESSION: 1. Normal MRI of the sella. 2. Layering fluid in the bilateral maxillary sinuses and sinus mucosalthickening elsewhere. Correlate with symptoms of sinusitis. Author: Wes Meehan MD Attending: Wes Pastrana MD I have personally reviewed the images for this examination and agree with the report transcribed above. us Syd Martins MD IMG MR ORDERABLES Final Result from Last 3 Months Insurance BLUE CARD (OUT OF STATE) - Care Teams Button Breaker Operator Relationship Specialty Start Date End Date Charla Monroe MD [address] [address] PCP - General Rheumatology 03/01/22
--- OUTSIDE RECORDS SUMMARY | 2025-06-20 13:49 | XMS_ITS | Encounter Summary ---
Author Organization [facility] and [facility] Address [address] [place] [address] Care Team Providers Care Veterans' Counselor Name Role Phone Charla Monroe MD Primary Care Provider + Reason for Referral * MRI/CAT/PET Scan (Urgent) - Closed Specialty Diagnoses / Procedures Referred By Contac t Referred To Contact Radiology Diagnoses [place] disease (CMS-HCC) Other headache syndrome Procedures MR Brain Sella Pituitary w and wo IV Contrast Syd Martins MD [address] [place] [address] Phone: tel: fax: Referral ID Status Reason Start Date Expiration Date Visits Re quested Visits Authorized [id number] Closed 03/11/2025 05/09/2025 2 2 Encounter Details Date Type Department Care Team (Late st Contact Info) Description 03/03/2025 Community Orders [facility] MEDLINK PROVIDERS Syd Martins MD [address] [place] [address] [place] disease (CMS-HCC) (Primary Dx) [E24.0]; Other headache syndrome [G44.89] Social History Tobacco Use Types Packs/Day Years [...] AM PST Telemedicine Neurology 2nd Floor, [facility] [address], 2nd [place] [address] Coleman Mo MD 213 [facility] [address] [place], [place] [phone] documented as of this encounter Results * MR Brain Sella Pituitary w and [...] documented in this encounter Visit Diagnoses Diagnosis [place] disease (CMS-HCC)- Primary [place]'s syndrome Other headache syndrome [place] disease (CMS-HCC) [place]'s syndrome Other headache syndrome documented in this encounter Additional Health Concerns Assessment Noted Time PHQ-9 Depression Total Score: 13 022 4:32 PM PST PHQ-2 Depression Total Score: 6 09/08/19 22 4:32 PM PST documented as of this encounter Care Teams Veterans' Counselor Relationship Specialty Start Date End Date Charla Monroe MD [address] [place] [address] PCP - General Rheumatology 03/01/22 documented as of this encounter
--- OUTSIDE RECORDS SUMMARY | 2025-06-20 13:49 | XMS_ITS | Encounter Summary ---
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] Social History Tobacco Use Types Packs/Day Years [...] 9:00 AM PST Telemedicine Neurology 2nd Floor, [facility] 213 [facility], 2nd [place] [address] Coleman Mo MD 213 [facility] [address] [place] [address] documented as of this encounter Visit Diagnoses Diagnosis Other specified intestinal malabsorption- Primary documented in this encounter Additional Health Concerns Assessment Noted Time PHQ-9 Depression Total Score: 13 022 4:32 PM PST PHQ-2 Depression Total Score: 6 09/08/19 22 4:32 PM PST documented as of this encounter Care Teams Recreation Clerk Relationship Specialty Start Date End Date Charla Monroe MD [address] [address] PCP - General Rheumatology 03/01/22 documented as of this encounter
--- OUTSIDE RECORDS SUMMARY | 2025-06-20 13:49 | XMS_ITS | Encounter Summary ---
Author Organization [facility] Address [address] [place] [address] Care Team Providers Care Set Up Inspector Name Role Phone Charla Monroe MD Primary Care Provider + Encounter Details Date Type Department Care Team (Late st Contact Info) Description 03/26/2025 Lab Requisition Laboratory [facility] [address] [place] [address] Huang Hunter MD 3[address] [facility] Real [address] [phone] Acute recurrent maxillary sinusitis [J01.01]; Chronic maxillary sinusitis [J32.0] Social History Tobacco Use Types Packs/Day Years [...] AM PST Telemedicine Neurology 2nd Floor, [facility] 213 [facility], 2nd [place] [address] Coleman Mo MD 213 [facility] [address] [place] [address] documented as of this encounter Procedures Procedure Name Priority Date/Time Associated Diagnosis Comments S PNEUMONIAE AB IGG (23 SEROTYPES) Routine 03/26/2025 11:00 AM PDT Acute recurrent maxillary sinusitis Chronic maxillary sinusitis documented in this encounter Results * S Pneumoniae Ab IgG (23 Serotypes) (03/26/2025 11:00 AM PDT) S.pneum ser. 1 (1) 6.0 >=1.0 mcg/mL 03/31/2025 9:45 AM PDT [facility] S.pneum ser.12 (12F) 2.7 >=1.0 mcg/mL 03/31/2025 9:45 AM PDT [facility] S.pneum ser.14 (14) 0.1 >=1.0 mcg/mL 03/31/2025 9:45 AM PDT [facility] S.pneum ser. 17F (17) 0.5 >=1.0 mcg/mL 03/31/2025 9:45 AM PDT [facility] S.pneum ser. 19 (19F) 1.2 >=1.0 mcg/mL 03/31/2025 9:45 AM PDT [facility] S.pneum ser. 2 (2) 1.0 >=1.0 mcg/mL 03/31/2025 9:45 AM PDT [facility] S.pneum ser. 20 (20F) 0.8 >=1.0 mcg/mL 03/31/2025 9:45 AM PDT [facility] S.pneum ser. 22 (22F) 0.5 >=1.0 mcg/mL 03/31/2025 9:45 AM PDT [facility] S.pneum ser. 23 (23F) 0.4 >=1.0 mcg/mL 03/31/2025 9:45 AM PDT [facility] S.pneum ser. 26 (6B) 3.3 >=1.0 mcg/mL 03/31/2025 9:45 AM PDT [facility] S.pneum ser. 3 (3) 0.1 >=1.0 mcg/mL 03/31/2025 9:45 AM PDT [facility] S.pneum ser. 34 (10A) 0.7 >=1.0 mcg/mL 03/31/2025 9:45 AM PDT [facility] S.pneum ser. 4 (4) 0.4 >=1.0 mcg/mL 03/31/2025 9:45 AM PDT [facility] S.pneum ser. 43 (11A) 0.2 >=1.0 mcg/mL 03/31/2025 9:45 AM PDT [facility] S.pneum ser. 5 (5) 0.1 >=1.0 mcg/mL 03/31/2025 9:45 AM PDT [facility] S.pneum ser. 51 (7F) 0.3 >=1.0 mcg/mL 03/31/2025 9:45 AM PDT [facility] S.pneum ser. 54 (15B) 0.5 >=1.0 mcg/mL 03/31/2025 9:45 AM PDT [facility] S.pneum ser. 56 (18C) 0.1 >=1.0 mcg/mL 03/31/2025 9:45 AM PDT [facility] S.pneum ser. 57 (19A) 0.7 >=1.0 mcg/mL 03/31/2025 9:45 AM PDT [facility] S.pneum ser. 68 (9V) 0.8 >=1.0 mcg/mL 03/31/2025 9:45 AM PDT [facility] S.pneum ser. 70 (33F) 1.2 >=1.0 mcg/mL 03/31/2025 9:45 AM PDT [facility] S.pneum ser. 8 (8) 0.3 >=1.0 mcg/mL 03/31/2025 9:45 AM PDT [facility] S.pneum ser. 9 (9N) 0.3 >=1.0 mcg/mL 03/31/2025 9:45 AM PDT [facility] Interpretation SEE COMMENTS 03/31/2025 9:45 AM PDT [facility] Comment: Evaluation of the immune response following [...] its performance characteristics determined by [facility] in a manner consistent with CLIA requirements. This test has not been cleared or approved by the U.S. Food and Drug Administration. Test Performed by: [facility] - [address] [address] [employer]: Lebron Calhoun Ph.D.; CLIA# [id number] Blood VENOUS STRUCTURE / Unknown Butterfly / Unknown 03/26/2025 11:00 AM PDT 03/26/2025 12:03 PM PDT us Huang Hunter MD LAB BLOOD ORDERABLES F inal Result [facility] [place] [address] [place] [address] documented in this encounter Visit Diagnoses Diagnosis Acute recurrent maxillary sinusitis Acute maxillary sinusitis Chronic maxillary sinusitis documented in this encounter Additional Health Concerns Assessment Noted Time PHQ-9 Depression Total Score: 13 022 4:32 PM PST PHQ-2 Depression Total Score: 6 09/08/19 22 4:32 PM PST documented as of this encounter Care Teams Set Up Inspector Relationship Specialty Start Date End Date Charla Monroe MD [address] [address] PCP - General Rheumatology 03/01/22 documented as of this encounter
--- OUTSIDE RECORDS SUMMARY | 2025-06-20 13:49 | XMS_ITS | Encounter Summary ---
Author Organization [facility] and [facility] Address [address] [place] [address] Care Team Providers Care Shake Table Operator Name Role Phone Charla Monroe MD Primary Care Provider + Encounter Details Date Type Department Care Team (Late st Contact Info) Description 03/29/2025 Lab Requisition Laboratory [facility] [address] [place] [address] Syd Martins MD [address] [phone] Abnormal results of other endocrine function studies [R94.7] Social History Tobacco Use Types Packs/Day Years [...] 9:00 AM PST Telemedicine Neurology 2nd Floor, [facility] 213 [facility], [address] [place] [address] Coleman Mo MD 213 [facility] [address] [place] [address] documented as of this encounter Procedures Procedure Name Priority Date/Time Associated Diagnosis Comments CREATININE CLEARANCE Routine 03/29/2025 12:45 PM PDT Abnormal results of other endocrine function studies FREE CORTISOL, URINE (TIMED) Routine 03/29/2025 12:45 PM PDT Abnormal results of other endocrine function studies CREATININE, SERUM/PLASMA Routine 03/29/2025 12:41 PM PDT Abnormal results of other endocrine function studies CREATININE CLEARANCE Routine 03/29/2025 12:41 PM PDT Abnormal results of other endocrine function studies documented in this encounter Results * Creatinine Clearance (03/29/2025 12:45 PM PDT) Height 175 cm 03/29/2025 3:42 PM PDT [facility] Weight 59.0 kg 03/29/2025 3:42 PM PDT [facility] Creatinine, Urine 71.35 29.00 - 278.00 mg/dL 03/29/2025 3:42 PM PDT [facility] Creatinine, Serum 0.75 0.40 - 1.00 mg/dL 03/29/2025 3:42 PM PDT [facility] Creatinine Clearance 85 mL/min 03/29/2025 3:42 PM PDT [facility] Comment:Creatinine Clearance results are calculated with the new IDMS traceable Creatinine method, effective December 07, 2015. Corrected Cr. Clear. 86 70 - 110 mL/min/1.7 3 m2 03/29/2025 3:42 PM PDT [facility] Creatinine Excretion 923 mg/Day 03/29/2025 3:42 PM PDT [facility] Corrected Cr. Exc. 16 mg/Kg/Day 03/29/2025 3:42 PM PDT [facility] Urine Flow 0.9 mL/min 03/29/2025 3:42 PM PDT [facility] Volume Creatinine 1,294 mL 03/29/2025 3:42 PM PDT [facility] Collection Period Creatinine 24 HR 03/29/2025 3:42 PM PDT [facility] Urine TIMED URINE SPECIMEN / Unknown 03/29/2025 12:45 PM PDT 03/29/2025 1:13 PM PDT Syd Martins MD LAB URINE ORDERABLES Fi nal Result Performing Organization Address [facility] Co de Phone Number [facility] [address] [place] [address] * Free Cortisol, Urine (Timed) (03/29/2025 12:45 PM PDT) Volume 1,294 mL 04/06/2025 12:14 PM PDT [facility] Collection Period 24 HR 04/06/2025 12:14 PM PDT [facility] Cortisol, Urine 937 ng/dL 12:14 PM PDT [facility] Cortisol excretion 12.12 <50.00 mcg/vol 04/06/2025 12:14 PM PDT [facility] Comment:Reference Range: <50 mcg/24 hours Urine TIMED URINE SPECIMEN / Unknown 03/29/2025 12:45 PM PDT 03/29/2025 1:13 PM PDT Narrative [facility] - 04/06/2025 12:14 PM PDT This test was developed and its performance characteristics determined by the [facility]. It has not been cleared or approved by the FDA. The laboratory is regulated under CLIA as qualified to perform high- complexity testing. This test is used for clinical purposes. It should not be regarded as investigational or for research. Syd Martins MD LAB URINE ORDERABLES Fi nal Result Performing Organization Address [facility] de Phone Number [facility] [address] [place] [phone] * Creatinine, Serum/Plasma (03/29/2025 12:41 PM PDT) Creatinine, Ser/Plas 0.75 0.51 - 0.95 mg/dL 03/29/2025 3:40 PM PDT [facility] Comment: Measured by [...] mL/min/1. 73 m2 03/29/2025 3:40 PM PDT [facility] Comment: eGFR is [...] PM PDT 03/29/2025 12:44 PM PDT Narrative [facility] - 03/29/2025 3:40 PM PDT Falsely decreased cholesterol, HDL, triglyceride, and uric acid results may be produced in patients with elevated N-acetylcysteine and Metamizole levels. us Syd Martins MD LAB BLOOD ORDERABLES Fi nal Result [facility] [address] [place] [address] documented in this encounter Visit Diagnoses Diagnosis Abnormal results of other endocrine function studies documented in this encounter Additional Health Concerns Assessment Noted Time PHQ-9 Depression Total Score: 13 022 4:32 PM PST PHQ-2 Depression Total Score: 6 09/08/19 22 4:32 PM PST documented as of this encounter Care Teams Shake Table Operator Relationship Specialty Start Date End Date Charla Monroe MD [address] [place] [phone] PCP - General Rheumatology 03/01/22 documented as of this encounter
--- OUTSIDE RECORDS SUMMARY | 2025-06-20 13:49 | XMS_ITS | Encounter Summary ---
Author Organization [facility] Address [address] [place] [address] Care Team Providers Care Plant Wire Chief Name Role Phone Unavailable Primary Care Provider Unavailabl e Encounter Details Date Type Department Care Team (Late st Contact Info) Description 09/14/2021 Lab Requisition [facility] Main Laboratory/Pathology Department [address] [place] [address] Mary Conte MD [address] [facility] [place] [address] Contact with and (suspected) exposure [...] Not detected Not detected 09/15/2021 7:13 PM [facility] Swab NASAL / Unknown 09/14/2021 1 1:00 AM PST 09/14/2021 5:30 PM PST Narrative [facility] - 09/15/2021 7:13 PM PST o This test is performed using the Perkin Rafy nCoV NAD assay. o This test has been authorized by FDA under an EUA for use by the [facility] Laboratory located at [address] [place] [address]. o This test has been authorized only [...] revoked sooner. Test fact sheet for Patients: https://www.fda.gov/media/017132/download us Mary Conte MD MICROBIOLOGY - GENERAL ORD [place] [address] documented in this encounter Visit Diagnoses Diagnosis Contact with and (suspected) exposure to other viral communicable diseases documented in this encounter
--- OUTSIDE RECORDS SUMMARY | 2025-06-20 13:49 | XMS_ITS | Encounter Summary ---
Author Organization [facility] Address [address] [place] [address] Care Team Providers Care Regional Clinical Director Name Role Phone Charla Monroe MD Primary Care Provider + Reason for Referral * MRI/CAT/PET Scan (Urgent) - Closed Specialty Diagnoses / Procedures Referred By Contac t Referred To Contact Radiology Diagnoses Generalized abdominal pain Diarrhea, unspecified type Procedures CT Abdomen Angiography w and wo IV Contrast Syd Martins MD [address] [address] Phone: tel: fax: Referral ID Status Reason Start Date Expiration Date Visits Re quested Visits Authorized [id number] Closed 02/22/2025 04/22/2025 1 1 Encounter Details Date Type Department Care Team (Late st Contact Info) Description 02/20/2025 Community Orders [facility] MEDLINK PROVIDERS Syd Martins MD [address] [place] [address] Generalized abdominal pain (Primary Dx) [R10.84]; Diarrhea, unspecified type [R19.7] Social History Tobacco Use Types Packs/Day Years [...] Neurology 2nd Floor, [facility] [address], 2nd [place] [address] Coleman Mo MD 213 [facility] [address] [place] [address] documented as of this encounter Results * CT Abdomen Angiography w and wo IV Contrast (03/15/2025 3:46 PM PDT) Anatomical Region Laterality Modality Abdomen Computed Tomogra phy 03/15/2025 4:31 PM PDT Addenda Addendum by Hector Tariq MD on 04/26/2025 8:12 AM PDT 3D Reformations consisting of Maximum Intensity Projections and Volume Rendered Images were performed on an independent workstation. I have personally reviewed the images for this examination and agree with the report transcribed above. Impressions 03/15/2025 4:39 PM PDT IMPRESSION: 1. Technically limited exam secondary to motion/pulsation artifact. 2. Celiacomesenteric trunk is present without evidence of significant narrowing. There is also variant mesenteric and renal artery anatomy as discussed above. 3. 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 Author: Hector Tariq MD Attending: Hector Tariq MD I have personally reviewed the images for this examination and agree with the report transcribed above. Narrative 03/15/2025 4:[address] Abd Angio w/wo : 03/15/2025 15:45 CLINICAL HISTORY: 19 years of age, abdominal pain. COMPARISON: None. PROCEDURE COMMENTS: CT of the abdomen was performed following administration of 66 mL of IV contrast. Dose information: Based on a 32 cm phantom, the estimated radiation dose (CTDIvol [mGy]) for each series in this exam is 0.08,0.08,2.88,2.88,4.13. The estimated cumulative dose (DLP [mGy-cm]) is 122.82. FINDINGS: There is separate origin of a lateral segment left hepatic artery directly from the aorta. This vessel also gives off a small phrenic artery. There is a combined celiacomesenteric trunk. There is pulsation artifact in the proximal portion of this vessel but there is no significant narrowing. The remainder of the hepatic arterial system, SMA, and TEE are patent with no significant stenosis or focal areas of dissection/enlargement. Pulsation artifacts at the right main renal artery are suggested. No significant right renal artery stenosis. Accessory right renal artery to the upper pole cortex originates cephalad to the main vessel (5:105), no significant stenosis, relatively small vessel. Pulsation artifacts at the origin of the left main renal artery, left main renal artery otherwise widely patent. There is an accessory left renal artery that originates inferior to this level and extends to the lower pole left kidney. No significant stenosis. Aorta shows no significant mural thickening. Limited assessment of venous structures. There is anteroposterior narrowing of the left renal vein as it passes between the common celiac/SMA trunk and the aorta (5 12/01/1931). Aortomesenteric angle is approximately 24 degrees. Current significance uncertain. Allowing for early phase technique limitations, the included upper abdominal solid organs show no specific findings. Include GI tract shows no evidence of bowel obstruction. Radiodensities within the moderately distended stomach could reflect ingested material. Bony structures unremarkable. Lung bases are clear. Procedure Note Hector Tariq MD - 03/15/2025 CT Abd Angio w/wo : 03/15/2025 15:45 CLINICAL HISTORY: 19 years of age, abdominal pain. COMPARISON: None. PROCEDURE COMMENTS: CT of the abdomen was performed followingadministration of 66 mL of IV contrast. Dose information: Based on a 32 cm phantom, the estimated radiation dose(CTDIvol [mGy]) for each series in this exam is 0.08,0.08,2.88,2.88,4.13.The estimated cumulative dose (DLP [mGy-cm]) is 122.82. FINDINGS: There is separate origin of a lateral segment left hepatic artery directlyfrom the aorta. This vessel also gives off a small phrenic artery. There is a combined celiacomesenteric trunk. There is pulsation artifactin the proximal portion of this vessel but there is no significantnarrowing. The remainder of the hepatic arterial system, SMA, and TEE arepatent with no significant stenosis or focal areas ofdissection/enlargement. Pulsation artifacts at the right main renal artery are suggested. Nosignificant right renal artery stenosis. Accessory right renal artery tothe upper pole cortex originates cephalad to the main vessel (5:105), nosignificant stenosis, relatively small vessel. Pulsation artifacts at the origin of the left main renal artery, left mainrenal artery otherwise widely patent. There is an accessory left renalartery that originates inferior to this level and extends to the lowerpole left kidney. No significant stenosis. Aorta shows no significant mural thickening. Limited assessment of venous structures. There is anteroposteriornarrowing of the left renal vein as it passes between the commonceliac/SMA trunk and the aorta (5 12/01/1931). Aortomesenteric angle isapproximately 24 degrees. Current significance uncertain. Allowing for early phase technique limitations, the included upperabdominal solid organs show no specific findings. Include GI tract showsno evidence of bowel obstruction. Radiodensities within the moderatelydistended stomach could reflect ingested material. Bony structures unremarkable. Lung bases are clear. IMPRESSION: 1. Technically limited exam secondary to motion/pulsation artifact. 2. Celiacomesenteric trunk is present without evidence of significantnarrowing. There is also variant mesenteric and renal artery anatomy asdiscussed above. 3. Narrowing of the left renal vein between the SMA and the aorta withnarrow aortomesenteric angle, current significance uncertain. Author: Hector Tariq MD Attending: Hector Tariq MD I have personally reviewed the images for this examination and agree with the report transcribed above. Syd Martins MD IMG CT ORDERABLES Edite d Result - Final documented in this encounter Visit Diagnoses Diagnosis Generalized abdominal pain- Primary Abdominal pain, generalized Diarrhea, unspecified type Generalized abdominal pain Abdominal pain, generalized Diarrhea, unspecified type documented in this encounter Additional Health Concerns Assessment Noted Time PHQ-9 Depression Total Score: 13 022 4:32 PM PST PHQ-2 Depression Total Score: 6 09/08/19 22 4:32 PM PST documented as of this encounter Care Teams Regional Clinical Director Relationship Specialty Start Date End Date Charla Monroe MD [address] [address] PCP - General Rheumatology 03/01/22 documented as of this encounter
--- OUTSIDE RECORDS SUMMARY | 2025-06-20 13:49 | XMS_ITS | Encounter Summary ---
Author Organization [facility] Address [address] [place] [address] Care Team Providers Care Control Systems Technician Name Role Phone Charla Monroe MD Primary Care Provider + Encounter Details Date Type Department Care Team (Late st Contact Info) Description 03/18/2025 Lab Requisition [facility] [address] [place], [place] [phone] Huang Hunter MD [address] [facility] Real [address] [phone] Acute maxillary sinusitis, unspecified [J01.00]; Chronic maxillary sinusitis [J32.0]; Unspecified infectious disease [B99.9] Social History Tobacco Use Types Packs/Day Years [...] 9:00 AM PST Telemedicine Neurology 2nd Floor, [facility] [address] [facility] [place] [address] Coleman Mo MD [address] [facility] [address] [place] [address] documented as of this encounter Procedures Procedure Name Priority Date/Time Associated Diagnosis Comments RESPIRATORY CULTURE AND GRAM STAIN Routine 03/18/2025 2:45 PM PDT Acute maxillary sinusitis, unspecified Chronic maxillary sinusitis Unspecified infectious disease documented in this encounter Results * (ABNORMAL) Respiratory Culture And Gram Stain (03/18/2025 2:45 PM PDT) Culture, Respiratory And Stain Rare number Staphylococcus aureus(A) 03/21/2025 9:58 AM PDT [facility] Comment:No further workup. T his organism was not predominant and/or it was part of jay, and therefore susceptibility testing will not be performed. Culture, Respiratory And Stain Rare number Coag Negative Staphylococcus(A) 03/21/2025 9:58 AM PDT [facility] Comment:No further workup. T his organism was not predominant and/or it was part of jay, and therefore susceptibility testing will not be performed. Gram Stain Rare number Polymorphonuclear cells 03/21/2025 9:58 AM PDT [facility] Gram Stain No organisms seen. 2024 9:58 AM PDT [facility] Secretion NASAL SINUS STRUCTURE / Unknown 03/18/2025 2:45 PM PDT 03/18/2025 9:39 PM PDT Narrative [facility] - 03/21/2025 9:58 AM PDT NOTE: When reported, oropharyngeal jay refers to a mixture of organisms, which normally colonize the upper respiratory tract, and which typically include various species of Streptococcus, Enterococci, Staphylococcus, saprophytic Neisseria, Haemophilus species, Gram positive rods such as Corynebacteria, Gram negative rods, and Yeast, among others. METHODOLOGY: Identification done by matrix assisted laser desorption ionization. This test's performance characteristics determined by the [facility]. It has not been cleared or approved by the U.S. Food and Drug Administration. Such approval is not required for tests validated by the performing laboratory. Huang Hunter MD LAB MICROBIOLOGY ORDER JOHANNE Final Result [facility] [address] [place], [place] [phone] documented in this encounter Visit Diagnoses Diagnosis Acute maxillary sinusitis, unspecified Chronic maxillary sinusitis Unspecified infectious disease documented in this encounter Additional Health Concerns Assessment Noted Time PHQ-9 Depression Total Score: 13 01/07/2 022 4:32 PM PST PHQ-2 Depression Total Score: 6 09/08/19 22 4:32 PM PST documented as of this encounter Care Teams Control Systems Technician Relationship Specialty Start Date End Date Charla Monroe MD [address] [address] PCP - General Rheumatology 03/01/22 documented as of this encounter
--- OUTSIDE RECORDS SUMMARY | 2025-06-20 13:49 | XMS_ITS | Encounter Summary ---
Author Organization [facility] Address [address] [place] [address] Care Team Providers Care Inspector Tool Name Role Phone Chalra Monroe MD Primary Care Provider + Encounter Details Date Type Department Care Team (Late st Contact Info) Description 02/27/2025 Lab Requisition Amb[facility] [address] [place], [place] [phone] Syd Martins MD [address] [phone] Diarrhea, unspecified [R19.7] Social History Tobacco Use Types Packs/Day [...] PST Telemedicine Neurology 2nd Floor, [facility] [address] [facility], 2nd Floor [place], [place] [phone] Coleman Mo MD [address] [place] [address] [address] [place] [address] Scheduled Orders Name Type Priority Associated Diagnoses Orde r Schedule WBC Stool Lab Routine Diarrhea, unspecified Ordered: 02/27/2025 documented as of this encounter Procedures Procedure Name Priority Date/Time Associated Diagnosis Comments HC FCALPRO CALPROTECTIN, FECAL Routine 02/27/2025 1:00 PM PDT Diarrhea, unspecified OCCULT BLD, IMMUNO, STOOL, DIAG TEST Routine 02/27/2025 1:00 PM PDT Diarrhea, unspecified C.DIFF TOXIN B GENE, QUAL. REAL-TIME PCR Routine 02/27/2025 1:00 PM PDT Diarrhea, unspecified FAT STAIN, STOOL Routine 02/27/2025 1:00 PM PDT Diarrhea, unspecified ELASTASE, STOOL Routine 02/27/2025 1:00 PM PDT Diarrhea, unspecified documented in this encounter Results * (ABNORMAL) Fat Stain, Stool (02/27/2025 1:00 PM PDT) Fat Stain, Stool Positive(A ) Negative 02/27/2025 6:59 PM PDT [facility] Comment: Qualitative stain for neutral fat. 2-5 fat droplets/ hpf Stool STOOL SPECIMEN / Unknown Collection / Unknown 02/27/2025 1:00 PM PDT 02/27/2025 6:28 PM PDT Syd Martins MD LAB STOOL ORDERABLES Fi nal Result [facility] [address] [place] [address] * Occult Blood Immuno, Stool (02/27/2025 1:00 PM PDT) Stool, Immuno Negative Negative 02/27/2025 5:23 PM PDT [facility] Stool STOOL SPECIMEN / Unknown Collection / Unknown 02/27/2025 1:00 PM PDT 02/27/2025 3:53 PM PDT Syd Martins MD LAB STOOL ORDERABLES Fi nal Result [facility] [address] [place] [address] * C.diff Toxin B Gene, Qual. Real-Time PCR (02/27/2025 1:00 PM PDT) C DIFFICILE TOXIN PCR Negative Negative 02/27/2025 4:47 PM PDT [facility] Comment:PCR was shown to hav e a sensitivity of 99%, negative predictive value of 99.9%, and specificity of 70% for fecal free toxin detected by immunoassay. Repeat testing within 7 days of a negative result is rarely productive. In patients with a negative result, alternative causes should be considered. In patients with a positive result, follow-up testing is not recommended for test of cure. This PCR test was developed and its performance characteristics determined by the [facility]. This test has not been cleared or approved by the U.S. Food and Drug Administration. Such approval is not required for tests validated by the performing laboratory. Stool STOOL SPECIMEN / Unknown Collection / Unknown 02/27/2025 1:00 PM PDT 02/27/2025 3:53 PM PDT Syd Martins MD LAB STOOL ORDERABLES Fi nal Result [facility] [address] [place] [id number] * Elastase, Stool (02/27/2025 1:00 PM PDT) Elastase-1, Stool >500 >200 (Normal) mcg/g 03/04/2025 4:56 PM PDT [facility] Comment: Test Performed by: [facility] [address] [place] [address] [facility]: Lebron Calhoun Ph.D.; CLIA# [id number] Stool STOOL SPECIMEN / Unknown Collection / Unknown 02/27/2025 1:00 PM PDT 02/27/2025 5:49 PM PDT Syd Martins MD LAB STOOL ORDERABLES Fi nal Result [facility] [address] [place] [address] * Fecal Calprotectin (02/27/2025 1:00 PM PDT) Calprotectin Result Normal Normal 03/03 3:43 PM PDT [facility] Calprotectin Quant 12 <50 mg/kg mg/kg 03/03/2025 3:43 PM PDT [facility] Calprotectin Interpretation 03/03/2025 3:43 PM PDT [facility] Comment:Normal: Results not suggestive of an active inflammatory process in the gastrointestinal system. Stool STOOL SPECIMEN / Unknown Collection / Unknown 02/27/2025 1:00 PM PDT 02/27/2025 5:49 PM PDT us Syd Martins MD LAB STOOL ORDERABLES Fi nal Result [facility] [address] [place], [place] [phone] documented in this encounter Visit Diagnoses Diagnosis Diarrhea, unspecified documented in this encounter Additional Health Concerns Assessment Noted Time PHQ-9 Depression Total Score: 13 022 4:32 PM PST PHQ-2 Depression Total Score: 6 09/08/19 22 4:32 PM PST documented as of this encounter Care Teams Inspector Tool Relationship Specialty Start Date End Date Charla Monroe MD [address] [facility] [address] [place] [address] PCP - General Rheumatology 03/01/22 documented as of this encounter
--- OUTSIDE RECORDS SUMMARY | 2025-06-20 13:49 | XMS_ITS | Clinical Summary ---
Author Organization [facility] Address [address] [place] [address] Care Team Providers Care Heatset Winder Operator Name Role Phone Charla Monroe MD Primary Care Provider + Allergies Active Allergy Reactions Criticality Noted Date Comments Cat Dander Congestion,Itching,S ne ezing 04/09/2025 House Dust Mite Coughing,Itching,Johanny rt ness Of Breath,Sneezing Medium 02/20/2025 Other Reaction(s): Wheezing Pollen Extracts Congestion,Itching,S ne ezing High 02/20/2025 Other Reaction(s): respiratory distress, Shortness Of Breath Medications azelastine 205.5 mcg (0.15 %) spray,non-aerosol 205.5 mcg into each nostril. 10/02/19 23 Active methylphenidate HCl (CONCERTA) 36 MG CR tablet Take 1 tablet (36 mg total) by mouth Daily. Active levalbuterol (Xopenex) 1.25 mg/3 mL nebulizer solution Take 3 mL (1.25 mg total) by nebulization every 4 (four) hours as needed for wheezing. 1 each 3 04/02/20 24 Active Additional Information Patient not taking.Reported on 04/29/2025 albuterol-budeson clint (Airsupra) 90-80 mcg/actuation HFA aerosol inhaler Inhale 2 puffs 4 (four) times a day as needed (chest symptoms). 10.7 g 2 04/02/20 24 Active loratadine (CLARITIN) 10 mg tablet Take 1 tablet (10 mg total) by mouth daily. Active aspirin 81 MG EC tablet Take 1 tablet every day by oral route. Active ergocalciferol, vitamin D2, (VITAMIN D2 ORAL) 04/01/20 22 Active ondansetron ODT (ZOFRAN ODT) 4 MG disintegrating tablet 02/11/20 24 Active Nurtec ODT 75 mg tablet,disintegra ting Take 75 mg by mouth daily as needed. 04/03/20 24 Active aspirin-acetamino phen-caffeine (Migraine Relief) 250-250-65 mg per tablet Take 1 tablet by mouth every 6 (six) hours as needed for headache. Active COQ10, LIPOSOMAL UBIQUINOL, ORAL Take by mouth. Active acetaZOLAMIDE (DIAMOX) 125 MG tablet Take 1 tablet (125 mg total) by mouth daily. 03/03/20 25 Active Qulipta 60 mg tablet Take 60 mg by mouth daily. 01/19/20 25 Active azithromycin (ZITHROMAX) 250 MG tablet Take 2 tablets (500 mg total) by mouth today, then take 1 tablet (250 mg total) by mouth daily for the next 4 days. 02/10/20 25 Active cefdinir (OMNICEF) 300 MG capsule Take 1 capsule (300 mg total) by mouth 2 (two) times a day. 02/10/20 25 Active celecoxib (CeleBREX) 200 MG capsule Take 1 capsule (200 mg total) by mouth daily. 01/19/20 25 Active cetirizine (ZyrTEC) 10 MG tablet Take 1 tablet (10 mg total) by mouth daily. 02/10/20 25 Active ciclopirox (LOPROX) 0.77 % cream Apply twice daily as needed 02/10/20 25 Active Flowflex COVID-19 Ag Home Test kit Use as directed. 0 25 Active guanFACINE (TENEX) 1 MG tablet One tab as needed nightly for hyperadrenergic symptoms 03/25/20 25 Active ivabradine (CORLANOR) 5 mg tablet Take 0.5 tablets (2.5 mg total) by mouth 2 (two) times a day. Active Anti-DiarrheaL, loperamide, 2 mg tablet Take 1 tablet (2 mg total) by mouth every 4 (four) hours. 02/10/20 25 Active mupirocin (BACTROBAN) 2 % ointment Use 2 to 4 times daily 02/10/20 25 Active naltrexone (Naltrex) 4.5 mg capsule Take 6 mg by mouth daily. Active naproxen (NAPROSYN) 500 MG tablet Take 1 tablet (500 mg total) by mouth 2 (two) times a day. 02/10/20 Active naratriptan (AMERGE) 2.5 MG tablet TAKE 1 TABLET BY MOUTH 1 TIME NEEDED. MAY REPEAT AFTER 4 HOURS. NOT TO EXCEED 2 TABLET 5 MG IN ANY 24 HOUR PERIOD Active predniSONE (DELTASONE) 20 MG tablet Use as directed. 02/10/20 25 Active Xifaxan 550 mg tablet 03/17/20 25 Active Ubrelvy 100 mg tablet 01/20/20 25 Active valACYclovir (VALTREX) 500 MG tablet Take 1 tablet (500 mg total) by mouth 2 (two) times a day. 02/05/20 Active fluticasone furoate-vilantero L (Breo Ellipta) 200-25 mcg/dose blister with deviceIndications :Mild intermittent asthma without complication Inhale 1 Inhalation daily. Rinse mouth out after use. 1 each 5 04/09/20 25 Active levalbuterol (Xopenex HFA) 45 mcg/actuation inhalerIndication s:Mild intermittent asthma without complication Inhale 2 puffs every 4 (four) hours as needed for wheezing or shortness of breath (cough, chest tightness). 15 g 5 04/09/20 25 Active budesonide (PULMICORT) 0.5 mg/2 mL nebulizer solution TAKE 2 ML TO RINSE EVERY DAY. FOR SINUS RINSE 180 mL 3 04/13/20 25 Active acetaZOLAMIDE (DIAMOX) 500 mg per 12 hr capsule Take 1 capsule (500 mg total) by mouth daily. 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 POTS (postural orthostatic tachycardia syndrome) 04/09/2025 Encounters Date Type Department Care Team Description 04/29/2025 2:45 PM PDT [facility] [address] [address] Simon Kumar MD Family history of factor V Leiden mutation (Primary Dx) 04/29/2025 Travel 04/15/2025 8:50 AM PDT Lab [facility] [address] [place] [id number] Simon Kumar MD Family history of factor V Leiden mutation 04/15/2025 8:00 AM PDT Consult [address] [address] Simon Kumar MD Family history of factor V Leiden mutation (Primary Dx) 04/15/[address] [address] Simon Kumar MD APPT NEEDED ON APR [address] KUMAR 04/15/2025 Travel 04/13/[address] [address] Melinda Benavides NEW PATIENT INSURANCE CHECKLIST 04/12/2025 Refill [facility] [address] [facility] [address] [place] [address] Dolores Ross PA-C 04/12/2025 Orders Only [facility] [address] [place] [address] [address] [place] [address] Dolores Ross PA-C 04/09/2025 11:00 AM PDT Follow-Up [facility] [address] [facility] [address] [place] [address] Dolores Ross PA-C Seasonal allergic rhinitis due to pollen (Primary Dx); Allergic rhinitis due to dust mite; Allergic rhinitis due to animal (cat) (dog) hair and dander; Mild intermittent asthma without complication; Cassie-Danlos syndrome; POTS (postural orthostatic tachycardia syndrome) 03/31/2025 Refill [facility] [address] [place] [address] Chio Hitchcock MD from Last 3 Months Family History Medical History Relation Comments No Known Problems Brother No Known Problems Father No Known Problems Mother Relation Status Comments Brother Alive Father Alive Mother Alive Sister Alive Social History Tobacco Use [...] Sign Reading Time Taken Comments Blood Pressure 107/70 04/29/2025 2:42 PM PDT Pulse 80 04/29/2025 2:42 PM PDT Temperature 36.9 C (98.4 F) 04/29/2025 2:42 PM PDT Respiratory Rate - - Oxygen Saturation 99% 04/29/2025 2:42 PM PDT Inhaled Oxygen Concentration - - Weight 58.3 kg (128 lb 9.6 oz) 04/29/2025 2:41 P M PDT Height 175.3 cm (5' 9) 04/15/2025 7:54 AM PDT Body Mass Index 18.99 04/15/2025 7:54 AM PDT Plan of Treatment Upcoming Encounters Date Type Department Care Team (Late st Contact Info) Description 08/19/2025 4:00 PM PST Follow-Up [facility] [address] [place], [place] [id number] Chio Hitchcock MD [address] [facility] [address] [place] [address] 4 mo F/U -UVL Health Maintenance Due Date Last Done Comments MMR Vaccine (1 of 1 - Standard series) 2005 Varicella Vaccine (1 of 2 - 13+ 2-dose series) 2017 HPV Vaccines (1 - 3-dose series) 12/16/2019 DTaP, Tdap, and Td Vaccines (1 - Tdap) 12/16/2023 Hepatitis B Vaccine (1 of 3 - 19+ 3-dose series) 12/16/2023 Pneumococcal Vaccines <50 yo (1 of 2 - PCV) 12/16/2023 COVID-19 Vaccine ( season) 2025 06/22/2022, 04/09/2022, 08/28/2021, Additional history exists Influenza Vaccine (#1) 2025 Zoster Vaccines (1 of 2) 2054 Hepatitis A Vaccine Aged Out No longe r eligible based on patient's age to complete this topic Hib Vaccines Aged Out No longer eligi ble based on patient's age to complete this topic Procedures Procedure Name Priority Date/Time Associated Diagnosis Comments FACTOR V LEIDEN MUTATION Routine 04/15/2025 8:55 AM PDT Family history of factor V Leiden mutation ANTICARDIOLIP AB, IGA/G/M Routine 04/15/2025 8:55 AM PDT Family history of factor V Leiden mutation ANTITHROMBIN III Routine 04/15/2025 8:55 AM PDT Family history of factor V Leiden mutation LUPUS ANTICOAGULANT COMP Routine 04/15/2025 8:55 AM PDT Family history of factor V Leiden mutation PROTEIN C Routine 04/15/2025 8:55 AM PDT Family history of factor V Leiden mutation PROTEIN S Routine 04/15/2025 8:55 AM PDT Family history of factor V Leiden mutation FACTOR II, DNA ANALYSIS Routine 04/15/2025 8:55 AM PDT Family history of factor V Leiden mutation from Last 3 Months Results * Factor II, DNA Analysis (04/15/2025 8:55 AM PDT) Pathologist [facility] [place] Factor II, DNA Analysis see below [facility] Comment:Normal (no mutation found) Additional Information see below [facility] Comment: Normal Reference: Normal (no mutation found) . Comment: A point mutation ([id number]) in the Factor II (prothrombin) gene is the second most common cause of inherited thrombosis and accounts for up to 20% of inherited thrombophilia. The incidence of this mutation in the population is 1-2% and in Americans it is 0.1%. Heterozygous carriers of this mutation have prothrombin levels that are 30% higher than normal, associated with a 3-fold increase for venous thrombosis, but the risk cannot be definitely quantified at this time due to limited data. The Factor II (prothrombin) mutation has been reported in patients with idiopathic portal vein thrombosis, in patients with cerebral vein thrombosis, in patients using oral contraceptives, and in patients with placental abruptions and growth restrictions. Another common cause of thrombosis is the Factor V Leiden mutation ([id number]). Up to 40% of the Factor II mutation carriers also carry the Factor V Leiden mutation. Testing for other known causes of thrombophilia may also be pursued. These include the Factor V Leiden mutation, plasma homocysteine levels, as well as testing for deficiencies of antithrombin III, protein C and protein S. Genetic counselors are available for health care providers to discuss results at [phone] or extension [phone]. . Methodology: DNA analysis of the Factor II gene was performed with allele-specific PCR testing using the [employer] DX system. This test methodology is highly accurate, (99.3% compared to standard bi-directional sequencing) but as in any laboratory test, diagnostic errors may occur. All test results must be combined with clinical information for the most accurate interpretation. Blood (Blood) 04/15/2025 8:5 5 AM PDT 04/15/2025 9:07 AM PDT us Simon Kumar MD LAB BLOOD ORDERABLES Final Result [facility], [address] ([facility]) [place] [address], * Anticardiolip Ab, IgA/G/M (04/15/2025 8:55 AM PDT) Anticardiolipin Ab, IgM <9 0 - 12 MPL U/mL [facility] Comment: Negative: <13 Indeterminate: 13 - 20 Low-Med Positive: >20 - 80 High Positive: >80 Anticardiolipin Ab, IgA <9 0 - 11 APL U/mL [facility] Comment: Negative: <12 Indeterminate: 12 - 20 Low-Med Positive: >20 - 80 High Positive: >80 Performed at: [facility] [employer] [address] [address], [place], [place], [id number] Dino Johnson MD, Phone: [phone] Cardiolipin Ab Scrn <9 0 - 14 GPL U/mL [facility] Comment: Negative: <15 Indeterminate: 15 - 20 Low-Med Positive: >20 - 80 High Positive: >80 Blood (Blood) 04/15/2025 8:5 5 AM PDT 04/15/2025 9:07 AM PDT us Simon Kumar MD LAB BLOOD ORDERABLES Final Result Performing Organization Address City/State/[facility] Co de Phone Number [facility], [facility] [address] [facility] ([facility]) [place] [address], * Protein S (04/15/2025 8:55 AM PDT) Protein S, Total 64 60 - 150 % [facility] Comment: This test was developed and its performance characteristics determined by [employer] It has not been cleared or approved by the Food and Drug Administration. Protein S, Free 86 61 - 136 % [facility] Protein S-Functional 63 63 - 140 % [facility] Comment: A deficiency of protein S (PS), either congenital or acquired, increases the risk of thromboembolism. PS activity levels may be falsely low in individuals with APCR/Factor V Leiden. Consider performing free protein S antigen in those with APCR/Factor V Leiden before making a diagnosis of protein S deficiency. Acquired PS deficiency is more common than congenital deficiency. PS values decrease with normal , and are also dependent on age, sex and hormone status. PS values tend to be lower in a younger age group and lower in women than in men. Levels may be decreased in pre-menopausal women on oral contraceptive agents. Acquired deficiency can occur as a result of vitamin K deficiency or antagonism, severe hepatic disorders, (hepatitis, cirrhosis, etc.), nephrotic syndrome, inflammatory bowel disease, certain chemotherapeutic agents, L-asparaginse therapy, sepsis, disseminated intravascular coagulation (DIC) and acute thrombosis. Levels may be decreased in patients with polycythemia vera, sickle cell disease and essential thrombocythemia. Repeat evaluation on a new plasma sample to confirm or refute this result should be considered, after ruling out acquired causes, depending on the clinical scenario. Performed at: [facility] [address], [id number] Dino Johnson MD, Phone: [phone] Blood (Blood) 04/15/2025 8:5 5 AM PDT 04/15/2025 9:07 AM PDT Simon Kumar MD LAB BLOOD ORDERABLES Final Result Performing Organization Address [facility] Co de Phone Number [facility], [address] ([place] [address], * Protein C (04/15/2025 8:55 AM PDT) Pathologist [facility] [place] Protein C Antigen 68 60 - 150 % [facility], [facility] Protein C-Functional 113 73 - 180 % [facility] Comment: Performed at: [facility] [employer] [place] [address], [id number] Dino Johnson MD, Phone: [phone] Blood (Blood) 04/15/2025 8:5 5 AM PDT 04/15/2025 9:07 AM PDT Simon Kumar MD LAB BLOOD ORDERABLES Final Result Performing Organization Address [facility]/ZIP Co de Phone Number [facility], [address] ([place] [address], * Lupus Anticoagulant Comp (04/15/2025 8:55 AM PDT) Dilute Prothrombin Time 37.8 0.0 - 47.6 sec [facility] dPT Confirm Ratio 0.98 0.00 - 1.34 Ratio [facility] Thrombin Time 20.5 0.0 - 23.0 sec [facility] dRVVT 35.6 0.0 - 47.0 sec [facility] PTT-LA 40.3 0.0 - 43.5 sec [facility] Interpretation Comment: [facility] Comment: No lupus anticoagulant was detected. Performed at: [facility] [employer] [facility] [address], [id number] Dino Johnson MD, Phone: [phone] Performed at: , [employer] [address], [id number] Vladislav Montes MD, Phone: [phone] Blood (Blood) 04/15/2025 8:5 5 AM PDT 04/15/2025 9:07 AM PDT us Simon Kumar MD LAB BLOOD ORDERABLES Final Result [facility] [address] [facility] ([facility]) [place] [address], * Factor V Leiden Mutation (04/15/2025 8:55 AM PDT) Factor V Leiden Mutation see below [facility] Comment:Heterozygous mutatio n found Additional Information see below [facility] Comment: Normal Reference: Normal (no mutation found) . Comment: Factor V Leiden is a specific transition mutation ([id number]) in the factor V gene that is associated with an increased risk of venous thrombosis. Factor V Leiden is more resistant to inactivation by activated protein C. As a result, factor V persists in the circulation leading to a mild hypercoagulable state. The Leiden mutation accounts for 90-95% of APC resistance, and is found in 2.5-5% of the population. Factor V Leiden has been reported in patients with deep vein thrombosis, pulmonary embolus, central retinal vein occlusion, cerebral sinus thrombosis and hepatic vein thrombosis. Other risk factors to be considered in the workup for venous thrombosis include the [id number] mutation in the factor II (prothrombin) gene, protein S and C deficiency, and antithrombin III deficiencies. Anticardiolipin antibody and lupus anticoagulant analysis may be appropriate for certain patients, as well as homocysteine levels. Genetic counselors are available for health care providers to discuss results at [phone] or extension [phone]. . Methodology:DNA analysis of the Factor V gene was performed with allele-specific PCR testing using the [employer] DX system. This test methodology is highly accurate, (99.3% compared to standard bi-directional sequencing) but as in any laboratory test, diagnostic errors may occur. All test results must be combined with clinical information for the most accurate interpretation. Blood (Blood) 04/15/2025 8:5 5 AM PDT 04/15/2025 9:07 AM PDT us Simon Kumar MD LAB BLOOD ORDERABLES Final Result [facility] [address] [facility] ([facility]) [place] [address], * Antithrombin III (04/15/2025 8:55 AM PDT) Pathologist [facility] [place] Antithrombin Activity 109 75 - 135 % [facility] Comment: Direct Xa inhibitor anticoagulants such as rivaroxaban, apixaban and edoxaban will lead to spuriously elevated antithrombin activity levels possibly masking a deficiency. Antithrombin Antigen 89 72 - 124 % [facility] Comment: Performed at: [facility] [address], [id number] Dino Johnson MD, Phone: [phone] Test(s) [id number] Antigen was developed and its performance characteristics determined by [employer] It has not been cleared or approved by the Food and Drug Administration. Blood (Blood) 04/15/2025 8:5 5 AM PDT 04/15/2025 9:07 AM PDT us Simon Kumar MD LAB BLOOD ORDERABLES Final Result Performing Organization Address City/State/[facility] Co de Phone Number [facility] [address] [facility] ([id number]) [place] [address], from Last 3 Months Insurance [employer]ance Clar[employer] [facility] Care Teams Heatset Winder Operator Relationship Specialty Start Date End Date Charla Monroe MD [address] [place] [id number] PCP - General Rheumatology 03/27/24
--- OUTSIDE RECORDS SUMMARY | 2025-06-20 13:49 | XMS_ITS | Encounter Summary ---
Author Organization [facility] Address [address] [place] [address] Care Team Providers Care Adoption Manager Name Role Phone Charla Monroe MD Primary Care Provider + Encounter Details Date Type Department Care Team (Late st Contact Info) Description 03/12/2025 Lab Requisition [facility] [address] [place] [phone] Ely De La O MD [address] [place] [address] Nausea with vomiting, unspecified [R11.2]; Diarrhea, unspecified [R19.7] Social History Tobacco Use [...] 9:00 AM PST Telemedicine Neurology 2nd Floor, [facility] [address] [facility], [facility] Floor [place], [place] [phone] Coleman Mo MD [address] [place] [address] [address] [place] [address] documented as of this encounter Procedures Procedure Name Priority Date/Time Associated Diagnosis Comments TISSUE EXAM Routine 03/11/2025 1:13 PM PDT Nausea with vomiting, unspecified Diarrhea, unspecified documented in this encounter Results * Tissue Exam (03/11/2025 1:13 PM PDT) Case Report Surgical General Case: [id number] Authorizing Provider: Ely De La O MD Collected: 03/11/2025 01:13 PM Ordering Location: [facility] Received: 03/12/2025 01:04 PM Pathologist: Natalia Cordova MD Specimens: A) - Intestine, Duodenum, Duodenum Bx B) - Stomach, Gastric Bx C) - Intestine, Colon: Various locations in one jar, Random Colon Bx 03/15/2025 11:16 AM PDT [facility] Diagnosis A. Small intestine, duodenum, biopsy No significant histopathologic abnormality B. Stomach, biopsy No significant histopathologic abnormality C. Colon, random, biopsy No significant histopathologic abnormality Andriy Nielsen MD/Natalia Cordova MD 03/15/2025 11:16 AM PDT [facility] at 1116 PDT Microscopic Description Microscopic examination was performed. 03/15/2025 11:16 AM PDT [facility] Operation Esophagogastroduod enoscopy, Colonoscopy, Possible Biopsy, Possible Polypectomy 03/15/2025 11:16 AM PDT [facility] Gross Description A. Intestine, Duodenum. A. Duodenum bx is received in formalin, labeled with the patient's name and medical record number, and consists of one aponte tissue fragment measuring 0.3 x 0.2 x 0.1 cm. The specimen is entirely submitted in one cassette labeled A1. Geraldine Norman, [facility] 03/12/2025 1:43:57 PM B. Stomach. B. Gastric bx is received in formalin, labeled with the patient's name and medical record number, and consists of two aponte tissue fragments measuring 0.5 x 0.5 x 0.1 cm in aggregate. The specimen is entirely submitted in one cassette labeled B1. Geraldine Norman, [facility] 03/12/2025 1:43:57 PM C. Intestine, Colon: Various locations in one jar. C. Random colon bx is received in formalin, labeled with the patient's name and medical record number, and consists of three aponte tissue fragments measuring 0.5 x 0.3 x 0.1 cm in aggregate. The specimen is entirely submitted in one cassette labeled C1. Geraldine Norman, SPT 03/12/2025 1:43:57 PM 03/15/2025 11:16 AM PDT [facility] Disclaimer The microscopic interpretation(s) on this report have been rendered through the microscopic review of glass slides or use of whole slide imaging (digital pathology). Histologic and histochemical quality is satisfactory. Any immunologic tests performed on this case were developed and its performance characteristics determined by [facility]. Unless indicated otherwise, the assay was performed on formalin-fixed, paraffin-embedded tissue with polymer detection system. It has not been cleared or approved by the USFDA, although such approval is not required for analyte-specific reagents of this type. This assay has not been validated on decalcified tissues. Results should be interpreted with caution given the possibility of false negativity on decalcified specimens. All controls show appropriate reactivity. 03/15/2025 11:16 AM PDT [facility] Testing Location Grossing Location: [facility] [place] Sign-out Location: [facility] 03/15/2025 11:16 AM PDT [facility] Tissue/Bone - Biopsy COLON NEC / Unknown 03/11/2025 1:13 PM PDT 03/12/2025 1:04 PM PDT Tissue specimen (specimen) STOMACH STRUCTURE / Unknown 03/11/2025 1:13 PM PDT 03/12/2025 1:04 PM PDT Tissue specimen (specimen) COLON NEC / Unknown 03/11/2025 1:13 PM PDT 03/12/2025 1:04 PM PDT us Ely De La O MD SURGICAL PATHOLOGY ORDERABLES Final Result [facility] [address] [place] [address] [place] [id number] [place], [place] [phone] documented in this encounter Visit Diagnoses Diagnosis Nausea with vomiting, unspecified Diarrhea, unspecified documented in this encounter Additional Health Concerns Assessment Noted Time PHQ-9 Depression Total Score: 13 022 4:32 PM PST PHQ-2 Depression Total Score: 6 09/08/19 22 4:32 PM PST documented as of this encounter Care Teams Adoption Manager Relationship Specialty Start Date End Date Charla Monroe MD [address] [facility] [address] [place] [address] PCP - General Rheumatology 03/01/22 documented as of this encounter
--- OUTSIDE RECORDS SUMMARY | 2025-06-20 13:49 | XMS_ITS | Encounter Summary ---
Author Organization [facility] Address [address] [place] [address] Care Team Providers Care Senior Hadoop Developer Name Role Phone Charla Monroe MD Primary Care Provider + Encounter Details Date Type Department Care Team (Late st Contact Info) Description 03/26/2025 Lab Requisition Laboratory [facility] [address] [place] [address] Syd Martins MD [address] [phone] Encounter for general adult medical examination without abnormal findings [Z00.00]; Nonscarring hair loss, unspecified [L65.9]; Headache, unspecified [R51.9]; Unspecified osteoarthritis, unspecified site [M19.90]; Other specified diseases of blood and blood-forming organs [D75.89] Social History Tobacco Use Types Packs/Day Years [...] 9:00 AM PST Telemedicine Neurology 2nd Floor, [address], [address] [place] [phone] Coleman Mo MD [address] [place] [address] [address] [place] [address] documented as of this encounter Procedures Procedure Name Priority Date/Time Associated Diagnosis Comments CATECHOLAMINES, FRACTION, SUPINE, PLASMA Routine 03/26/2025 11:12 AM PDT Encounter for general adult medical examination without abnormal findings Nonscarring hair loss, unspecified Headache, unspecified Unspecified osteoarthritis, unspecified site Other specified diseases of blood and blood-forming organs CATECHOLAMINES, FRACTION, UPRIGHT, PLASMA Routine 03/26/2025 11:00 [...] specified diseases of blood and blood-forming organs documented in this encounter Results * Catecholamines, Fraction, Supine, Plasma (03/26/2025 11:12 AM PDT) Norepinephrine, Supine 398 149 - 564 pg/mL 03/31/2025 3:59 PM PDT [facility] Epinephrine, Supine <10 <58 pg/mL 03/31 3:59 PM PDT [facility] Dopamine, Supine 15 <16 pg/mL 03/31/20 3:59 PM PDT [facility] Catecholamines, Supine <423 <632 pg/mL 03/31/2025 3:59 PM PDT [facility] Comment: Due to stress, plasma catecholamine levels are generally unreliable in infants and small children. Urinary catecholamine assays are more reliable. This test was developed and its analytical performance characteristics have been determined by [facility]. It has not been cleared or approved by the FDA. This assay has been validated pursuant to the CLIA regulations and is used for clinical purposes. TEST PERFORMED AT: [id number] [facility] [address] [phone] Natural Resource Manager: Mike Alvarez MD, PhD, BOB Blood VENOUS STRUCTURE / Unknown Butterfly / Unknown 03/26/2025 11:12 AM PDT 03/26/2025 11:32 AM PDT us Syd Martins MD LAB BLOOD ORDERABLES Fi nal Result [facility] [address] [place] [phone] * Catecholamines, Fractionated, Upright (03/26/2025 11:00 AM PDT) Norepinephrine, Upright 676 199 - 937 pg/mL 03/31/2025 3:59 PM PDT [facility] Epinephrine, Upright <10 <82 pg/mL 03/31/2025 3:59 PM PDT [facility] Dopamine, Upright 16 <27 pg/mL 025 3:59 PM PDT [facility] Catecholamines, Upright <702 <1046 pg/mL 03/31/2025 3:59 PM PDT [facility] Comment: Due to stress, plasma catecholamine levels are generally unreliable in infants and small children. Urinary catecholamine assays are more reliable. This test was developed and its analytical performance characteristics have been determined by [facility]. It has not been cleared or approved by the FDA. This assay has been validated pursuant to the CLIA regulations and is used for clinical purposes. TEST PERFORMED AT: [id number] [facility] [address] [phone] Natural Resource Manager: Mike Alvarez MD, PhD, BOB Blood VENOUS STRUCTURE / Unknown Butterfly / Unknown 03/26/2025 11:00 AM PDT 03/26/2025 11:32 AM PDT us Syd Martins MD LAB BLOOD ORDERABLES Fi nal Result [facility] [address] [place] [phone] * Metanephrines Fractionated Free, Plasma (03/26/2025 11:00 AM PDT) Metanephrine Free <0.20 <0.50 nmol/L 04/01/2025 4:21 PM PDT [facility] Comment: ADDITIONAL INFORMATION This test was developed and its performance characteristics determined by [facility] in a manner consistent with CLIA requirements. This test has not been cleared or approved by the U.S. Food and Drug Administration. Test Performed by: [address] [address] Roller Painter: Lebron Calhoun Ph.D.; CLIA# [id number] Normetanephrine, Free 0.38 <0.90 nmol/L 04/01/2025 4:21 PM PDT [facility] Blood VENOUS STRUCTURE / Unknown Butterfly / Unknown 03/26/2025 11:00 AM PDT 03/26/2025 12:00 PM PDT Syd Martins MD LAB BLOOD ORDERABLES Fi nal Result [address] [address] * Free T4, Serum (03/26/2025 11:00 AM PDT) Free Thyroxine 1.22 0.93 - 1.70 ng/dL 03/26/2025 12:49 PM PDT [facility] Comment: This result is produced from [...] MD LAB BLOOD ORDERABLES Fi nal Result [facility] [address] [place] [phone] * TSH (03/26/2025 11:00 AM PDT) TSH 1.31 0.27 - 4.20 uIU/mL 03/26/2025 12:49 PM PDT [facility] Comment:This result is produ ron from a reformulated method that is not significantly altered with biotin concentrations up to 1200 ng/mL in blood Blood VENOUS STRUCTURE / Unknown Butterfly / Unknown 03/26/2025 11:00 AM PDT 03/26/2025 12:05 PM PDT Syd Martins MD LAB BLOOD ORDERABLES Fi nal Result Performing Organization Address [facility] Co de Phone Number [facility] [address] [place] [phone] * Ferritin (03/26/2025 11:00 AM PDT) Ferritin 80.0 13 - 150 ng/mL 03/26/2025 12:49 PM PDT [facility] Comment:Clinical considerati on: Biotin has been identified by the car repair supervisor as a potential interfering substance. Higher concentrations [...] ORDERABLES Fi nal Result Performing Organization Address [facility] Co de Phone Number [facility] [address] [place] [phone] * Adrenocorticotropic Hormone (ACTH) (03/26/2025 11:00 AM PDT) ACTH 11.8 7.2 - 63.3 pg/mL 03/26/2025 12:14 PM PDT [facility] Comment:Clinical considerati on: Biotin has been identified by the car repair supervisor as a potential interfering substance. Higher concentrations [...] MD LAB BLOOD ORDERABLES Fi nal Result [facility] [address] [place] [address] * Cortisol, Serum (03/26/2025 11:00 AM PDT) Cortisol, Serum 8.0 2.0 - 18.4 (varies, see table) ug/dL 03/26/2025 12:49 PM PDT [facility] Comment: Clinical consideration: Biotin has been identified by the car repair supervisor as a potential interfering substance. Higher concentrations [...] MD LAB BLOOD ORDERABLES Fi nal Result [facility] [address] [place] [address] documented in this encounter Visit Diagnoses Diagnosis Encounter for general adult medical examination without abnormal findings Unspecified general medical examination Nonscarring hair loss, unspecified Headache, unspecified Unspecified osteoarthritis, unspecified site Other specified diseases of blood and blood-forming organs documented in this encounter Additional Health Concerns Assessment Noted Time PHQ-9 Depression Total Score: 13 022 4:32 PM PST PHQ-2 Depression Total Score: 6 09/08/19 22 4:32 PM PST documented as of this encounter Care Teams Senior Hadoop Developer Relationship Specialty Start Date End Date Charla Monroe MD [address] [place] [phone] PCP - General Rheumatology 03/01/22 documented as of this encounter
--- OUTSIDE RECORDS SUMMARY | 2025-06-20 13:49 | XMS_ITS | Clinical Summary ---
Author Organization [facility] Address [address] [place] [phone] Care Team Providers Care Streetcar Motorman Name Role Phone Clinic, No Pcp Or [...] screening for age 18-79 2022 Influenza Vaccine (#1) 2025 , 07/20/2021, 07/04/2020, Additional history exists Tetanus booster 03/06/2027 03/06/2017 RSV vaccine for adults or (1 - 1-dose 75+ series) 12/16/2079 Hepatitis B series for 19+ Completed 06/21, 01/16/2005, 2004 Pneumococcal series for age 6-49 Aged Out 12/20/2005, 06/21/2005, 04/19/2005, Additional history exists No longer eligible based on patient's age to complete this topic Meningococcal series for age 11-21 Aged Out 03/06/2017 No longer eligible based on patient's age to complete this topic HPV series for age 9-45 Completed 03/19/2019, 03/06 COVID-19 vaccine series Completed 05/27/20 24, 07/05/2023, 06/22/2022, Additional history exists Insurance [employer]UE [employer] OF [facility] Care Teams Streetcar Motorman Relationship Specialty Start Date End Date Clinic, No Pcp Or . PCP - General 05/31/23
--- NOTE | 2025-06-20 14:09 | ED.GENADULT ---
HPI - General Adult General Chief complaint: Allergic Reaction Stated complaint: allergic reaction 4 days Time Seen by Provider: 06/20/25 13:47 History of Present Illness HPI narrative: Patient has mast cell activation syndrome, she gets multiple allergies, the change of weather, certain foods, sometimes even dairy issues. She has factor 5 Leiden mutation heterozygous. She is at [place]. She is from [place]. She had a rash a couple days ago took some prednisone she has been taking Benadryl also will at times takes Zyrtec and she has been doing okay with that but wonders if there is anything else she can do. She has been eating and drinking adequately when she eats she feels a little upset her stomach. No fevers, chills, weight loss, chest pain or shortness of breath. No leg swelling or edema. Related Data Home Medications ?Medication ?Instructions ?Recorded ?Confirmed [facility] 11/30/23 01/27/25 Claritin 11/30/23 01/27/25 Ritalin 11/30/23 01/27/25 albuterol 11/30/23 01/27/25 aspirin 11/30/23 01/27/25 prednisone 11/30/23 01/27/25 Previous Rx's ?Medication ?Instructions ?Recorded acetaminophen 300 mg-codeine 30 mg 1 tab PO Q6H PRN pain #15 tabs 12/04/23 tablet methylprednisolone 4 mg tablets in See Rx Instructions PO .COMPLEX 12/04/23 a dose pack (Medrol (Clive)) #21 ea ondansetron 4 mg disintegrating 4 mg PO Q6H #20 tabs 12/09/24 tablet Allergies Allergy/AdvReac Type Severity Reaction Status Date / Time No Known Drug Allergies Allergy Verified 01/27/25 09:40 Review of Systems Status of ROS: Reports: 6 or more systems reviewed and unremarkable except as noted in History and below [facility] Medical History Factor 5 Leiden mutation, heterozygous ?D68.51 - Activated protein C resistance (ICD-10) Asthma ?J45.909 - Unspecified asthma, uncomplicated (ICD-10) Social History Smoking Status: Never smoker Do you use any of these nicotine containing products: None Second hand tobacco smoke exposure: No How often do you have a drink containing alcohol: never How often do you have six or more drinks on one occasion: Never AUDIT-C Alcohol total score: 0 Non-prescribed substance use: denies use service: No Exam Narrative: Exam Narrative: Vital signs are unremarkable, O2 sat is excellent at 90% In general no apparent distress HEENT unremarkable mouth clear throat clear neck is supple chest is clear no rales or wheezing . Pulse regular. Neurologic grossly nonfocal Const: Vital Signs, click to edit/add: Vital Signs - 24 hr 06/20/25 13:49 Temperature 97.9 F Pulse Rate [Pulse Oximeter] 88 Respiratory Rate 18 Blood Pressure [[facility]] 122/88 Pulse Oximetry 98 Oxygen Delivery Me thod Room Air Course Vital Signs Vital signs: Initial Vital Signs Temperature 97.9 F 06/20/25 13:49 Temperature Source Temporal Artery Scan 06/20/25 13:49 Pulse Rate 88 06/20/25 13:49 Pulse Rhythm Regular 06/20/25 13:49 Respiratory Rate 18 06/20/25 13:49 Blood Pressure 122/88 06/20/25 13:49 Blood Pressure Mean 99 06/20/25 13:49 Blood Pressure Position Sitting 06/20/25 13:49 Pulse Oximetry 98 06/20/25 13:49 Oxygen Delivery Method Room Air 06/20/25 13:49 Vital Signs Temperature 97.9 F 06/20/25 13:49 Pulse Rate 88 06/20/25 13:49 Respiratory Rate 18 06/20/25 13:49 Blood Pressure 122/88 06/20/25 13:49 Pulse Oximetry 98 06/20/25 13:49 Oxygen Delivery Method Room Air 06/20/25 13:49 Temperature 97.9 F 06/20/25 13:49 Pulse Rate 88 06/20/25 13:49 Respiratory Rate 18 06/20/25 13:49 Blood Pressure 122/88 06/20/25 13:49 Pulse Oximetry 98 06/20/25 13:49 Oxygen Delivery Method Room Air 06/20/25 13:49 Medications Administered Medications: Discontinued Medications Generic Name Dose Route Start Last Admin Trade Name Freq PRN Reason Stop Dose Admin Sodium Chloride 1,000 mls @ 6,000 mls/hr 06/20/25 14:15 06/20/25 15:29 0.9 % Sodium Chloride 1000 Ml IV 06/20/25 14:24 Infused .Q10M DAHIANA Infusion Medical Decision Making MDM Narrative Medical decision making narrative: Patient with history of allergy and mast cell activation syndrome currently on proper medications. Flare is abating but still has some occasional stomach upset when she eats. I think could be milton to give her a L of fluid. Continue home medications. Observe, and recheck as needed. She was comfortable this plan will follow up as needed. I do not detect any significant abdominal pain that would require further imaging or other studies. Discharge Plan Discharge Clinical Impression: Mast cell activation syndrome Patient Disposition: Home, Self-Care Condition: Stable Additional Instructions: Continue home meds, recheck as needed Activity Level: No Restrictions Discharge Diet: Regular Prescriptions: No Action prednisone Ritalin Claritin aspirin albuterol [facility] acetaminophen-codeine 300-30 mg tablet 1 tab PO Q6H PRN (Reason: pain) Qty: 15 0RF methylprednisolone [Medrol (Clive)] 4 mg tablets,dose pack See Rx Instructions .ROUTE .COMPLEX Qty: 21 0RF Rx Instructions: orally per package directions ondansetron 4 mg tablet,disintegrating 4 mg PO Q6H Qty: 20 0RF Follow Up/Referrals: Provider,Not a Local [Primary Care Provider, Family Practice] Stand Alone Forms: [facility] Info Instructions
== END 2025-06-20 15:29 | disposition home or self-care (01) ==
PROVIDERS: Emergency Provider Family Medicine
DX: D89.40 Mast cell activation, unspecified (principal)
CPT/HCPCS: 99283; 99284; J7030

== ENCOUNTER 2025-06-20 19:02 | Emergency (ER) | payer BC, SELFPAY ==
[2025-06-20 20:01] VITALS: BP 139/82; PULSE 86; RESP 16; TEMP 36.8; O2SAT 100; BMI 17.7
--- NOTE | 2025-06-20 21:07 | ED.ABDPAIN ---
HPI - Abdominal Pain General Date Seen: 06/20/25 Chief Complaint: Abdominal Pain Stated Complaint: Appendicitis Concerns Time Seen by Provider: 06/20/25 20:42 Source: patient, RN notes reviewed and old records reviewed Mode of arrival: ambulatory Limitations: no limitations History of Present Illness HPI narrative: Patient is a 19-year-old female who was seen earlier in the day, her mast cell activation syndrome. The comes back here for abdominal pain, history of abdominal pain is that she has had this now for 3-4 months, but is a little bit worse in the last month. Whenever she eats she gets some pain around her umbilical region. There is no radiation to her back associated with this, she does throw up at times associated with the pain, she has noted no change in her bowel movements and has had no fevers or chills. She has been worked up back in [place] where she is from, with GI with both an upper and lower endoscopy. She called her family doctor today who recommended that she come back to the ER, as he could not rule out appendicitis. She has had no fevers or chills, no dysuria frequency she has had no sexual partners, and says her periods are otherwise normal. She has a history of POTS syndrome, mast cell activation syndrome, factor 5 Leiden mutation, migraine headaches, She has had on her abdomen 2 CT scans, 1 in the spring in this institution, and 1 also in the summer in [place], she also had a chest CT done here. The remainder of her imaging is all MRIs. Her father had a history of chronic appendicitis, and her brother had his appendix taken out. GI is culture abdominal pain to irritable bowel. MD elicited complaint: abdominal pain Pain Consistency: constant and colicky Location: periumbilical Severity: moderate Quality: cramping Radiation: none Migration to: no migration Exacerbating factors: eating Relieving factors: nothing Context: history of similar episodes Associated symptoms: nausea and vomiting Related Data Patient : No Home Medications ?Medication ?Instructions ?Recorded ?Confirmed [facility] 11/30/23 01/27/25 Claritin 11/30/23 01/27/25 Ritalin 11/30/23 01/27/25 albuterol 11/30/23 01/27/25 aspirin 11/30/23 01/27/25 prednisone 03/30/24 05/28/25 Previous Rx's ?Medication ?Instructions ?Recorded acetaminophen 300 mg-codeine 30 mg 1 tab PO Q6H PRN pain #15 tabs 12/04/23 tablet methylprednisolone 4 mg tablets in See Rx Instructions PO .COMPLEX 12/04/23 a dose pack (Medrol (Clive)) #21 ea ondansetron 4 mg disintegrating 4 mg PO Q6H #20 tabs 12/09/24 tablet Allergies Allergy/AdvReac Type Severity Reaction Status Date / Time No Known Drug Allergies Allergy Verified 01/27/25 09:40 [facility] Medical History Factor 5 Leiden mutation, heterozygous ?D68.51 - Activated protein C resistance (ICD-10) Asthma ?J45.909 - Unspecified asthma, uncomplicated (ICD-10) Social History Smoking Status: Never smoker Do you use any of these nicotine containing products: None Second hand tobacco smoke exposure: No How often do you have a drink containing alcohol: never How often do you have six or more drinks on one occasion: Never AUDIT-C Alcohol total score: 0 Non-prescribed substance use: denies use service: No Exam Narrative: Exam Narrative: On examination room 7 I find her delightful she is in no apparent distress, pupils are equal round reactive to light there is no scleral icterus redness oropharynx is normal her chest is clear bilaterally with no wheezing heart sounds are normal her abdomen is soft and scaphoid, deep in the periumbilical and bilateral lower quadrants she has some mild discomfort, there is no masses noted negative Vasquez sign, no CVA tenderness she moves all extremities independently and well. Her jump test is negative. Const: Vital Signs, click to edit/add: Vital Signs - 24 hr 06/20/25 20:01 Temperature 98.3 F Pulse Rate [Pulse Oximeter] 86 Respiratory Rate 16 Blood Pressure [Ri ght Upper Arm] 139/82 Pulse Oximetry 100 Oxygen Delivery Me thod Room Air Documenting provider has reviewed patient's vital signs: yes Course Course ED Course: Carla's laboratory work came back, I reviewed these with her, no acute abnormality is seen. I did offer her CT scan which she declined. I think this is reasonable however and I her pain and issues fit a more irritable bowel syndrome. I encouraged her to follow up with her primary care physician or GI. Return if signs and symptoms of worsening which we discussed. Vital Signs Vital signs: Initial Vital Signs Temperature 98.3 F 06/20/25 20:01 Temperature Source Temporal Artery Scan 06/20/25 20:01 Pulse Rate 86 06/20/25 20:01 Pulse Rhythm Regular 06/20/25 20:01 Respiratory Rate 16 06/20/25 20:01 Blood Pressure 139/82 06/20/25 20:01 Blood Pressure Mean 101 06/20/25 20:01 Blood Pressure Position Sitting 06/20/25 20:01 Pulse Oximetry 100 06/20/25 20:01 Oxygen Delivery Method Room Air 06/20/25 20:01 Vital Signs Temperature 98.3 F 06/20/25 20:01 Pulse Rate 86 06/20/25 20:01 Respiratory Rate 16 06/20/25 20:01 Blood Pressure 139/82 06/20/25 20:01 Pulse Oximetry 100 06/20/25 20:01 Oxygen Delivery Method Room Air 06/20/25 20:01 Temperature 98.3 F 06/20/25 20:01 Pulse Rate 86 06/20/25 20:01 Respiratory Rate 16 06/20/25 20:01 Blood Pressure 139/82 06/20/25 20:01 Pulse Oximetry 100 06/20/25 20:01 Oxygen Delivery Method Room Air 06/20/25 20:01 MDM - Abdominal Pain MDM Narrative Medical decision making narrative: I explained to her that she is 19 years old she has had a fair amount of imaging already, the MRIs are not so bad but this the x-rays and CTs that increase your risk of malignancy as we age. I have a very low suspicion this may be appendicitis given her examination and history. I think it would be reasonable to do some blood test, and then discuss with her further treatment. During the evaluation of this patient I considered multiple differential diagnosis including life-threatening differentials which are appendicitis, aortic aneurysm, mesenteric ischemia, bowel perforation, ectopic , volvulus and bowel obstruction, other differential diagnosis include but are not limited to inflammatory bowel disease, cholecystitis, pancreatitis, hepatitis, gastritis, GERD, diverticulitis, peptic ulcer disease, pyelonephritis/UTI, renal colic/stone, pelvic inflammatory disease, cervicitis, endometritis, intrauterine , dysfunctional uterine bleeding, ovarian cyst/torsion, spontaneous as well as other etiologies Lab Data Labs: Lab Results 06/20/25 06/20/25 Range/Units 21:10 22:10 WBC 7.21 (4.50-11.00) K/uL RBC 4.06 (4.00-5.20) m/uL Hgb 13.1 (12.0-16.0) gm/dL Hct 38.8 (33.0-51.0) % MCV 96 (80-100) fL MCH 32 (26-34) pg MCHC 34 (32-36) gm/dL RDW Coeff of [place] 11.7 (11.5-15.5) % Plt Count 215 (140-440) K/uL Neut % (Auto) 56.7 (42.0-72.0) % Lymph % (Auto) 32.2 (20-44) % [place] % (Auto) 9.8 (0.0-11.0) % Eos % (Auto) 0.6 (0.0-7.0) % Baso % (Auto) 0.6 (0.0-3.0) % Neut # (Auto) 4.09 (1.7-7.0) K/uL Lymph # (Auto) 2.32 (0.90-2.90) K/uL [place] # (Auto) 0.70 (0.00-0.90) K/UL Eos # (Auto) 0.04 (0.00-0.50) K/uL Baso # (Auto) 0.04 (0.00-0.30) K/uL Abs Immat Gran (auto) 0.01 (0.00-0.30) K/uL Imm/Tot Granulo (auto) 0.1 % Sodium 137 (135-149) mmol/L Potassium 3.3 L (3.6-5.1) mmol/L Chloride 107 (96-114) mmol/L Carbon Dioxide 23 (20-32) mmol/L Anion Gap 7 (7-15) mEq/L BUN 12 (5-24) mg/dL Creatinine 0.6 (0.5-1.5) mg/dL Estimated Creat Clear 128.52 Estimated GFR 132 ml/min Glucose 87 (60-115) mg/dL Calcium 8.8 (8.4-10.6) mg/dL Total Bilirubin 0.5 (0.1-1.5) mg/dL Direct Bilirubin 0.2 (0.0-0.5) mg/dL AST 20 (12-35) U/L ALT 21 (4-35) U/L Alkaline Phosphatase 62 (40-150) U/L C-Reactive Protein < 0.5 L (0.5-1.0) mg/dL Total Protein 6.5 (6.0-8.3) g/dL Albumin 4.0 (3.3-5.0) g/dL Lipase 199 (23-300) U/L Procalcitonin 0.04 (<0.50) ng/mL Urine Color Yellow (Yellow) Urine Appearance Clear (Clear) Urine pH 7.0 (5.0-8.5) Ur Specific [place] 1.015 (1.000-1.030) Urine Protein Negative (Negative) Urine Glucose (UA) Negative (Negative) Urine Ketones Trace A (Negative) Urine Blood Negative (Negative) Urine Nitrite Negative (Negative) Urine Bilirubin Negative (Negative) Urine Urobilinogen 0.2 (0.2-1.0) Ur Leukocyte Esterase Negative (Negative) Urine RBC 0-2 (0-2) Urine WBC 0-2 (0-5) Ur Squamous Epith Cells Few (None-Few) Amorphous Sediment Few A (None) Urine Bacteria Few A (None) Urine HCG, Qual Negative (Negative) Discharge Plan Discharge Clinical Impression: Abdominal pain Patient Disposition: Home, Self-Care Condition: Stable Instructions: Abdominal Pain (ED) Additional Instructions: Home rest return if fevers chills increasing nausea vomiting or pain, follow-up with GI is suggested or lease consulting with her primary care physician. Activity Level: Light activity Discharge Diet: Clear Liquid Prescriptions: No Action prednisone Ritalin Claritin aspirin albuterol [facility] acetaminophen-codeine 300-30 mg tablet 1 tab PO Q6H PRN (Reason: pain) Qty: 15 0RF methylprednisolone [Medrol (Clive)] 4 mg tablets,dose pack See Rx Instructions .ROUTE .COMPLEX Qty: 21 0RF Rx Instructions: orally per package directions ondansetron 4 mg tablet,disintegrating 4 mg PO Q6H Qty: 20 0RF Follow Up/Referrals: Provider,Not a Local [Primary Care Provider, Family Practice] Stand Alone Forms: TripTouch Info Instructions
[2025-06-20 21:18] LABS: Hematocrit* 38.8 % (33.0-51.0); Hemoglobin* 13.1 gm/dL (12.0-16.0); Immature Granulocytes Abs Auto 0.01 K/uL (0.00-0.30); Immature Granulocytes Pct Auto 0.1 %; Lymphocytes Absolute Auto 2.32 K/uL (0.90-2.90); Mean Corpuscular HGB Conc 34 gm/dL (32-36); Mean Corpuscular Hemoglobin 32 pg (26-34); Mean Corpuscular Volume 96 fL (80-100); RDW Coefficient of Variation % 11.7 % (11.5-15.5); Red Blood Count* 4.06 m/uL (4.00-5.20); White Blood Count* 7.21 K/uL (4.50-11.00)
[2025-06-20 21:21] LABS: Slide Review Reflex No
[2025-06-20 21:32] LABS: Albumin* 4.0 g/dL (3.3-5.0); Chloride* 107 mmol/L (96-114); Sodium* 137 mmol/L (135-149)
[2025-06-20 21:33] LABS: Potassium* 3.3 mmol/L (3.6-5.1)
[2025-06-20 21:35] LABS: Alanine Aminotransferase* 21 U/L (4-35); Alkaline Phosphatase* 62 U/L (40-150); Anion Gap 7 mEq/L (7-15); Aspartate Amino Transferase* 20 U/L (12-35); Bilirubin Direct* 0.2 mg/dL (0.0-0.5); Bilirubin Total* 0.5 mg/dL (0.1-1.5); Blood Urea Nitrogen* 12 mg/dL (5-24); Carbon Dioxide* 23 mmol/L (20-32); Creatinine* 0.6 mg/dL (0.5-1.5); Est. Creatinine Clearance* 128.52; Estimated Glomerular Filt Rate 132 ml/min; Total Protein* 6.5 g/dL (6.0-8.3)
[2025-06-20 21:36] LABS: Calcium* 8.8 mg/dL (8.4-10.6); Glucose* 87 mg/dL (60-115)
[2025-06-20 21:52] LABS: Procalcitonin* 0.04 ng/mL (<0.50)
[2025-06-20 22:25] LABS: Appearance Urine Clear (Clear)
[2025-06-20 22:31] LABS: Ur HCG Qualitative* Negative (Negative)
== END 2025-06-20 23:09 | disposition home or self-care (01) ==
PROVIDERS: Emergency Provider Family Medicine
DX: R10.9 Unspecified abdominal pain (principal); D89.40 Mast cell activation, unspecified
CPT/HCPCS: 36415; 80048; 80076; 81001; 81025; 83690; 84145; 85025; 86140; 87086; 99284

== ENCOUNTER 2025-06-29 10:08 | Outpatient (RCR) | payer BC, SELFPAY | END 2025-06-29 10:45 | disposition home or self-care (01) | PROVIDERS: Visit Provider Student in an Organized Health Care Education/Training Program | DX: Z51.89 Encounter for other specified aftercare (principal) ==